=== PATIENT | female | born 1960 | race Caucasian/White ===

== ENCOUNTER → 2020-02-10 13:56 | Outpatient (BNVA) | payer MEDICAID, SELFPAY | PROVIDERS: Family Provider Family Medicine; PCP Family Medicine; Visit Provider Family Medicine | DX: E11.9 Type 2 diabetes mellitus without complications (principal) | CPT/HCPCS: 80048; 83036 ==

== ENCOUNTER → 2020-06-01 11:20 | Outpatient (BNVA) | payer MEDICAID, SELFPAY | PROVIDERS: Family Provider Family Medicine; PCP Family Medicine; Visit Provider Family Medicine | DX: E11.9 Type 2 diabetes mellitus without complications (principal); I10 Essential (primary) hypertension; J41.0 Simple chronic bronchitis; Z99.81 Dependence on supplemental oxygen; F41.9 Anxiety disorder, unspecified; M54.42 Lumbago with sciatica, left side; M54.41 Lumbago with sciatica, right side; G89.29 Other chronic pain | CPT/HCPCS: 80048; 83036 ==

== ENCOUNTER 2020-08-26 03:06 | Inpatient (IN) | payer MEDICAID, SELFPAY ==
[2020-08-26] VITALS (58 sets, daily range): BP systolic 114–170; BP diastolic 66–116; PULSE 60–89; RESP 15–33; TEMP 36.6–37.2; O2SAT 90–98
--- NOTE | 2020-08-26 03:07 | ECG_ITS ---
[facility] Test Date: 2020-08-26 Pat Name: Maru Man Department: Room: Gender: Female [employer]: : 1960 Requested By: George Brown Order Number: [id number] Toshia MD: Fermín Martinez M.D. Measurements Intervals [place] Rate: 66 P: 51 AK: 155 QRS: 6 QRSD: 98 T: 68 QT: 424 QTc: 445 Interpretive Statements SINUS RHYTHM WITH OCCASIONAL VENTRICULAR PREMATURE COMPLEXES Compared to ECG 05/25/2019 01:03:00 Ventricular premature complex(es) now present T-wave abnormality no longer present Electronically Signed On 08-26-2020 19:48:18 CDT by Fermín Martinez M.D. [email or web address] [facility] Groupwest [facility] medical centerFlitmercy [facility].[employer]/store/[id number]
--- NOTE | 2020-08-26 03:07 | XR_ITS ---
WS: [id number] Portable AP supine chest, 08/26/2020 Clinical Data: cp Comparison: Portable chest, 05/24/2019. Findings: No nodules, masses or effusions are seen. The heart is normal. The pulmonary vascularity is not increased. No pneumonia or pneumothorax is seen. The aortic arch and descending aorta are minima lly tortuous. XR/XR chest 1V portable [id number] Impression: Atherosclerosis.
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
--- NOTE | 2020-08-26 03:15 | CTR_ITS ---
PROCEDURE INFORMATION: Exam: CT Angiography Head With Contrast Exam date and time: 08/26/2020 3:21 AM Age: 59 years old Clinical indication: Speech disturbance and weakness; Aphasia; Patient HX: Sudden onset of left facial droop. Word salad/slurred speech, and left arm weakness. Initial bolus infiltrated. Small gauge iv established in distal forearm resulting in less than optimal injection rate. ; Additional info: MINER TECHNIQUE: Imaging protocol: Computed tomography angiography of the head with intravenous contrast. 3D rendering (Not supervised by radiologist): MIP and/or 3D reconstructed images were created by the technologist. Radiation optimization: All CT scans at this facility use at least one of these dose optimization techniques: automated exposure control; mA and/or kV adjustment per patient size (includes targeted exams where dose is matched to clinical indication); or iterative reconstruction. Contrast material: VISI 320; Contrast volume: 95 ml; Contrast route: INTRAVENOUS (IV); COMPARISON: CTA Head/Neck [id number] 09/26/2018 6:58 PM RADIATION DOSE METRICS: Total DLP (mGy-cm): 2528.5 FINDINGS: ANTERIOR CIRCULATION: Right internal carotid artery: High-grade narrowing estimated at 80 % supraclinoid right internal carotid artery. Right middle cerebral artery: Unremarkable. No occlusion or significant stenosis. No aneurysm. Right anterior cerebral artery: Unremarkable. No occlusion or significant stenosis. No aneurysm. Left internal carotid artery: Atheromatous change in left internal carotid artery mildly progressed but no significant narrowing. Left middle cerebral artery: Unremarkable. No occlusion or significant stenosis. No aneurysm. Left anterior cerebral artery: Unremarkable. No occlusion or significant stenosis. No aneurysm. POSTERIOR CIRCULATION: Right vertebral artery: Unremarkable. No occlusion or significant stenosis. No aneurysm. Left vertebral artery: Unremarkable. No occlusion or significant stenosis. No aneurysm. Basilar artery: Unremarkable. No occlusion or significant stenosis. No aneurysm. Right posterior cerebral artery: Unremarkable. No occlusion or significant stenosis. No aneurysm. Left posterior cerebral artery: Unremarkable. No occlusion or significant stenosis. No aneurysm. Brain: No definite mass, mass effect, or midline shift. Cerebral ventricles: No ventriculomegaly. Bones/joints: No acute findings. Soft tissues: Unremarkable. IMPRESSION: Progression of atheromatous change with associated new marked narrowing of supraclinoid right internal carotid artery up to 80%. PROCEDURE INFORMATION: Exam: CT Angiography Neck With Contrast Exam date and time: 08/26/2020 3:21 AM Age: 59 years old Clinical indication: Speech disturbance and weakness; Aphasia; Patient HX: Sudden onset of left facial droop. Word salad/slurred speech, and left arm weakness. Initial bolus infiltrated. Small gauge iv established in distal forearm resulting in less than optimal injection rate. ; Additional info: MINER TECHNIQUE: Imaging protocol: Computed tomography angiography of the neck with intravenous contrast. 3D rendering (Not supervised by radiologist): MIP and/or 3D reconstructed images were created by the technologist. Radiation optimization: All CT scans at this facility use at least one of these dose optimization techniques: automated exposure control; mA and/or kV adjustment per patient size (includes targeted exams where dose is matched to clinical indication); or iterative reconstruction. Contrast material: VISI 320; Contrast volume: 95 ml; Contrast route: INTRAVENOUS (IV); COMPARISON: CTA Head/Neck [id number] 09/26/2018 6:58 PM RADIATION DOSE METRICS: Total DLP (mGy-cm): 2528.5 FINDINGS: Right common carotid artery: 30% narrowing right common carotid artery. Right internal carotid artery: 40% narrowing proximal right internal carotid artery. Right external carotid artery: 40% narrowing proximal right external carotid artery. Right vertebral artery: No stenosis. No dissection or occlusion. Left common carotid artery: 40% narrowing left common carotid artery. Left internal carotid artery: 60% narrowing proximal left internal carotid artery. Left external carotid artery: 60% narrowing proximal left external carotid artery. Left vertebral artery: High-grade stenosis at origin of left vertebral artery of 80% or greater . Bones/joints: No acute fracture. Soft tissues: Normal. No significant soft tissue swelling. CT/CT angio headneck* [id number] IMPRESSION: Progression of atheromatous change. Marked narrowing of left vertebral artery origin estimated 80% or greater. Moderate narrowing left internal and external carotid arteries. Additional details as above. REFERENCES: NASCET CRITERIA. The degree of internal carotid artery stenosis is based on NASCET criteria. Normal is no stenosis. Mild is less than 50% stenosis. Moderate is 50-69% stenosis. Severe is 70% to 99% stenosis. Total occlusion is no detectable patent lumen. Radiation Dose CTDIVOL = (mGy): DLP = 2528.5~2528.5 (mGy-cm)
[2020-08-26 03:30] LABS: Basophils # 0.1 10^3/uL (0.0-0.1); Basophils % 0.5 %; Eosinophils # 0.2 10^3/uL (0.0-0.8); Eosinophils % 2.2 %; Hematocrit 45.4 % (37.0-47.0); Hemoglobin 14.7 g/dL (11.5-15.3); Lymphocytes # 2.9 10^3/uL (0.8-4.8); Lymphocytes % 31.1 %; Mean Corpuscular HGB Conc 32.4 g/dL (30.0-36.0); Mean Corpuscular Hemoglobin 29.1 pg (28.0-34.0); Mean Corpuscular Volume 89.7 fL (81-99); Mean Platelet Volume 10.3 fL (7.4-10.4); Monocytes # 0.7 10^3/uL (0.2-0.9); Monocytes % 7.3 %; Neutrophils # 5.38 10^3/uL (1.8-7.7); Neutrophils % 58.5 %; Nucleated Red Blood Cells % 0 %; Platelet Count 301 10^3/cmm (130-400); Red Blood Count 5.06 10^6/uL (4.1-5.3); Red Cell Distribution Width 14.6 % (12.1-15.1); White Blood Count 9.2 10^3/uL (4.0-10.0)
[2020-08-26] MEDS: labetalol 5 mg/mL SDV 20mL 10 MG IVP ×3 (03:30→04:59)
[2020-08-26 03:39] LABS: INR 0.89 (0.8-1.2)
[2020-08-26 03:40] LABS: Partial Thromboplastin Time 26.6 SECONDS (23.9-36.7)
[2020-08-26 03:48] LABS: Alanine Aminotransferase 15 U/L (0-33); Albumin Level 3.8 g/dL (3.5-5.2); Alkaline Phosphatase 89 IU/L (35-105); Anion Gap 11.9 (5-19); Aspartate Amino Transferase 14 U/L (0-32); Blood Urea Nitrogen 10 mg/dL (8-23); Calcium 8.5 mg/dL (8.5-10.5); Carbon Dioxide 29 mmol/L (22-29); Chloride 95 mmol/L (98-107); Creatinine Clr Calc Pharmacy 0.1809; Glomerular Filtration Rate 125.4 mL/min (90-130); Glucose 283 mg/dL (65-115); Osmolality Calculated 283 mOsm/kg (285-295); Potassium 3.9 mmol/L (3.5-5.1); Sodium 132 mmol/L (136-145); Total Bilirubin 0.2 mg/dL (0.15-1.2); Total Protein 7.8 g/dL (6.6-8.7)
[2020-08-26 04:08] LABS: Add Urine Microscopic? NO
[2020-08-26 04:10] LABS: Bilirubin Urine Neg (Negative); Blood Urine Neg (Negative); Glucose Urine UA 4+ (Normal); Ketones Urine Negative (Negative); Leukocyte Esterase Urine Negative (Negative); Nitrate Urine Negative (Negative); Protein Urine Neg (Negative); Specific Gravity, Urine 1.005 (1.005-1.030); Urine Appearance Clear (CLEAR); Urine Color Yellow (Yellow); Urobilinogen Urine Norm (Negative); pH Urine 7 (5-7)
[2020-08-26 04:19] LABS: Amphetamines Screen Urine Negative (Negative); Barbiturates Screen Urine Negative (Negative); Benzodiazepines Screen Urine Positive (Negative); Cocaine Screen Urine Negative (Negative); Opiate Screen Urine Negative (Negative); PCP Screen Urine Negative (Negative); THC Screen Urine Negative (Negative)
[2020-08-26 04:33] LABS: Troponin(5th) Baseline 23 ng/L (0-10)
[2020-08-26] MEDS: iodixanol 320 mg/mL 100mL Btl IV (04:38)
--- NOTE | 2020-08-26 05:12 | P.HP_ITS ---
Providers/Chief Complaint Primary Care Provider: Shamika Harding MD Chief Complaint: STROKE ALERT History of Present Illness Maru Man is a 59 year old female who presented to the hospital with chief complaint of chest pain. Patient is stating that she has been under stress for last 4 to 5 days because of her grandson's drug addiction. She smokes on a daily basis, lives alone. Last night after dinner she started experiencing chest discomfort which initially she attributed to GERD/acid reflux, she went to bed and just could not sleep & around 2AM she called her ex- and ambulance because of worsening chest discomfort. She is describing this pain as burning, radiating up her jaw and towards left arm, it lasted un til she received medications in the ER(she received labetalol and TPA she was never given nitroglycerin or morphine). During her ride to the hospital in the ambulance she started having facial droop, right gaze preference, left arm weakness, slurred speech, this was around 2:45 AM. Code stroke was called, NIH 14 on arrival, CT head unremarkable for bleed, Dr. Cuevas was consulted, TPA was administered. She received labetalol 10 mg x 3 for hypertension. I saw her after her TPA administration in the ER, NIH 6, her speech was not slurred at all, was at the bedside who endorsed improvement in her symptoms. Patient was chest pain-free she was saturating well on room air her blood pressure was 131/91 mmHg, she was able to mention above HPI she was awake and alert oriented x3 Diagnostic work-up in the ER: Normal CBC and BMP EKG shows sinus rhythm with normal QTc interval with PVCs no ischemic or infarct changes troponin XX 3, CT head unremarkable, showing chronic vascular changes, left thalamic chronic lesion CTA head and neck progression of atheromatous change. Marked narrowing of left vertebral artery origin estimated 80% or greater. Moderate narrowing left internal and external carotid arteries Right common carotid artery: 30% narrowing right common carotid artery. Right internal carotid artery: 40% narrowing proximal right internal carotid artery. Right external carotid artery: 40% narrowing proximal right external carotid artery. Right vertebral artery: No stenosis. No dissection or occlusion. Left common carotid artery: 40% narrowing left common carotid artery. Left internal carotid artery: 60% narrowing proximal left internal carotid artery. Left external carotid artery: 60% narrowing proximal left external carotid artery. Left vertebral artery: High-grade stenosis at origin of left vertebral artery of 80% or greater Review of Systems Const: Denies: fever(s) Eyes: Denies: change in vision ENMT: Denies: throat pain Card: Reports: chest pain; Denies: swelling of feet/ankles, dyspnea on exertion or orthopnea Resp: Denies: dyspnea GI: Denies: abdominal pain : Denies: flank pain Musc: Denies: neck pain Skin/Breast: Denies: lesions Neuro: Reports: weakness in extremities and difficulty walking; Denies: headache(s) Psych: Reports: anxiety Endo: Denies: polyuria Saud/Lymph: Denies: easy bruising All/Imm: Denies: urticaria Medications/Allergies Home Medications Medication Instructions Recorded Confirmed Last Taken Type lactulose 20 gram/30 mL oral 20 gm PO BID 30 Days #1800 ml 06/24/19 06/01/20 Unknown Rx solution ibuprofen 800 mg tablet 800 mg PO BID 90 Days #180 tab 08/26/19 06/01/20 Unknown Rx pantoprazole 40 mg tablet,delayed 40 mg PO DAILY 90 Days #90 tab 10/07/19 06/01/20 Unknown Rx release duloxetine 60 mg capsule,delayed 60 mg PO DAILY 90 Days #90 cap 10/14/19 06/01/20 Unknown Rx release albuterol sulfate 90 mcg/actuation 2 puff INHALATION Q6H PRN 10/30/19 06/01/20 Unknown History aerosol inhaler budesonide-formoterol HFA 160 2 puff INHALATION BID 10/30/19 06/01/20 Unknown History mcg-4.5 mcg/actuation aerosol inhaler insulin syringe-needle U-100 1 mL #100 each 12/05/19 06/01/20 Unknown Rx 31 gauge x /16 albuterol sulfate 5 mg/mL(0.5 %) 2.5 mg INHALATION Q6H PRN #20 ml 01/02/20 06/01/20 Unknown Rx solution for nebulization docusate sodium 100 mg capsule 100 mg PO BID #60 cap 02/10/20 06/01/20 Unknown Rx amlodipine 5 mg tablet 5 mg PO DAILY #90 tab 02/26/20 06/01/20 Unknown Rx sitagliptin 100 mg tablet 100 mg PO DAILY #90 tab 03/09/20 06/01/20 Unknown Rx famotidine 40 mg tablet 40 mg PO DAILY #30 tab 05/04/20 06/01/20 Unknown Rx oxybutynin chloride 5 mg tablet 5 mg PO QDAY #30 tab 05/05/20 06/01/20 Unknown Rx alprazolam 0.5 mg tablet 0.5 mg PO BID PRN #60 tab 05/06/20 06/01/20 Unknown Rx fluconazole 150 mg tablet 150 mg PO .ONCE A WEEK #2 tab 06/01/20 06/01/20 Unknown Rx cetirizine 10 mg tablet 10 mg PO DAILY 30 Days #30 tab 07/27/20 Unknown Rx insulin glargine 100 unit/mL 60 unit SUBCUT .BEDTIME #10 ml 07/27/20 Unknown Rx subcutaneous solution fluticasone propionate 50 2 spray INTRANASAL DAILY #16 gm 08/05/20 Unknown Rx mcg/actuation nasal spray,suspension Allergies Allergy/AdvReac Type Severity Reaction Status Date / Time metformin Allergy upset Verified 06/01/20 10:27 stomach Sulfa (Sulfonamide Allergy upsets Verified 06/01/20 10:27 Antibiotics) stomach PFSH Acute PFSH: Medical History Anxiety Chronic back pain COPD (chronic obstructive pulmonary disease) CVA (cerebral vascular accident) Diabetes Hypertension Hypoestrogenism Nicotine dependence with current use Recurrent major depression Urinary incontinence Surgical History History of bladder surgery History of cholecystectomy History of total hysterectomy Family History Other Family history non-contributory Social History Smoking and tobacco status: current every day smoker Alcohol intake: never Substance/Drug Use: never Lives independently: Yes Housing: House Vitals/I&O/Wt Last Vital Signs Temp 97.9 F 08/26/20 03:34 Pulse 74 08/26/20 04:59 Resp 21 H 08/26/20 04:59 BP 160/105 08/26/20 04:59 Pulse Ox 93 08/26/20 04:59 Weight last 48 hrs Weight 97 g Physical Exam Narrative: EXAM NARRATIVE: This is a very pleasant middle-aged female who appears more than stated age She was sitting comfortably when I entered the room she was saturating well on room air, NIH score 6 Her speech was not slurred she was able to understand my questions, she is a bit hard of hearing otherwise was following my commands very well Mentioned above HPI, weakness of left arm show some activity against gravity, bilateral lower extremities weakness noted, sensation is intact, she is able to fold her legs and stretch out on her own but not against resistance I did not appreciate any facial droop, no gaze preference S1, S2 sinus rhythm no murmur appreciated Bilateral breath sounds no adventitious rhonchi or crackles no audible wheezing or stridor Abdomen soft nontender bowel sounds present No extremity no edema gangrene or ulcers Appropriate mood and affect Data : 08/26/20 03:23 08/26/20 03:23 A&P Assessment and plan (1) Cerebrovascular accident: Status: Acute Qualifiers: CVA mechanism: unspecified Qualified Code(s): I63.9 - Cerebral infarction, unspecified (2) Chest pain: Status: Acute (3) Anxiety: Status: Acute (4) Chronic back pain: Status: Acute Qualifiers: Back pain location: low back pain Back pain laterality: bilateral Sciatica presence: with sciatica Sciatica laterality: bilateral sciatica Qualified Code(s): M54.42 - Lumbago with sciatica, left side; M54.41 - Lumbago with sciatica, right side; G89.29 - Other chronic pain Additional A&P Information Acute CVA On arrival NIH 14, after TPA NIH 6 Blood pressure is 124/73 mmHg, Passed bedside swallow evaluation EKG shows sinus rhythm CTA head and neck reviewed, it is showing intracranial right internal carotid atherosclerotic process, left internal carotid 60% narrowing will add aspirin and statin PT/OT I requested social and political studies professor consult for possible fpc placement however patient does not want to go to any rehab or fpc at this point, currently reevaluate and discuss with the family daughter and son one more time, ex- was present in the room at the time of my evaluation, Will follow up with Dr. Cuevas's recommendations Admit to ICU status post TPA, will get CT head tomorrow as well as follow-up I will keep labetalol for as needed use to keep blood pressure within target range Chest pain Patient is endorsing burning sensation which was radiating towards her left arm and jaw troponin XX 3 EKG showing sinus rhythm no ischemic or infarct changes, will request D-dimer to rule out PE Her chest x-rays consistent with COPD changes DuoNeb every 4 Anxiety No acute exacerbation will use Ativan if needed, Type 2 diabetes Target blood glucose 100 4280 we will keep her on moderate sliding scale I would reduce her Lantus to 40 units instead of 60 Consistent carb diet Full code DVT prophylaxis contraindicated after TPA kindly resume it tomorrow Attestations Medical Necessity Statement*: Anticipating stay in the hospital cross more than 2 midnights, will follow up with Dr. Cuevas's recommendation she will most likely need rehab Time Spent in Patient Care: (>than 50% of time spent in counselling and/or direct pt care on unit) . 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
--- NOTE | 2020-08-26 06:12 | ECG_ITS ---
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 Measurements Intervals [place] Rate: 65 P: 46 TN: 159 QRS: -6 QRSD: 102 T: 53 QT: 437 QTc: 454 Interpretive Statements SINUS RHYTHM INFERIOR MYOCARDIAL INFARCTION , PROBABLY OLD [40+ ms Q WAVE AND/OR ST/T ABNORMALITY IN II/aVF] Compared to ECG 08/26/2020 03:26:55 Myocardial infarct finding now present Ventricular premature complex(es) no longer present Electronically Signed On 08-26-2020 19:54:22 CDT by Ferímn Martinez M.D. [id number]
[2020-08-26 06:58] LABS: Troponin 5 2HR 66.87 ng/L (0-10)
[2020-08-26 07:27] LABS: Troponin 5 2HR Delta 43.87 ABS# (0-10)
--- NOTE | 2020-08-26 07:56 | PM.SAN ---
Stroke Alert Activation ED Arrival Date: 08/26/20 ED Arrival Time: 03:07 ED Physican at Bedside: 03:07 Last Known Normal/at Baseline: < 1 hour ago Other Last Known Well Infomation: Stroke team was activated at 2:55 AM by [facility]. Flip reported that they were called to the home of this 59-year-old woman because she was having chest pain. She had been awake because her chest was hurting and while they were there evaluating her, she suddenly developed left hemiplegia with right gaze preference. Her speech was slurred. They activated the stroke team in route to [facility]. I called the emergency room at 255 and got a report from the figure clerk and asked her to let Dr. Brown know that I was standing by. Dr. Brown called me back at 3:11 AM after the CAT scan had been completed and he had performed an NIH stroke scale. Her blood pressure was controlled. Her bedside glucose was unremarkable. EMS reported that she was on no anticoagulants and that was confirmed on her chart. Her CT scan did not show signs of a bleed although at the time I talked with Dr. Brown, he was awaiting confirmation from virtual radiology. I offered to do FaceTime and review the CAT scan but he was confident that by the time they got an IV started, he would have a report back from vR. We agreed that the patient should receive TPA as soon as possible followed by CT angiogram looking for right middle cerebral artery embolus because of her high stroke scale score. That was completed and results will be placed below. She has severe vertebral artery stenosis and bilateral carotid stenosis. Stroke Alert Activated by: [facility] Stroke Alert Activation Time: 02:55 Stroke MD @ Bedside Time: 02:55 NIH Stroke Scale Time: 03:07 NIH Stroke Scale Score: NIH Stroke Scale Score: 14 Stroke Alert Data/Treatment Time to CT of Head: 03:07 Stroke Risk Factors: hypertension, diabetes mellitus and smoker tPA Started Time: tPA Started - Time: 03:42 tPA Admin Prior to Arrival: No Patient & Family Educated on: tPA Risks/Benefits Other Information: COMPARISON: CTA Head/Neck [id number] 09/26/2018 6:58 PM ANTERIOR CIRCULATION: Right internal carotid artery: High-grade narrowing estimated at 80 % supraclinoid right internal carotid artery. Right middle cerebral artery: Unremarkable. No occlusion or significant stenosis. No aneurysm. Right anterior cerebral artery: Unremarkable. No occlusion or significant stenosis. No aneurysm. Left internal carotid artery: Atheromatous change in left internal carotid artery mildly progressed but no significant narrowing. Left middle cerebral artery: Unremarkable. No occlusion or significant stenosis. No aneurysm. Left anterior cerebral artery: Unremarkable. No occlusion or significant stenosis. No aneurysm. IMPRESSION: Progression of atheromatous change with associated new marked narrowing of supraclinoid right internal carotid artery up to 80%. PROCEDURE INFORMATION: Exam: CT Angiography Neck With Contrast Exam date and time: 08/26/2020 3:21 AM COMPARISON: CTA Head/Neck [id number] 09/26/2018 6:58 PM Progression of atheromatous change. Marked narrowing of left vertebral artery origin estimated 80% or greater. Moderate narrowing left internal and external carotid arteries. Critical Care Time Critical Care Time: less than 30 mins A&P Assessment and plan (1) Acute right arterial ischemic stroke, middle cerebral artery (MCA): This 59-year-old woman was experiencing chest pain and suddenly developed left hemiparesis with right gaze preference consistent with right middle cerebral artery ischemia. She was hypertensive in the emergency room and was difficult IV access so that TPA was delayed, although still administered within 30 minutes of arrival. She received TPA within an hour of onset of symptoms and so her prognosis for recovery is good. She has narrowing of the right carotid artery in the supraclinoid portion which is not accessible to surgical treatment. She has asymptomatic high-grade stenosis of the left vertebral artery at its origin, which could at some point be considered for stent if she is doing well otherwise. The best plan for treatment in this 59-year-old diabetic hypertensive is aggressive management of her risk factors, dual antiplatelet therapy, initiation of lifestyle changes including smoking cessation and aggressive exercise program (30-minute walk per day). Repeat CT scan of the head to assure that there was no bleeding as a consequence of the TPA and if she is doing well she can be discharged. 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
[2020-08-26 08:10] LABS: D Dimer 0.71 ug/mIFEU (0-0.59)
[2020-08-26] MEDS: atorvastatin 40 mg Tablet 80 MG PO (08:14)
[2020-08-26] MEDS: amlodipine 5 mg Tablet PO (08:14)
[2020-08-26] MEDS: duloxetine 60 mg Capsule PO (08:14)
[2020-08-26] MEDS: famotidine 20 mg Tablet 40 MG PO (08:14)
--- NOTE | 2020-08-26 08:20 | PC.NURSE ---
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
--- NOTE | 2020-08-26 08:47 | PC.PHAR ---
PT UNABLE TO VERIFY MEDICATIONS-PT STATES SHE HAS A NURSE FROM [facility] THAT SETS UP HER MEDICATIONS-PT STATES SHE USES HER LANTUS 40 UNITS BID-[facility] ALSO HAS 40 UNITS BID-EXT MED HISTORY SHOWS LAST FILLED ON 08/19/20 FOR 60 UNITS HS-MEDICATIONS ENTERED ARE MEDICATIONS FROM THE PTS HOME HEALTH LIST AND EXT MED HISTORY-PT STATES SHE TAKES NO OTC MEDICATIONS
--- NOTE | 2020-08-26 09:35 | P.PN_ITS ---
Subjective Subjective: Interval history: Patient was seen and examined this morning.Currently she wants to go home and was asking to smoke.Deny any weakness,difficulty with speech,headache,nausea,vomiting. Blood Pressure is well controlled. Medications: Reviewed: Yes Vitals/I&O/Wt Last Vital Signs Temp 97.9 F 08/26/20 06:56 Pulse 67 08/26/20 09:15 Resp 20 H 08/26/20 09:15 BP 128/69 08/26/20 09:15 Pulse Ox 93 08/26/20 09:15 08/25/20 08/26/20 08/26/20 22:59 06:59 14:59 Intake Total 120 / 120 Balance 120 / 120 Weight last 48 hrs Weight 97 g Physical Exam Const: COMMON NORMALS: patient oriented x3 and alert ORIENTATION/CONSCIOUSNESS: Yes oriented to person, Yes oriented to place and Yes oriented to time HENMT: COMMON NORMALS: normocephalic and atraumatic HEAD & SCALP: normocephalic and atraumatic Chest: CHEST: Yes Symmetrical chest wall rise Resp: COMMON NORMALS: normal respiratory effort and clear to auscultation bilaterally EFFORT & INSPECTION: Yes symmetric chest movement AUSCULTATION: clear to auscultation bilaterally Cardio: COMMON NORMALS: regular rate, regular rhythm, S1 normal heart sound present, S2 normal heart sound present, No gallops present (Cardio), No murmurs present (Cardio), No rub (Cardio) and Peripheral pulses 2+ throughout RATE: regular rate RHYTHM: regular rhythm HEART SOUNDS: S1 normal heart sound present and S2 normal heart sound present PERIPHERAL PULSES: Peripheral pulses 2+ throughout GI: COMMON NORMALS: Normal to inspection, nondistended, normoactive bowel sounds present, Soft to palpation, non-tender, No hepatosplenomegaly present and no masses AUSCULTATION: Yes normoactive bowel sounds PALPATION: Yes Soft to palpation and Yes No hepatosplenomegaly present RECTAL EXAM: deferred Extremity: COMMON NORMALS: no clubbing, cyanosis or edema and no pedal edema Neuro: COMMON NORMALS: patient oriented x3, CN's II-XII intact bilaterally, moves all extremities and no focal motor deficits SENSORIUM/ORIENTATION: Yes alert, Yes oriented to person, Yes oriented to place and Yes oriented to time SPEECH: speech normal MOTOR EXAM: 5/5 motor strength present throughout, Pronator motor function not present, no tremor noted, no asterixis, Motor fasciculations not present, Normal motor muscle tone present throughout and Motor abnormalities not present Data : 08/26/20 03:23 08/26/20 03:23 A&P Assessment and plan (1) Acute right arterial ischemic stroke, middle cerebral artery (MCA): 59-year-old woman was experiencing chest pain and suddenly developed left hemiparesis with right gaze preference consistent with right middle cerebral artery ischemia.S/P TPA. CT. Head without contrast : No acute intracranial abnormality. CTA Head and Neck : Left vertebral artery: High-grade stenosis at origin of left vertebral artery of 80% or greater . Right internal carotid artery: High-grade narrowing estimated at 80 % supraclinoid right internal carotid artery. Right common carotid artery: 30% narrowing right common carotid artery. Right internal carotid artery: 40% narrowing proximal right internal carotid artery. Right external carotid artery: 40% narrowing proximal right external carotid artery. Right vertebral artery: No stenosis. No dissection or occlusion. Left common carotid artery: 40% narrowing left common carotid artery. Left internal carotid artery: 60% narrowing proximal left internal carotid artery. Left external carotid artery: 60% narrowing proximal left external carotid artery. Repeat C.T Head without Contrast : is of the opinion that : right carotid artery in the supraclinoid portion is not accessible to surgical treatment. Asymptomatic high-grade stenosis of the left vertebral artery at its origin, : could at some point be considered for stent. Aspirin 81 mg po daily Plavix 75 mg po daily Lipitor 40 mg po daily PT/OT Speech Evaluation Status: Acute (2) Chest pain: Her initial presenting complain was chest pain.Currently she deny chest pain. Has high r/f which includes: HTN, DM, Current Smoker, Troponin trend : Has significant delta. EKG : NSR with old IWMI 2D Echo Stress Test in am Appreciate Cardiology consult Status: Acute (3) Vertebral artery stenosis: Status: Acute (4) COPD (chronic obstructive pulmonary disease): Currently not in exacerbation DUO Nebs PRN Status: Acute Qualifiers: COPD type: chronic bronchitis Chronic bronchitis type: simple Qualified Code(s): J41.0 - Simple chronic bronchitis (5) Diabetes: Lantus 40 sc at bedtime LDSSI FSG Hba1c: Status: Acute Qualifiers: Diabetes mellitus complication status: without complication Diabetes mellitus longterm insulin use: without longterm use Diabetes mellitus type: type 2 Qualified Code(s): E11.9 - Type 2 diabetes mellitus without complications (6) Hypertension: Currently B/P is well controlled.Post Tpa Goals ( < 180 / 105 ) Status: Acute Qualifiers: Hypertension type: essential hypertension Qualified Code(s): I10 - Essential (primary) hypertension (7) Nicotine dependence with current use: Nicotine Patch Counselled regarding smoking cessation Status: Acute Additional A&P Information Code Status : Full Code Disposition : Home Attestations Medical Necessity Statement*: Patient needs to be in hospital for the management of Stroke and chest pain Coding Level of Care Code 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
--- NOTE | 2020-08-26 09:35 | PC.NURSE ---
Niece, Michelle Santana, called wanting information. Patient gives permission. Niece updated.
--- NOTE | 2020-08-26 09:52 | PC.NURSE ---
Patient insistent on sitting up in chair. Patient transferred to chair by this nurse, standby assist. Patient close to nurses station, AAOx4, call light within reach.
--- NOTE | 2020-08-26 09:54 | USCV_ITS ---
Maru Man Age: 59 Gender: F : 1960 Exam Date: 08/26/2020 15:36 Ordering Phys: Stan Rayo MD Technologist: Clarissa Reveles Exam Location: [facility] [place] Indication: CVA, NSTEMI BP: 143 / 89 HR: 75 Rhythm: Sinus Technical Quality: Very technically difficult study MEASUREMENTS (Male / Female) Normal Values 2D ECHO LV Diastolic Diameter PLAX 3.4 cm 4.2 - 5.9 / 3.9 - 5.3 cm LV Systolic Diameter PLAX 3.3 cm LV Chamber Size 3.5 cm IVS Diastolic Thickness 1.6 cm 0.6 - 1.0 / 0.6 - 0.9 cm IVS Systolic Thickness 1.6 cm LVPW Diastolic Thickness 1.6 cm 0.6 - 1.0 / 0.6 - 0.9 cm LVPW Systolic Thickness 1.8 cm RV Chamber Size 2.8 cm LVOT Diameter 2.0 cm LV Ejection Fraction 2D Teich 11.1 % LV Ejection Fraction MOD 2C 69.1 % LV Ejection Fraction 2C AL 69.4 % LA Diameter 4.2 cm LA Width 2.8 cm LA Height 3.9 cm RA Width 3.2 cm RA Height 3.7 cm Aorta at Sinotubular Diameter 2.9 cm M-MODE LV Diastolic Diameter MM 3.1 cm 4.2 - 5.9 / 3.9 - 5.3 cm LV Systolic Diameter MM 2.4 cm LV Ejection Fraction MM Teich 44.4 % IVS Diastolic Thickness MM 1.2 cm 0.6 - 1.0 / 0.6 - 0.9 cm IVS Systolic Thickness MM 1.6 cm LVPW Diastolic Thickness MM 1.3 cm 0.6 - 1.0 / 0.6 - 0.9 cm LVPW Systolic Thickness MM 1.9 cm Aortic Annulus Diameter 3.2 cm LA Ao Ratio MM 1.4 MV E Point Septal Separation 0.7 cm DOPPLER AV Peak Velocity 151.0 cm/s LVOT Peak Velocity 114.0 cm/s AV Area Cont Eq vti 3.1 cm squared AV Area Cont Eq pk 2.5 cm squared MV Area PHT 3.1 cm squared Mitral E to A Ratio 0.8 MV E' Velocity 38.5 cm/s Mitral E to MV E' Ratio 13.4 Mitral E to LV E' Lateral Ratio 15.7 Mitral E to LV E' Septal Ratio 11.8 TR Peak Velocity 137.0 cm/s TR Peak Gradient 7.5 mmHg TR Mean Velocity 98.3 cm/s TR Mean Gradient 4.5 mmHg TR Velocity Time Integral 38.9 cm Right Atrial Pressure 3.0 mmHg Pulmonary Artery Systolic Pressu 10.5 mmHg PV Peak Velocity 38.0 cm/s RV Acceleration Time 0.2 s RV Ejection Time 0.3 s RV AcT/ET 0.5 FINDINGS Left Ventricle Normal left ventricular size and systolic function with no daignostic regional wall motion abnormalities. Left ventricular ejection fraction is estimated at 65-70 %. Grade II diastolic dysfunction, moderately elevated filling pressures. Right Ventricle Normal right ventricular size and systolic function. Right ventricular systolic pressure 10.5 mmHg. Right Atrium Normal right atrial size. Left Atrium Normal left atrial size. Mitral Valve Mildly thickened mitral valve. No mitral valve stenosis. No mitral valve regurgitation. Aortic Valve Aortic valve not well visualized. No aortic valve stenosis. No aortic valve regurgitation. Tricuspid Valve Tricuspid valve not well visualized. Pulmonic Valve Pulmonic valve not well visualized. Pericardium No pericardial effusion. Aorta Aorta not well visualized. CONCLUSIONS 1. Normal left ventricular size and systolic function with no diagnostic regional wall motion abnormalities. Left ventricular ejection fraction is estimated at 65-70 %. Grade II diastolic dysfunction, moderately elevated filling pressures. 2. No significant valvular abnormality. 3. Normal pulmonary artery pressure. 4. No significant change when compared to previous study dated 09/30/2018. Suzy Hinson MD (Electronically Signed) Final Date: 27 August 2020 06:49 S
--- NOTE | 2020-08-26 10:12 | ECG_ITS ---
[facility] Test Date: 2020-08-26 Pat Name: Maru Man Department: Room: ICU03 Gender: Female Access Specialist: : 1960 Requested By: George Brown Order Number: [id number] Toshia MD: Fermín Martinez M.D. Measurements Intervals [place] Rate: 77 P: 52 IN: 149 QRS: 6 QRSD: 106 T: 66 QT: 408 QTc: 463 Interpretive Statements SINUS RHYTHM Compared to ECG 08/26/2020 06:32:17 Myocardial infarct finding no longer present Electronically Signed On 08-26-2020 19:56:01 CDT by Fermín Martinez M.D. [id number]
--- NOTE | 2020-08-26 10:13 | PC.CHAP ---
Pastoral Care Encounter/Spiritual Assessment Type of Contact [] Declined configuration manager visit [] Patient/Family/Request visit [] Outpatient visit [] Follow-up visit [] Physician referral [] Code/Alert [] Routine visit [] Staff referral [] Actively dying [] Patient sleeping [] Family support [] [] Out of room [] Palliative care [] [] Receiving care in room [] Pre-surgical visit [] Trauma [] Long length of stay [x] ICU visit [] Other: Relational/Emotional Strength [x] Patient feels connected with others/family/visitors/staff [x] Distress [] Loneliness/isolation [] Abandonment Spirituality of Patient [x] Person of Samantha [] Attends Adventist of their Samantha [x] Believes in Prayer [] Reads Bible or Bahai materials [x] There are Spiritual issues to be addressed Staffing Recruiter Interventions [x] Prayer [x] Active listening [x] Non-anxious presence [x] Spiritual/emotional support [] Crisis/trauma care [] Spiritual counseling [] Bereavement support [] Provided bereavement packet [] Provided Bible/devotional materials [] Provided toy/stuffed animal, coloring book to patient or family member [] Provided Communion [] Anointing/Ovid [] Salvation [x] Completed spiritual assessment [] Other: Impact on Illness or Injury [] Angry [x] Fearful [x] Anxious [] Often cries [] Exhaustion [] Unable to work [] Unable to attend jehovah's witness [] Unable to walk/stand [] Unable to read [] Unable to drive [] Unable to eat/drink [] Unable to sleep [] Unable to be with family [] Patient intubated [] Other: Summary Pt lives alone and is worried she will have to go to rehab or a lobsterman care facility. She does not have immediate family in the area, her family lives in [place] so her support is limited. She does have in home health care coming in to assist with her needs. She expressed she is a person of samantha but is not connected with a local roman catholic group. She did request prayer. Time spent with patient 15m
[2020-08-26 10:35] LABS: Glucose Point of Care 199 mg/dL (70-110)
[2020-08-26] MEDS: nicotine 21 mg Patch 1 PATCH TRANSDERMA (11:03)
[2020-08-26 11:12] LABS: Glucose Point of Care 169 mg/dL (70-110)
[2020-08-26 11:31] LABS: Troponin 5 6HR 121.4 ng/L (0-10); Troponin 5 6HR Delta 98.4 ng/L (0-12)
--- NOTE | 2020-08-26 15:27 | P.CONIM_ITS ---
Providers/Reason For Consult Consulting Physican/Specialty*: Dr. Hinson, Cardiology Reason for Consult*: CVA, elevated troponin Attending Physician: Stan Rayo MD Primary Care Provider: Shamika Harding MD History of Present Illness History of Present Illness Maru Man is a 59 year old female with PMHx of IDDM, GERD and HTN who presented to the hospital with chief complaint of chest pain. She smokes on a daily basis and lives alone. She does have PLANT WRAPPER and visiting nurse. Last night after dinner she had some chest discomfort which initially she attributed to acid reflux and went to bed. Around 2AM she called her ex- and ambulance because of worsening chest discomfort.She also noted slurred speech and left sided weakness. She is describing this pain as pressure like radiating to back. It lasted until she received medications in the ER(she received labetalol and TPA she was never given nitroglycerin or morphine). Stroke alert was called, NIH 14 on arrival, CT head unremarkable for bleed. Dr. Cuevas was consulted and TPA was administered. She received labetalol 10 mg x 3 for hypertension. Patient was chest pain-free she was saturating well on room air this morning. At the time of evaluation though she complains of chest pain 02/05. No EKG changes n oted. She tells me several years back she had treadmill stress test. Review of Systems General: Reports: 10 or more systems reviewed and unremarkable except in HPI and below Const: Denies: fever(s) Eyes: Denies: change in vision ENMT: Denies: throat pain Card: Reports: chest pain; Denies: swelling of feet/ankles, dyspnea on exertion or orthopnea Resp: Denies: dyspnea GI: Denies: abdominal pain : Denies: flank pain Musc: Denies: neck pain Skin/Breast: Denies: lesions Neuro: Reports: weakness in extremities, difficulty walking and Slurred speech present; Denies: headache(s) Psych: Reports: anxiety Endo: Denies: polyuria Saud/Lymph: Denies: easy bruising All/Imm: Denies: urticaria Meds/Allergies Home Medications and Allergies Home Medications Medication Instructions Recorded Confirmed Last Taken Type ibuprofen 800 mg tablet 800 mg PO BID 90 Days #180 tab 08/26/19 08/26/20 Unknown Rx pantoprazole 40 mg tablet,delayed 40 mg PO DAILY 90 Days #90 tab 10/07/19 08/26/20 Unknown Rx release duloxetine 60 mg capsule,delayed 60 mg PO DAILY 90 Days #90 cap 10/14/19 08/26/20 Unknown Rx release albuterol sulfate 90 mcg/actuation 2 puff INHALATION Q6H PRN 10/30/19 08/26/20 Unknown History aerosol inhaler insulin syringe-needle U-100 1 mL #100 each 12/05/19 08/26/20 Unknown Rx 31 gauge x 5/16 albuterol sulfate 5 mg/mL(0.5 %) 2.5 mg INHALATION Q6H PRN #20 ml 01/02/20 08/26/20 Unknown Rx solution for nebulization docusate sodium 100 mg capsule 100 mg PO BID #60 cap 02/10/20 08/26/20 Unknown Rx amlodipine 5 mg tablet 5 mg PO DAILY #90 tab 02/26/20 08/26/20 Unknown Rx sitagliptin 100 mg tablet 100 mg PO DAILY #90 tab 03/09/20 08/26/20 Unknown Rx famotidine 40 mg tablet 40 mg PO DAILY #30 tab 05/04/20 08/26/20 Unknown Rx alprazolam 0.5 mg tablet 0.5 mg PO BID PRN #60 tab 05/06/20 08/26/20 Unknown Rx cetirizine 10 mg tablet 10 mg PO DAILY 30 Days #30 tab 07/27/20 08/26/20 Unknown Rx fluticasone propionate 50 2 spray INTRANASAL DAILY #16 gm 08/05/20 08/26/20 Unknown Rx mcg/actuation nasal spray,suspension hydrocodone-acetaminophen 1 tab PO Q8H PRN 08/26/20 08/26/20 Unknown History insulin glargine [Lantus U-100 See Rx Instructions .ROUTE .COMPLEX 08/26/20 08/26/20 Unknown History Insulin] oxybutynin chloride 5 mg PO DAILY 08/26/20 08/26/20 Unknown History Allergies Allergy/AdvReac Type Severity Reaction Status Date / Time metformin Allergy upset Verified 08/26/20 08:47 stomach Sulfa (Sulfonamide Allergy upsets Verified 08/26/20 08:47 Antibiotics) stomach Current Medications Current Medications Generic Name Dose Route Start Last Admin Trade Name Freq PRN Reason Stop Dose Admin Amlodipine Besylate 5 mg 08/26/20 09:00 08/26/20 08:14 Amlodipine 5 Mg Tablet PO 5 mg DAILY REBECCA Administration Duloxetine HCl 60 mg 08/26/20 09:00 08/26/20 08:14 Duloxetine 60 Mg Capsule PO 60 mg DAILY REBECCA Administration Famotidine 40 mg 08/26/20 09:00 08/26/20 08:14 Famotidine 20 Mg Tablet PO 40 mg DAILY REBECCA Administration Insulin Aspart 0 unit 08/26/20 08:00 08/26/20 11:34 Insulin Aspart 100 Unit/1 Ml SUBCUT 4 unit WM&BEDTIME REBECCA Administration Protocol Nicotine 1 patch 08/26/20 11:00 08/26/20 11:03 Nicotine 21 Mg Patch TRANSDERMA 1 patch DAILY REBECCA Administration PFSH Acute PFSH: Medical History Anxiety Chronic back pain COPD (chronic obstructive pulmonary disease) CVA (cerebral vascular accident) Diabetes Hypertension Hypoestrogenism Nicotine dependence with current use Recurrent major depression Urinary incontinence Surgical History History of bladder surgery History of cholecystectomy History of total hysterectomy Family History Other Family history non-contributory Social History Smoking and tobacco status: current every day smoker Alcohol intake: never Substance/Drug Use: never Lives independently: Yes Housing: House Vitals/I&O/Wt Last Vital Signs Temp 97.9 F 08/26/20 06:56 Pulse 71 08/26/20 15:15 Resp 18 08/26/20 15:15 BP 142/87 08/26/20 15:15 Pulse Ox 95 08/26/20 15:15 08/26/20 08/26/20 08/26/20 06:59 14:59 22:59 Intake Total 240 / 240 Balance 240 / 240 Weight last 48 hrs Weight 3.422 oz Physical Exam Const: COMMON NORMALS: no acute distress, patient oriented x3 and alert GENERAL APPEARANCE: cooperative, comfortable, well kempt and well hydrated HENMT: COMMON NORMALS: normocephalic, atraumatic, hearing grossly normal bilaterally, external ears normal, Normal external nose present and moist oral mucous membranes HEAD & SCALP: normocephalic and atraumatic FACE & SINUS: normal facial exam and sinuses nontender; no edema NOSE: Normal external nose present, Normal septum present and No nasal discharge present; no Epistaxis present EXTERNAL EAR: Yes external ears normal MOUTH: lip normal and tongue normal; no drooling and no malodorous breath TEETH & GINGIVA: Yes dentures and Yes edentulous; no caries THROAT: tonsils normal and postnasal drainage Eye: COMMON NORMALS: Equal, round and reactive pupils present, EOMs intact bilaterally, conjunctivae normal and no scleral icterus GENERAL EYE: appearance normal, both eyes and all related structures ALIGNMENT: Yes alignment normal PERIORBITAL: periorbital findings normal EYELID: eyelids normal CONJUNCTIVA: Yes conjunctivae normal SCLERA: sclerae normal PUPIL: Yes Equal, round and reactive pupils present Neck/C-Spine: COMMON NORMALS: no lymphadenopathy, supple, no meningeal signs, no JVD and Thyroid normal GENERAL: Yes normal visual inspection, Yes trachea midline and No Mass present (neck) THYROID: Thyroid normal CAROTIDS: Yes normal carotid upstroke CERVICAL SPINE: Yes cervical ROM normal Lymph: LYMPHATIC: no lymphadenopathy noted Chest: COMMONS NORMALS: normal inspection of the chest and normal palpation of entire chest wall CHEST: Yes Symmetrical chest wall rise, No mass, No tenderness, No Surgical scars present (Chest) and No rash BREAST/AXILLA INSPECTION: Yes normal inspection of the axillae Resp: COMMON NORMALS: clear to auscultation bilaterally and percussion normal EFFORT & INSPECTION: Yes able to speak in complete sentences, No tachypneic, No respiratory distress, No pursed lip breathing, No labored and No Actively coughing AUSCULTATION: clear to auscultation bilaterally, no crackles, no rales, no rhonchi, no wheezes and vesicular breath sounds PERCUSSION: percussion normal Cardio: COMMON NORMALS: no JVD, regular rate, regular rhythm, S1 normal heart sound present, S2 normal heart sound present and Peripheral pulses 2+ throughout PALPATION: normal PMI RATE: regular rate RHYTHM: regular rhythm HEART SOUNDS: S1 normal heart sound present, S2 normal heart sound present, no click, no gallops and no murmurs BRUITS: no abdominal aortic bruits, no carotid bruits, no femoral bruits and no renal bruits PERIPHERAL PULSES: Peripheral pulses 2+ throughout, radial pulses present, femoral pulses present, posterior tibial pulses present and dorsalis pedis present GI: COMMON NORMALS: Soft to palpation and No hepatosplenomegaly present AUSCULTATION: Yes normoactive bowel sounds PALPATION: Yes Soft to palpation, No Tenderness to palpation present (GI), No Guarding due to palpation present (GI), No Rigid due to palpation, Yes No hepatosplenomegaly present, No Pulsatile mass present and No Ascites present PERCUSSION: tympanic to percussion Extremity: GENERAL: No calf tenderness, No clubbing, No cyanosis, Yes edema and No pallor Neuro: COMMON NORMALS: patient oriented x3, CN's II-XII intact bilaterally, no focal motor deficits, no sensory deficits noted and gait normal SENSORIUM/OR IENTATION: Yes alert MENINGEAL SIGNS: Yes no meningeal signs Psych: COMMON NORMALS: Normal thought process present and speech normal APPEARANCE: Yes well kempt SPEECH: Yes normal speech MOOD & AFFECT: Yes euthymic mood THOUGHT PROCESS: Normal thought process present THOUGHT CONTENT: Yes Normal thought content present Skin: HAIR: normal NAILS: normal and no clubbing Data Labs: Other Labs: Baseline troponin T 23--> 67-->121 Imaging^: Other Imaging: Radiologist's impression: CTA Head/Neck [id number] 09/26/2018 6:58 PM ANTERIOR CIRCULATION: Right internal carotid artery: High-grade narrowing estimated at 80 % supraclinoid right internal carotid artery. Right middle cerebral artery: Unremarkable. No occlusion or significant stenosis. No aneurysm. Right anterior cerebral artery: Unremarkable. No occlusion or significant stenosis. No aneurysm. Left internal carotid artery: Atheromatous change in left internal carotid artery mildly progressed but no significant narrowing. Left middle cerebral artery: Unremarkable. No occlusion or significant stenosis. No aneurysm. Left anterior cerebral artery: Unremarkable. No occlusion or significant stenosis. No aneurysm. IMPRESSION: Progression of atheromatous change with associated new marked narrowing of supraclinoid right internal carotid artery up to 80%. FINDINGS: Right common carotid artery: 30% narrowing right common carotid artery. Right internal carotid artery: 40% narrowing proximal right internal carotid artery. Right external carotid artery: 40% narrowing proximal right external carotid artery. Right vertebral artery: No stenosis. No dissection or occlusion. Left common carotid artery: 40% narrowing left common carotid artery. Left internal carotid artery: 60% narrowing proximal left internal carotid artery. Left external carotid artery: 60% narrowing proximal left external carotid artery. Left vertebral artery: High-grade stenosis at origin of left vertebral artery of 80% or greater . Bones/joints: No acute fracture. Soft tissues: Normal. No significant soft tissue swelling. IMPRESSION: Progression of atheromatous change. Marked narrowing of left vertebral artery origin estimated 80% or greater. Moderate narrowing left internal and external carotid arteries. Additional details as above. Other Data: Other data: EKG with SR, voltage crieteria for LVH and possible old inferior NM. A&P Assessment and plan (1) Acute right arterial ischemic stroke, middle cerebral artery (MCA): s/p tPA -on ASA, plavix and statin. Status: Acute (2) NSTEMI (non-ST elevated myocardial infarction): Chest pains with multiple CAD risk factors and elevated troponin. -Plan for echo and decision for stress test based on the findings. Status: Acute (3) Vertebral artery stenosis: Status: Acute Qualifiers: Laterality: unspecified laterality Qualified Code(s): I65.09 - Occlusion and stenosis of unspecified vertebral artery (4) Hypertension: Status: Acute Qualifiers: Hypertension type: essential hypertension Qualified Code(s): I10 - Essential (primary) hypertension (5) Diabetes: Status: Acute Qualifiers: Diabetes mellitus complication status: without complication Diabetes mellitus predatory animal exterminator insulin use: without prison use Diabetes mellitus type: type 2 Qualified Code(s): E11.9 - Type 2 diabetes mellitus without complications (6) Nicotine dependence with current use: Status: Acute Additional A&P Information Hyperlipidemia Thank you for allowing me to participate in patient's care. Please feel free to call with questions or concerns. Coding Level of Care Code Acute Vamp Throater for g Fwd Exam Comprehensive Diagnoses Acute right arterial ischemic stroke, middle cerebral artery (MCA) I63.511 NSTEMI (non-ST elevated myocardial infarction) I21.4 Vertebral artery stenosis I65.09 Laterality: unspecified laterality Hypertension I10 Hypertension type: essential hypertension Diabetes E11.9 Diabetes mellitus complication status: without complication Diabetes mellitus prison insulin use: without predatory animal exterminator use Diabetes mellitus type: type 2 Nicotine dependence with current use F17.200
--- NOTE | 2020-08-26 16:15 | ECG_ITS ---
[facility] Test Date: 2020-08-26 Pat Name: Maru Man Department: Room: ICU03 Gender: Female Appliance Counselor: : 1960 Requested By: Suzy Hinson Order Number: [id number] Toshia MD: Fermín Martinez M.D. Measurements Intervals [place] Rate: 80 P: 41 MO: 151 QRS: -9 QRSD: 102 T: 51 QT: 395 QTc: 458 Interpretive Statements SINUS RHYTHM MODERATE VOLTAGE CRITERIA FOR LVH, CONSIDER NORMAL VARIANT [MEETS CRITERIA IN ONE OF: R(aVL), S(V1), R(V5), R(V5/V6)+S(V1)] INFERIOR MYOCARDIAL INFARCTION [40+ ms Q WAVE AND/OR ST/T ABNORMALITY IN II/aVF], PROBABLY OLD Compared to ECG 08/26/2020 14:48:25 Myocardial infarct finding now present Electronically Signed On 08-26-2020 19:51:49 CDT by Fermín Martinez M.D. [id number]
--- NOTE | 2020-08-26 16:41 | PC.NURSE ---
Home medications placed into Pyxis. Patient has Hydrocodone listed on home medication list but it is NOT in her bag of medications.
[2020-08-26 17:17] LABS: Glucose Point of Care 221 mg/dL (70-110)
--- NOTE | 2020-08-26 17:57 | PC.RESP ---
Smoking Cessation and Pulmonary rehab information sent to patient.
[2020-08-26 19:50] LABS: Glucose Point of Care 284 mg/dL (70-110)
[2020-08-26] MEDS: ALPRAZolam 0.5 mg Tablet PO (20:02)
[2020-08-26] MEDS: insulin glargine 100 units/1 mL 40 UNIT SUBCUT (20:03)
--- NOTE | 2020-08-26 21:45 | NUR.SHIFT ---
2000 - Agree with associate director of nursing assessment.
[2020-08-26 22:57] LABS: Glucose Point of Care 149 mg/dL (70-110)
[2020-08-27] VITALS (24 sets, daily range): BP systolic 103–169; BP diastolic 52–95; PULSE 63–95; RESP 16–32; TEMP 36.6–37.2; O2SAT 90–95
[2020-08-27] MEDS: HYDROcodone-acetaminophen 10-325 mg Tablet 1 TAB PO ×2 (01:24→14:02)
[2020-08-27 04:36] LABS: Anion Gap 12.8 (5-19); Blood Urea Nitrogen 13 mg/dL (8-23); Calcium 8.8 mg/dL (8.5-10.5); Carbon Dioxide 27 mmol/L (22-29); Chloride 100 mmol/L (98-107); Glomerular Filtration Rate 162.3 mL/min (90-130); Glucose 117 mg/dL (65-115); Osmolality Calculated 283 mOsm/kg (285-295); Potassium 3.8 mmol/L (3.5-5.1); Sodium 136 mmol/L (136-145)
[2020-08-27 07:17] LABS: Chol HDL Ratio 4.26 mg/dL (0.0-4.40); Cholesterol 183 mg/dL (0-200); HDL Cholesterol 43 mg/dL (60-100); LDL Cholesterol Calculated 120 mg/dL (50-129); LDL Cholesterol Direct 122 mg/dL (0-100); LDL HDL Ratio 2.79 RATIO (0.00-3.22); Triglycerides 100 mg/dL (0-150)
[2020-08-27 07:54] LABS: Glucose Point of Care 112 mg/dL (70-110)
[2020-08-27] MEDS: aspirin 81 mg EC Tablet PO (08:50)
[2020-08-27] MEDS: duloxetine 60 mg Capsule PO (08:50)
[2020-08-27] MEDS: famotidine 20 mg Tablet 40 MG PO (08:50)
[2020-08-27] MEDS: amlodipine 5 mg Tablet PO (08:50)
[2020-08-27] MEDS: nicotine 21 mg Patch 1 PATCH TRANSDERMA (08:50)
--- NOTE | 2020-08-27 08:58 | P.PN_ITS ---
Subjective Subjective: Interval history: Patient was seen and examined this morning.She is very concerned regarding her ongoing health condition.Deny any Weakness, SOB, headache,nausea,vomiting.Participating with PT/OT. No difficulty with speech. B/P is well controlled. Medications: Reviewed: Yes Vitals/I&O/Wt Last Vital Signs Temp 98.2 F 08/27/20 06:26 Pulse 68 08/27/20 07:44 Resp 22 H 08/27/20 07:44 BP 117/60 08/27/20 07:44 Pulse Ox 94 08/27/20 07:44 08/26/20 08/27/20 08/27/20 22:59 06:59 14:59 Intake Total 476 / 716 Balance 476 / 716 Weight last 48 hrs Weight 97 g Physical Exam Const: COMMON NORMALS: patient oriented x3 and alert ORIENTATION/CONSCIOUSNESS: Yes oriented to person, Yes oriented to place and Yes oriented to time HENMT: COMMON NORMALS: normocephalic and atraumatic HEAD & SCALP: normocephalic and atraumatic Chest: CHEST: Yes Symmetrical chest wall rise Resp: COMMON NORMALS: normal respiratory effort and clear to auscultation bilaterally EFFORT & INSPECTION: Yes symmetric chest movement AUSCULT ATION: clear to auscultation bilaterally Cardio: COMMON NORMALS: regular rate, regular rhythm, S1 normal heart sound present, S2 normal heart sound present, No gallops present (Cardio), No murmurs present (Cardio), No rub (Cardio) and Peripheral pulses 2+ throughout RATE: regular rate RHYTHM: regular rhythm HEART SOUNDS: S1 normal heart sound present and S2 normal heart sound present PERIPHERAL PULSES: Peripheral pulses 2+ throughout GI: COMMON NORMALS: Normal to inspection, nondistended, normoactive bowel sounds present, Soft to palpation, non-tender, No hepatosplenomegaly present and no masses AUSCULTATION: Yes normoactive bowel sounds PALPATION: Yes Soft to palpation and Yes No hepatosplenomegaly present RECTAL EXAM: deferred Extremity: COMMON NORMALS: no clubbing, cyanosis or edema and no pedal edema Neuro: COMMON NORMALS: patient oriented x3, CN's II-XII intact bilaterally, moves all extremities and no focal motor deficits SENSORIUM/ORIENTATION: Yes alert, Yes oriented to person, Yes oriented to place and Yes oriented to time SPEECH: speech normal MOTOR EXAM: 5 motor strength present throughout, Pronator motor function not present, no tremor noted, no asterixis, Motor fasciculations not present, Normal motor muscle tone present throughout and Motor abnormalities not present Data : 08/26/20 03:23 08/27/20 03:23 A&P Assessment and plan (1) Acute right arterial ischemic stroke, middle cerebral artery (MCA): 59-year-old woman was experiencing chest pain and suddenly developed left hemiparesis with right gaze preference consistent with right middle cerebral artery ischemia.S/P TPA. CT. Head without contrast : No acute intracranial abnormality. CTA Head and Neck : Left vertebral artery: High-grade stenosis at origin of left vertebral artery of 80% or greater . Right internal carotid artery: High-grade narrowing estimated at 80 % supraclinoid right internal carotid artery. Right common carotid artery: 30% narrowing right common carotid artery. Right internal carotid artery: 40% narrowing proximal right internal carotid artery. Right external carotid artery: 40% narrowing proximal right external carotid artery. Right vertebral artery: No stenosis. No dissection or occlusion. Left common carotid artery: 40% narrowing left common carotid artery. Left internal carotid artery: 60% narrowing proximal left internal carotid artery. Left external carotid artery: 60% narrowing proximal left external carotid artery. Repeat C.T Head without Contrast : 08/27: No acute intracranial hemorrhage. is of the opinion that : right carotid artery in the supraclinoid portion is not accessible to surgical treatment. Asymptomatic high-grade stenosis of the left vertebral artery at its origin, : could at some point be considered for stent. Aspirin 81 mg po daily Plavix 75 mg po daily Lipitor 40 mg po daily PT/OT Speech Evaluation Status: Acute (2) Chest pain: NSTEMI : Her initial presenting complain was chest pain.Currently she deny chest pain. Has high r/f which includes: HTN, DM, Current Smoker, Troponin trend : Has significant delta. EKG : NSR with old IWMI 2D Echo : Normal left ventricular size and systolic function: No RWMA, LVEF : 65-70 % , Grade II DD, No significant valvular abnormality. 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: without [facility] use Diabetes mellitus complication status: without complication Qualified Code(s): E11.9 - Type 2 diabetes mellitus without complications (6) Hypertension: Currently B/P is well controlled.Post Tpa Goals ( < 180 / 105 ) Status: Acute Qualifiers: Hypertension type: essential hypertension Qualified Code(s): I10 - Essential (primary) hypertension (7) Nicotine dependence with current use: Nicotine Patch Counselled regarding smoking cessation Status: Acute Additional A&P Information Code Status : Full Code Disposition : Home Attestations Medical Necessity Statement*: Patient needs to be in hospital for the management of Ac CVA as well as NSTEMI Coding Level of Care Code Acute Registration Scheduling Specialist for [facility] [place] Fwd Diagnoses Acute right arterial ischemic stroke, middle cerebral artery (MCA) I63.511 Chest pain R07.9 Vertebral artery stenosis I65.09 Laterality: unspecified laterality COPD (chronic obstructive pulmonary disease) J41.0 COPD type: chronic bronchitis Chronic bronchitis type: simple Diabetes E11.9 Diabetes mellitus type: type 2 Diabetes mellitus [facility] insulin use: without [facility] use Diabetes mellitus complication status: without complication Hypertension I10 Hypertension type: essential hypertension Nicotine dependence with current use F17.200
--- NOTE | 2020-08-27 09:16 | CT_ITS ---
WS: [id number] CT HEAD NONCONTRAST HISTORY: post TPA TECHNIQUE: Contiguous axial imaging performed through the brain in 2.5 mm imaging. Bone and soft tiss ue windows. Sagittal and coronal reformats reviewed. All CT scans at [facility] use at ast one of these dose optimization techniques: automated exposure control; mA and/or kV adjustment pe r patient size (includes targeted exams where dose is matched to clinical indication); or iterative r econstruction. DLP: 923.52 mGy.cm COMPARISON: 08/26/2020 No acute intracranial hemorrhage, midline shift or mass effect. Mild atrophy and moderate chronic microvascular ischemic disease. LEFT thalamic lacunar infarct is ag ain identified. Small lacunar infarct in the LEFT caudate head. Ventricles: Normal size with no hydrocephalus. Paranasal sinuses: As visualized are clear. Mastoid air cells: Well pneumatized. Calvarium and scalp: Skull is intact with no soft tissue edema or swelling. CT/CT head wo con* [id number] IMPRESSION: 1. No acute intracranial hemorrhage. 2. Cerebral atrophy with chronic microvascular ischemic disease and prior lacu alyssa.
[2020-08-27 11:26] LABS: Glucose Point of Care 179 mg/dL (70-110)
[2020-08-27] MEDS: clopidogrel 75 mg Tablet PO (12:06)
[2020-08-27] MEDS: ALPRAZolam 0.5 mg Tablet PO ×2 (12:06→22:33)
--- NOTE | 2020-08-27 12:10 | PC.CHAP ---
Pastoral Care Encounter/Spiritual Assessment Type of Contact [] Declined aircraft structure mechanic visit [] Patient/Family/Request visit [] Outpatient visit [] Follow-up visit [] Physician referral [] Code/Alert [x] Routine visit [] Staff referral [] Actively dying [] Patient sleeping [] Family support [] [] Out of room [] Palliative care [] [x] Receiving care in room [] Pre-surgical visit [] Trauma [] Long length of stay [x] ICU visit [x] Other: patient working with physical therapy Relational/Emotional Strength [] Patient feels connected with others/family/visitors/staff [] Distress [] Loneliness/isolation [] Abandonment Spirituality of Patient [] Person of Samantha [] Attends Congregational of their Samantha [] Believes in Prayer [] Reads Bible or Baptist materials [] There are Spiritual issues to be addressed Footwear Sales Leader Interventions [x] Prayer [] Active listening [] Non-anxious presence [] Spiritual/emotional support [] Crisis/trauma care [] Spiritual counseling [] Bereavement support [] Provided bereavement packet [] Provided Bible/devotional materials [] Provided toy/stuffed animal, coloring book to patient or family member [] Provided Communion [] Anointing/[place] [] Salvation [x] Completed spiritual assessment [] Other: Impact on Illness or Injury [] Angry [] Fearful [] Anxious [] Often cries [] Exhaustion [] Unable to work [] Unable to attend restorationism [] Unable to walk/stand [] Unable to read [] Unable to drive [] Unable to eat/drink [] Unable to sleep [] Unable to be with family [] Patient intubated [] Other: Summary Time spent with patient
--- NOTE | 2020-08-27 14:39 | PC.NURSE ---
Report and transfer of care to SASCHA Olsen. No further questions. Patient to transfer to [facility]. Belongings with patient. Meds in [facility] sent with patient.
--- NOTE | 2020-08-27 15:50 | P.PN_ITS ---
Subjective Subjective: Interval history: Patient was seen and examined this morning.She is very concerned regarding her ongoing health condition.Deny any Weakness, SOB, headache,nausea,vomiting.Participating with PT/OT. No difficulty with speech. B/P is well controlled. Medications: Reviewed: Yes Vitals/I&O/Wt Last Vital Signs Temp 98.9 F 08/27/20 15:16 Pulse 75 08/27/20 15:16 Resp 18 08/27/20 15:16 BP 137/83 08/27/20 15:16 Pulse Ox 93 08/27/20 15:16 08/27/20 08/27/20 08/27/20 06:59 14:59 22:59 Intake Total 480 / 480 Balance 480 / 480 Weight last 48 hrs Weight 97 g Physical Exam Const: COMMON NORMALS: patient oriented x3 and alert ORIENTATION/CONSCIOUSNESS: Yes oriented to person, Yes oriented to place and Yes oriented to time HENMT: COMMON NORMALS: normocephalic and atraumatic HEAD & SCALP: normocephalic and atraumatic Chest: CHEST: Yes Symmetrical chest wall rise Resp: COMMON NORMALS: normal respiratory effort and clear to auscultation bilaterally EFFORT & INSPECTION: Yes symmetric chest movement AUSCULTA TION: clear to auscultation bilaterally Cardio: COMMON NORMALS: regular rate, regular rhythm, S1 normal heart sound present, S2 normal heart sound present, No gallops present (Cardio), No murmurs present (Cardio), No rub (Cardio) and Peripheral pulses 2+ throughout RATE: regular rate RHYTHM: regular rhythm HEART SOUNDS: S1 normal heart sound present and S2 normal heart sound present PERIPHERAL PULSES: Peripheral pulses 2+ throughout GI: COMMON NORMALS: Normal to inspection, nondistended, normoactive bowel sounds present, Soft to palpation, non-tender, No hepatosplenomegaly present and no masses AUSCULTATION: Yes normoactive bowel sounds PALPATION: Yes Soft to palpation and Yes No hepatosplenomegaly present RECTAL EXAM: deferred Extremity: COMMON NORMALS: no clubbing, cyanosis or edema and no pedal edema Neuro: COMMON NORMALS: patient oriented x3, CN's II-XII intact bilaterally, moves all extremities and no focal motor deficits SENSORIUM/ORIENTATION: Yes alert, Yes oriented to person, Yes oriented to place and Yes oriented to time SPEECH: speech normal MOTOR EXAM: 5/5 motor strength present throughout, Pronator motor function not present, no tremor noted, no asterixis, Motor fasciculations not present, Normal motor muscle tone present throughout and Motor abnormalities not present Data : 08/26/20 03:23 08/27/20 03:23 A&P Assessment and plan (1) Acute right arterial ischemic stroke, middle cerebral artery (MCA): 59-year-old woman was experiencing chest pain and suddenly developed left hemiparesis with right gaze preference consistent with right middle cerebral artery ischemia.S/P TPA. CT. Head without contrast : No acute intracranial abnormality. CTA Head and Neck : Left vertebral artery: High-grade stenosis at origin of left vertebral artery of 80% or greater . Right internal carotid artery: High-grade narrowing estimated at 80 % supraclinoid right internal carotid artery. Right common carotid artery: 30% narrowing right common carotid artery. Right internal carotid artery: 40% narrowing proximal right internal carotid artery. Right external carotid artery: 40% narrowing proximal right external carotid artery. Right vertebral artery: No stenosis. No dissection or occlusion. Left common carotid artery: 40% narrowing left common carotid artery. Left internal carotid artery: 60% narrowing proximal left internal carotid artery. Left external carotid artery: 60% narrowing proximal left external carotid artery. Repeat C.T Head without Contrast : 08/27: No acute intracranial hemorrhage. is of the opinion that : right carotid artery in the supraclinoid portion is not accessible to surgical treatment. Asymptomatic high-grade stenosis of the left vertebral artery at its origin, : could at some point be considered for stent. Aspirin 81 mg po daily Plavix 75 mg po daily Lipitor 40 mg po daily PT/OT Speech Evaluation Status: Acute (2) Chest pain: NSTEMI : Her initial presenting complain was chest pain.Currently she deny chest pain. Has high r/f which includes: HTN, DM, Current Smoker, Troponin trend : Has significant delta. EKG : NSR with old IWMI 2D Echo : Normal left ventricular size and systolic function: No RWMA, LVEF : 65-70 % , Grade II DD, No significant valvular abnormality. 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: without custodial use Diabetes mellitus complication status: without complication Qualified Code(s): E11.9 - Type 2 diabetes mellitus without complications (6) Hypertension: Currently B/P is well controlled.Post Tpa Goals ( < 180 / 105 ) Status: Acute Qualifiers: Hypertension type: essential hypertension Qualified Code(s): I10 - Essential (primary) hypertension (7) Nicotine dependence with current use: Nicotine Patch Counselled regarding smoking cessation Status: Acute Additional A&P Information Code Status : Full Code Disposition : Home Coding Level of Care Code Acute Access Lead for [facility] Fwd Diagnoses Acute right arterial ischemic stroke, middle cerebral artery (MCA) I63.511 Chest pain R07.9 Vertebral artery stenosis I65.09 Laterality: unspecified laterality COPD (chronic obstructive pulmonary disease) J41.0 COPD type: chronic bronchitis Chronic bronchitis type: simple Diabetes E11.9 Diabetes mellitus type: type 2 Diabetes mellitus custodial insulin use: without dedicated intermodal truck driver use Diabetes mellitus complication status: without complication Hypertension I10 Hypertension type: essential hypertension Nicotine dependence with current use F17.200
[2020-08-27 16:44] LABS: Glucose Point of Care 239 mg/dL (70-110)
--- NOTE | 2020-08-27 17:41 | PM.PN ---
Subjective Subjective: Interval history: She was transferred out of unit. intermittent chest pains Medications: Reviewed: Yes Medication Review Details: Current Medications Hydrocodone Bitart/Acetaminophen (Hydrocodone-Acetaminophen 10-325 Mg Tablet) 1 tab PO Q8H PRN PRN Reason: MODERATE PAIN Last Admin: 08/27/20 14:02 Dose: 1 tab Documented by: Albuterol/Ipratropium (Ipratropium-Albuterol 3 Ml Neb) 3 ml INHALATION Q6H PRN PRN Reason: SHORTNESS OF BREATH Alprazolam (Alprazolam 0.5 Mg Tablet) 0.5 mg PO BID PRN PRN Reason: SLEEP Last Admin: 08/27/20 12:06 Dose: 0.5 mg Documented by: Amlodipine Besylate (Amlodipine 5 Mg Tablet) 5 mg PO DAILY [facility] Last Admin: 08/27/20 08:50 Dose: 5 mg Documented by: Aspirin (Aspirin 81 Mg Ec Tablet) 81 mg PO DAILY [facility] Last Admin: 08/27/20 08:50 Dose: 81 mg Documented by: Atorvastatin Calcium (Atorvastatin 40 Mg Tablet) 40 mg PO BEDTIME REBECCA Clopidogrel Bisulfate (Clopidogrel 75 Mg Tablet) 75 mg PO DAILY [facility] Last Admin: 08/27/20 12:06 Dose: 75 mg Documented by: Dextrose (Dextrose 50% Syringe 50 Ml) 25 ml IVP ONCE PRN; Protocol PRN Reason: hypoglycemia protocol Dextrose (Dextrose 50% Syringe 50 Ml) 50 ml IVP PRN PRN; Protocol PRN Reason: hypoglycemia protocol Duloxetine HCl (Duloxetine 60 Mg Capsule) 60 mg PO DAILY [facility] Last Admin: 08/27/20 08:50 Dose: 60 mg Documented by: Famotidine (Famotidine 20 Mg Tablet) 40 mg PO DAILY [facility] Last Admin: 08/27/20 08:50 Dose: 40 mg Documented by: Glucagon (Glucagon 1 Mg/Ml Inj 1 Ml) 1 mg IM ONCE PRN; Protocol PRN Reason: Adult Acute Hypoglycemia Prot. Dextrose (D5w) 500 mls @ 100 mls/hr IV ONCE PRN; Protocol PRN Reason: Adult Acute Hypoglycemia Prot Insulin Aspart (Insulin Aspart 100 Unit/1 Ml) 0 unit SUBCUT WM&BEDTIME REBECCA; Protocol Last Admin: 08/27/20 17:19 Dose: 8 unit Documented by: Insulin Glargine (Insulin Glargine 100 Units/1 Ml) 40 unit SUBCUT BEDTIME [facility] Last Admin: 08/26/20 20:03 Dose: 40 unit Documented by: Labetalol HCl (Labetalol 5 Mg/Ml Sdv 20ml) 10 mg IVP Q4H PRN PRN Reason: if bp>180/100 Nicotine (Nicotine 21 Mg Patch) 1 patch TRANSDERMA DAILY [facility] Last Admin: 08/27/20 08:50 Dose: 1 patch Documented by: Vitals/I&O/Wt Last Vital Signs Temp 98.9 F 08/27/20 16:00 Pulse 75 08/27/20 16:00 Resp 18 08/27/20 16:00 BP 137/83 08/27/20 16:00 Pulse Ox 93 08/27/20 16:00 08/27/20 08/27/20 08/27/20 06:59 14:59 22:59 Intake Total 480 / 480 Balance 480 / 480 Weight last 48 hrs Weight 3.422 oz Physical Exam Const: COMMON NORMALS: no acute distress, patient oriented x3 and alert GENERAL APPEARANCE: cooperative, comfortable, well kempt and well hydrated HENMT: COMMON NORMALS: normocephalic, atraumatic, hearing grossly normal bilaterally, external ears normal and Normal external nose present HEAD & SCALP: normocephalic and atraumatic FACE & SINUS: normal facial exam NOSE: Normal external nose present EXTERNAL EAR: Yes external ears normal Eye: COMMON NORMALS: Equal, round and reactive pupils present, EOMs intact bilaterally, conjunctivae normal and no scleral icterus GENERAL EYE: appearance normal, both eyes and all related structures ALIGNMENT: Yes alignment normal PERIORBITAL: periorbital findings normal EYELID: eyelids normal CONJUNCTIVA: Yes conjunctivae normal SCLERA: sclerae normal PUPIL: Yes Equal, round and reactive pupils present Neck/C-Spine: COMMON NORMALS: no lymphadenopathy, supple, no JVD and Thyroid normal GENERAL: Yes normal visual inspection, Yes trachea midline and No Mass present (neck) THYROID: Thyroid normal CAROTIDS: Yes normal carotid upstroke CERVICAL SPINE: Yes cervical ROM normal Chest: COMMONS NORMALS: normal inspection of the chest and normal palpation of entire chest wall CHEST: Yes Symmetrical chest wall rise, No mass, No tenderness, No Surgical scars present (Chest) and No rash Resp: COMMON NORMALS: clear to auscultation bilaterally EFFORT & INSPECTION: No pursed lip breathing AUSCULTATION: clear to auscultation bilaterally, no crackles, no rales, no rhonchi, no wheezes and vesicular breath sounds Cardio: COMMON NORMALS: no JVD, regular rate, regular rhythm, S1 normal heart sound present, S2 normal heart sound present and Peripheral pulses 2+ throughout PALPATION: normal PMI RATE: regular rate RHYTHM: regular rhythm HEART SOUNDS: S1 normal heart sound present, S2 normal heart sound present, no gallops and no murmurs BRUITS: no carotid bruits PERIPHERAL PULSES: Peripheral pulses 2+ throughout, radial pulses present, posterior tibial pulses present and dorsalis pedis present GI: COMMON NORMALS: Soft to palpation AUSCULTATION: Yes normoactive bowel sounds PALPATION: Yes Soft to palpation, No Tenderness to palpation present (GI), No Guarding due to palpation present (GI), No Rigid due to palpation, No Pulsatile mass present and No Ascites present PERCUSSION: tympanic to percussion Extremity: GENERAL: No calf tenderness, No clubbing, No cyanosis, No edema and No pallor Neuro: COMMON NORMALS: patient oriented x3, CN's II-XII intact bilaterally, no focal motor deficits, no sensory deficits noted and gait normal SENSORIUM/ORIENTATION: Yes alert Psych: COMMON NORMALS: Normal thought process present and speech normal APPEARANCE: Yes well kempt SPEECH: Yes normal speech MOOD & AFFECT: Yes euthymic mood THOUGHT PROCESS: Normal thought process present THOUGHT CONTENT: Yes Normal thought content present Skin: HAIR: normal NAILS: normal and no clubbing Data : 08/26/20 03:23 08/27/20 03:23 Attestation for Other Data: I personally reviewed and interpreted the following: Other data: #TTE CONCLUSIONS 1. Normal left ventricular size and systolic function with no diagnostic regional wall motion abnormalities. Left ventricular ejection fraction is estimated at 65-70 %. Grade II diastolic dysfunction, moderately elevated filling pressures. 2. No significant valvular abnormality. 3. Normal pulmonary artery pressure. 4. No significant change when compared to previous study dated 09/30/2018. A&P Assessment and plan (1) Acute right arterial ischemic stroke, middle cerebral artery (MCA): s/p tPA -on ASA, plavix and statin. Status: Acute (2) NSTEMI (non-ST elevated myocardial infarction): Chest pains with multiple CAD risk factors and elevated troponin. -Normal LV function on echo. Will proceed with stress test tomorrow. 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 Please feel free to call with questions or concerns. Attestations Medical Necessity Statement*: Patient needs to be in hospital for the management of CVA as well as NSTEMI Time Spent in Patient Care: 16 - 35 minutes (>than 50% of time spent in counselling and/or direct pt care on unit). Coding Level of Care Code Acute Color Maker for [facility] Fwd Exam Comprehensive Diagnoses Acute right arterial ischemic stroke, middle cerebral artery (MCA) I63.511 NSTEMI (non-ST elevated myocardial infarction) I21.4 Vertebral artery stenosis I65.09 Laterality: unspecified laterality Hypertension I10 Hypertension type: essential hypertension Diabetes E11.9 Diabetes mellitus complication status: without complication Diabetes mellitus usp insulin use: without intermodal dispatcher use Diabetes mellitus type: type 2 Nicotine dependence with current use F17.200
[2020-08-27 20:48] LABS: Glucose Point of Care 131 mg/dL (70-110)
[2020-08-27] MEDS: atorvastatin 40 mg Tablet PO (22:01)
[2020-08-27] MEDS: insulin glargine 100 units/1 mL 40 UNIT SUBCUT (22:03)
[2020-08-28] VITALS (7 sets, daily range): BP systolic 97–152; BP diastolic 54–87; PULSE 69–92; RESP 16–18; TEMP 36.7–36.9; O2SAT 90–94
--- NOTE | 2020-08-28 06:00 | NMCV_ITS ---
NM ruby perf SPECT r/s* [id number] Maru Man Age: 59 Gender: F : 1960 Exam Date: 08/28/2020 07:19 Ordering Phys: Suzy Hinson MD ([email or web address]) Technologist: JAILYN Yost Exam Location: [facility] Indications: NSTEMI STRESS TEST Please see separate stress test report in [facility] for full findings IMAGE PROTOCOL Rest/Stress 1 Lexiscan Day Radiopharmaceutical Dose (mCi) Administration Site Administered by Rest: Tc-99m 10.7 IV JAILYN Yost Sestamibi Stress:Tc-99m 32.7 IV JAILYN Yost Sestamibi Rest: 28-Aug-2020 60 Discovery 630 Stress: 28-Aug-2020 30 Discovery 630 0.4mg Lexiscan. Supine position only as patient was unable to lay prone. SPECT RESULTS Technical Quality: Excellent Raw Data Analysis: Breast attenuation Image Corrections: No attenuation or motion correction applied Summed Stress Score: 0 Summed Rest Score: 3 Summed Difference Score: 0 PERFUSION FINDINGS Small sized perfusion abnormality of mild severity of mid to apical inferior and apical lateral wall on rest images with improved tracer uptake on stress images. FUNCTIONAL RESULTS (calculated via Gated SPECT) Stress Image LV EF (%): 75 Stress EDV (mL):81 TID: 1.53 Stress ESV (mL):20 FUNCTIONAL FINDINGS: The left ventricle is normal in size. Transient Ischemia Dilatation of 1.5. There is normal left ventricular systolic function. The left ventricular ejection fraction is normal with a value of 75%. There is normal left ventricular wall thickening with no regional wall motion abnormality. Normal end-diastolic and end-systolic volumes. IMPRESSIONS 1. Myocardial perfusion imaging is normal. Attenuation artifact noted in mid to apical inferior and apical lateral morris. 2. Overall left ventricular systolic function is normal without regional wall motion abnormalities. 3. The left ventricular ejection fraction is normal with a value of 75%. 4. Transient ischemic dilation index increased at 1.5. This may represent subendocardial ischemia or multivessel coronary artery disease clinical correlation is advised. Suzy Hinson MD (Electronically Signed) Final Date: 28 August 2020 14:38 S
--- NOTE | 2020-08-28 06:00 | ECG_ITS ---
[facility] Test Date: 2020-08-28 Pat Name: Maru Man Department: Room: 250 Gender: Female [employer] Consultant: : 1960 Requested By: Suzy Hinson Order Number: [id number] Toshia MD: Suzy Hinson M.D. Interpretive Statements NAME OF STUDY: LEXISCAN SESTAMIBI STRESS TEST INDICATION: Chest Pain PROCEDURE: At the baseline, the blood pressure was 127/71 mmHg, oxygen saturation 91% with a heart rate of 76%. The electrocardiogram showed normal sinus rhythm, normal axis. Poor anterior R wave progression. Nonspecific T wave changes. The Lexiscan was infused over a period of 20 seconds. A total of 0.4 milligrams of Lexiscan was infused. The stress phase was continued for a total of 5 minutes. Heart rate at the end of the stress phase was 93 bpm, oxygen saturation 89% with a blood pressure of 151/84 mmHg. The EKG at the peak infusion revealed sinus rhythm with no significant ST-T wave changes. Sestamibi was injected 20 seconds after the Lexiscan infusion. Blood pressure at the end of the recovery phase was 148/87 mmHg, oxygen saturation 89% with a heart rate of 90 beats per minute. CONCLUSION: 1. No significant EKG changes with the LexiScan infusion. 2. No LexiScan induced chest pain or cardiac arrhythmia. 3. Normal blood pressure and heart rate response. 4. Sestamibi/sestamibi perfusion scan pending; see separate report. Electronically Signed On 08-28-2020 14:46:33 CDT by Suzy Hinson M.D. [email or web address]
[2020-08-28 06:15] LABS: Basophils % 0.5 %; Eosinophils # 0.2 10^3/uL (0.0-0.8); Eosinophils % 2.3 %; Hematocrit 44.7 % (37.0-47.0); Hemoglobin 13.9 g/dL (11.5-15.3); Lymphocytes # 2.3 10^3/uL (0.8-4.8); Lymphocytes % 27.2 %; Mean Corpuscular HGB Conc 31.1 g/dL (30.0-36.0); Mean Corpuscular Hemoglobin 28.9 pg (28.0-34.0); Mean Corpuscular Volume 92.9 fL (81-99); Mean Platelet Volume 10.3 fL (7.4-10.4); Monocytes # 0.7 10^3/uL (0.2-0.9); Monocytes % 7.8 %; Neutrophils # 5.22 10^3/uL (1.8-7.7); Neutrophils % 61.8 %; Nucleated Red Blood Cells % 0 %; Platelet Count 270 10^3/cmm (130-400); Red Blood Count 4.81 10^6/uL (4.1-5.3); Red Cell Distribution Width 14.9 % (12.1-15.1); White Blood Count 8.4 10^3/uL (4.0-10.0)
[2020-08-28 06:37] LABS: Glucose Point of Care 109 mg/dL (70-110)
[2020-08-28 06:52] LABS: Blood Urea Nitrogen 14 mg/dL (8-23); Calcium 8.6 mg/dL (8.5-10.5); Carbon Dioxide 26 mmol/L (22-29); Chloride 100 mmol/L (98-107); Glomerular Filtration Rate 162.3 mL/min (90-130); Glucose 114 mg/dL (65-115); Osmolality Calculated 285 mOsm/kg (285-295); Sodium 137 mmol/L (136-145)
--- NOTE | 2020-08-28 07:21 | PC.NURSE ---
Pt taken to stress test by vangie De Anda transporter.
[2020-08-28] MEDS: regadenoson 0.4 Mg/5 ml Syringe IVP (08:25)
--- NOTE | 2020-08-28 09:42 | PC.NURSE ---
pt complained of pain in her chest that radiated to her back. i asked her how the floor nurses were treating that. she stated it was with hydrocodone and that she could wait for medicine. noting remarkable noted on ekg so we proceeded with stress test. no more pain reported by patient during test. pt sent to [facility] for second set of pictures.
[2020-08-28 10:43] LABS: Glucose Point of Care 124 mg/dL (70-110)
[2020-08-28] MEDS: amlodipine 5 mg Tablet PO (10:58)
[2020-08-28] MEDS: duloxetine 60 mg Capsule PO (10:58)
[2020-08-28] MEDS: clopidogrel 75 mg Tablet PO (10:59)
[2020-08-28] MEDS: lanolin oint 7 gm 1 APPLIC TOPICAL (10:59)
[2020-08-28] MEDS: famotidine 20 mg Tablet 40 MG PO (10:59)
[2020-08-28] MEDS: aspirin 81 mg EC Tablet PO (10:59)
[2020-08-28] MEDS: nicotine 21 mg Patch 1 PATCH TRANSDERMA (10:59)
--- NOTE | 2020-08-28 13:13 | P.DS_ITS ---
Discharge Providers Date of Admission: 08/26/20 05:07 Date of Discharge: August 28, 2020 Attending Provider at Admission: Chad Diaz MD Attending Provider at Discharge: Stan Rayo MD Primary Care Provider: Shamika Harding MD Diagnoses at Discharge Discharge Diagnosis (1) Acute right arterial ischemic stroke, middle cerebral artery (MCA): Status: Resolved Permanent problem details: Currently no residual weakness. (2) NSTEMI (non-ST elevated myocardial infarction): Status: Resolved Permanent problem details: TYPE II M.I (3) Vertebral artery stenosis: Status: Chronic Qualifiers: Laterality: unspecified laterality Qualified Code(s): I65.09 - Occlusion and stenosis of unspecified vertebral artery (4) Hypertension: Status: Chronic Qualifiers: Hypertension type: essential hypertension Qualified Code(s): I10 - Essential (primary) hypertension (5) Diabetes: Status: Chronic Qualifiers: Diabetes mellitus complication status: without complication Diabetes mellitus intermediate designer insulin use: without residential use Diabetes mellitus type: type 2 Qualified Code(s): E11.9 - Type 2 diabetes mellitus without complications (6) Nicotine dependence with current use: Status: Chronic Reason for Visit Reason for Visit: STROKE ALERT Hospital Course Hospital Course 59 year old female with PMH of HTN, DM, Niicotine use , who presented to the hospital with chief complaint of chest pain.On admission patient started that she is under stress for last 4 to 5 days because of her grandson's drug addiction. Last night after dinner she started experiencing chest discomfort which initially she attributed to GERD/acid reflux, she went to bed and just could not sleep & around 2AM she called her ex- and ambulance because of worsening chest discomfort.She described this pain as burning, radiating up her jaw and towards left arm, it lasted until she received mediations in the ER(she received labetalol and TPA she was never given nitroglycerin or morphine). During her ride to the hospital in the ambulance she started having facial droop, right gaze preference, left arm weakness, slurred speech, this was around 2:45 AM. Code stroke was called, [facility] 14 on arrival, CT head unremarkable for bleed, Dr. Cuevas was consulted, TPA was administered. She received labetalol 10 mg x 3 for hypertension. She was admiited for the management of Ac CVA ( Acute right arterial ischemic stroke, middle cerebral artery (MCA): CT. Head without contrast : No acute intracranial abnormality. CTA Head and Neck : Left vertebral artery: High-grade stenosis at origin of left vertebral artery of 80% or greater . Right internal carotid artery: High-grade narrowing estimated at 80 % supraclinoid right internal carotid artery. Right common carotid artery: 30% narrowing right common carotid artery. Right internal carotid artery: 40% narrowing proximal right internal carotid artery. Right external carotid artery: 40% narrowing proximal right external carotid artery. Right vertebral artery: No stenosis. No dissection or occlusion. Left common carotid artery: 40% narrowing left common carotid artery. Left internal carotid artery: 60% narrowing proximal left internal carotid artery. Left external carotid artery: 60% narrowing proximal left external carotid artery. Repeat C.T Head without Contrast : 08/27: No acute intracranial hemorrhage.She was seen by and she is of the opinion that : right carotid artery in the supraclinoid portion is not accessible to surgical treatment. Asymptomatic high- grade stenosis of the left vertebral artery at its origin, : could at some point be considered for stent.Patient has decided to go to [facility] for further management.She was started on Aspirin 81 mg po daily, Plavix 75 mg po daily, Lipitor 40 mg po daily.She has no residual weakness currently. During the hospital stay she was also evaluated for chest pain and elevated troponin likely type II M.I. 2D echo: Normal left ventricular size and systolic function: No RWMA, LVEF : 65- 70 % , Grade II DD, No significant valvular abnormality. Nuclear stress test : normal. Likely chest pain was stress related.Sh will continue to follow cardiology as outpatient.She will also continue to follow neurology as outpatient. She responded well to the above medical management and is being discharged in stable condition. Physical Exam Const: COMMON NORMALS: patient oriented x3 HENMT: COMMON NORMALS: normocephalic and atraumatic HEAD & SCALP: normocephalic and atraumatic Chest: COMMONS NORMALS: normal inspection of the chest CHEST: Yes Symmetrical chest wall rise Resp: COMMON NORMALS: normal respiratory effort and clear to auscultation bilaterally EFFORT & INSPECTION: Yes symmetric chest movement AUSCULTATION: clear to auscultation bilaterally Cardio: COMMON NORMALS: regular rate, regular rhythm, S1 normal heart sound present, S2 normal heart sound present, No gallops present (Cardio), No murmurs present (Cardio), No rub (Cardio) and Peripheral pulses 2+ throughout RATE: regular rate RHYTHM: regular rhythm HEART SOUNDS: S1 normal heart sound present and S2 normal heart sound present PERIPHERAL PULSES: Peripheral pulses 2+ throughout GI: COMMON NORMALS: Normal to inspection, nondistended, normoactive bowel sounds present, Soft to palpation, non-tender, No hepatosplenomegaly present and no masses AUSCULTATION: Yes normoactive bowel sounds PALPATION: Yes Soft to palpation and Yes No hepatosplenomegaly present RECTAL EXAM: deferred Extremity: COMMON NORMALS: no clubbing, cyanosis or edema and no pedal edema Neuro: COMMON NORMALS: patient oriented x3 Discharge Data Data Completed and Pending: Completed Studies During Hospitalization Category Date Time Status CT angio headneck * 73393/03499 Urge nt Cat Scan 08/26/20 03:[address] head wo con* 7 0450 Routine Cat Scan 08/27/20 09:[address] head wo con* 7 0450 Stat Cat Scan 08/26/20 03:07 Completed Sestamibi Stress Test Request David ne Exams 08/28/20 06:00 Draft XR chest 1V balaji ble [id number] Stat Exams 08/26/20 03:07 Completed CV echo complete* [id number] Routine Ultrasound 08/26/20 09:54 Completed Pending at discharge Category Date Time Status Sestamibi Stress Test Request Routi ne Exams 08/26/20 15:26 Stop Req Basic Metabolic P ander AM LABS Lab 08/29/20 04:00 Ordered Basic Metabolic P ander AM LABS Lab 08/30/20 04:00 Ordered Complete Blood Co unt w/Auto AM LABS Lab 08/29/20 04:00 Ordered Complete Blood Co unt w/Auto AM LABS Lab 08/30/20 04:00 Ordered NM ruby perf SPECT r/s* [id number] Routin e Nuc Med 08/28/20 06:00 Taken Labs from last 24 hours 08/28/20 08/28/20 08/28/20 10:30 06:14 05:06 WBC RBC Hgb Hct MCV MCH MCHC RDW Plt Count MPV Neut % (Auto) Lymph % (Auto) [place] % (Auto) Eos % (Auto) Baso % (Auto) Neut # (Auto) Lymph # (Auto) [place] # (Auto) Eos # (Auto) Baso # (Auto) Nucleated RBC % (a uto) Nucleated RBCs # Sodium 137 Potassium 4.0 Chloride 100 Carbon Dioxide 26 Anion Gap 15.0 BUN 14 Creatinine 0.4 L GFR Calculation 162.3 H Glucose 114 POC Glucose 124 H 109 Calculated Osmolal ity 285 Calcium 8.6 08/28/20 08/27/20 08/27/20 05:06 20:23 16:36 WBC 8.4 RBC 4.81 Hgb 13.9 Hct 44.7 MCV 92.9 MCH 28.9 MCHC 31.1 RDW 14.9 Plt Count 270 MPV 10.3 Neut % (Auto) 61.8 Lymph % (Auto) 27.2 [place] % (Auto) 7.8 Eos % (Auto) 2.3 Baso % (Auto) 0.5 Neut # (Auto) 5.22 Lymph # (Auto) 2.3 [place] # (Auto) 0.7 Eos # (Auto) 0.2 Baso # (Auto) 0.0 Nucleated RBC % (a uto) 0 Nucleated RBCs # 0.0 Sodium Potassium Chloride Carbon Dioxide Anion Gap BUN Creatinine GFR Calculation Glucose POC Glucose 131 H 239 H Calculated Osmolal ity Calcium Vitals: Last Vital Signs Temp 98.5 F 08/28/20 11:04 Pulse 79 08/28/20 12:10 Resp 16 08/28/20 12:10 BP 97/54 08/28/20 11:04 Pulse Ox 94 08/28/20 12:10 Discharge Plan Discharge Patient Disposition: Home Condition: Stable Prescriptions: New aspirin 81 mg tablet,delayed release (DR/EC) 81 mg PO DAILY Qty: 30 RF: 3 Plavix 75 mg tablet 75 mg PO DAILY Qty: 30 RF: 3 Lipitor 40 mg tablet 40 mg PO DAILY Qty: 30 RF: 3 Continued albuterol sulfate [ProAir HFA] 90 mcg/actuation HFA aerosol inhaler 2 puff INHALATION Q6H PRN (Reason: Shortness Of Breath) RF: 0 docusate sodium [Colace] 100 mg capsule 100 mg PO BID Qty: 60 RF: 5 ibuprofen 800 mg tablet 800 mg PO BID 90 Days Qty: 180 RF: 3 pantoprazole [Protonix] 40 mg tablet,delayed release (DR/EC) 40 mg PO DAILY 90 Days Qty: 90 RF: 3 duloxetine [Cymbalta] 60 mg capsule,delayed release(DR/EC) 60 mg PO DAILY 90 Days Qty: 90 RF: 3 (DME) insulin syringe-needle U-100 [BD Insulin Syringe Ultra-Fine] 1 mL 31 gauge x 5/16 syringe See Rx Instructions .ROUTE .MEDSUPPLY Qty: 100 RF: 11 albuterol sulfate 5 mg/mL solution for nebulization 2.5 mg INHALATION Q6H PRN (Reason: shortness of breath or wheezing) Qty: 20 RF: 5 amlodipine 5 mg tablet 5 mg PO DAILY Qty: 90 RF: 1 Januvia 100 mg tablet 100 mg PO DAILY Qty: 90 RF: 1 famotidine 40 mg tablet 40 mg PO DAILY Qty: 30 RF: 3 alprazolam 0.5 mg tablet 0.5 mg PO BID PRN (Reason: anxiety) Qty: 60 RF: 5 cetirizine [All Day Allergy (cetirizine)] 10 mg tablet 10 mg PO DAILY 30 Days Qty: 30 RF: 5 fluticasone propionate [Flonase Allergy Relief] 50 mcg/actuation spray,suspension 2 spray INTRANASAL DAILY Qty: 16 RF: 5 Lantus U-100 Insulin 100 unit/mL solution See Rx Instructions .ROUTE .COMPLEX RF: 0 hydrocodone-acetaminophen 10-325 mg tablet 1 tab PO Q8H PRN (Reason: Pain) RF: 0 oxybutynin chloride 5 mg tablet 5 mg PO DAILY RF: 0 Discharge Orders: Discharge Order (Routine); Ordered 08/28/20 Ordered By: Stan Rayo Referrals: [facility] ([facility]) [Outside] Lauryn Cuevas MD [Physician] - 09/21/20 1:30 pm Shamika Harding MD [Primary Care Provider] - 09/07/20 10:00 am Suzy Hinson MD [Physician] - 09/28/20 2:30 pm Discharge Diet: Diabetic Patient Instructions: Aspirin (By mouth), Atorvastatin (By mouth), Clopidogrel (By mouth), Myocardial Infarction (GEN), How to Stop Smoking (DC), Self Care Measures After a Stroke (DC) Discharge Attestations Time Spent in Discharge Care*: greater than 30 min Specific Discharge Activities: educating patient, educating and/or supporting family/caregiver, discussing with pcp/other providers, discussing with welfare case worker/social workers/dc planners, documenting/other paperwork and evaluating patient/reviewing data Time Spent in Smoking Cessation: 3 to 10 minutes Status at Discharge: Cognitive status at discharge: cognitively intact , Behavioral status at discharge: cooperative , Functional status at discharge: independent ambulation Overall status at discharge: patient is back to baseline Quality Metrics Clinical Quality Measures During this hospital stay, did patient experience: Stroke Contraindication to Antithrombotic: Other Contraindication to Anticoagulation: Other Contraindication to Statin: Statin prescribed Contraindication to antithrombotic day 2: Other Contraindication to tPA: tPA given Reason stroke education not provided: Stroke education provided to patient Rehab services assessed: Physical therapy and Occupational therapy Reason rehab assessment not done: Rehab assessment done Coding Level of Care Code Acute Chg FW DC note Exam Detailed Diagnoses Acute right arterial ischemic stroke, middle cerebral artery (MCA) I63.511 NSTEMI (non-ST elevated myocardial infarction) I21.4 Vertebral artery stenosis I65.09 Laterality: unspecified laterality Hypertension I10 Hypertension type: essential hypertension Diabetes E11.9 Diabetes mellitus complication status: without complication Diabetes mellitus residential insulin use: without intermediate designer use Diabetes mellitus type: type 2 Nicotine dependence with current use F17.200
--- NOTE | 2020-08-28 13:55 | PC.OT ---
OT attempted to see pt this afternoon. Pt declines treatment at this time as she states I am going home . TAMEKA Riley/Fay GAONA/Shayy
--- NOTE | 2020-08-28 14:32 | PM.PN ---
Subjective Subjective: Interval history: Patient had stress test earlier today. She denies having any chest pain and is eager to go home. She walked around today without any problems. Medications: Reviewed: Yes Vitals/I&O/Wt Last Vital Signs Temp 98.5 F 08/28/20 14:15 Pulse 79 08/28/20 14:15 Resp 16 08/28/20 14:15 BP 97/54 08/28/20 14:15 Pulse Ox 94 08/28/20 14:15 08/27/20 08/28/20 08/28/20 22:59 06:59 14:59 Intake Total 240 / 240 Balance 240 / 240 Physical Exam Const: COMMON NORMALS: no acute distress, patient oriented x3 and alert GENERAL APPEARANCE: cooperative, comfortable, well kempt and well hydrated HENMT: COMMON NORMALS: normocephalic, atraumatic, hearing grossly normal bilaterally, external ears normal and Normal external nose present HEAD & SCALP: normocephalic and atraumatic FACE & SINUS: normal facial exam NOSE: Normal external nose present EXTERNAL EAR: Yes external ears normal Eye: COMMON NORMALS: Equal, round and reactive pupils present, EOMs intact bilaterally, conjunctivae normal and no scleral icterus GENERAL EYE: appearance normal, both eyes and all related structures ALIGNMENT: Yes alignment normal PERIORBITAL: periorbital findings normal EYELID: eyelids normal CONJUNCTIVA: Yes conjunctivae normal SCLERA: sclerae normal PUPIL: Yes Equal, round and reactive pupils present Neck/C-Spine: COMMON NORMALS: no lymphadenopathy, supple, no JVD and Thyroid normal GENERAL: Yes normal visual inspection, Yes trachea midline and No Mass present (neck) THYROID: Thyroid normal CAROTIDS: Yes normal carotid upstroke CERVICAL SPINE: Yes cervical ROM normal Chest: COMMONS NORMALS: normal inspection of the chest and normal palpation of entire chest wall CHEST: Yes Symmetrical chest wall rise, No mass, No tenderness, No Surgical scars present (Chest) and No rash Resp: COMMON NORMALS: clear to auscultation bilaterally EFFORT & INSPECTION: No pursed lip breathing AUSCULTATION: clear to auscultation bilaterally, no crackles, no rales, no rhonchi, no wheezes and vesicular breath sounds Cardio: COMMON NORMALS: no JVD, regular rate, regular rhythm, S1 normal heart sound present, S2 normal heart sound present and Peripheral pulses 2+ throughout PALPATION: normal PMI RATE: regular rate RHYTHM: regular rhythm HEART SOUNDS: S1 normal heart sound present, S2 normal heart sound present, no gallops and no murmurs BRUITS: no carotid bruits PERIPHERAL PULSES: Peripheral pulses 2+ throughout, radial pulses present, posterior tibial pulses present and dorsalis pedis present GI: COMMON NORMALS: Soft to palpation AUSCULTATION: Yes normoactive bowel sounds PALPATION: Yes Soft to palpation, No Tenderness to palpation present (GI), No Guarding due to palpation present (GI), No Rigid due to palpation, No Pulsatile mass present and No Ascites present PERCUSSION: tympanic to percussion Extremity: GENERAL: No calf tenderness, No clubbing, No cyanosis, No edema and No pallor Neuro: COMMON NORMALS: patient oriented x3 and gait normal SENSORIUM/ORIENTATION: Yes alert Psych: COMMON NORMALS: Normal thought process present and speech normal APPEARANCE: Yes well kempt SPEECH: Yes normal speech MOOD & AFFECT: Yes euthymic mood THOUGHT PROCESS: Normal thought process present THOUGHT CONTENT: Yes Normal thought content present Skin: HAIR: normal NAILS: normal and no clubbing Data : 08/28/20 05:06 08/28/20 05:06 A&P Assessment and plan (1) Acute right arterial ischemic stroke, middle cerebral artery (MCA): s/p tPA -on ASA, plavix and statin. Status: Resolved (2) NSTEMI (non-ST elevated myocardial infarction): Chest pains with multiple CAD risk factors and elevated troponin. -Normal LV function on echo. -No ischemia on stress test however transient ischemic dilation index was elevated at 1.5. -Patient is currently symptom-free and is requesting to be discharged. -Continue current medications. -Decision for further testing based on patient symptoms as an outpatient. -Follow-up with me in heart care services in 3 to 4 weeks. 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 Please feel free to call with questions or concerns. 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
== END 2020-08-28 14:18 | disposition home or self-care (01) | DRG 61 ==
LOC: ER 05:08 → ICU 06:49 → MEDSURG 08-27 14:46
PROVIDERS: Internal Medicine Cardiovascular Disease; Admitting Provider Internal Medicine; Emergency Provider Emergency Medicine; PCP Family Medicine; Visit Provider Internal Medicine
DX: I63.511 Cerebral infarction due to unspecified occlusion or stenosis of right middle cerebral artery (principal); I21.A1 Myocardial infarction type 2; G81.94 Hemiplegia, unspecified affecting left nondominant side; F33.9 Major depressive disorder, recurrent, unspecified; R29.810 Facial weakness; R47.81 Slurred speech; R29.714 NIHSS score 14; I65.09 Occlusion and stenosis of unspecified vertebral artery; F17.210 Nicotine dependence, cigarettes, uncomplicated; K21.9 Gastro-esophageal reflux disease without esophagitis; F41.9 Anxiety disorder, unspecified; G89.29 Other chronic pain; M54.42 Lumbago with sciatica, left side; M54.41 Lumbago with sciatica, right side; J44.9 Chronic obstructive pulmonary disease, unspecified; E11.9 Type 2 diabetes mellitus without complications; I10 Essential (primary) hypertension; I65.23 Occlusion and stenosis of bilateral carotid arteries; E78.5 Hyperlipidemia, unspecified; Z79.51 Long term (current) use of inhaled steroids; Z79.4 Long term (current) use of insulin; Z79.891 Long term (current) use of opiate analgesic
CPT/HCPCS: 36415; 36416; 70450; 70496; 70498; 71045; 78452; 80048; 80053; 80061; 80306; 81003; 82962; 83721; 84484; 85025; 85378; 85610; 85730; 92523; 92610; 93005; 93017; 93306; 96361; 96372; 96374; 96375; 96376; 97116; 97161; 97166; 97535; 99291; A9500; J1815 ×2; J2785; J2997; J3490; Q9967

== ENCOUNTER → 2020-09-28 12:58 | Outpatient (BNVA) | payer MEDICAID, SELFPAY | PROVIDERS: PCP Family Medicine; Visit Provider Specialist | DX: H91.8X1 Other specified hearing loss, right ear (principal); I69.398 Other sequelae of cerebral infarction; I65.21 Occlusion and stenosis of right carotid artery; I67.2 Cerebral atherosclerosis; F17.210 Nicotine dependence, cigarettes, uncomplicated | CPT/HCPCS: 99205 ==

== ENCOUNTER 2020-12-09 00:56 | Emergency (ER) | payer MEDICAID, SELFPAY ==
[2020-12-09 01:00] VITALS: BP 171/99; PULSE 79; RESP 16; TEMP 37; O2SAT 94; BMI 33.1
--- NOTE | 2020-12-09 01:09 | ED_ITS ---
HPI - Extremity Problem General: Chief complaint: Extremity Injury, Lower Stated complaint: Knee Pain Time Seen by Provider: 12/09/20 01:09 History of Present Illness: HPI Narrative: 60-year-old female comes in today with complaints of right knee pain. Patient has been seen by 3 providers over the last 2 days for this knee pain. Patient was given a steroid injection at Dr. Harding's office today. Patient appears well. Patient appears in no acute distress. Review of Systems General: Reports: 10 or more systems reviewed and unremarkable except in HPI and below Musc: Reports: other (Right knee pain) PFS ED PFSH: Medical History Acute right arterial ischemic stroke, middle cerebral artery (MCA) Currently no residual weakness. Anxiety Cerebrovascular accident Chest pain Chronic back pain COPD (chronic obstructive pulmonary disease) CVA (cerebral vascular accident) Diabetes Hypertension Hypoestrogenism Nicotine dependence with current use NSTEMI (non-ST elevated myocardial infarction) TYPE II M.I Recurrent major depression Right cavernous carotid stenosis Urinary incontinence Vertebral artery stenosis Surgical History History of bladder surgery History of cholecystectomy History of total hysterectomy Family History Grandfather CAD (coronary artery disease) Hypertension Myocardial infarction Mother Cancer Father Cancer Brother CAD (coronary artery disease) Myocardial infarction Sister Stroke Diabetes Family/Other Diabetes Social History Smoking and tobacco status: current every day smoker cigarettes Packs smoked per day: 1 Years cigarettes smoked: 28 Alcohol intake: never Lives independently: Yes Housing: House Physical Exam Const: COMMON NORMALS: no acute distress and patient oriented x3 GENERAL APPEARANCE: cooperative HENMT: COMMON NORMALS: normocephalic, TM's normal bilaterally and Normal external nose present HEAD & SCALP: normal to inspection and normocephalic NOSE: Normal external nose present TYMPANIC MEMBRANE: TM's normal bilaterally MOUTH: Normal oral and palatal mucosa present THROAT: posterior oropharynx normal Eye: GENERAL EYE: appearance normal, both eyes and all related structures Neck/C-Spine: COMMON NORMALS: full ROM Lymph: LYMPHATIC: no lymphadenopathy noted Chest: COMMONS NORMALS: normal inspection of the chest Resp: COMMON NORMALS: normal respiratory effort EFFORT & INSPECTION: Yes able to speak in complete sentences Cardio: COMMON NORMALS: regular rate and regular rhythm RATE: regular rate RHYTHM: regular rhythm GI: COMMON NORMALS: non-tender Back/Pelvis: COMMON NORMALS: thoracic and lumbar spine normal to inspection Extremity: NARRATIVE EXTREMITY EXAM: Right knee has minimal to no swelling to it. No redness or heat is noted to the joint. Patient is able to flex and extend joint without much difficulty. Patient has increased pain with weightbearing. Pulses are intact. Neuro: COMMON NORMALS: patient oriented x3 and moves all extremities Psych: COMMON NORMALS: mental status grossly normal and cooperative Skin: COMMON NORMALS: no rashes or lesions noted GENERAL SKIN EXAM: no r ashes or lesions noted Course Vital Signs: Vital signs: Vital Signs Temperature 98.6 F 12/09/20 01:00 Pulse Rate 79 12/09/20 01:00 Respiratory Rate 16 12/09/20 01:00 Blood Pressure 171/99 12/09/20 01:00 Pulse Oximetry 94 12/09/20 01:00 MDM - Extremity (Nontraumatic) MDM Narrative: Medical decision making narrative: Patient comes in today with complaints of right knee pain. Patient denies any injuries or falls. Patient was seen today and was given a injection of Kenalog to the knee joint. Patient been seen at the emergency department and the urgent care clinic prior to the visit in the primary care office today. Patient appears well. The knee appears normal without any signs of significant swelling or redness. Distal pulses are intact. Patient states that it appears swollen to her. Patient has increased pain with weightbearing. Differential diagnosis includes but not limited to calcific tendinitis, osteoarthritis, meniscal injury. X-ray of the knee noted no acute fracture. Patient was given 4 mg of morphine due to her significant pain she describes. I instructed patient to continue with the ketorolac. I order for a short course of hydrocodone with acetaminophen of 10 tablets. Patient was recommended to follow-up with primary care or orthopedist of choice for further evaluation and treatment. Case management referral was placed for orthopedic appointment. Discharge Plan Discharge Patient Disposition: Home Clinical Impression: Acute pain of right knee Osteoarthritis of knee Qualifiers: Osteoarthritis type: unspecified Laterality: right Qualified Code(s): M17.11 - Unilateral primary osteoarthritis, right knee Condition: Stable Prescriptions: New hydrocodone-acetaminophen 5-325 mg tablet 1 tab PO Q8H PRN (Reason: pain (scale score 7-10)) Qty: 10 RF: 0 No Action topiramate [Topamax] 50 mg tablet 50 mg PO DAILY Qty: 30 RF: 3 ketorolac 10 mg tablet 10 mg PO TID PRN (Reason: pain) 5 Days Qty: 15 RF: 0 docusate sodium [Colace] 100 mg capsule 100 mg PO BID Qty: 60 RF: 5 (DME) insulin syringe-needle U-100 [BD Insulin Syringe Ultra-Fine] 1 mL 31 gauge x 5/16 syringe See Rx Instructions .ROUTE .MEDSUPPLY Qty: 100 RF: 11 albuterol sulfate 5 mg/mL solution for nebulization 2.5 mg INHALATION Q6H PRN (Reason: shortness of breath or wheezing) Qty: 20 RF: 5 fluticasone propionate [Flonase Allergy Relief] 50 mcg/actuation spray,suspension 2 spray INTRANASAL DAILY Qty: 16 RF: 5 famotidine 40 mg tablet 40 mg PO DAILY Qty: 30 RF: 3 oxybutynin chloride 5 mg tablet 5 mg PO DAILY Qty: 30 RF: 5 Januvia 100 mg tablet 100 mg PO DAILY Qty: 90 RF: 1 amlodipine 5 mg tablet 5 mg PO DAILY Qty: 90 RF: 1 ibuprofen 800 mg tablet 800 mg PO BID 90 Days Qty: 180 RF: 3 Hold Instructions: Doctor's Order pantoprazole 40 mg tablet,delayed release (DR/EC) See Rx Instructions .ROUTE .COMPLEX Qty: 300 RF: 0 duloxetine 60 mg capsule,delayed release(DR/EC) See Rx Instructions .ROUTE .COMPLEX Qty: 90 RF: 3 albuterol sulfate [ProAir HFA] 90 mcg/actuation HFA aerosol inhaler 2 puff INHALATION Q6H PRN (Reason: Shortness Of Breath) Qty: 8.5 RF: 4 Lantus U-100 Insulin 100 unit/mL solution See Rx Instructions .ROUTE .COMPLEX Qty: 10 RF: 4 hydrocodone-acetaminophen 10-325 mg tablet 1 tab PO Q8H PRN (Reason: Pain) 30 Days Qty: 90 RF: 0 azithromycin 250 mg tablet See Rx Instructions PO .COMPLEX Qty: 6 RF: 0 cetirizine 10 mg tablet See Rx Instructions .ROUTE .COMPLEX Qty: 30 RF: 0 alprazolam 0.5 mg tablet 0.5 mg PO BID PRN (Reason: anxiety) Qty: 60 RF: 5 aspirin 81 mg tablet,delayed release (DR/EC) 81 mg PO DAILY Qty: 30 RF: 3 Plavix 75 mg tablet 75 mg PO DAILY Qty: 30 RF: 3 Lipitor 40 mg tablet 40 mg PO DAILY Qty: 30 RF: 3 Discharge Orders: Discharge ED (Routine); Ordered 12/09/20 Ordered By: Kolby Rogers Referrals: Shamika Harding MD [Primary Care Provider] - Discharge Diet: Usual diet Discharge Activity: Increase activity as tolerated Patient Instructions: Knee Pain (ED), Opioid Safety Activity Restrictions/Additional Instructions: Home and rest. Activity as tolerated. Is important to stay active. Use ice and heat to the knee for further pain relief. Drink plenty of water. Continue to use the ketorolac tablets that Dr. Harding has given you this will help with inflammation in the knee. Use hydrocodone and acetaminophen for breakthrough pain. Follow-up with primary care or orthopedist for further evaluation and treatment. Return to the ER for new concerns. Coding Level of Care Code ED [employer] for Tahmina Little
--- NOTE | 2020-12-09 01:11 | XRR_ITS ---
PROCEDURE INFORMATION: Exam: XR Right Knee Exam date and time: 12/09/2020 1:11 AM Age: 60 years old Clinical indication: Right; Patient HX: RT knee pain with swelling. Recent gout diagnosis. TECHNIQUE: Imaging protocol: XR Right knee. Views: 3 views. COMPARISON: No relevant prior studies available. FINDINGS: Bones/joints: No fracture or dislocation. There is mild tricompartmental degenerative changes, manifested by joint space narrowing and periarticular osteophytes. Soft tissues: Normal. XR/XR knee RT 3V* [id number] IMPRESSION: 1. No acute injury. 2. Mild tricompartmental osteoarthrosis of the right knee.
[2020-12-09 01:45] VITALS: RESP 18
[2020-12-09] MEDS: morphine 4 mg/mL SDV 1 mL IM (01:45)
[2020-12-09 01:53] VITALS: BP 152/105; PULSE 84; RESP 15; O2SAT 95
--- NOTE | 2020-12-09 09:22 | DCPLANNER ---
schedule manager had message to schedule a follow up appointment for patient with ortho for right knee OA. schedule manager called ortho, spoke with Johana, gave clinic patients information. schedule manager was told that patients information would be printed and reviewed. Clinic will call patient with appointment information. Patient sees Dr. Harding for primary care, and per his request, watch case polisher is not to refer to a speciality clinic, but is to refer patient back to see him for care. schedule manager called the office of Dr. Harding, spoke with Kathya, a follow up appointment was scheduled for Monday, November 14, 2020 at [address] Harding. schedule manager called patient and explained to patient that Dr. Harding wanted to see patient after ER visit. schedule manager gave patient the appointment information. schedule manager called the ortho clinic, spoke with Johana, and cancelled the referral to ortho.
--- NOTE | 2020-12-24 08:57 | DCPLANNER ---
Patient did attend appointment scheduled for 12.14.[address] Harding.
== END 2020-12-09 02:00 | disposition home or self-care (01) ==
PROVIDERS: Emergency Provider Nurse Practitioner Family; PCP Family Medicine
DX: M17.11 Unilateral primary osteoarthritis, right knee (principal); Z79.02 Long term (current) use of antithrombotics/antiplatelets; Z79.82 Long term (current) use of aspirin; Z79.4 Long term (current) use of insulin; Z86.73 Personal history of transient ischemic attack (TIA), and cerebral infarction without residual deficits; J44.9 Chronic obstructive pulmonary disease, unspecified; E11.9 Type 2 diabetes mellitus without complications; I10 Essential (primary) hypertension; I25.2 Old myocardial infarction; F17.210 Nicotine dependence, cigarettes, uncomplicated
CPT/HCPCS: 73562; 96372; 99283; J2270

== ENCOUNTER 2020-12-11 11:13 | Emergency (ER) | payer MEDICAID, SELFPAY ==
[2020-12-11 11:25] VITALS: BP 178/102; PULSE 78; RESP 16; TEMP 36.8; O2SAT 96; BMI 32.5
--- NOTE | 2020-12-11 12:23 | ED_ITS ---
HPI - Extremity Problem General: Chief complaint: Extremity Problem,Nontraumatic Stated complaint: RIGHT KNEE PAIN Time Seen by Provider: 12/11/20 12:11 History of Present Illness: HPI Narrative: Patient is a 60-year-old female comes to the ED with right knee pain. Patient has been seen here in the ED multiple times for same complaint. She was seen here on December 09 for same complaint. they did an x-ray on her right knee and it showed nothing wrong with her knee. Denies any injury or trauma to cause her right knee pain. Patient says her doctor has even done a cortisol injection and try to drain some fluid off her knee in the past and that did not help. She says she is able to ambulate on right leg and it does not cause any pain. The pain in her right knee happens in episodes and is random. She describes it as a burning pain in her knee. Patient already takes hydrocodone for pain. She has an appointment with her PCP this coming Monday. Associated symptoms: Deny chest pain, fever(s) or rash Review of Systems Const: Denies: fever(s), chills or fatigue Eyes: Denies: change in vision or eye discomfort ENMT: Denies: throat pain, odynophagia, nasal discharge or nasal congestion Card: Denies: chest pain, palpitations, edema, swelling of feet/ankles, dyspnea on exertion or orthopnea Resp: Denies: dyspnea, productive cough or non-productive cough GI: Denies: abdominal pain, nausea, vomiting, diarrhea, constipation or hematochezia : Denies: flank pain, dysuria or hematuria Musc: Reports: joint pain (right knee pain); Denies: neck pain, back pain or extremity swelling Skin/Breast: Denies: rash or new lesions Neuro: Denies: headache(s), numbness in extremities or weakness in extremities PFS ED PFSH: Medical History Acute right arterial ischemic stroke, middle cerebral artery (MCA) Currently no residual weakness. Anxiety Cerebrovascular accident Chest pain Chronic back pain COPD (chronic obstructive pulmonary disease) CVA (cerebral vascular accident) Diabetes Hypertension Hypoestrogenism Nicotine dependence with current use NSTEMI (non-ST elevated myocardial infarction) TYPE II M.I Recurrent major depression Right cavernous carotid stenosis Urinary incontinence Vertebral artery stenosis Surgical History History of bladder surgery History of cholecystectomy History of total hysterectomy Family History Grandfather CAD (coronary artery disease) Hypertension Myocardial infarction Mother Cancer Father Cancer Brother CAD (coronary artery disease) Myocardial infarction Sister Stroke Diabetes Family/Other Diabetes Social History Smoking and tobacco status: current every day smoker cigarettes Packs smoked per day: 1 Years cigarettes smoked: 28 Alcohol intake: never Lives independently: Yes Housing: House Physical Exam Const: COMMON NORMALS: no acute distress, patient oriented x3 and alert GENERAL APPEARANCE: cooperative and comfortable HENMT: COMMON NORMALS: normocephalic HEAD & SCALP: normocephalic MOUTH: Normal oral and palatal mucosa present THROAT: posterior oropharynx normal and uvula midline Neck/C-Spine: COMMON NORMALS: supple GENERAL: Yes normal visual inspection Resp: COMMON NORMALS: normal respiratory effort, No retractions, No use of accessory muscles and clear to auscultation bilaterally AUSCULTATION: clear to auscultation bilaterally Cardio: COMMON NORMALS: regular rate, regular rhythm, S1 normal heart sound present, S2 normal heart sound present, No gallops present (Cardio), No clicks present (Cardio), No murmurs present (Cardio) and Peripheral pulses 2+ throu ghout RATE: regular rate RHYTHM: regular rhythm HEART SOUNDS: S1 normal heart sound present and S2 normal heart sound present PERIPHERAL PULSES: Peripheral pulses 2+ throughout GI: COMMON NORMALS: Normal to inspection, nondistended, normoactive bowel sounds present, Soft to palpation, non-tender and no masses PALPATION: Yes Soft to palpation : COMMON NORMALS: Yes no CVA tenderness BLADDER/KIDNEY EXAM: Yes no CVA tenderness Back/Pelvis: COMMON NORMALS: no CVA tenderness Extremity: COMMON NORMALS: normal to inspection, full ROM and no calf tend erness NARRATIVE EXTREMITY EXAM: Right knee is completely normal and has no swelling erythema or tenderness upon palpation. Neuro: COMMON NORMALS: patient oriented x3 and moves all extremities SENSORIUM/ORIENTATION: Yes alert Skin: GENERAL SKIN EXAM: dry skin Course Vital Signs: Vital signs: Vital Signs Temperature 98.2 F 12/11/20 11:25 Pulse Rate 78 12/11/20 11:25 Respiratory Rate 16 12/11/20 11:25 Blood Pressure 178/102 12/11/20 11:25 Pulse Oximetry 96 12/11/20 11:25 MDM - Extremity (Nontraumatic) MDM Narrative: Medical decision making narrative: Patient is a 60-year-old female comes to the ED with right knee pain. She was seen here for same complaint 2 days ago. The x-ray of right knee showed no acute fractures but did note some mild osteoarthrosis. She denies any reinjury since her last ED visit. Exam of right knee was benign. Patient diagnosed with pain in her right knee and discharged home. She was told to follow-up with her PCP in 7 to 10 days reevaluation. Rest, ice and elevate right leg. Patient understood agree with plan. Discharge Plan Discharge Patient Disposition: Home Clinical Impression: Pain in right knee Qualifiers: Chronicity: unspecified Qualified Code(s): M25.561 - Pain in right knee Condition: Stable Prescriptions: No Action topiramate [Topamax] 50 mg tablet 50 mg PO DAILY Qty: 30 RF: 3 ketorolac 10 mg tablet 10 mg PO TID PRN (Reason: pain) 5 Days Qty: 15 RF: 0 docusate sodium [Colace] 100 mg capsule 100 mg PO BID Qty: 60 RF: 5 albuterol sulfate 5 mg/mL solution for nebulization 2.5 mg INHALATION Q6H PRN (Reason: shortness of breath or wheezing) Qty: 20 RF: 5 fluticasone propionate [Flonase Allergy Relief] 50 mcg/actuation spray,suspension 2 spray INTRANASAL DAILY Qty: 16 RF: 5 famotidine 40 mg tablet 40 mg PO DAILY Qty: 30 RF: 3 oxybutynin chloride 5 mg tablet 5 mg PO DAILY Qty: 30 RF: 5 Januvia 100 mg tablet 100 mg PO DAILY Qty: 90 RF: 1 amlodipine 5 mg tablet 5 mg PO DAILY Qty: 90 RF: 1 ibuprofen 800 mg tablet 800 mg PO BID 90 Days Qty: 180 RF: 3 Hold Instructions: Doctor's Order pantoprazole 40 mg tablet,delayed release (DR/EC) See Rx Instructions .ROUTE .COMPLEX Qty: 300 RF: 0 duloxetine 60 mg capsule,delayed release(DR/EC) See Rx Instructions .ROUTE .COMPLEX Qty: 90 RF: 3 albuterol sulfate [ProAir HFA] 90 mcg/actuation HFA aerosol inhaler 2 puff INHALATION Q6H PRN (Reason: Shortness Of Breath) Qty: 8.5 RF: 4 Lantus U-100 Insulin 100 unit/mL solution See Rx Instructions .ROUTE .COMPLEX Qty: 10 RF: 4 hydrocodone-acetaminophen 10-325 mg tablet 1 tab PO Q8H PRN (Reason: Pain) 30 Days Qty: 90 RF: 0 azithromycin 250 mg tablet See Rx Instructions PO .COMPLEX Qty: 6 RF: 0 alprazolam 0.5 mg tablet 0.5 mg PO BID PRN (Reason: anxiety) Qty: 60 RF: 5 insulin syringe-needle U-100 [BD Insulin Syringe Ultra-Fine] 1 mL 31 gauge x 5/16 syringe See Rx Instructions .ROUTE .COMPLEX Qty: 100 RF: 0 cetirizine 10 mg tablet See Rx Instructions .ROUTE .COMPLEX Qty: 30 RF: 0 aspirin 81 mg tablet,delayed release (DR/EC) 81 mg PO DAILY Qty: 30 RF: 3 Plavix 75 mg tablet 75 mg PO DAILY Qty: 30 RF: 3 Lipitor 40 mg tablet 40 mg PO DAILY Qty: 30 RF: 3 hydrocodone-acetaminophen 5-325 mg tablet 1 tab PO Q8H PRN (Reason: pain (scale score 7-10)) Qty: 10 RF: 0 Discharge Orders: Discharge ED (Routine); Ordered 12/11/20 Ordered By: Sunil Dumont Referrals: Shamika Harding MD [Primary Care Provider] - Discharge Diet: Regular Discharge Activity: Increase activity as tolerated and Limit activity as instructed Patient Instructions: Knee Pain (ED) Activity Restrictions/Additional Instructions: Follow-up with primary care physician at your next scheduled appointment this coming Monday. Rest, ice and elevate right knee. Continue taking your previously prescribed pain meds as needed. Return to the ER or your medical provider if condition worsens. Please read and understand discharge instructions . Thank you for choosing [facility] for your healthcare needs today. Please realize this is an emergency room and that we are providing you with a medical screening exam and this may not be complete and all inclusive of all the testing and or work up that you may need to determine your ailment or severity of your illness. It is very important that you follow up as instructed or that you return to the Emergency Department should you have concerns or if your condition changes or worsens in any way. Coding Level of Care Code ED [employer] for Tahmina Little Exam Comprehensive
[2020-12-11] MEDS: morphine 4 mg/mL SDV 1 mL IM (12:56)
== END 2020-12-11 13:04 | disposition home or self-care (01) ==
PROVIDERS: Emergency Provider Physician Assistant; PCP Family Medicine
DX: M25.561 Pain in right knee (principal); Z79.02 Long term (current) use of antithrombotics/antiplatelets; Z79.82 Long term (current) use of aspirin; Z79.4 Long term (current) use of insulin; Z86.73 Personal history of transient ischemic attack (TIA), and cerebral infarction without residual deficits; J44.9 Chronic obstructive pulmonary disease, unspecified; E11.9 Type 2 diabetes mellitus without complications; I10 Essential (primary) hypertension; I25.2 Old myocardial infarction; F17.210 Nicotine dependence, cigarettes, uncomplicated
CPT/HCPCS: 96372; 99283; J2270

== ENCOUNTER → 2020-12-14 09:04 | Outpatient (BNVA) | payer MEDICAID, SELFPAY | PROVIDERS: PCP Family Medicine; Visit Provider Family Medicine | DX: R30.0 Dysuria (principal); E11.9 Type 2 diabetes mellitus without complications; I10 Essential (primary) hypertension; M17.11 Unilateral primary osteoarthritis, right knee | CPT/HCPCS: 36416; 81000; 82962 ==

== ENCOUNTER 2020-12-31 05:09 | Emergency (ER) | payer MEDICAID, SELFPAY ==
[2020-12-31 05:14] VITALS: BP 187/108; PULSE 81; RESP 18; TEMP 36.6; O2SAT 98; BMI 32.8
--- NOTE | 2020-12-31 05:28 | USCV_ITS ---
Maru Man Age: 60 Gender: F : 1960 Exam Date: 12/31/2020 06:05 Ordering Phys: George Brown MD Technologist: Clarissa Reveles [place] [facility] [place]: PAIN ANT LT LOWER LEG AND KNEE. HISTORY OF DVT HISTORY: Pain Lt leg. History of DVT PROCEDURES: Venous duplex imaging was performed in only the left lower extremity. The following venous structures were evaluated: common femoral vein, profunda vein, proximal portion of the greater saphenous vein, superficial femoral vein, and the popliteal vein. In addition, the posterior tibial and peroneal trunk were evaluated. Serial compression, augmentation maneuvers, and spectral Doppler flow evaluation were performed. Area of Patient's complaint also examined. FINDINGS: Normal 2-D Doppler and augmentation and compressibility throughout the lower extremity venous structures. Additional imaging through the proximal calf veins also reveals no thrombus. Limited evaluation of the greater saphenous vein is patent with no thrombus. CONCLUSIONS No DVT left lower extremity. Dr. Rosemarie Fontenot DO (Electronically Signed) Final Date: 31 December 2020 07:58 S
[2020-12-31] MEDS: ondansetron 2 mg/ML SDV 2 mL 4 MG IVP (05:50)
--- NOTE | 2020-12-31 05:56 | ED_ITS ---
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 She is on blood thinners. She states that she started having right leg pain 3 weeks ago but now lateral pain is resolved but now she is starting to have severe pain in her left leg this week. She was seen by her PCP yesterday who was going to do outpatient ultrasound on that leg but she states that throughout the night her pain is worsened. Patient is ambulatory and walked to the room. States pain is currently a 6 out of 10. Denies any worsening improving factors. She denies any fevers. Associated symptoms: Deny chest pain, fever(s) or rash Review of Systems Const: Denies: fever(s), chills, body aches or change in appetite Eyes: Denies: blurry vision or eye discomfort ENMT: Denies: throat pain or dental pain Card: Denies: chest pain Resp: Denies: dyspnea GI: Denies: abdominal pain, nausea, vomiting or diarrhea : Denies: dysuria Musc: Reports: extremity pain Skin/Breast: Denies: rash Neuro: Denies: headache(s) Psych: Denies: depression Saud/Lymph: Denies: easy bruising All/Imm: Denies: urticaria PFSH ED PFSH: Medical History Acute right arterial ischemic stroke, middle cerebral artery (MCA) Currently no residual weakness. Anxiety Cerebrovascular accident Chest pain Chronic back pain COPD (chronic obstructive pulmonary disease) CVA (cerebral vascular accident) Diabetes Hypertension Hypoestrogenism Nicotine dependence with current use NSTEMI (non-ST elevated myocardial infarction) TYPE II M.I Recurrent major depression Right cavernous carotid stenosis Urinary incontinence Vertebral artery stenosis Surgical History History of bladder surgery History of cholecystectomy History of total hysterectomy Family History Grandfather CAD (coronary artery disease) Hypertension Myocardial infarction Mother Cancer Father Cancer Brother CAD (coronary artery disease) Myocardial infarction Sister Stroke Diabetes Family/Other Diabetes Social History Smoking and tobacco status: current every day smoker cigarettes Packs smoked per day: 1 Years cigarettes smoked: 28 Alcohol intake: never Lives independently: Yes Housing: House Physical Exam Const: COMMON NORMALS: no acute distress, patient oriented x3 and healthy appearing HENMT: COMMON NORMALS: normocephalic and atraumatic HEAD & SCALP: normocephalic and atraumatic Eye: COMMON NORMALS: Equal, round and reactive pupils present and EOMs intact bilaterally PUPIL: Yes Equal, round and reactive pupils present Neck/C-Spine: COMMON NORMALS: full ROM and supple Chest: COMMONS NORMALS: normal inspection of the chest and normal palpation of entire chest wall Resp: COMMON NORMALS: normal respiratory effort, No retractions, No use of accessory muscles and clear to auscultation bilaterally AUSCULTATION: clear to auscultation bilaterally Cardio: COMMON NORMALS: regular rate, regular rhythm and No murmurs present (Cardio) RATE: regular rate RHYTHM: regular rhythm GI: COMMON NORMALS: Normal to inspection, nondistended, normoactive bowel sounds present, Soft to palpation, non-tender and no masses PALPATION: Yes Soft to palpation Extremity: COMMON NORMALS: normal to inspection and full ROM NARRATIVE EXTREMITY EXAM: Distal pulses intact left leg no swelling or warmth noted Neuro: COMMON NORMALS: patient oriented x3, moves all extremities and no focal motor deficits Psych: COMMON NORMALS: mental status grossly normal, Normal thought process present and cooperative THOUGHT PROCESS: Normal thought process present Skin: COMMON NORMALS: no rashes or lesions noted and no wounds GENERAL SKIN EXAM: no rashes or lesions noted Course Vital Signs: Vital signs: Vital Signs Temperature 97.9 F 12/31/20 05:14 Pulse Rate 67 12/31/20 10:52 Respiratory Rate 14 12/31/20 10:52 Blood Pressure 184/93 12/31/20 06:16 Pulse Oximetry 93 12/31/20 10:52 MDM - Extremity (Nontraumatic) Lab Data: Labs: Lab Results 12/31/20 12/31/20 12/31/20 Range/Units 10:00 10:00 10:00 WBC 9.6 (4.0-10.0) 10^3/ uL RBC 4.71 (4.1-5.3) 10^6/u L Hgb 13.8 (11.5-15.3) g/dL Hct 43.1 (37.0-47.0) % MCV 91.5 (81-99) fL MCH 29.3 (28.0-34.0) pg MCHC 32.0 (30.0-36.0) g/dL RDW 13.8 (12.1-15.1) % Plt Count 318 (130-400) 10^3/c mm MPV 10.0 (7.4-10.4) fL Neut % (Auto) 53.1 % Lymph % (Auto) 37.6 % Garden % (Auto) 6.6 % Eos % (Auto) 1.9 % Baso % (Auto) 0.5 % Neut # (Auto) 5.11 (1.8-7.7) 10^3/u L Lymph # (Auto) 3.6 (0.8-4.8) 10^3/u L Garden # (Auto) 0.6 (0.2-0.9) 10^3/u L Eos # (Auto) 0.2 (0.0-0.8) 10^3/u L Baso # (Auto) 0.1 (0.0-0.1) 10^3/u L Nucleated RBC % (a uto) 0 % Nucleated RBCs # 0.0 /100WBC PT 12.80 (12.1-14.9) SECO NDS INR 0.93 (0.8-1.2) Creatine Kinase 37 (26-192) U/L Discharge Plan Discharge Patient Disposition: Home Clinical Impression: Knee pain, left Condition: Stable Prescriptions: New lidocaine 5 % ointment 1 applic topical TID PRN (Reason: pain) Qty: 60 RF: 0 No Action hydrocodone-acetaminophen 10-325 mg tablet 1 tab PO Q8H PRN (Reason: Pain) 30 Days Qty: 90 RF: 0 docusate sodium [Colace] 100 mg capsule 100 mg PO BID Qty: 60 RF: 5 fluticasone propionate [Flonase Allergy Relief] 50 mcg/actuation spray,suspension 2 spray INTRANASAL DAILY Qty: 16 RF: 5 famotidine 40 mg tablet 40 mg PO DAILY Qty: 30 RF: 3 oxybutynin chloride 5 mg tablet 5 mg PO DAILY Qty: 30 RF: 5 Januvia 100 mg tablet 100 mg PO DAILY Qty: 90 RF: 1 amlodipine 5 mg tablet 5 mg PO DAILY Qty: 90 RF: 1 ibuprofen 800 mg tablet 800 mg PO BID 90 Days Qty: 180 RF: 3 Hold Instructions: Doctor's Order albuterol sulfate [ProAir HFA] 90 mcg/actuation HFA aerosol inhaler 2 puff INHALATION Q6H PRN (Reason: Shortness Of Breath) Qty: 8.5 RF: 4 alprazolam 0.5 mg tablet 0.5 mg PO BID PRN (Reason: anxiety) Qty: 60 RF: 5 insulin syringe-needle U-100 [BD Insulin Syringe Ultra-Fine] 1 mL 31 gauge x 5/16 syringe See Rx Instructions .ROUTE .COMPLEX Qty: 100 RF: 0 cyclobenzaprine 10 mg tablet 10 mg PO BID PRN (Reason: muscle spasm) 30 Days Qty: 50 RF: 0 aspirin 81 mg tablet,delayed release (DR/EC) 81 mg PO DAILY Qty: 30 RF: 3 clopidogrel [Plavix] 75 mg tablet 75 mg PO DAILY Qty: 30 RF: 3 atorvastatin [Lipitor] 40 mg tablet 40 mg PO DAILY Qty: 30 RF: 3 albuterol sulfate 2.5 mg /3 mL (0.083 %) solution for nebulization 2.5 mg inhalation Q6H PRN (Reason: Shortness Of Breath) RF: 0 Tylenol Extra Strength 500 mg Tablet 1,000 mg PO PRN RF: 0 topiramate 50 mg tablet 50 mg PO DAILY RF: 0 Celebrex 200 mg capsule 200 mg PO DAILY RF: 0 Lantus U-100 Insulin 100 unit/mL solution See Rx Instructions .ROUTE .COMPLEX RF: 0 cetirizine 10 mg tablet 10 mg PO DAILY RF: 0 pantoprazole 40 mg tablet,delayed release (DR/EC) 40 mg PO DAILY RF: 0 duloxetine 60 mg capsule,delayed release(DR/EC) 60 mg PO DAILY RF: 0 Discharge Orders: Discharge ED (Routine); Ordered 12/31/20 Ordered By: Mauro Arrington Referrals: Shamika Harding MD [Primary Care Provider] - Discharge Diet: Usual diet Discharge Activity: Increase activity as tolerated Patient Instructions: Opioid Safety Coding Level of Care Code ED Ed Case Manager for Chg Fwd Exam Comprehensive Documented by User: Mauro Arrington DO 01/02/21 16:18 HPI - Extremity Problem General: Chief complaint: Extremity Injury, Lower Stated complaint: Left Leg in Pain Time Seen by Provider: 12/31/20 05:18 [facility] ED PFSH: Medical History Acute right arterial ischemic stroke, middle cerebral artery (MCA) Currently no residual weakness. Anxiety Cerebrovascular accident Chest pain Chronic back pain COPD (chronic obstructive pulmonary disease) CVA (cerebral vascular accident) Diabetes Hypertension Hypoestrogenism Nicotine dependence with current use NSTEMI (non-ST elevated myocardial infarction) TYPE II M.I Recurrent major depression Right cavernous carotid stenosis Urinary incontinence Vertebral artery stenosis Surgical History History of bladder surgery History of cholecystectomy History of total hysterectomy Family History Grandfather CAD (coronary artery disease) Hypertension Myocardial infarction Mother Cancer Father Cancer Brother CAD (coronary artery disease) Myocardial infarction Sister Stroke Diabetes Family/Other Diabetes Social History Smoking and tobacco status: current every day smoker cigarettes Packs smoked per day: 1 Years cigarettes smoked: 28 Alcohol intake: never Lives independently: Yes Housing: House Course Vital Signs: Vital signs: Vital Signs Temperature 97.9 F 12/31/20 05:14 Pulse Rate 67 12/31/20 10:52 Respiratory Rate 14 12/31/20 10:52 Blood Pressure 184/93 12/31/20 06:16 Pulse Oximetry 93 12/31/20 10:52 MDM - Extremity (Nontraumatic) MDM Narrative: Medical decision making narrative: No acute fractures. Oste oarthritic in nature we will go and have her use topical lidocaine she is already on hydrocodone and anti-inflammatories. Follow-up with primary care return if she has any further problems. Lab Data: Labs: Lab Results 12/31/20 12/31/20 12/31/20 Range/Units 10:00 10:00 10:00 WBC 9.6 (4.0-10.0) 10^3/ uL RBC 4.71 (4.1-5.3) 10^6/u L Hgb 13.8 (11.5-15.3) g/dL Hct 43.1 (37.0-47.0) % MCV 91.5 (81-99) fL MCH 29.3 (28.0-34.0) pg MCHC 32.0 (30.0-36.0) g/dL RDW 13.8 (12.1-15.1) % Plt Count 318 (130-400) 10^3/c mm MPV 10.0 (7.4-10.4) fL Neut % (Auto) 53.1 % Lymph % (Auto) 37.6 % Garden % (Auto) 6.6 % Eos % (Auto) 1.9 % Baso % (Auto) 0.5 % Neut # (Auto) 5.11 (1.8-7.7) 10^3/u L Lymph # (Auto) 3.6 (0.8-4.8) 10^3/u L Garden # (Auto) 0.6 (0.2-0.9) 10^3/u L Eos # (Auto) 0.2 (0.0-0.8) 10^3/u L Baso # (Auto) 0.1 (0.0-0.1) 10^3/u L Nucleated RBC % (a uto) 0 % Nucleated RBCs # 0.0 /100WBC PT 12.80 (12.1-14.9) SECO NDS INR 0.93 (0.8-1.2) Creatine Kinase 37 (26-192) U/L Discharge Plan Discharge Patient Disposition: Home Clinical Impression: Knee pain, left Condition: Stable Prescriptions: New lidocaine 5 % ointment 1 applic topical TID PRN (Reason: pain) Qty: 60 RF: 0 No Action hydrocodone-acetaminophen 10-325 mg tablet 1 tab PO Q8H PRN (Reason: Pain) 30 Days Qty: 90 RF: 0 docusate sodium [Colace] 100 mg capsule 100 mg PO BID Qty: 60 RF: 5 fluticasone propionate [Flonase Allergy Relief] 50 mcg/actuation spray,suspension 2 spray INTRANASAL DAILY Qty: 16 RF: 5 famotidine 40 mg tablet 40 mg PO DAILY Qty: 30 RF: 3 oxybutynin chloride 5 mg tablet 5 mg PO DAILY Qty: 30 RF: 5 Januvia 100 mg tablet 100 mg PO DAILY Qty: 90 RF: 1 amlodipine 5 mg tablet 5 mg PO DAILY Qty: 90 RF: 1 ibuprofen 800 mg tablet 800 mg PO BID 90 Days Qty: 180 RF: 3 Hold Instructions: Doctor's Order albuterol sulfate [ProAir HFA] 90 mcg/actuation HFA aerosol inhaler 2 puff INHALATION Q6H PRN (Reason: Shortness Of Breath) Qty: 8.5 RF: 4 alprazolam 0.5 mg tablet 0.5 mg PO BID PRN (Reason: anxiety) Qty: 60 RF: 5 insulin syringe-needle U-100 [BD Insulin Syringe Ultra-Fine] 1 mL 31 gauge x 5/16 syringe See Rx Instructions .ROUTE .COMPLEX Qty: 100 RF: 0 cyclobenzaprine 10 mg tablet 10 mg PO BID PRN (Reason: muscle spasm) 30 Days Qty: 50 RF: 0 aspirin 81 mg tablet,delayed release (DR/EC) 81 mg PO DAILY Qty: 30 RF: 3 clopidogrel [Plavix] 75 mg tablet 75 mg PO DAILY Qty: 30 RF: 3 atorvastatin [Lipitor] 40 mg tablet 40 mg PO DAILY Qty: 30 RF: 3 albuterol sulfate 2.5 mg /3 mL (0.083 %) solution for nebulization 2.5 mg inhalation Q6H PRN (Reason: Shortness Of Breath) RF: 0 Tylenol Extra Strength 500 mg Tablet 1,000 mg PO PRN RF: 0 topiramate 50 mg tablet 50 mg PO DAILY RF: 0 Celebrex 200 mg capsule 200 mg PO DAILY RF: 0 Lantus U-100 Insulin 100 unit/mL solution See Rx Instructions .ROUTE .COMPLEX RF: 0 cetirizine 10 mg tablet 10 mg PO DAILY RF: 0 pantoprazole 40 mg tablet,delayed release (DR/EC) 40 mg PO DAILY RF: 0 duloxetine 60 mg capsule,delayed release(DR/EC) 60 mg PO DAILY RF: 0 Discharge Orders: Discharge ED (Routine); Ordered 12/31/20 Ordered By: Mauro Arrington Referrals: Shamika Harding MD [Primary Care Provider] - Discharge Diet: Usual diet Discharge Activity: Increase activity as tolerated Patient Instructions: Opioid Safety Coding Level of Care Code ED Ed Case Manager for Tahmina Fwd Exam Comprehensive
[2020-12-31 06:04] VITALS: RESP 22; O2SAT 95
[2020-12-31] MEDS: morphine 4 mg/mL SDV 1 mL IVP (06:04)
[2020-12-31 06:16] VITALS: BP 184/93; PULSE 83; RESP 22; O2SAT 94
--- NOTE | 2020-12-31 06:35 | XR_ITS ---
WS: [id number] LEFT KNEE: 3 VIEW(S) TECHNIQUE: AP, oblique(s) and lateral. HISTORY: pain, mild swelling COMPARISON: None available. No fracture or dislocation. Mild narrowing of the medial and patellofemoral joint spaces. Very small hypertrophic osteophytes at the joint line. No joint effusion. No soft tissue abnormality. XR/XR knee LT 3V* [id number] IMPRESSION: 1. Mild osteoarthritis at the medial and patellofemoral compartments. 2. No fracture.
[2020-12-31] MEDS: ketorolac 30 mg/mL INJ 60 MG IM (08:42)
[2020-12-31] MEDS: HYDROcodone-acetaminophen 5-325 mg Tablet 1 TAB PO (08:42)
--- NOTE | 2020-12-31 09:16 | PC.PHAR ---
pt states she has a nurse from [facility] that sets up her meds-pt states if its on her list from [facility] then she takes it-pt states she uses her lantus 40 units qam and 50 units hs pt states the dr had changed it to that-ext med history shows last filled on 12/01/20 and [facility] med list has 40 units qam and 60 units hs-notes are made in the pharmacy comments-pt states she finished her fluconazole 150mg filled on 12/14/20 12d/s #3
[2020-12-31 10:08] LABS: Basophils # 0.1 10^3/uL (0.0-0.1); Basophils % 0.5 %; Eosinophils # 0.2 10^3/uL (0.0-0.8); Eosinophils % 1.9 %; Hematocrit 43.1 % (37.0-47.0); Hemoglobin 13.8 g/dL (11.5-15.3); Lymphocytes # 3.6 10^3/uL (0.8-4.8); Lymphocytes % 37.6 %; Mean Corpuscular Hemoglobin 29.3 pg (28.0-34.0); Mean Corpuscular Volume 91.5 fL (81-99); Monocytes # 0.6 10^3/uL (0.2-0.9); Monocytes % 6.6 %; Neutrophils # 5.11 10^3/uL (1.8-7.7); Neutrophils % 53.1 %; Nucleated Red Blood Cells % 0 %; Platelet Count 318 10^3/cmm (130-400); Red Blood Count 4.71 10^6/uL (4.1-5.3); Red Cell Distribution Width 13.8 % (12.1-15.1); White Blood Count 9.6 10^3/uL (4.0-10.0)
[2020-12-31 10:24] LABS: INR 0.93 (0.8-1.2)
[2020-12-31 10:41] LABS: Creatine Phosphokinase 37 U/L (26-192)
[2020-12-31 10:52] VITALS: PULSE 67; RESP 14; O2SAT 93
== END 2020-12-31 10:53 | disposition home or self-care (01) ==
PROVIDERS: Emergency Medicine; Emergency Provider Family Medicine; PCP Family Medicine
DX: M25.562 Pain in left knee (principal); Z79.02 Long term (current) use of antithrombotics/antiplatelets; Z79.82 Long term (current) use of aspirin; Z79.4 Long term (current) use of insulin; Z86.73 Personal history of transient ischemic attack (TIA), and cerebral infarction without residual deficits; J44.9 Chronic obstructive pulmonary disease, unspecified; E11.9 Type 2 diabetes mellitus without complications; I10 Essential (primary) hypertension; I25.2 Old myocardial infarction; F17.210 Nicotine dependence, cigarettes, uncomplicated
CPT/HCPCS: 73562; 82550; 85025; 85610; 93971; 96374; 96375; 99284; J1885; J2270; J2405

== ENCOUNTER → 2021-08-09 11:10 | Outpatient (BNVA) | payer MEDICAID, SELFPAY | PROVIDERS: PCP Family Medicine; Visit Provider Nurse Practitioner | DX: R05.9 Cough, unspecified (principal); Z20.822 Contact with and (suspected) exposure to COVID-19 | CPT/HCPCS: 87426 ==

== ENCOUNTER 2021-08-28 16:35 | Emergency (ER) | payer MEDICAID, SELFPAY ==
[2021-08-28 17:18] VITALS: BP 139/88; PULSE 83; RESP 20; TEMP 36.9; O2SAT 93; BMI 34.9
--- NOTE | 2021-08-28 17:23 | ED_ITS ---
HPI - Back Pain/Injury General: Chief Complaint: Back Pain/Injury Stated Complaint: back pain Time Seen by Provider: 08/28/21 17:23 History of Present Illness: 60-year-old female comes in today with complaints of low back pain for the last week. Patient has a history of lumbar fusion about 3 years ago. Patient denies any recent injuries. Patient does report that she had slipped and fell about 3 years ago which caused her herniation of the disc in which she had to have surgery. Patient denies any loss of bowel or bladder control. Patient denies any fever. Patient does report some sinus pain and drainage also. Patient appears well. Patient appears in mild to moderate pain. MD elicited complaint: back pain Pertinent past history: prior back pain and back surgery Onset (ago): day(s) Timing: intermittent Similar Symptoms Previously: Yes Quality: aching Location: lumbar spine Radiation: buttocks and left upper leg Exacerbating factors: none Relieving factors: none Associated symptoms: Reports no associated symptoms; Deny fever(s) Treatments prior to arrival: prescription analgesics Review of Systems General: Reports: 10 or more systems reviewed and unremarkable except in HPI and below Const: Denies: fever(s) ENMT: Reports: nasal discharge and nasal congestion Card: Denies: chest pain Resp: Denies: dyspnea GI: Denies: diarrhea or constipation : Denies: difficulty voiding Musc: Reports: back pain Skin/Breast: Denies: rash PFSH ED PFSH: Medical History (Updated 08/28/21 @ 17:43 by MARIELOS Baker) Acute right arterial ischemic stroke, middle cerebral artery (MCA) Currently no residual weakness. Anxiety Cerebrovascular accident Chest pain Chronic back pain COPD (chronic obstructive pulmonary disease) CVA (cerebral vascular accident) Diabetes Hypertension Hypoestrogenism Lumbar disc disease Nicotine dependence with current use NSTEMI (non-ST elevated myocardial infarction) TYPE II M.I Recurrent major depression Right cavernous carotid stenosis Urinary incontinence Vertebral artery stenosis Surgical History History of bladder surgery History of cholecystectomy History of total hysterectomy Family History Grandfather CAD (coronary artery disease) Hypertension Myocardial infarction Mother Cancer Father Cancer Brother CAD (coronary artery disease) Myocardial infarction Sister Stroke Diabetes Family/Other Diabetes Social History Smoking and tobacco status: current every day smoker cigarettes Packs smoked per day: 1 Years cigarettes smoked: 28 Alcohol intake: never Lives independently: Yes Housing: House Physical Exam Const: COMMON NORMALS: alert HENMT: COMMON NORMALS: normocephalic HEAD & SCALP: normocephalic FACE & SINUS: sinuses nontender NOSE: Nasal discharge present Neck/C-Spine: COMMON NORMALS: full ROM Resp: COMMON NORMALS: normal respiratory effort and clear to auscultation bilaterally AUSCULTATION: clear to auscultation bilaterally Cardio: COMMON NORMALS: regular rate and regular rhythm RATE: regular rate RHYTHM: regular rhythm Back/Pelvis: LUMBAR SPINE/LOWER BACK: Yes normal to inspection, Yes lumbar spinal tenderness and Yes paraspinal muscle tenderness Extremity: COMMON NORMALS: normal to inspection Neuro: SENSORIUM/ORIENTATION: Yes alert Skin: COMMON NORMALS: no rashes or lesions noted GENERAL SKIN EXAM: no rashes or lesions noted Course Vital Signs: Vital signs: Vital Signs Temperature 98.5 F 08/28/21 17:33 Pulse Rate 83 08/28/21 17:33 Respiratory Rate 18 08/28/21 17:33 Blood Pressure 139/88 08/28/21 17:33 Pulse Oximetry 93 08/28/21 17:33 MDM - Back Pain/Injury Medical Decision Making Patient comes in today with complaints of low back pain. Patient reports that she has had worsening back pain over the last week. Patient routinely sees Dr. Harding and has been treated with some steroid injections with no reported improvement. Patient does use hydrocodone for pain. On evaluation patient has sensitivity on palpation of the lumbar spine area. Pain seems to be exaggerated to light touch. Negative leg lift test. Differential diagnosis includes intervertebral disc disease, facet arthropathy, malingering. Patient was given an injection of ketorolac 30 mg, orphenadrine 60 mg. Patient also requested medication for a sinus infection. Patient was given a gram of Rocephin and will follow up Augmentin for 7 days. Due to patient's worsening pain over the last month with increased pain and difficulty of managing we will recommend follow-up with Dr. Mckinney orthopedic spine. Patient was wanting this appointment. Case management was quested for the follow-up appointment. Discharge Plan Discharge Patient Disposition: Home Clinical Impression: Acute rhinosinusitis Back pain Qualifiers: Back pain location: low back pain Chronicity: unspecified Back pain laterality: bilateral Sciatica presence: unspecified whether sciatica present Qualified Code(s): M54.50 - Low back pain, unspecified Condition: Stable Prescriptions: New amoxicillin-pot clavulanate 875-125 mg tablet 1 tab PO BID Qty: 14 0RF Discontinued amoxicillin-pot clavulanate [Augmentin] 875-125 mg tablet 1 tab PO BID Qty: 14 0RF No Action ketorolac 10 mg tablet 10 mg PO TID PRN (Reason: pain) 7 Days Qty: 14 0RF Rx Instructions: instead of ibuprofen fluticasone propionate [Flonase Allergy Relief] 50 mcg/actuation spray,suspension 2 spray INTRANASAL DAILY Qty: 16 5RF Rx Instructions: administer into each nostril Januvia 100 mg tablet 100 mg PO DAILY Qty: 90 1RF ibuprofen 800 mg tablet 800 mg PO BID 90 Days Qty: 180 3RF Hold Instructions: Doctor's Order cyclobenzaprine 10 mg tablet 10 mg PO BID PRN (Reason: muscle spasm) 30 Days Qty: 50 0RF famotidine 40 mg tablet 40 mg PO DAILY Qty: 30 7RF Rx Instructions: take at bed time: continue pantoprazole in the morning for drainage atorvastatin [Lipitor] 40 mg tablet 40 mg PO DAILY Qty: 30 3RF Lantus U-100 Insulin 100 unit/mL solution 100 unit SUBCUT BID 90 Days Qty: 180 1RF oxybutynin chloride 5 mg tablet 5 mg PO DAILY Qty: 30 5RF diazepam 5 mg tablet 5 mg PO BID PRN (Reason: anxiety) Qty: 60 3RF Rx Instructions: This instead of the alprazolam for nerves during day and sleep at night insulin syringe-needle U-100 [BD Insulin Syringe Ultra-Fine] 1 mL 31 gauge x 5/16 syringe See Rx Instructions .ROUTE .COMPLEX Qty: 100 5RF Dose Instruction: USE DIRECTED Rx Instructions: USE DIRECTED clopidogrel [Plavix] 75 mg tablet 75 mg PO DAILY Qty: 30 11RF amlodipine 5 mg tablet 5 mg PO DAILY Qty: 90 1RF docusate sodium 100 mg capsule See Rx Instructions .ROUTE .COMPLEX Qty: 60 5RF Dose Instruction: TAKE 1 CAPSULE BY MOUTH TWICE DAILY Rx Instructions: TAKE 1 CAPSULE BY MOUTH TWICE DAILY albuterol sulfate [ProAir HFA] 90 mcg/actuation HFA aerosol inhaler 2 puff INHALATION Q6H PRN (Reason: Shortness Of Breath) Qty: 8.5 4RF pregabalin 100 mg capsule 100 mg PO BID Qty: 60 5RF cetirizine 10 mg tablet 10 mg PO DAILY 30 Days Qty: 30 5RF fluconazole [Diflucan] 150 mg tablet 150 mg PO .every 4th day Qty: 3 0RF hydrocodone-acetaminophen 10-325 mg tablet 1 tab PO Q8H PRN (Reason: Pain) 30 Days Qty: 90 0RF aspirin 81 mg tablet,delayed release (DR/EC) 81 mg PO DAILY Qty: 30 3RF albuterol sulfate 2.5 mg /3 mL (0.083 %) solution for nebulization 2.5 mg inhalation Q6H PRN (Reason: Shortness Of Breath) 0RF Tylenol Extra Strength 500 mg Tablet 1,000 mg PO PRN 0RF topiramate 50 mg tablet 50 mg PO DAILY 0RF pantoprazole 40 mg tablet,delayed release (DR/EC) 40 mg PO DAILY 0RF duloxetine 60 mg capsule,delayed release(DR/EC) 60 mg PO DAILY 0RF lidocaine 5 % ointment 1 applic topical TID PRN (Reason: pain) Qty: 60 0RF Discharge Orders: Discharge ED (Routine); Ordered 08/28/21 Ordered By: Kolby Rogers Referrals: Shamika Harding MD [Primary Care Provider] - Discharge Diet: Usual diet Discharge Activity: Increase activity as tolerated Patient Instructions: Back Pain (ED) Activity Restrictions/Additional Instructions: Continue with routine medications. Drink plenty of water with medications. Activity as tolerated. Follow-up with primary care. Case management will contact you with follow-up appointment with spine surgeon. Return to ER for new concerns. Coding Level of Care Code ED Psychologist Counseling for Tahmina Little Exam Comprehensive
[2021-08-28 17:33] VITALS: BP 139/88; PULSE 83; RESP 18; TEMP 36.9; O2SAT 93
[2021-08-28] MEDS: ketorolac 30 mg/mL INJ IM (17:52)
[2021-08-28] MEDS: orphenadrine 30 mg/mL Inj 2 mL 60 MG IM (17:53)
[2021-08-28] MEDS: cefTRIAXone 1,000 MG in lidocaine 1% 2.1 ML 1 MG IM (18:02)
[2021-08-28 18:18] VITALS: BP 139/88; PULSE 93; RESP 18; O2SAT 99
--- NOTE | 2021-08-31 10:11 | DCPLANNER ---
Addendum entered by Julienne Leung 09/21/21 20:13: Patient had a follow up appointment scheduled with Tobin Palomo at ortho - patient did not attend appointment. Addendum entered by Julienne Leung 08/31/21 15:49: Patient has a follow up appointment scheduled for August at 9:00 with Tobin TRENT at ortho. Clinic will call patient with appointment information. Original Note: manager technology had message to schedule a follow up appointment for patient with ortho. Patient sees Dr. Harding for primary care, case resource manager sent Dr. Pierson nurse a message that patient was seen in the ER and is being referred to ortho. manager technology sent patients information to the ortho front staff office thru [employer] messaging system. Patients information will be printed and reviewed. Clinic will call patient with appointment information.
== END 2021-08-28 18:19 | disposition home or self-care (01) ==
PROVIDERS: Emergency Provider Nurse Practitioner Family; PCP Family Medicine
DX: M54.50 Low back pain, unspecified (principal); J01.90 Acute sinusitis, unspecified; F17.210 Nicotine dependence, cigarettes, uncomplicated; Z98.1 Arthrodesis status
CPT/HCPCS: 96372; 99283; J0696; J1885; J2360

== ENCOUNTER 2021-10-31 01:04 | Emergency (ER) | payer MEDICAID, SELFPAY ==
[2021-10-31 01:59] VITALS: BP 169/88; PULSE 79; RESP 18; TEMP 37.1; O2SAT 95; BMI 34.9
--- NOTE | 2021-10-31 04:02 | XRR_ITS ---
PROCEDURE INFORMATION: Exam: XR Left Knee Exam date and time: 10/31/2021 4:17 AM Age: 61 years old Clinical indication: Pain; Knee; Left; Additional info: L leg pain TECHNIQUE: Imaging protocol: XR Left knee. Views: 3 views. COMPARISON: No relevant prior studies available. FINDINGS: Bones/joints: There is no acute fracture or dislocation. If symptoms persist, follow-up imaging in several days may be useful to exclude an occult fracture. Soft tissues: Soft tissue fullness in the suprapatellar region may indicate evidence of joint effusion. XR/XR knee LT 3V* [id number] IMPRESSION: 1. No acute fracture or dislocation. 2. Suspected knee joint effusion.
--- NOTE | 2021-10-31 04:02 | USR_ITS ---
PROCEDURE INFORMATION: Exam: US Duplex Left Lower Extremity Veins, Limited Exam date and time: 10/31/2021 7:11 AM Age: 61 years old Clinical indication: Left lower leg pain and swelling. TECHNIQUE: Imaging protocol: Real-time Duplex ultrasound of the Left Lower Extremity with 2-D blevins scale, color Doppler flow and spectral waveform analysis with image documentation. Limited exam focused on the left lower extremity veins. COMPARISON: CR (LOW EXM, ) 10/31/2021 4:17 AM FINDINGS: The common femoral, femoral, popliteal and posterior tibial veins are patent. There is appropriate compression and augmentation. Doppler interogation reveals venous blood flow. Probable Fields cyst in the left popliteal fossa measuring 3.1 x 1.8 x 2.2 cm. US/CV venous duplex [facility] [id number] IMPRESSION: 1. No evidence of deep venous thrombosis. 2. Probable Fields cyst in the left popliteal fossa. The patient's pain is localized to this location. Consider MRI if clinically warranted.
[2021-10-31 04:43] VITALS: RESP 18
[2021-10-31] MEDS: ondansetron 4 MG Tablet PO (04:43)
[2021-10-31] MEDS: HYDROmorphone 1 mg/mL INJ 1 mL IM (04:43)
--- NOTE | 2021-10-31 05:11 | ED_ITS ---
HPI - Extremity Problem General: Chief complaint: Extremity Injury, Lower Stated complaint: Left Foot Swollen/diabetic Time Seen by Provider: 10/31/21 03:31 Source: patient History of Present Illness: 61-year-old female who has noticed left leg pain and swelling for the past 4 days. She made an attempt to see her primary physician on Monday, but he was not in. She states movement and bearing weight is troublesome. There is been no trauma. No significant changes in sensation. MD Complaint: extremity pain and extremity swelling Onset (ago): day(s) Pain Consistency: constant Location: left Quality: stabbing and aching Radiation: none Exacerbating factors: weight bearing Associated symptoms: Deny chest pain, fever(s), rash or short of breath Review of Systems Const: Denies: fever(s) Card: Denies: chest pain Resp: Denies: dyspnea, productive cough or non-productive cough GI: Denies: abdominal pain, nausea, vomiting or diarrhea Musc: Reports: extremity pain Skin/Breast: Denies: rash PFSH ED PFSH: Medical History Acute right arterial ischemic stroke, middle cerebral artery (MCA) Currently no residual weakness. Anxiety Cerebrovascular accident Chest pain Chronic back pain COPD (chronic obstructive pulmonary disease) CVA (cerebral vascular accident) Diabetes Hypertension Hypoestrogenism Lumbar disc disease Nicotine dependence with current use NSTEMI (non-ST elevated myocardial infarction) TYPE II M.I Recurrent major depression Right cavernous carotid stenosis Urinary incontinence Vertebral artery stenosis Surgical History History of bladder surgery History of cholecystectomy History of total hysterectomy Family History Grandfather CAD (coronary artery disease) Hypertension Myocardial infarction Mother Cancer Father Cancer Brother CAD (coronary artery disease) Myocardial infarction Sister Stroke Diabetes Family/Other Diabetes Social History Smoking and tobacco status: current every day smoker cigarettes Packs smoked per day: 1 Years cigarettes smoked: 28 Alcohol intake: never Lives independently: Yes Housing: House Physical Exam Const: COMMON NORMALS: no acute distress GENERAL APPEARANCE: cooperative and anxious NUTRITIONAL APPEARANCE: overweight ORIENTATION/CONSCIOUSNESS: not awake HENMT: COMMON NORMALS: normocephalic, atraumatic and Normal external nose present HEAD & SCALP: normocephalic and atraumatic FACE & SINUS: normal facial exam NOSE: Normal external nose present Eye: COMMON NORMALS: EOMs intact bilaterally Chest: CHEST: Yes Symmetrical chest wall rise Resp: COMMON NORMALS: normal respiratory effort, No retractions and No use of accessory muscles Cardio: COMMON NORMALS: regular rate and regular rhythm RATE: regular rate RHYTHM: regular rhythm GI: COMMON NORMALS: Normal to inspection, nondistended, normoactive bowel sounds present Extremity: NARRATIVE EXTREMITY EXAM: Examination of the left lower extremity reveals mild edema to the leg. There is tenderness behind the knee. Knee flexion range of motion is limited. There is no redness, warmth, or streaking of the lower extremity. There's a small knee effusion that is palpable. Neuro: HERACLIO COMA SCALE: document GCS findings [place] coma scale eye opening: Spontaneous [place] coma scale verbal response: Orientated [place] coma scale motor response: Obey commands [place] coma scale total score: 15 Skin: NARRATIVE SKIN EXAM: See above Course Vital Signs: Vital signs: Vital Signs Temperature 98.8 F 10/31/21 01:59 Pulse Rate 79 10/31/21 01:59 Respiratory Rate 18 10/31/21 07:34 Blood Pressure 169/88 10/31/21 01:59 Pulse Oximetry 95 10/31/21 01:59 MDM - Extremity (Nontraumatic) Medical Decision Making Lower extremity ultrasound reveals no DVT. There is, however, a significant Fields cyst, likely is the cause of her lower extremity pain and edema. Lab Data Radiology Impressions Knee X-Ray 10/31/21 04:02 IMPRESSION: 1. No acute fracture or dislocation. 2. Suspected knee joint effusion. Venous Duplex 10/31/21 04:02 IMPRESSION: 1. No evidence of deep venous thrombosis. 2. Probable Fields cyst in the left popliteal fossa. The patient's pain is localized to this location. Consider MRI if clinically warranted. Discharge Plan Discharge Patient Disposition: Home Clinical Impression: Edema, lower extremity Fields's cyst of knee Qualifiers: Laterality: left Qualified Code(s): M71.22 - Synovial cyst of popliteal space [Fields], left knee Condition: Stable Prescriptions: No Action ketorolac 10 mg tablet 10 mg PO TID PRN (Reason: pain) 7 Days Qty: 14 0RF Rx Instructions: instead of ibuprofen hydrocodone-acetaminophen 10-325 mg tablet 1 tab PO Q8H PRN (Reason: Pain) 30 Days Qty: 90 0RF pregabalin 100 mg capsule 100 mg PO BID 30 Days Qty: 60 4RF diazepam 5 mg tablet 5 mg PO BID PRN (Reason: anxiety) Qty: 60 3RF Rx Instructions: This instead of the alprazolam for nerves during day and sleep at night ibuprofen 800 mg tablet 800 mg PO BID 90 Days Qty: 180 3RF Hold Instructions: Doctor's Order tramadol 50 mg tablet 50 mg PO Q4H PRN (Reason: pain) Qty: 20 0RF ondansetron 8 mg tablet,disintegrating 8 mg PO Q8H PRN (Reason: nausea and vomiting) 4 Days Qty: 14 0RF furosemide 20 mg tablet 20 mg PO DAILY Qty: 5 0RF fluticasone propionate [Flonase Allergy Relief] 50 mcg/actuation spray,suspension 2 spray INTRANASAL DAILY Qty: 16 5RF Rx Instructions: administer into each nostril cyclobenzaprine 10 mg tablet 10 mg PO BID PRN (Reason: muscle spasm) 30 Days Qty: 50 0RF famotidine 40 mg tablet 40 mg PO DAILY Qty: 30 7RF Rx Instructions: take at bed time: continue pantoprazole in the morning for drainage atorvastatin [Lipitor] 40 mg tablet 40 mg PO DAILY Qty: 30 3RF oxybutynin chloride 5 mg tablet 5 mg PO DAILY Qty: 30 5RF insulin syringe-needle U-100 [BD Insulin Syringe Ultra-Fine] 1 mL 31 gauge x 5/16 syringe See Rx Instructions .ROUTE .COMPLEX Qty: 100 5RF Dose Instruction: USE DIRECTED Rx Instructions: USE DIRECTED clopidogrel [Plavix] 75 mg tablet 75 mg PO DAILY Qty: 30 11RF amlodipine 5 mg tablet 5 mg PO DAILY Qty: 90 1RF docusate sodium 100 mg capsule See Rx Instructions .ROUTE .COMPLEX Qty: 60 5RF Dose Instruction: TAKE 1 CAPSULE BY MOUTH TWICE DAILY Rx Instructions: TAKE 1 CAPSULE BY MOUTH TWICE DAILY albuterol sulfate [ProAir HFA] 90 mcg/actuation HFA aerosol inhaler 2 puff INHALATION Q6H PRN (Reason: Shortness Of Breath) Qty: 8.5 4RF cetirizine 10 mg tablet 10 mg PO DAILY 30 Days Qty: 30 5RF Lantus U-100 Insulin 100 unit/mL solution 100 unit SUBCUT BID 90 Days Qty: 180 1RF Januvia 100 mg tablet 100 mg PO DAILY Qty: 90 1RF pantoprazole 40 mg tablet,delayed release (DR/EC) 40 mg PO DAILY 90 Days Qty: 90 1RF fluconazole [Diflucan] 150 mg tablet 150 mg PO .every 4th day Qty: 3 1RF aspirin 81 mg tablet,delayed release (DR/EC) 81 mg PO DAILY Qty: 30 3RF albuterol sulfate 2.5 mg /3 mL (0.083 %) solution for nebulization 2.5 mg inhalation Q6H PRN (Reason: Shortness Of Breath) 0RF Tylenol Extra Strength 500 mg Tablet 1,000 mg PO PRN 0RF topiramate 50 mg tablet 50 mg PO DAILY 0RF duloxetine 60 mg capsule,delayed release(DR/EC) 60 mg PO DAILY 0RF lidocaine 5 % ointment 1 applic topical TID PRN (Reason: pain) Qty: 60 0RF Discharge Orders: Discharge ED (Routine); Ordered 10/31/21 Ordered By: Fantasma Santiago Referrals: Shamika Harding MD [Primary Care Provider] - 1-3 days Patient Instructions: Fields Cyst (ED), Leg Edema (ED) Activity Restrictions/Additional Instructions: Ice your knee, and elevate your leg. Medication may help decrease the swelling. Sometimes drainage of the Fields's cyst is needed. Follow-up with your orthopedic surgeon. Coding Level of Care Code ED Science Intern for Tahmina Little
[2021-10-31 07:34] VITALS: RESP 18
[2021-10-31] MEDS: oxyCODONE-APAP 5-325 mg Tablet 2 TAB PO (07:34)
== END 2021-10-31 07:36 | disposition home or self-care (01) ==
PROVIDERS: Emergency Provider Emergency Medicine; PCP Family Medicine
DX: R60.0 Localized edema (principal); M71.22 Synovial cyst of popliteal space [Baker], left knee; M79.605 Pain in left leg; E11.9 Type 2 diabetes mellitus without complications; I10 Essential (primary) hypertension; Z79.4 Long term (current) use of insulin; Z79.82 Long term (current) use of aspirin; Z86.73 Personal history of transient ischemic attack (TIA), and cerebral infarction without residual deficits
CPT/HCPCS: 73562; 93971; 96372; 99283; J1170; Q0162

== ENCOUNTER → 2021-11-15 13:11 | Outpatient (BNVA) | payer MEDICAID, SELFPAY | PROVIDERS: PCP Family Medicine; Visit Provider Nurse Practitioner Family | DX: M71.22 Synovial cyst of popliteal space [Baker], left knee (principal) | CPT/HCPCS: 73560; 73565; 99214 ==

== ENCOUNTER 2021-11-16 03:45 | Emergency (ER) | payer MEDICAID, SELFPAY ==
[2021-11-16 04:22] VITALS: BMI 31.1
[2021-11-16 04:26] VITALS: BP 178/73; PULSE 76; RESP 19; TEMP 36.9; O2SAT 94
--- NOTE | 2021-11-16 04:27 | W.ED.EXTPRO ---
HPI - Extremity Problem General: Chief complaint: Extremity Problem,Nontraumatic Stated complaint: Left leg pain Time Seen by Provider: 11/16/21 04:22 Source: patient Mode of arrival: ambulatory Limitations: no limitations History of Present Illness: 61-year-old female states been having left knee pain for over a month. She was diagnosed with a Fields's cyst earlier this month. States she saw her physician today and was scheduled for an outpatient MRI. States that she is continuing to have pain tonight that she rates a 7 out of 10. States she is not able to sleep due to the pain. Patient is able to ambulate denies any worsening proving factors. Associated symptoms: Deny chest pain, fever(s) or rash Review of Systems Const: Denies: fever(s), chills, body aches or change in appetite Eyes: Denies: blurry vision or eye discomfort ENMT: Denies: throat pain or dental pain Card: Denies: chest pain Resp: Denies: dyspnea GI: Denies: abdominal pain, nausea, vomiting or diarrhea : Denies: dysuria Musc: Reports: extremity pain Skin/Breast: Denies: rash Neuro: Denies: headache(s) Psych: Denies: depression Saud/Lymph: Denies: easy bruising All/Imm: Denies: urticaria PFSH ED PFSH: Medical History Acute right arterial ischemic stroke, middle cerebral artery (MCA) Currently no residual weakness. Anxiety Cerebrovascular accident Chest pain Chronic back pain COPD (chronic obstructive pulmonary disease) CVA (cerebral vascular accident) Diabetes Hypertension Hypoestrogenism Lumbar disc disease Nicotine dependence with current use NSTEMI (non-ST elevated myocardial infarction) TYPE II M.I Recurrent major depression Right cavernous carotid stenosis Urinary incontinence Vertebral artery stenosis Surgical History History of bladder surgery History of cholecystectomy History of total hysterectomy Family History Grandfather CAD (coronary artery disease) Hypertension Myocardial infarction Mother Cancer Father Cancer Brother CAD (coronary artery disease) Myocardial infarction Sister Stroke Diabetes Family/Other Diabetes Social History Smoking and tobacco status: current every day smoker cigarettes Packs smoked per day: 1 Years cigarettes smoked: 28 Alcohol intake: never Lives independently: Yes Housing: House Physical Exam Const: COMMON NORMALS: no acute distress, patient oriented x3 and healthy appearing HENMT: COMMON NORMALS: normocephalic and atraumatic HEAD & SCALP: normocephalic and atraumatic Eye: COMMON NORMALS: Equal, round and reactive pupils present and EOMs intact bilaterally PUPIL: Yes Equal, round and reactive pupils present Neck/C-Spine: COMMON NORMALS: full ROM and supple Chest: COMMONS NORMALS: normal inspection of the chest Resp: COMMON NORMALS: normal respiratory effort Cardio: COMMON NORMALS: regular rate and No murmurs present (Cardio) RATE: regular rate GI: COMMON NORMALS: Normal to inspection, nondistended, normoactive bowel sounds present, Soft to palpation, non-tender and no masses PALPATION: Yes Soft to palpation Extremity: COMMON NORMALS: full ROM NARRATIVE EXTREMITY EXAM: Tenderness to posterior fossa of the left knee slight swelling to lower leg distal pulses intact patient able ambulate without any difficulty. Neuro: COMMON NORMALS: patient oriented x3, moves all extremities and no focal motor deficits Psych: COMMON NORMALS: mental status grossly normal, Normal thought process present and cooperative THOUGHT PROCESS: Normal thought process present Skin: COMMON NORMALS: no rashes or lesions noted and no wounds GENERAL SKIN EXAM: no rashes or lesions noted Course Vital Signs: Vital signs: Vital Signs Temperature 98.5 F 11/16/21 04:26 Pulse Rate 76 11/16/21 04:26 Respiratory Rate 18 11/16/21 04:35 Blood Pressure 178/73 11/16/21 04:26 Pulse Oximetry 94 11/16/21 04:26 MDM - Extremity (Nontraumatic) Medical Decision Making Patient presents with knee pain likely from her Fields's cyst. She has been following with another physician had an ultrasound done earlier this month showed no DVT did show the cyst she had x-ray done yesterday was normal she is scheduled for an outpatient MRI she has distal pulses intact did give her some of her pain she is stable for discharge return if worsening. Discharge Plan Discharge Patient Disposition: Home Clinical Impression: Synovial cyst of popliteal space [Fields], left knee Condition: Stable Prescriptions: No Action ketorolac 10 mg tablet 10 mg PO TID PRN (Reason: pain) 7 Days Qty: 14 0RF Rx Instructions: instead of ibuprofen hydrocodone-acetaminophen 10-325 mg tablet 1 tab PO Q8H PRN (Reason: Pain) 30 Days Qty: 90 0RF pregabalin 100 mg capsule 100 mg PO BID 30 Days Qty: 60 4RF diazepam 5 mg tablet 5 mg PO BID PRN (Reason: anxiety) Qty: 60 3RF Rx Instructions: This instead of the alprazolam for nerves during day and sleep at night ibuprofen 800 mg tablet 800 mg PO BID 90 Days Qty: 180 3RF Hold Instructions: Doctor's Order ondansetron 8 mg tablet,disintegrating 8 mg PO Q8H PRN (Reason: nausea and vomiting) 4 Days Qty: 14 0RF tramadol 50 mg tablet 50 mg PO Q6H PRN (Reason: pain) Qty: 30 0RF fluticasone propionate [Flonase Allergy Relief] 50 mcg/actuation spray,suspension 2 spray INTRANASAL DAILY Qty: 16 5RF Rx Instructions: administer into each nostril cyclobenzaprine 10 mg tablet 10 mg PO BID PRN (Reason: muscle spasm) 30 Days Qty: 50 0RF famotidine 40 mg tablet 40 mg PO DAILY Qty: 30 7RF Rx Instructions: take at bed time: continue pantoprazole in the morning for drainage atorvastatin [Lipitor] 40 mg tablet 40 mg PO DAILY Qty: 30 3RF oxybutynin chloride 5 mg tablet 5 mg PO DAILY Qty: 30 5RF insulin syringe-needle U-100 [BD Insulin Syringe Ultra-Fine] 1 mL 31 gauge x 5/16 syringe See Rx Instructions .ROUTE .COMPLEX Qty: 100 5RF Dose Instruction: USE DIRECTED Rx Instructions: USE DIRECTED clopidogrel [Plavix] 75 mg tablet 75 mg PO DAILY Qty: 30 11RF amlodipine 5 mg tablet 5 mg PO DAILY Qty: 90 1RF docusate sodium 100 mg capsule See Rx Instructions .ROUTE .COMPLEX Qty: 60 5RF Dose Instruction: TAKE 1 CAPSULE BY MOUTH TWICE DAILY Rx Instructions: TAKE 1 CAPSULE BY MOUTH TWICE DAILY albuterol sulfate [ProAir HFA] 90 mcg/actuation HFA aerosol inhaler 2 puff INHALATION Q6H PRN (Reason: Shortness Of Breath) Qty: 8.5 4RF cetirizine 10 mg tablet 10 mg PO DAILY 30 Days Qty: 30 5RF Lantus U-100 Insulin 100 unit/mL solution 100 unit SUBCUT BID 90 Days Qty: 180 1RF Januvia 100 mg tablet 100 mg PO DAILY Qty: 90 1RF pantoprazole 40 mg tablet,delayed release (DR/EC) 40 mg PO DAILY 90 Days Qty: 90 1RF fluconazole [Diflucan] 150 mg tablet 150 mg PO .every 4th day Qty: 3 1RF furosemide 20 mg tablet 20 mg PO .every other day PRN (Reason: edema) Qty: 14 0RF aspirin 81 mg tablet,delayed release (DR/EC) 81 mg PO DAILY Qty: 30 3RF albuterol sulfate 2.5 mg /3 mL (0.083 %) solution for nebulization 2.5 mg inhalation Q6H PRN (Reason: Shortness Of Breath) 0RF Tylenol Extra Strength 500 mg Tablet 1,000 mg PO PRN 0RF topiramate 50 mg tablet 50 mg PO DAILY 0RF duloxetine 60 mg capsule,delayed release(DR/EC) 60 mg PO DAILY 0RF lidocaine 5 % ointment 1 applic topical TID PRN (Reason: pain) Qty: 60 0RF Discharge Orders: Discharge ED (Routine); Ordered 11/16/21 Ordered By: George Brown Referrals: Shamika Harding MD [Primary Care Provider] - Discharge Diet: Advance as tolerated Discharge Activity: Resume usual activity Patient Instructions: Fields Cyst (ED) Coding Level of Care Code ED Legal Activity Adjudicator for Tahmina Little
[2021-11-16 04:35] VITALS: RESP 18
[2021-11-16] MEDS: morphine 4 mg/mL SDV 1 mL IM (04:35)
== END 2021-11-16 04:43 | disposition home or self-care (01) ==
PROVIDERS: Emergency Provider Emergency Medicine; PCP Family Medicine
DX: M71.22 Synovial cyst of popliteal space [Baker], left knee (principal); Z79.02 Long term (current) use of antithrombotics/antiplatelets; Z79.82 Long term (current) use of aspirin; Z79.4 Long term (current) use of insulin; Z86.73 Personal history of transient ischemic attack (TIA), and cerebral infarction without residual deficits; J44.9 Chronic obstructive pulmonary disease, unspecified; E11.9 Type 2 diabetes mellitus without complications; I10 Essential (primary) hypertension; I25.2 Old myocardial infarction; F17.210 Nicotine dependence, cigarettes, uncomplicated
CPT/HCPCS: 80053; 83036; 85025; 96372; 99284; J2270

== ENCOUNTER 2021-11-30 17:35 | Emergency (ER) | payer MEDICAID, SELFPAY ==
[2021-11-30 17:49] VITALS: BP 148/89; PULSE 90; RESP 16; TEMP 36.5; O2SAT 98; BMI 34.9
--- NOTE | 2021-11-30 18:21 | ED_ITS ---
HPI - General Adult General: Chief complaint: General Medical Stated complaint: Left leg pain Time Seen by Provider: 11/30/21 18:21 History of Present Illness: Ms. Man is a 61-year-old lady with history of hypertension, hyperlipidemia, history of stroke, diabetes presenting to the emergency department due to left knee pain. She reports she was diagnosed with a Fields's cyst previously and also had a fall 2 weeks ago. She has had near continuous symptoms since that time which is gotten to the point that is moderate to severe. Symptoms are worse with bending her knee and also ambulation. Denies distal sensory changes. Denies recurrent trauma. No other specific changes in health, exacerbating, or alleviating factors identified. Onset (ago): month(s) Severity: moderate Quality: stabbing and aching Pain Consistency: constant Exacerbating factors: movement Associated symptoms: Reports no associated symptoms Review of Systems General: Reports: 10 or more systems reviewed and unremarkable except in HPI and below PFSH ED PFSH: Medical History Acute right arterial ischemic stroke, middle cerebral artery (MCA) Currently no residual weakness. Anxiety Cerebrovascular accident Chest pain Chronic back pain COPD (chronic obstructive pulmonary disease) CVA (cerebral vascular accident) Diabetes Hypertension Hypoestrogenism Lumbar disc disease Nicotine dependence with current use NSTEMI (non-ST elevated myocardial infarction) TYPE II M.I Recurrent major depression Right cavernous carotid stenosis Urinary incontinence Vertebral artery stenosis Surgical History History of bladder surgery History of cholecystectomy History of total hysterectomy Family History Grandfather CAD (coronary artery disease) Hypertension Myocardial infarction Mother Cancer Father Cancer Brother CAD (coronary artery disease) Myocardial infarction Sister Stroke Diabetes Family/Other Diabetes Social History Smoking and tobacco status: current every day smoker cigarettes Packs smoked per day: 1 Years cigarettes smoked: 28 Alcohol intake: never Lives independently: Yes Housing: House Physical Exam Const: COMMON NORMALS: alert GENERAL APPEARANCE: cooperative and well developed NUTRITIONAL APPEARANCE: obese HENMT: COMMON NORMALS: normocephalic and atraumatic HEAD & SCALP: normocephalic and atraumatic THROAT: posterior oropharynx normal Eye: COMMON NORMALS: conjunctivae normal CONJUNCTIVA: Yes conjunctivae normal SCLERA: sclerae normal Neck/C-Spine: COMMON NORMALS: supple GENERAL: Yes trachea midline Resp: COMMON NORMALS: normal respiratory effort EFFORT & INSPECTION: Yes able to speak in complete sentences Cardio: COMMON NORMALS: regular rate and regular rhythm RATE: regular rate RHYTHM: regular rhythm GI: COMMON NORMALS: Soft to palpation PALPATION: Yes Soft to palpation and No Tenderness to palpation present (GI) PERCUSSION: normal to percussion Extremity: NARRATIVE EXTREMITY EXAM: Tenderness palpation posterior aspect of knee. Distal CMS intact. There is does appear to be anteriorly to small superficial abrasions with surrounding erythema, no fluctuance or abscess appreciated however likely mild superimposed infection especially given diabetes. Exam somewhat limited secondary to body habitus. GENERAL: Yes normal exam except as noted and No edema Neuro: COMMON NORMALS: moves all extremities SENSORIUM/ORIENTATION: Yes alert and No Orientation impaired Psych: COMMON NORMALS: mental status grossly normal and Normal thought process present THOUGHT PROCESS: Normal thought process present Skin: NARRATIVE SKIN EXAM: See extremity Course Vital Signs: Vital signs: Vital Signs Temperature 98.1 F 11/30/21 19:42 Pulse Rate 87 11/30/21 19:42 Respiratory Rate 20 H 11/30/21 19:42 Blood Pressure 143/87 11/30/21 19:42 Pulse Oximetry 96 11/30/21 19:42 [facility] - General Adult Medical Decision Making 61-year-old lady with nontraumatic onset of knee pain and recurrent falls previously diagnosed with Fields's cyst presenting due to continued pain. On exam patient has likely small infected abrasions without evidence of systemic involvement, no evidence of septic joint. Patient is nontoxic in appearance. Prior imaging reviewed and consistent with patient exam. No indication for repeat imaging. Analgesia and antibiotic given. Satisfactory for continued outpatient management. Medical Records I reviewed the patient's medical records. Lab Data I reviewed the patient's lab results. Discharge Plan Discharge Patient Disposition: Home Clinical Impression: Knee pain, Infected abrasion Condition: Stable Prescriptions: New tramadol 50 mg tablet 50 mg PO Q6H PRN (Reason: pain) Qty: 10 0RF No Action pregabalin 100 mg capsule 100 mg PO BID 30 Days Qty: 60 4RF diazepam 5 mg tablet 5 mg PO BID PRN (Reason: anxiety) Qty: 60 3RF Rx Instructions: This instead of the alprazolam for nerves during day and sleep at night ibuprofen 800 mg tablet 800 mg PO BID 90 Days Qty: 180 3RF Hold Instructions: Doctor's Order ondansetron 8 mg tablet,disintegrating 8 mg PO Q8H PRN (Reason: nausea and vomiting) 4 Days Qty: 14 0RF tramadol 50 mg tablet 50 mg PO Q6H PRN (Reason: pain) Qty: 30 0RF fluticasone propionate [Flonase Allergy Relief] 50 mcg/actuation spray,suspension 2 spray INTRANASAL DAILY Qty: 16 5RF Rx Instructions: administer into each nostril famotidine 40 mg tablet 40 mg PO DAILY Qty: 30 7RF Rx Instructions: take at bed time: continue pantoprazole in the morning for drainage atorvastatin [Lipitor] 40 mg tablet 40 mg PO DAILY Qty: 30 3RF oxybutynin chloride 5 mg tablet 5 mg PO DAILY Qty: 30 5RF insulin syringe-needle U-100 [BD Insulin Syringe Ultra-Fine] 1 mL 31 gauge x 5/16 syringe See Rx Instructions .ROUTE .COMPLEX Qty: 100 5RF Dose Instruction: USE DIRECTED Rx Instructions: USE DIRECTED clopidogrel [Plavix] 75 mg tablet 75 mg PO DAILY Qty: 30 11RF amlodipine 5 mg tablet 5 mg PO DAILY Qty: 90 1RF docusate sodium 100 mg capsule See Rx Instructions .ROUTE .COMPLEX Qty: 60 5RF Dose Instruction: TAKE 1 CAPSULE BY MOUTH TWICE DAILY Rx Instructions: TAKE 1 CAPSULE BY MOUTH TWICE DAILY albuterol sulfate [ProAir HFA] 90 mcg/actuation HFA aerosol inhaler 2 puff INHALATION Q6H PRN (Reason: Shortness Of Breath) Qty: 8.5 4RF cetirizine 10 mg tablet 10 mg PO DAILY 30 Days Qty: 30 5RF Lantus U-100 Insulin 100 unit/mL solution 100 unit SUBCUT BID 90 Days Qty: 180 1RF Januvia 100 mg tablet 100 mg PO DAILY Qty: 90 1RF pantoprazole 40 mg tablet,delayed release (DR/EC) 40 mg PO DAILY 90 Days Qty: 90 1RF fluconazole [Diflucan] 150 mg tablet 150 mg PO .every 4th day Qty: 3 1RF furosemide 20 mg tablet 20 mg PO .every other day PRN (Reason: edema) Qty: 14 0RF hydrocodone-acetaminophen 10-325 mg tablet 1 tab PO Q8H PRN (Reason: Pain) 30 Days Qty: 90 0RF duloxetine 60 mg capsule,delayed release(DR/EC) 60 mg PO DAILY Qty: 90 3RF triamcinolone acetonide 0.1 % cream 1 applic topical BID Qty: 80 1RF aspirin 81 mg tablet,delayed release (DR/EC) 81 mg PO DAILY Qty: 30 3RF albuterol sulfate 2.5 mg /3 mL (0.083 %) solution for nebulization 2.5 mg inhalation Q6H PRN (Reason: Shortness Of Breath) 0RF topiramate 50 mg tablet 50 mg PO DAILY 0RF lidocaine 5 % ointment 1 applic topical TID PRN (Reason: pain) Qty: 60 0RF Discharge Orders: Discharge ED (Routine); Ordered 11/30/21 Ordered By: Yuri Lal Referrals: Shamika Harding MD [Primary Care Provider] - Discharge Diet: Usual diet Discharge Activity: Increase activity as tolerated Patient Instructions: Wound Infection (ED), Fields Cyst (ED), Knee Pain (ED), Opioid Safety Activity Restrictions/Additional Instructions: Thank you for visiting the emergency department. You were seen and evaluated for persistent knee pain. The exact cause of your symptoms is unclear though outpatient evaluation is appropriate. Please continue with outpatient evaluation. For your abrasion I will give a prescription for antibiotics given mild infection appearance and history of diabetes. Please keep the area clean and dry. The emergency department does not manage chronic pain and should not be used for refill of pain medication. I will write a prescription for a small number of tramadol. You must follow-up with your primary care provider or prescribing provider as this will not be refilled in the emergency department again. Opioids carry inherent risks including respiratory and TRANSIT MAN depression which can lead to or worse. Common side effects include gait instability, constipation, sedation. Return to the emergency department for anything else that you are concerned about a feel needs emergency department evaluation. Coding Level of Care Code ED Special Needs Librarian for Tahmian Little
[2021-11-30 19:26] VITALS: RESP 20; O2SAT 95
[2021-11-30] MEDS: morphine 4 mg/mL SDV 1 mL IM (19:26)
[2021-11-30] MEDS: clindamycin 150 mg Capsule 300 MG PO (19:26)
[2021-11-30 19:42] VITALS: BP 143/87; PULSE 87; RESP 20; TEMP 36.7; O2SAT 96
== END 2021-11-30 19:44 | disposition home or self-care (01) ==
PROVIDERS: Emergency Provider Emergency Medicine; PCP Family Medicine
DX: S80.212A Abrasion, left knee, initial encounter (principal); L08.9 Local infection of the skin and subcutaneous tissue, unspecified; W19.XXXA Unspecified fall, initial encounter; M25.562 Pain in left knee; Z79.02 Long term (current) use of antithrombotics/antiplatelets; Z79.82 Long term (current) use of aspirin; Z79.4 Long term (current) use of insulin; Z86.73 Personal history of transient ischemic attack (TIA), and cerebral infarction without residual deficits; J44.9 Chronic obstructive pulmonary disease, unspecified; E11.9 Type 2 diabetes mellitus without complications; I10 Essential (primary) hypertension; I25.2 Old myocardial infarction; F17.210 Nicotine dependence, cigarettes, uncomplicated
CPT/HCPCS: 96372; 99284; J2270

== ENCOUNTER 2021-12-13 11:05 | Outpatient (CLI) | payer MEDICAID, SELFPAY ==
--- NOTE | 2021-12-13 11:45 | MR_ITS ---
WS: [id number] MRI LEFT KNEE HISTORY: Fields's cyst, Left knee pain COMPARISON: Radiograph 11/15/2021 Anterior cruciate ligament: Intact ACL. Mild increased signal throughout but no full-thickness tear. Posterior cruciate ligament: Intact. Medial collateral ligament: Intact. There is a small amount of edema adjacent to the MCL but this is not related to an injury to the MCL. Posterior lateral corner structures: No full-thickness tears. There is a small amount of increased T2 signal consistent with edema in the popliteus tendon. Medial menisci: Intrasubstance degeneration posterior horn. There is a small amount of increased sign al along the inferior articular surface of the posterior horn but no full-thickness defect or tear. Lateral meniscus: Blunting free edge of the posterior horn there is a small amount of increased signa l extending through the meniscus on the coronal projection consistent with vertical tear. Abnormal si gnal diffusely throughout the anterior horn. Extensor mechanism: Distal quadriceps tendon and patellar tendons are intact. Fluid and soft tissue: Very large suprapatellar joint effusion. There is soft tissue edema surroundin g the knee and there is edema within the vastus lateralis adjacent to the iliotibial band. No Fields's cyst. Osseous and articular structures: Patellofemoral compartment: Normal. Medial compartment: Mild narrowing of the medial compartment. Mild thinning of the cartilage. There i s a focal full-thickness defect along the weightbearing surface of femoral condyle measuring 3 mm. No marrow edema. Lateral compartment: Mild narrowing of the lateral compartment. Full-thickness cartilage defect along the mid weightbearing surface of the femoral condyle. This defect extends to involve the femoral con dyle and also the lateral tibial plateau. This is at the site of the probable radial tear. There is a small amount of underlying marrow edema along the surface of the lateral tibial plateau. MR/MR knee LT wo con* [id number] IMPRESSION: 1. Large suprapatellar joint effusion with diffuse mild soft tissue edema. 2. Small amount of edema in the distal vastus lateralis muscle. 3. Mild popliteus tendon edema. 4. Diffuse abnormal signal throughout the anterior horn of the lateral meniscu s consistent with a complex tear. 5. Blunted free edge posterior horn lateral meniscus, probably associated wit h a radial tear. 6. The radial tear involving the posterior horn associated with focal defects in the adjacent cartilage of the femoral condyle and tibial plateau. 7. Intrasubstance degeneration posterior horn medial meniscus. 8. Mild narrowing of medial and lateral compartments with chondromalacia as ab ove.
== END 2021-12-13 11:06 | disposition home or self-care (01) ==
LOC: RAD 11:06
PROVIDERS: PCP Family Medicine; Visit Provider Nurse Practitioner Family
DX: M71.22 Synovial cyst of popliteal space [Baker], left knee (principal); M25.562 Pain in left knee; M25.462 Effusion, left knee; R60.0 Localized edema
CPT/HCPCS: 73721

== ENCOUNTER → 2021-12-22 10:38 | Outpatient (BNVA) | payer MEDICAID, SELFPAY | PROVIDERS: PCP Family Medicine; Visit Provider Nurse Practitioner Family | DX: M25.562 Pain in left knee (principal); M25.561 Pain in right knee; M23.201 Derangement of unspecified lateral meniscus due to old tear or injury, left knee | CPT/HCPCS: 20610; 99213; 99214; J1100; J2795; J3301 ==

== ENCOUNTER → 2022-01-10 09:04 | Outpatient (BNVA) | payer MEDICAID, SELFPAY | PROVIDERS: PCP Family Medicine; Visit Provider Specialist | DX: X58.XXXA Exposure to other specified factors, initial encounter (principal); M17.12 Unilateral primary osteoarthritis, left knee; S83.282A Other tear of lateral meniscus, current injury, left knee, initial encounter; E66.01 Morbid (severe) obesity due to excess calories; Z68.41 Body mass index [BMI] 40.0-44.9, adult | CPT/HCPCS: 99214 ==

== ENCOUNTER 2022-02-04 06:35 | Day surgery (SDC) | payer MEDICAID, SELFPAY ==
[2022-02-03 08:54] VITALS: BMI 40.8
[2022-02-04] VITALS (21 sets, daily range): BP systolic 129–160; BP diastolic 80–99; PULSE 74–93; RESP 16–25; TEMP 36.2–36.8; O2SAT 86–96
[2022-02-04] MEDS: CELEcoxib 200 mg Capsule 400 MG PO (07:09)
[2022-02-04] MEDS: acetaminophen 1,000 MG/100 ML PIGGYBACK 400 MG IV (07:09)
[2022-02-04] MEDS: sodium chloride 0.9% 1,000 ML 30 ML IV (07:09)
[2022-02-04 07:35] LABS: Glucose Point of Care 190 mg/dL (70-110)
[2022-02-04 08:09] LABS: Blood Urea Nitrogen 6 mg/dL (8-23); Calcium 8.1 mg/dL (8.5-10.5); Carbon Dioxide 21 mmol/L (22-29); Chloride 97 mmol/L (98-107); Glomerular Filtration Rate 161.2 mL/min (90-130); Glucose 175 mg/dL (65-115); Osmolality Calculated 272 mOsm/kg (285-295); Sodium 130 mmol/L (136-145)
[2022-02-04 08:12] LABS: Anion Gap 15.4 (5-19); Potassium 3.4 mmol/L (3.5-5.1)
--- NOTE | 2022-02-04 09:44 | P.HPUD_ITS ---
Surgery/Procedure H&P Update DATE OF PROCEDURE: February 04, 2022 DATE H&P PERFORMED: 01/10/22 H&P UPDATE INFORMATION: I have reviewed H&P completed within last 30 days, I have examined patient prior to procedure, No changes to prior documentation and H&P is in [facility] [place] on date indicated PREOP DIAGNOSIS: Lateral meniscal tear left knee PRIMARY INDICATION FOR PROCEDURE: MRI Impression: 1.? Large suprapatellar joint effusion with diffuse mild soft tissue edema. 2.? Small amount of edema in the distal vastus lateralis muscle. 3.? Mild popliteus tendon edema. 4.? Diffuse abnormal signal throughout the anterior horn of the lateral meniscus consistent with a complex tear. 5. ? Blunted free edge posterior horn lateral meniscus, probably associated with a radial tear. 6.? The radial tear involving the posterior horn associated with focal defects in the adjacent cartilage of the femoral condyle and tibial plateau. 7.? Intrasubstance degeneration posterior horn medial meniscus. 8.? Mild narrowing of medial and lateral compartments with chondromalacia as above. PLANNED PROCEDURE: Operation Date: 02/04/22 11:40 Proposed Procedures p LEFT KNEE SCOPE WITH DEBRIDEMENT 72308,S83.282A(Left) - Cherry Fairbanks MD Related Problem List Diagnoses (1) Tear of lateral meniscus of left knee: Qualifiers: Tear current or old: current Encounter type: initial encounter Meniscus tear of knee type: complex Qualified Code(s): S83.272A - Complex tear of lateral meniscus, current injury, left knee, initial encounter (2) Chronic meniscal tear of knee: Qualifiers: Meniscus of knee: medial Meniscus tear of knee type: complex Laterality: left Qualified Code(s): M23.204 - Derangement of unspecified medial meniscus due to old tear or injury, left knee
--- NOTE | 2022-02-04 10:14 | ANES.PREANE2 ---
Pre-Anesthetic Assessment Height/Weight: Height 1.55 m Weight 97.976 kg Temp Pulse Resp BP Pulse Ox O2 Del Method 98.3 F 91 16 138/88 94 02/04/22 07:01 02/04/22 07:01 02/04/22 07:01 02/04/22 07:01 02/04/22 07:01 02/04/22 07:06 Preop Diagnosis: Lateral meniscal tear left knee Operation Date: 02/04/22 11:40 Proposed Procedures p LEFT KNEE SCOPE WITH DEBRIDEMENT [id number],S83.282A(Left) - Cherry Fairbanks MD Familial anesthetic complications: none Was Beta Chari taken within 24 hours: N/A Was Clonidine taken within 24 hours: N/A Last intake: Intake Last Liquid Date 02/03/22 Last Liquid Time 21:00 Last Solid Date 02/03/22 Last Solid Time 19:00 Social Tobacco and No alcohol Exam alert, oriented x 3 and regular rate & rhythm Airway Submandibular: within normal limits Cervical ROM: within normal limits Mallampati: Class II Dentition: false Pulmonary Chronic Obstructive Pulmonary Disease CV/HEM Deep Vein Thrombosis and Hypertension GI Gastroesophageal Reflux Disease Metabolic Diabetes Mellitus and Morbid Obesity [facility] [place] Lower Back Pain and Osteoarthritis/DJD Neuropsych Anxiety and Depression Anesthetic Plan ASA status: 3 Anesthesia: General Medications/Allergies Home Medications Medication Instructions Recorded Confirmed Last Taken Type fluticasone propionate 50 2 spray intranasal DAILY #16 grams 08/05/20 02/03/22 Unknown Rx mcg/actuation nasal spray,suspension (Flonase Allergy Relief) aspirin 81 mg tablet,delayed 81 mg PO DAILY #30 tabs 08/28/20 02/03/22 01/20/22 Rx release albuterol sulfate 2.5 mg inhalation Q6H PRN 12/31/20 02/04/22 Unknown History Shortness Of Breath lidocaine 5 % topical ointment 1 applic topical TID PRN pain #60 12/31/20 02/03/22 Unknown Rx grams topiramate 50 mg tablet 50 mg PO DAILY 12/31/20 02/04/22 02/03/22 History oxybutynin chloride 5 mg tablet 5 mg PO DAILY #30 tabs 03/15/21 02/04/22 02/03/22 Rx clopidogrel 75 mg tablet (Plavix) 75 mg PO DAILY #30 tabs 05/17/21 02/03/2222 Rx albuterol sulfate 90 mcg/actuation 2 puff inhalation Q6H PRN 07/02/21 02/03/22 Unknown Rx aerosol inhaler (ProAir HFA) Shortness Of Breath #8.5 grams cetirizine 10 mg tablet 10 mg PO DAILY 30 days #30 tabs 08/06/21 02/04/22 02/03/22 Rx insulin glargine 100 unit/mL 100 unit SUBCUT BID see pharmacy 09/06/21 02/04/22 02/03/22 Rx subcutaneous solution (Lantus comments 90 days #180 mL U-100 Insulin) sitagliptin 100 mg tablet (Januvia) 100 mg PO DAILY #90 tabs 09/28/21 02/04/22 02/03/22 Rx diazepam 5 mg tablet 5 mg PO BID PRN anxiety #60 tabs 10/13/21 02/03/22 Unknown Rx pregabalin 100 mg capsule 100 mg PO BID 30 days #60 caps 10/13/21 02/04/22 02/03/22 Rx ondansetron 8 mg disintegrating 8 mg PO Q8H PRN nausea and 11/03/21 02/03/22 Unknown Rx tablet vomiting 4 days #14 tabs furosemide 20 mg tablet 20 mg PO .every other day PRN 11/12/21 02/04/22 02/03/22 Rx edema #14 tabs duloxetine 60 mg capsule,delayed 60 mg PO DAILY DEPRESSION / NERVE 11/16/21 02/04/22 02/03/22 Rx release PAIN #90 caps triamcinolone acetonide 0.1 % See Rx Instructions .Route 12/21/21 02/03/22 Unknown Rx topical cream .COMPLEX #80 grams amlodipine 5 mg tablet 5 mg PO DAILY #90 tabs 01/06/22 02/04/22 02/03/22 Rx meloxicam 15 mg tablet 15 mg PO DAILY #30 tabs 01/10/22 02/04/22 Unknown Rx hydrocodone 10 mg-acetaminophen 1 tab PO Q8H PRN Pain 30 days #90 01/15/22 02/04/22 02/04/22 06:00 Rx 325 mg tablet tabs amoxicillin 875 mg tablet 875 mg PO BID sinus infection #20 01/17/22 02/04/22 02/03/22 Rx tabs docusate sodium 100 mg capsule 100 mg PO BID 02/03/22 02/04/22 02/03/22 History fluconazole 150 mg tablet 150 mg PO .every 4th day PRN Rash 02/03/22 02/04/22 Unknown History (Diflucan) pantoprazole 40 mg tablet,delayed 40 mg PO DAILY 02/03/22 02/04/22 02/03/22 History release (Protonix) Allergies Allergy/AdvReac Type Severity Reaction Status Date / Time metformin Allergy upset Verified 02/03/22 08:43 stomach Sulfa (Sulfonamide Allergy upsets Verified 02/03/22 08:43 Antibiotics) stomach Current Medications Generic Name Dose Route Start Last Admin Trade Name Freq PRN Reason Stop Dose Admin Sodium Chloride 1,000 mls @ 30 mls/hr 02/04/22 07:00 02/04/22 07:09 Sodium Chloride 0.9% IV 02/05/22 06:59 30 mls/hr .Q24H REBECCA Administration PFSH Anesthesia Medical History (Updated 02/04/22 @ 09:46 by Cherry Fairbanks MD) Acute right arterial ischemic stroke, middle cerebral artery (MCA) Currently no residual weakness. Anxiety Cerebrovascular accident Chest pain Chronic back pain COPD (chronic obstructive pulmonary disease) CVA (cerebral vascular accident) Diabetes Hypertension Hypoestrogenism Lumbar disc disease Nicotine dependence with current use NSTEMI (non-ST elevated myocardial infarction) TYPE II M.I Recurrent major depression Right cavernous carotid stenosis Urinary incontinence Vertebral artery stenosis Surgical History History of bladder surgery History of cholecystectomy History of total hysterectomy Family History Grandfather CAD (coronary artery disease) Hypertension Myocardial infarction Mother Cancer Father Cancer Brother CAD (coronary artery disease) Myocardial infarction Sister Stroke Diabetes Family/Other Diabetes Social History Smoking and tobacco status: current every day smoker cigarettes Packs smoked per day: 1 Years cigarettes smoked: 28 Alcohol intake: never Lives independently: Yes Housing: House Data Anesthesia : 02/04/22 07:45 BMP 02/04/22 07:45 Sodium 130 L Potassium 3.4 L Chloride 97 L Carbon Dioxide 21 L BUN 6 L Creatinine 0.4 L Glucose 175 H Calcium 8.1 L Cardiac Studies: Echocardiogram Ultrasound 08/26/20 Sestamibi Stress Test (Cardiology) 08/28/20
[2022-02-04] MEDS: ceFAZolin 2,000 MG in sodium chloride 0.9% (plus) 50 ML 100 MG IV (10:25)
[2022-02-04] MEDS: morphine 4 mg/mL SDV 1 mL 8 MG XX (10:55)
--- NOTE | 2022-02-04 12:12 | P.OP_ITS ---
Operative Report Date of procedure: February 04, 2022 Pre-op diagnosis: Left knee medial and lateral meniscal tears Post-op diagnosis: Left knee medial and lateral meniscal tears with significant degenerative osteoarthritis and copious synovitis. Post-op findings: Synovitis. Degenerative complex medial and lateral meniscal tears. Severe degenerative osteoarthritis gradient in the medial compartment and lateral compartment. Procedure done: Left arthroscopic knee surgery with partial medial and lateral meniscectomies, chondroplasty medial and lateral femoral condyles, synovectomy. Pathology: none sent Surgeon: Cherry Fairbanks [employer] Manager: None Anesthesia: General (Per LMA, ASA 3) Estimated blood loss (mL): 10 Tourniquet time (min): 12 (At 300 mmHg, deflated secondary to venous tourniquet) IV fluids (mL): 600 Urine output (mL): 0 (No Candelaria) Complications: None Findings: Severe degenerative osteoarthritis with complex medial and lateral meniscal tears Condition: stable Disposition: PACU (Then to same-day surgery for discharge to home) Brief History: Maru Man is an established 61 year old female patient who presented with significant left knee pain. Patient has had MRI which demonstrated complex medial and lateral meniscal tears, and she opted for injection on 12/22/21 which did not help relieve pain. Patient rated pain at 10/10 in clinic.? Patient states that she has no known injury.? Patient states that she woke up with pain one day and it has continuing throughout the summer. After discussion, the patient wished to proceed with arthroscopic knee surgery. She is currently not a candidate secondary to her BMI greater than 40. This has been discussed with her. Procedure: Patient was brought to the operating theater and after undergoing adequate general anesthesia per LMA, ASA 3, the patient's right lower extremity was prepped and draped in usual fashion utilizing DuraPrep. A tourniquet was placed high on the leg prior to prepping and draping. The tourniquet was elevated prior to commencement of the surgical procedure to 300 mmHg. Total tourniquet time was 12 minutes. Elevation followed prepping and exsanguination. Prior to commencement of the surgical procedure, a surgical pause was performed. At the time of the surgical pause, we identified the site and side of surgery. We also confirmed the patient's identity and appropriate and timely administration of preoperative antibiotics. Preoperative surgical markings were also visualized at this time. Standard arthroscopic portals were utilized including superolateral, inferomedial, and inferolateral portals. The examination commenced in the suprapatellar pouch area where the patient was noted to have chondromalacia of the significant degree on the undersurface of the patella. The arthroscope was then passed in the medial compartment where there was noted to be significant degenerative osteoarthritic change. Initial visualization was quite difficult secondary to the complex medial meniscal tearing involving the entire meniscus. This was felt to be degenerative tearing secondary to the patient's significant osteoarthritis. The area was debrided so that we could further observe findings within the knee. The meniscus was debrided with a combination of the intra- articular shaver, the intra-articular heat wand, and basket forceps. Chondromalacia was then addressed with the intra-articular shaver and heat wand. The arthroscope was then passed across the notch area where anterior cruciate ligament was visualized and found to be intact. With difficulty, the scope was passed into the lateral compartment with the knee in a [id number] position. Range of motion was decreased secondary to soft tissue envelope. Once the patient was in a modified [id number] position, we were able to visualize the lateral meniscus which was noted to have complex degenerative tearing. It was nearly impossible to visualize lateral compartment secondary to the complexity of this tear. A combination of the intra-articular shaver and heat wand were used to address this meniscus. We were able to debride it and identified that there was significant osteoarthritis and cartilage loss over the lateral femoral condyle. This was debrided similar to the medial condyle utilizing the intra-articular shaver and heat wand. Once lateral meniscus had been thus prepared it was palpated and found to be intact and not displaceable into the knee joint. The arthroscope was then returned to the patellofemoral joint where a synovectomy was performed. This synovectomy involved use of the intra-articular shaver as well as the heat wand. Once the patellofemoral joint had been addressed, the scope was passed back through the knee compartments to evaluate for other abnormalities. Finding none, attention was directed to closure. The knee was copiously irrigated and suctioned dry. Following this, each portal was closed with a simple suture followed by Dermabond, Steri-Strips, and Tegaderm. Additionally, the knee was injected with 10 mL of half percent ropivacaine and 8 mg of morphine. Additional 10 mL of ropivacaine was placed about the portals. Sterile dressing was placed consisting of the Tegaderm and Steri-Strips followed by the Bert wrap. Patient was returned to Recovery Room in satisfactory condition where she will be discharged home to follow-up with me in the office as scheduled. There were no complications and no specimens.
[2022-02-04] MEDS: ondansetron 2 mg/ML SDV 2 mL 4 MG IVP ×2 (12:17→13:11)
[2022-02-04] MEDS: oxyCODONE 5 mg IR Tab/Cap PO (13:10)
[2022-02-04] MEDS: ipratropium-albuterol 3 mL Neb INHALATION (13:15)
--- NOTE | 2022-02-04 13:29 | PC.NURSE ---
Duoneb treatment given per Anesthesia, patient on 4L, O2 86-90%. She reports PMH COPD. She denies taking breathing treatment this AM.
--- NOTE | 2022-02-04 15:56 | ANE.PACU2 ---
Inpatient post-anesthesia follow up: Airway intact: Yes Vital signs: Temperature 97.2 F Pulse Rate 93 Respiratory Rate 18 Blood Pressure 137/87 Pulse Oximetry 92 Oxygen Delivery Me thod Room Air Oxygen Flow Rate 1 Fraction of Inspir ed Oxygen Hydration adequate: Yes Nausea and vomiting: No Pain level: 3 Mental status: Baseline
== END 2022-02-04 14:30 | disposition home or self-care (01) ==
PROVIDERS: Anesthesiology; PCP Family Medicine; Visit Provider Specialist
PROC: (CPT 29870; principal; 2022-02-04 11:30)
DX: S83.282A Other tear of lateral meniscus, current injury, left knee, initial encounter (principal); S83.242A Other tear of medial meniscus, current injury, left knee, initial encounter; X58.XXXA Exposure to other specified factors, initial encounter; M17.12 Unilateral primary osteoarthritis, left knee; J44.9 Chronic obstructive pulmonary disease, unspecified; I10 Essential (primary) hypertension; Z86.718 Personal history of other venous thrombosis and embolism; K21.9 Gastro-esophageal reflux disease without esophagitis; E66.01 Morbid (severe) obesity due to excess calories; Z68.41 Body mass index [BMI] 40.0-44.9, adult; F41.9 Anxiety disorder, unspecified; Z86.73 Personal history of transient ischemic attack (TIA), and cerebral infarction without residual deficits; I25.2 Old myocardial infarction
CPT/HCPCS: 29880; 36416; 80048; 82962; 94640; J0360; J1100; J1170; J1200; J2270; J2405; J2795; J3010; J7030

== ENCOUNTER 2022-02-10 13:28 | Emergency (ER) | payer MEDICAID, SELFPAY ==
[2022-02-10 13:35] VITALS: BP 149/79; PULSE 82; RESP 18; TEMP 36.7; O2SAT 94; BMI 40.6
--- NOTE | 2022-02-10 13:41 | USCV_ITS ---
Maru Man Age: 61 Gender: F : 1960 Exam Date: 02/10/2022 14:32 Ordering Phys: Sunil Dumont Technologist: NANCI [place] [facility] [place]ication: LLE PAIN AND SWELLING HISTORY: Lower extremity swelling. Lower extremity pain. PROCEDURES: Venous duplex imaging was performed in only the left lower extremity. The following venous structures were evaluated: common femoral vein, profunda vein, proximal portion of the greater saphenous vein, superficial femoral vein, and the popliteal vein. In addition, the posterior tibial and peroneal trunk were evaluated. FINDINGS: No evidence of DVT seen in any vessel visualized at this time. Examination was technically limited due to body habitus. CONCLUSIONS No evidence of left lower extremity DVT. Michael Benitez MD (Electronically Signed) Final Date: 11 February 2022 10:19 S
--- NOTE | 2022-02-10 13:43 | W.ED.EXTPRO ---
HPI - Extremity Problem General: Chief complaint: Extremity Injury, Lower Stated complaint: sent for ultrasound Time Seen by Provider: 02/10/22 13:30 History of Present Illness: Patient is a 61-year-old female comes to the ED with left lower extremity pain and swelling. Patient was sent here by Ortho to rule out DVT. Patient had left arthroscopic knee surgery back on February 04. Since surgery she has been having increased pain in her low left lower leg along with swelling. She is not had any falls or injuries to the left leg since surgery. Denies any chest pain or shortness of breath. Patient has a history of blood clots and takes Plavix currently. She was off her Plavix for total of 2 weeks before surgery and was started back on Plavix February 05. She takes hydrocodone's at home to help with pain. Associated symptoms: Deny chest pain, fever(s) or rash Review of Systems Const: Denies: fever(s), chills or fatigue Eyes: Denies: change in vision or eye discomfort ENMT: Denies: throat pain, odynophagia, nasal discharge or nasal congestion Card: Denies: chest pain, palpitations, edema, swelling of feet/ankles, dyspnea on exertion or orthopnea Resp: Denies: dyspnea, productive cough or non-productive cough GI: Denies: abdominal pain, nausea, vomiting, diarrhea, constipation or hematochezia : Denies: flank pain, dysuria or hematuria Musc: Reports: extremity pain (Left leg) and extremity swelling (Left leg); Denies: neck pain or back pain Skin/Breast: Denies: rash or new lesions Neuro: Denies: headache(s), numbness in extremities or weakness in extremities PFS ED PFSH: Medical History Acute right arterial ischemic stroke, middle cerebral artery (MCA) Currently no residual weakness. Anxiety Cerebrovascular accident Chest pain Chronic back pain COPD (chronic obstructive pulmonary disease) CVA (cerebral vascular accident) Diabetes Hypertension Hypoestrogenism Lumbar disc disease Nicotine dependence with current use NSTEMI (non-ST elevated myocardial infarction) TYPE II M.I Recurrent major depression Right cavernous carotid stenosis Urinary incontinence Vertebral artery stenosis Surgical History History of bladder surgery History of cholecystectomy History of total hysterectomy Family History Grandfather CAD (coronary artery disease) Hypertension Myocardial infarction Mother Cancer Father Cancer Brother CAD (coronary artery disease) Myocardial infarction Sister Stroke Diabetes Family/Other Diabetes Social History Smoking and tobacco status: current every day smoker cigarettes Packs smoked per day: 1 Years cigarettes smoked: 28 Alcohol intake: never Lives independently: Yes Housing: House Physical Exam Const: COMMON NORMALS: patient oriented x3 and alert GENERAL APPEARANCE: cooperative HENMT: COMMON NORMALS: normocephalic HEAD & SCALP: normocephalic MOUTH: Normal oral and palatal mucosa present THROAT: posterior oropharynx normal and uvula midline Neck/C-Spine: COMMON NORMALS: supple GENERAL: Yes normal visual inspection Resp: COMMON NORMALS: normal respiratory effort, No retractions, No use of accessory muscles and clear to auscultation bilaterally AUSCULTATION: clear to auscultation bilaterally Cardio: COMMON NORMALS: regular rate, regular rhythm, S1 normal heart sound present, S2 normal heart sound present, No gallops present (Cardio), No clicks present (Cardio), No murmurs present (Cardio) and Peripheral pulses 2+ throughout RATE: regular rate RHYTHM: regular rhythm HEART SOUNDS: S1 normal heart sound present and S2 normal heart sound present PERIPHERAL PULSES: Peripheral pulses 2+ throughout GI: COMMON NORMALS: Normal to inspection, nondistended, normoactive bowel sounds present, Soft to palpation, non-tender and no masses PALPATION: Yes Soft to palpation : COMMON NORMALS: Yes no CVA tenderness BLADDER/KIDNEY EXAM: Yes no CVA tenderness Back/Pelvis: COMMON NORMALS: no CVA tenderness Extremity: NARRATIVE EXTREMITY EXAM: Surgical incision sites on left knee appear to be healing well. No signs of any infection noted. No erythema, warmth or purulent drainage around incision sites. GENERAL: Yes calf tenderness (Left calf tenderness) and Yes edema (2+ pitting edema to left lower extremity.) Neuro: COMMON NORMALS: patient oriented x3 SENSORIUM/ORIENTATION: Yes alert GAIT: Yes Normal gait present Skin: GENERAL SKIN EXAM: dry skin Course Vital Signs: Vital signs: Vital Signs Temperature 98.1 F 02/10/22 13:35 Pulse Rate 82 09/15/22 13:35 Respiratory Rate 17 02/10/22 15:08 Blood Pressure 149/79 02/10/22 13:35 Pulse Oximetry 94 02/10/22 13:35 Oxygen Delivery Me thod 02/10/22 13:35 MDM - Extremity (Nontraumatic) Medical Decision Making Patient is a 61-year-old female comes to the ED with left lower extremity pain and swelling. Patient was sent here by Ortho to rule out DVT. Patient had left arthroscopic knee surgery back on February 04. Since surgery she has been having increased pain in her low left lower leg along with swelling. Patient has a history of blood clots and takes Plavix currently. She was off her Plavix for total of 2 weeks before surgery and was started back on Plavix February 05. Vitals are stable. Exam shows left calf tenderness with edema on the left lower extremity. Ultrasound venous duplex of left lower extremity shows no DVTs. Patient diagnosed with pain and swelling of left lower extremity and was discharged home. She was told to use compression stockings and elevate left leg to help with symptoms. She was told to follow-up with Ortho at next scheduled appointment. Return to ED precautions given. Patient understood and agreed with plan. Imaging Data US Vascular: My impression: Ultrasound venous duplex of left lower extremity shows no DVT seen. Discharge Plan Discharge Patient Disposition: Home Clinical Impression: Pain and swelling of left lower extremity Condition: Stable Prescriptions: No Action meloxicam 15 mg tablet 15 mg PO DAILY Qty: 30 0RF Rx Instructions: take 1 tablet po once a day amoxicillin 875 mg tablet 875 mg PO BID Qty: 20 0RF pregabalin 100 mg capsule 100 mg PO BID 30 Days Qty: 60 4RF diazepam 5 mg tablet 5 mg PO BID PRN (Reason: anxiety) Qty: 60 3RF Rx Instructions: This instead of the alprazolam for nerves during day and sleep at night ondansetron 8 mg tablet,disintegrating 8 mg PO Q8H PRN (Reason: nausea and vomiting) 4 Days Qty: 14 0RF fluticasone propionate [Flonase Allergy Relief] 50 mcg/actuation spray,suspension 2 spray INTRANASAL DAILY Qty: 16 5RF Rx Instructions: administer into each nostril oxybutynin chloride 5 mg tablet 5 mg PO DAILY Qty: 30 5RF clopidogrel [Plavix] 75 mg tablet 75 mg PO DAILY Qty: 30 11RF albuterol sulfate [ProAir HFA] 90 mcg/actuation HFA aerosol inhaler 2 puff INHALATION Q6H PRN (Reason: Shortness Of Breath) Qty: 8.5 4RF cetirizine 10 mg tablet 10 mg PO DAILY 30 Days Qty: 30 5RF Lantus U-100 Insulin 100 unit/mL solution 100 unit SUBCUT BID 90 Days Qty: 180 1RF Januvia 100 mg tablet 100 mg PO DAILY Qty: 90 1RF furosemide 20 mg tablet 20 mg PO .every other day PRN (Reason: edema) Qty: 14 0RF duloxetine 60 mg capsule,delayed release(DR/EC) 60 mg PO DAILY Qty: 90 3RF triamcinolone acetonide 0.1 % cream See Rx Instructions .ROUTE .COMPLEX Qty: 80 1RF Dose Instruction: apply topically TWICE DAILY FOR ITCHING bites Rx Instructions: apply topically TWICE DAILY FOR ITCHING bites amlodipine 5 mg tablet 5 mg PO DAILY Qty: 90 1RF hydrocodone-acetaminophen 10-325 mg tablet 1 tab PO Q8H PRN (Reason: Pain) 30 Days Qty: 90 0RF oxycodone 5 mg tablet 5 mg PO Q4H PRN (Reason: pain) 7 Days Qty: 30 0RF aspirin 81 mg tablet,delayed release (DR/EC) 81 mg PO DAILY Qty: 30 3RF albuterol sulfate 2.5 mg /3 mL (0.083 %) solution for nebulization 2.5 mg inhalation Q6H PRN (Reason: Shortness Of Breath) topiramate 50 mg tablet 50 mg PO DAILY lidocaine 5 % ointment 1 applic topical TID PRN (Reason: pain) Qty: 60 0RF fluconazole [Diflucan] 150 mg tablet 150 mg PO .every 4th day PRN (Reason: Rash) pantoprazole [Protonix] 40 mg tablet,delayed release (DR/EC) 40 mg PO DAILY docusate sodium 100 mg capsule 100 mg PO BID Rx Instructions: TAKE 1 CAPSULE BY MOUTH TWICE DAILY Discharge Orders: Discharge ED (Routine); Ordered 02/10/22 Ordered By: Sunil Dumont Referrals: Shamika Harding MD [Primary Care Provider] - Discharge Diet: Regular Discharge Activity: Increase activity as tolerated Activity Restrictions/Additional Instructions: Follow-up with medical provider as directed. Contact Dr. Helms's office today after discharge to let them know left leg was negative for DVT. Continue taking all home medications as prescribed. Return to the ER or your medical provider if condition worsens. Please read and understand discharge instructions. Thank you for choosing [facility] for your healthcare needs today. Please realize this is an emergency room and that we are providing you with a medical screening exam and this may not be complete and all inclusive of all the testing and or work up that you may need to determine your ailment or severity of your illness. It is very important that you follow up as instructed or that you return to the Emergency Department should you have concerns or if your condition changes or worsens in any way. Coding Level of Care Code ED Head Of Digital for Tahmina Little Exam Comprehensive
[2022-02-10] MEDS: HYDROcodone-acetaminophen 10-325 mg Tablet 1 TAB PO (13:56)
[2022-02-10] MEDS: ondansetron 2 mg/ML SDV 2 mL 4 MG IM (14:00)
[2022-02-10 15:08] VITALS: RESP 17
[2022-02-10] MEDS: HYDROmorphone 1 mg/mL INJ 1 mL 0.5 MG IM (15:08)
== END 2022-02-10 15:27 | disposition home or self-care (01) ==
PROVIDERS: Emergency Provider Physician Assistant; PCP Family Medicine
DX: M79.662 Pain in left lower leg (principal); M79.89 Other specified soft tissue disorders; Z86.718 Personal history of other venous thrombosis and embolism; Z79.02 Long term (current) use of antithrombotics/antiplatelets
CPT/HCPCS: 93971; 96372; 99285; J1170; J2405

== ENCOUNTER 2022-02-15 00:43 | Emergency (ER) | payer MEDICAID, SELFPAY ==
[2022-02-15 00:55] VITALS: BP 145/78; PULSE 87; RESP 20; TEMP 36.6; O2SAT 94; BMI 40.6
--- NOTE | 2022-02-15 01:13 | XRR_ITS ---
PROCEDURE INFORMATION: Exam: XR Left Knee Exam date and time: 02/15/2022 1:25 AM Age: 61 years old Clinical indication: Pain; Knee; Left TECHNIQUE: Imaging protocol: Radiologic exam of the Left knee. Views: 3 views. COMPARISON: CR (LOW EXM, ) 10/31/2021 4:17 AM FINDINGS: Bones/joints: No fracture or dislocation. There is mild degenerative changes, manifested by joint space narrowing and small periarticular osteophytes, involving mainly the lateral compartment. Soft tissues: Normal. XR/XR knee LT 3V* [id number] IMPRESSION: 1. No acute injury. 2. Mild degenerative changes, involving mainly the lateral compartment.
[2022-02-15 01:45] LABS: Basophils % 0.4 %; Eosinophils # 0.1 10^3/uL (0.0-0.8); Eosinophils % 0.9 %; Hematocrit 37.9 % (37.0-47.0); Lymphocytes # 2.7 10^3/uL (0.8-4.8); Lymphocytes % 24.9 %; Mean Corpuscular HGB Conc 31.7 g/dL (30.0-36.0); Mean Corpuscular Hemoglobin 27.8 pg (28.0-34.0); Mean Corpuscular Volume 87.7 fl (81-99); Mean Platelet Volume 10.2 fL (7.4-10.4); Monocytes # 0.8 10^3/uL (0.2-0.9); Monocytes % 7.6 %; Neutrophils # 7.02 10^3/uL (1.8-7.7); Neutrophils % 65.8 %; Nucleated Red Blood Cells % 0 %; Platelet Count 364 10^3/cmm (130-400); Red Blood Count 4.32 10^6/uL (4.1-5.3); Red Cell Distribution Width 15.6 % (12.1-15.1); White Blood Count 10.7 10^3/uL (4.0-10.0)
[2022-02-15] MEDS: ondansetron 2 mg/ML SDV 2 mL 4 MG IVP (02:02)
--- NOTE | 2022-02-15 02:15 | W.ED.EXTPRO ---
HPI - Extremity Problem General: Chief complaint: Extremity Injury, Lower Stated complaint: Left leg Swollen\N Time Seen by Provider: 02/15/22 01:11 Source: patient Limitations: no limitations History of Present Illness: See nursing assessment. Patient with complaints of continued left knee pain and peripheral edema on bilateral lower extremities since patient had arthroscopy of left knee. Patient was evaluated on February 10 with venous Doppler of the left lower extremity. No evidence of DVT was found at that time. She states the swelling and pain is no different today than it was several days ago. She denies any fever. She states she already takes Lasix 5 mg daily for swelling. However, her medication list shows furosemide 20 mg every other day as needed for edema. Patient denies any shortness of breath or chest pain. She denies any abdominal pain. She denies any fever. She is requesting medication for pain in her left knee. Associated symptoms: Deny chest pain, fever(s) or rash Review of Systems Const: Denies: fever(s) or chills Eyes: Denies: change in vision ENMT: Denies: throat pain Card: Denies: chest pain or palpitations Resp: Denies: dyspnea or wheezing GI: Denies: abdominal pain, nausea or vomiting : Denies: flank pain Musc: Reports: extremity pain, extremity swelling and joint pain (Left knee pain); Denies: neck pain or back pain Skin/Breast: Denies: rash or pruritus Neuro: Denies: headache(s) or numbness in extremities Psych: Denies: anxiety Saud/Lymph: Denies: enlarged lymph nodes PFSH ED PFSH: Medical History Acute right arterial ischemic stroke, middle cerebral artery (MCA) Currently no residual weakness. Anxiety Cerebrovascular accident Chest pain Chronic back pain COPD (chronic obstructive pulmonary disease) CVA (cerebral vascular accident) Diabetes Hypertension Hypoestrogenism Lumbar disc disease Nicotine dependence with current use NSTEMI (non-ST elevated myocardial infarction) TYPE II M.I Recurrent major depression Right cavernous carotid stenosis Urinary incontinence Vertebral artery stenosis Surgical History History of bladder surgery History of cholecystectomy History of total hysterectomy Family History Grandfather CAD (coronary artery disease) Hypertension Myocardial infarction Mother Cancer Father Cancer Brother CAD (coronary artery disease) Myocardial infarction Sister Stroke Diabetes Family/Other Diabetes Social History Smoking and tobacco status: current every day smoker cigarettes Packs smoked per day: 1 Years cigarettes smoked: 28 Alcohol intake: never Lives independently: Yes Housing: House Physical Exam Const: COMMON NORMALS: no acute distress, patient oriented x3, alert and well nourished GENERAL APPEARANCE: cooperative OTHER: Moderately hard of hearing HENMT: COMMON NORMALS: normocephalic and atraumatic HEAD & SCALP: normocephalic and atraumatic Eye: COMMON NORMALS: EOMs intact bilaterally Neck/C-Spine: COMMON NORMALS: full ROM, no lymphadenopathy, supple and no JVD Lymph: LYMPHATIC: no lymphadenopathy noted Chest: COMMONS NORMALS: normal inspection of the chest and normal palpation of entire chest wall Resp: COMMON NORMALS: normal respiratory effort, No retractions, No use of accessory muscles and clear to auscultation bilaterally AUSCULTATION: clear to auscultation bilaterally Cardio: COMMON NORMALS: no JVD, regular rate, regular rhythm and Peripheral pulses 2+ throughout RATE: regular rate RHYTHM: regular rhythm PERIPHERAL PULSES: Peripheral pulses 2+ throughout OTHER: Peripheral pulse was normal. Dorsalis pedis and posterior tibial pulses 2+ out of 4 bilaterally. Patient has 2+ pitting edema of the lower extremities bilaterally. GI: COMMON NORMALS: Normal to inspection, nondistended, normoactive bowel sounds present, Soft to palpation and non-tender PALPATION: Yes Soft to palpation : COMMON NORMALS: Yes no CVA tenderness BLADDER/KIDNEY EXAM: Yes no CVA tenderness Back/Pelvis: COMMON NORMALS: no CVA tenderness Extremity: COMMON NORMALS: full ROM OTHER: Negative Homans signs bilaterally. Calves are nontender bilaterally. 2+ pitting edema lower extremities bilaterally. Well-healing incisions to the left anterior knee. No increased warmth or cellulitis. No purulent drainage. No evidence of infection. Normal range of motion of the left knee. Neuro: COMMON NORMALS: patient oriented x3, CN's II-XII intact bilaterally, moves all extremities, no focal motor deficits and no sensory deficits noted SENSORIUM/ORIENTATION: Yes alert Psych: COMMON NORMALS: mental status grossly normal, Normal thought process present, cooperative, normal affect and speech normal SPEECH: Yes normal speech THOUGHT PROCESS: Normal thought process present Skin: COMMON NORMALS: no rashes or lesions noted GENERAL SKIN EXAM: no rashes or lesions noted Course Vital Signs: Vital signs: Vital Signs Temperature 97.8 F 02/15/22 00:55 Pulse Rate 87 02/15/22 00:55 Respiratory Rate 20 H 02/15/22 00:55 Blood Pressure 145/78 02/15/22 00:55 Pulse Oximetry 94 02/15/22 00:55 MDM - Extremity (Nontraumatic) Medical Decision Making Patient had recent venous Doppler of left lower extremity showing no evidence of DVT. See report from 02/10/2022. Labs stated chemistry was hemolyzed and will have to redraw. Patient has mild hypokalemia. Patient states she has a problem with this. Glucose is 206. Kidney function is okay. Will increase furosemide to 40 mg daily for the next 4 days and then 20 mg daily following that. We will add potassium supplement. Medical Records Ordering Provider/Ordering MD: Sunil Dumont Date of Service: 02/10/22 Procedure(s): [place] [address] Accession Number(s): [id number] Report Number: [id number] ?Maru Man ?Age:? ? 61 ? ? Gender: ? ? F ?:? ? 1960 ?Exam Date: ? ? 02/10/2022 14:32 ?Ordering Phys: ? ? Sunil Dumont? MILEY ?Technologist:? ? ? KB ?Exam Location:? ? ? [facility] [place] ?MRN:? ? [id number] ?Account Number: ? ? ? [id number] ?Indication:? ? ? LLE PAIN AND SWELLING ?HISTORY: ?Lower extremity swelling. Lower extremity pain. ?PROCEDURES: ?Venous duplex imaging was performed in only the left lower ?extremity. ?The following venous structures were evaluated: common femoral ?vein, profunda vein, proximal portion of the greater saphenous ?vein, superficial femoral vein, and the popliteal vein. ?In addition, the posterior tibial and peroneal trunk were ?evaluated. ?FINDINGS: ?No evidence of DVT seen in any vessel visualized at this time. ?Examination was technically limited due to body habitus. ?CONCLUSIONS ?No evidence of left lower extremity DVT. ?Michael Benitez MD ?(Electronically Signed) ?Final Date:? ? ? 11 February 2022 ? Lab Data : 02/15/22 01:40 02/15/22 02:30 Radiology Impressions Knee X-Ray 02/15/22 01:13 IMPRESSION: 1. No acute injury. 2. Mild degenerative changes, involving mainly the lateral compartment. Laboratory Results WBC 10.7 10^3/uL (4.0-10.0) H 02/15/22 01:40 RBC 4.32 10^6/uL (4.1-5.3) 02/15/22 01:40 Hgb 12.0 g/dL (11.5-15.3) 02/15/22 01:40 Hct 37.9 % (37.0-47.0) 02/15/22 01:40 MCV 87.7 fl (81-99) 02/15/22 01:40 MCH 27.8 pg (28.0-34.0) L 02/15/22 01:40 MCHC 31.7 g/dL (30.0-36.0) 02/15/22 01:40 RDW 15.6 % (12.1-15.1) H 02/15/22 01:40 Plt Count 364 10^3/cmm (130-400) 02/15/22 01:40 MPV 10.2 fL (7.4-10.4) 02/15/22 01:40 Neut % (Auto) 65.8 % 02/15/22 01:40 Lymph % (Auto) 24.9 % 02/15/22 01:40 [place] % (Auto) 7.6 % 02/15/22 01:40 Eos % (Auto) 0.9 % 02/15/22 01:40 Baso % (Auto) 0.4 % 02/15/22 01:40 Neut # (Auto) 7.02 10^3/uL (1.8-7.7) 02/15/22 01:40 Lymph # (Auto) 2.7 10^3/uL (0.8-4.8) 02/15/22 01:40 [place] # (Auto) 0.8 10^3/uL (0.2-0.9) 02/15/22 01:40 Eos # (Auto) 0.1 10^3/uL (0.0-0.8) 02/15/22 01:40 Baso # (Auto) 0.0 10^3/uL (0.0-0.1) 02/15/22 01:40 Nucleated RBC % (auto) 0 % 02/15/22 01:40 Nucleated RBCs # 0.0 /100WBC 02/15/22 01:40 Sodium 133 mmol/L (136-145) L 02/15/22 02:30 Potassium 3.1 mmol/L (3.5-5.1) L 02/15/22 02:30 Chloride 93 mmol/L (98-107) L 02/15/22 02:30 Carbon Dioxide 29 mmol/L (22-29) 02/15/22 02:30 Anion Gap 14.1 (5-19) 02/15/22 02:30 BUN 11 mg/dL (8-23) 02/15/22 02:30 Creatinine 0.5 mg/dL (0.5-0.9) 02/15/22 02:30 GFR Calculation 124.6 mL/min (90-130) 02/15/22 02:30 Glucose 206 mg/dL (65-115) H 02/15/22 02:30 Calculated Osmolality 281 mOsm/kg (285-295) L 02/15/22 02:30 Calcium 8.1 mg/dL (8.5-10.5) L 02/15/22 02:30 Imaging Data Xray Ortho: My impression: X-ray of left knee shows nothing acute. No evidence of fracture or dislocation. Discharge Plan Discharge Patient Disposition: Home Clinical Impression: Mild peripheral edema Diabetes Qualifiers: Diabetes mellitus type: type 2 Diabetes mellitus fdc insulin use: with fdc use Diabetes mellitus complication status: without complication Qualified Code(s): E11.9 - Type 2 diabetes mellitus without complications Chronic knee pain Qualifiers: Laterality: left Qualified Code(s): M25.562 - Pain in left knee Condition: Stable Prescriptions: New potassium chloride 20 mEq tablet,ER particles/crystals 20 meq PO DAILY Qty: 20 0RF furosemide 20 mg tablet See Rx Instructions .ROUTE .COMPLEX Qty: 20 0RF Rx Instructions: 40 mg p.o. daily for 4 days then decrease to 20 mg p.o. daily until finished with prescription. No Action meloxicam 15 mg tablet 15 mg PO DAILY Qty: 30 0RF Rx Instructions: take 1 tablet po once a day amoxicillin 875 mg tablet 875 mg PO BID Qty: 20 0RF pregabalin 100 mg capsule 100 mg PO BID 30 Days Qty: 60 4RF diazepam 5 mg tablet 5 mg PO BID PRN (Reason: anxiety) Qty: 60 3RF Rx Instructions: This instead of the alprazolam for nerves during day and sleep at night ondansetron 8 mg tablet,disintegrating 8 mg PO Q8H PRN (Reason: nausea and vomiting) 4 Days Qty: 14 0RF fluticasone propionate [Flonase Allergy Relief] 50 mcg/actuation spray,suspension 2 spray INTRANASAL DAILY Qty: 16 5RF Rx Instructions: administer into each nostril oxybutynin chloride 5 mg tablet 5 mg PO DAILY Qty: 30 5RF clopidogrel [Plavix] 75 mg tablet 75 mg PO DAILY Qty: 30 11RF albuterol sulfate [ProAir HFA] 90 mcg/actuation HFA aerosol inhaler 2 puff INHALATION Q6H PRN (Reason: Shortness Of Breath) Qty: 8.5 4RF cetirizine 10 mg tablet 10 mg PO DAILY 30 Days Qty: 30 5RF Lantus U-100 Insulin 100 unit/mL solution 100 unit SUBCUT BID 90 Days Qty: 180 1RF Januvia 100 mg tablet 100 mg PO DAILY Qty: 90 1RF furosemide 20 mg tablet 20 mg PO .every other day PRN (Reason: edema) Qty: 14 0RF duloxetine 60 mg capsule,delayed release(DR/EC) 60 mg PO DAILY Qty: 90 3RF triamcinolone acetonide 0.1 % cream See Rx Instructions .ROUTE .COMPLEX Qty: 80 1RF Dose Instruction: apply topically TWICE DAILY FOR ITCHING bites Rx Instructions: apply topically TWICE DAILY FOR ITCHING bites amlodipine 5 mg tablet 5 mg PO DAILY Qty: 90 1RF hydrocodone-acetaminophen 10-325 mg tablet 1 tab PO Q8H PRN (Reason: Pain) 30 Days Qty: 90 0RF aspirin 81 mg tablet,delayed release (DR/EC) 81 mg PO DAILY Qty: 30 3RF albuterol sulfate 2.5 mg /3 mL (0.083 %) solution for nebulization 2.5 mg inhalation Q6H PRN (Reason: Shortness Of Breath) topiramate 50 mg tablet 50 mg PO DAILY lidocaine 5 % ointment 1 applic topical TID PRN (Reason: pain) Qty: 60 0RF fluconazole [Diflucan] 150 mg tablet 150 mg PO .every 4th day PRN (Reason: Rash) pantoprazole [Protonix] 40 mg tablet,delayed release (DR/EC) 40 mg PO DAILY docusate sodium 100 mg capsule 100 mg PO BID Rx Instructions: TAKE 1 CAPSULE BY MOUTH TWICE DAILY Discharge Orders: Discharge ED (Routine); Ordered 02/15/22 Ordered By: Derick Fountain Referrals: Shamika Harding MD [Primary Care Provider] - 1-3 days Discharge Diet: Diabetic Discharge Activity: Increase activity as tolerated Patient Instructions: Hyperglycemia, Hypokalemia (ED), Edema (ED), Opioid Safety, Pain Management Activity Restrictions/Additional Instructions: Your furosemide/Lasix will be adjusted. You will now need to take Lasix 40 mg daily for the next 4 days. After 4 days, decrease dose to a total of 20 mg of Lasix daily until prescription is finished. Take potassium supplement daily with each dose of Lasix. Follow-up with your family doctor this week for recheck. Monitor your blood sugar closely. Coding Level of Care Code ED [facility] Exam Comprehensive
[2022-02-15] MEDS: HYDROcodone-acetaminophen 5-325 mg Tablet 1 TAB PO (02:35)
[2022-02-15 02:58] LABS: Blood Urea Nitrogen 11 mg/dL (8-23); Calcium 8.1 mg/dL (8.5-10.5); Carbon Dioxide 29 mmol/L (22-29); Chloride 93 mmol/L (98-107); Glomerular Filtration Rate 124.6 mL/min (90-130); Glucose 206 mg/dL (65-115); Osmolality Calculated 281 mOsm/kg (285-295); Sodium 133 mmol/L (136-145)
[2022-02-15 03:06] LABS: Anion Gap 14.1 (5-19); Potassium 3.1 mmol/L (3.5-5.1)
[2022-02-15] MEDS: potassium chloride ER 20 mEq Tablet 40 MEQ PO (03:28)
[2022-02-15] MEDS: FUROsemide 10 mg/mL SDV 2mL 20 MG IVP (03:28)
[2022-02-15 03:45] VITALS: BP 142/84; PULSE 85; RESP 20; O2SAT 95
== END 2022-02-15 03:46 | disposition home or self-care (01) ==
PROVIDERS: Emergency Provider Family Medicine; PCP Family Medicine
DX: R60.0 Localized edema (principal); M25.562 Pain in left knee; E11.9 Type 2 diabetes mellitus without complications; E87.6 Hypokalemia; I10 Essential (primary) hypertension; J44.9 Chronic obstructive pulmonary disease, unspecified; I25.2 Old myocardial infarction; F17.210 Nicotine dependence, cigarettes, uncomplicated; Z79.4 Long term (current) use of insulin; Z79.82 Long term (current) use of aspirin; Z79.84 Long term (current) use of oral hypoglycemic drugs; Z86.73 Personal history of transient ischemic attack (TIA), and cerebral infarction without residual deficits
CPT/HCPCS: 73562; 80048; 85025; 96374; 96375; 99284; J1940; J2405

== ENCOUNTER → 2022-02-21 13:35 | Outpatient (BNVA) | payer MEDICAID, SELFPAY | PROVIDERS: PCP Family Medicine; Visit Provider Nurse Practitioner Family | DX: Z98.890 Other specified postprocedural states (principal) | CPT/HCPCS: 99024 ==

== ENCOUNTER 2022-02-24 04:35 | Emergency (ER) | payer MEDICAID, SELFPAY ==
[2022-02-24 04:37] VITALS: BP 178/77; PULSE 81; RESP 18; TEMP 36.7; O2SAT 94; BMI 39.3
--- NOTE | 2022-02-24 04:40 | XRR_ITS ---
PROCEDURE INFORMATION: Exam: XR Left Knee Exam date and time: 02/24/2022 4:46 AM Age: 61 years old Clinical indication: Patient HX: Pain and swelling left knee TECHNIQUE: Imaging protocol: Radiologic exam of the Left knee. Views: 3 views. COMPARISON: CR (LOW EXM, ) 02/15/2022 1:25 AM FINDINGS: Bones/joints: There is a probable moderate to large joint effusion. Normal alignment. No acute fractures. Soft tissues: Probable mild edema in the superficial soft tissues anterior to the knee. No focal mass or fluid collection. There is thickening of the quadriceps tendon. XR/XR knee LT 3V* [id number] IMPRESSION: Possible injury to the quadriceps tendon with thickening, overlying edema and a joint effusion.
--- NOTE | 2022-02-24 04:41 | ED_ITS ---
HPI - Extremity Problem General: Chief complaint: Extremity Injury, Lower Stated complaint: Knee Swelling Time Seen by Provider: 02/24/22 04:40 Source: patient and EMS Mode of arrival: EMS Limitations: no limitations History of Present Illness: 61-year-old female had a knee arthroscopy 3 weeks ago states she has had constant pain since then. She has been seen here twice before had a DVT ruled out. She states tonight she has been having pain and nausea she has no swelling or warmth no fever she denies any worsening improving factors denies any fall or injury. Associated symptoms: Deny chest pain, fever(s) or rash Review of Systems Const: Denies: fever(s), chills, body aches or change in appetite Eyes: Denies: blurry vision or eye discomfort ENMT: Denies: throat pain or dental pain Card: Denies: chest pain Resp: Denies: dyspnea GI: Denies: abdominal pain, nausea, vomiting or diarrhea : Denies: dysuria Musc: Reports: extremity pain Skin/Breast: Denies: rash Neuro: Denies: headache(s) Psych: Denies: depression Saud/Lymph: Denies: easy bruising All/Imm: Denies: urticaria PFSH ED PFSH: Medical History Acute right arterial ischemic stroke, middle cerebral artery (MCA) Currently no residual weakness. Anxiety Cerebrovascular accident Chest pain Chronic back pain COPD (chronic obstructive pulmonary disease) CVA (cerebral vascular accident) Diabetes Hypertension Hypoestrogenism Lumbar disc disease Nicotine dependence with current use NSTEMI (non-ST elevated myocardial infarction) TYPE II M.I Recurrent major depression Right cavernous carotid stenosis Urinary incontinence Vertebral artery stenosis Surgical History History of bladder surgery History of cholecystectomy History of total hysterectomy Family History Grandfather CAD (coronary artery disease) Hypertension Myocardial infarction Mother Cancer Father Cancer Brother CAD (coronary artery disease) Myocardial infarction Sister Stroke Diabetes Family/Other Diabetes Social History Smoking and tobacco status: current every day smoker cigarettes Packs smoked per day: 1 Years cigarettes smoked: 28 Alcohol intake: never Lives independently: Yes Housing: House Physical Exam Const: COMMON NORMALS: no acute distress, patient oriented x3 and healthy ap pearing HENMT: COMMON NORMALS: normocephalic and atraumatic HEAD & SCALP: normocephalic and atraumatic Eye: COMMON NORMALS: Equal, round and reactive pupils present and EOMs intact bilaterally PUPIL: Yes Equal, round and reactive pupils present Neck/C-Spine: COMMON NORMALS: full ROM and supple Chest: COMMONS NORMALS: normal inspection of the chest and normal palpation of entire chest wall Resp: COMMON NORMALS: normal respiratory effort, No retractions, No use of accessory muscles and clear to auscultation bilaterally AUSCULTATION: clear to auscultation bilaterally Cardio: COMMON NORMALS: regular rate, regular rhythm and No murmurs present (Cardio) RATE: regular rate RHYTHM: regular rhythm GI: COMMON NORMALS: Normal to inspection, nondistended, normoactive bowel sounds present, Soft to palpation, non-tender and no masses PALPATION: Yes Soft to palpation Extremity: COMMON NORMALS: normal to inspection and full ROM NARRATIVE EXTREMITY EXAM: Left knee is well-appearing she has full range of motion no warmth to touch. Neuro: COMMON NORMALS: patient oriented x3, moves all extremities and no focal motor deficits Psych: COMMON NORMALS: mental status grossly normal, Normal thought process present and cooperative THOUGHT PROCESS: Normal thought process present Skin: COMMON NORMALS: no rashes or lesions noted and no wounds GENERAL SKIN EXAM: no rashes or lesions noted Course Vital Signs: Vital signs: Vital Signs Temperature 98.1 F 02/24/22 04:37 Pulse Rate 81 02/24/22 04:37 Respiratory Rate 16 02/24/22 05:09 Blood Pressure 178/77 02/24/22 04:37 Pulse Oximetry 94 02/24/22 04:37 Oxygen Delivery Me thod 02/24/22 04:37 MDM - Extremity (Nontraumatic) Medical Decision Making Patient presents here with left knee pain its been going on for 3 weeks and she had her arthroscopy. Patient is well-appearing here she has no sign of joint infection her white count is normal her x-ray here is normal as well she is stable for discharge she is to follow-up with her PCP and return if worsening she understands and agrees to plan. Lab Data : 02/24/22 05:09 02/24/22 05:09 Laboratory Results WBC 9.3 10^3/uL (4.0-10.0) 02/24/22 05:09 RBC 4.73 10^6/uL (4.1-5.3) 02/24/22 05:09 Hgb 13.0 g/dL (11.5-15.3) 02/24/22 05:09 Hct 41.0 % (37.0-47.0) 02/24/22 05:09 MCV 86.7 fl (81-99) 02/24/22 05:09 MCH 27.5 pg (28.0-34.0) L 02/24/22 05:09 MCHC 31.7 g/dL (30.0-36.0) 02/24/22 05:09 RDW 15.9 % (12.1-15.1) H 02/24/22 05:09 Plt Count 393 10^3/cmm (130-400) 02/24/22 05:09 MPV 10.2 fL (7.4-10.4) 02/24/22 05:09 Neut % (Auto) 57.4 % 02/24/22 05:09 Lymph % (Auto) 32.6 % 02/24/22 05:09 [place] % (Auto) 7.0 % 02/24/22 05:09 Eos % (Auto) 2.4 % 02/24/22 05:09 Baso % (Auto) 0.3 % 02/24/22 05:09 Neut # (Auto) 5.36 10^3/uL (1.8-7.7) 02/24/22 05:09 Lymph # (Auto) 3.0 10^3/uL (0.8-4.8) 02/24/22 05:09 [place] # (Auto) 0.7 10^3/uL (0.2-0.9) 02/24/22 05:09 Eos # (Auto) 0.2 10^3/uL (0.0-0.8) 02/24/22 05:09 Baso # (Auto) 0.0 10^3/uL (0.0-0.1) 02/24/22 05:09 Nucleated RBC % (auto) 0 % 02/24/22 05:09 Nucleated RBCs # 0.0 /100WBC 02/24/22 05:09 Sodium Cancelled 02/24/22 05:09 Potassium Cancelled 02/24/22 05:09 Chloride Cancelled 02/24/22 05:09 Carbon Dioxide Cancelled 02/24/22 05:09 Anion Gap Cancelled 02/24/22 05:09 BUN Cancelled 02/24/22 05:09 Creatinine Cancelled 02/24/22 05:09 GFR Calculation Cancelled 02/24/22 05:09 Glucose Cancelled 02/24/22 05:09 Calculated Osmolality Cancelled 02/24/22 05:09 Calcium Cancelled 02/24/22 05:09 Discharge Plan Discharge Patient Disposition: Home Clinical Impression: Knee pain, left, Nausea Condition: Stable Prescriptions: New ondansetron 4 mg tablet,disintegrating 4 mg PO Q6H PRN (Reason: nausea and vomiting) Qty: 14 0RF No Action meloxicam 15 mg tablet 15 mg PO DAILY Qty: 30 0RF Rx Instructions: take 1 tablet po once a day amoxicillin 875 mg tablet 875 mg PO BID Qty: 20 0RF (DME) walker See Rx Instructions .Route .MEDSUPPLY Qty: 1 0RF Rx Instructions: As directed pregabalin 100 mg capsule 100 mg PO BID 30 Days Qty: 60 4RF ondansetron 8 mg tablet,disintegrating 8 mg PO Q8H PRN (Reason: nausea and vomiting) 4 Days Qty: 14 0RF fluticasone propionate [Flonase Allergy Relief] 50 mcg/actuation spray,suspension 2 spray INTRANASAL DAILY Qty: 16 5RF Rx Instructions: administer into each nostril oxybutynin chloride 5 mg tablet 5 mg PO DAILY Qty: 30 5RF clopidogrel [Plavix] 75 mg tablet 75 mg PO DAILY Qty: 30 11RF albuterol sulfate [ProAir HFA] 90 mcg/actuation HFA aerosol inhaler 2 puff INHALATION Q6H PRN (Reason: Shortness Of Breath) Qty: 8.5 4RF Lantus U-100 Insulin 100 unit/mL solution 100 unit SUBCUT BID 90 Days Qty: 180 1RF Januvia 100 mg tablet 100 mg PO DAILY Qty: 90 1RF furosemide 20 mg tablet 20 mg PO .every other day PRN (Reason: edema) Qty: 14 0RF duloxetine 60 mg capsule,delayed release(DR/EC) 60 mg PO DAILY Qty: 90 3RF triamcinolone acetonide 0.1 % cream See Rx Instructions .ROUTE .COMPLEX Qty: 80 1RF Dose Instruction: apply topically TWICE DAILY FOR ITCHING bites Rx Instructions: apply topically TWICE DAILY FOR ITCHING bites amlodipine 5 mg tablet 5 mg PO DAILY Qty: 90 1RF hydrocodone-acetaminophen 10-325 mg tablet 1 tab PO Q8H PRN (Reason: Pain) 30 Days Qty: 90 0RF cetirizine 10 mg tablet 10 mg PO DAILY 30 Days Qty: 30 5RF diazepam 5 mg tablet 5 mg PO BID PRN (Reason: anxiety) Qty: 60 3RF Rx Instructions: This instead of the alprazolam for nerves during day and sleep at night aspirin 81 mg tablet,delayed release (DR/EC) 81 mg PO DAILY Qty: 30 3RF albuterol sulfate 2.5 mg /3 mL (0.083 %) solution for nebulization 2.5 mg inhalation Q6H PRN (Reason: Shortness Of Breath) topiramate 50 mg tablet 50 mg PO DAILY lidocaine 5 % ointment 1 applic topical TID PRN (Reason: pain) Qty: 60 0RF fluconazole [Diflucan] 150 mg tablet 150 mg PO .every 4th day PRN (Reason: Rash) pantoprazole [Protonix] 40 mg tablet,delayed release (DR/EC) 40 mg PO DAILY docusate sodium 100 mg capsule 100 mg PO BID Rx Instructions: TAKE 1 CAPSULE BY MOUTH TWICE DAILY potassium chloride 20 mEq tablet,ER particles/crystals 20 meq PO DAILY Qty: 20 0RF furosemide 20 mg tablet See Rx Instructions .ROUTE .COMPLEX Qty: 20 0RF Rx Instructions: 40 mg p.o. daily for 4 days then decrease to 20 mg p.o. daily until finished with prescription. Discharge Orders: Discharge ED (Routine); Ordered 02/24/22 Ordered By: George Brown Referrals: Shamika Harding MD [Primary Care Provider] - Discharge Diet: Advance as tolerated Discharge Activity: Resume usual activity Patient Instructions: Knee Pain (ED) Coding Level of Care Code ED [facility] for [facility] Fwd Exam Comprehensive
[2022-02-24] MEDS: ondansetron 2 mg/ML SDV 2 mL 4 MG IVP (05:08)
[2022-02-24 05:09] VITALS: RESP 16
[2022-02-24] MEDS: HYDROmorphone 1 mg/mL INJ 1 mL 0.5 MG IVP (05:09)
[2022-02-24 05:14] LABS: Basophils % 0.3 %; Eosinophils # 0.2 10^3/uL (0.0-0.8); Eosinophils % 2.4 %; Lymphocytes % 32.6 %; Mean Corpuscular HGB Conc 31.7 g/dL (30.0-36.0); Mean Corpuscular Hemoglobin 27.5 pg (28.0-34.0); Mean Corpuscular Volume 86.7 fl (81-99); Mean Platelet Volume 10.2 fL (7.4-10.4); Monocytes # 0.7 10^3/uL (0.2-0.9); Neutrophils # 5.36 10^3/uL (1.8-7.7); Neutrophils % 57.4 %; Nucleated Red Blood Cells % 0 %; Platelet Count 393 10^3/cmm (130-400); Red Blood Count 4.73 10^6/uL (4.1-5.3); Red Cell Distribution Width 15.9 % (12.1-15.1); White Blood Count 9.3 10^3/uL (4.0-10.0)
[2022-02-24 05:38] VITALS: BP 173/93; PULSE 81; RESP 16; O2SAT 94
== END 2022-02-24 05:55 | disposition home or self-care (01) ==
PROVIDERS: Emergency Provider Emergency Medicine; PCP Family Medicine
DX: M25.562 Pain in left knee (principal); R11.0 Nausea; Z79.02 Long term (current) use of antithrombotics/antiplatelets; Z79.82 Long term (current) use of aspirin; Z79.4 Long term (current) use of insulin; F17.210 Nicotine dependence, cigarettes, uncomplicated; Z86.73 Personal history of transient ischemic attack (TIA), and cerebral infarction without residual deficits; J44.9 Chronic obstructive pulmonary disease, unspecified; E11.9 Type 2 diabetes mellitus without complications; I10 Essential (primary) hypertension; I25.2 Old myocardial infarction
CPT/HCPCS: 73562; 85025; 96374; 96375; 99284; J1170; J2405

== ENCOUNTER → 2022-03-02 13:15 | Outpatient (BNVA) | payer MEDICAID, SELFPAY | PROVIDERS: PCP Family Medicine; Visit Provider Nurse Practitioner Family | DX: Z98.890 Other specified postprocedural states (principal); W19.XXXA Unspecified fall, initial encounter; M25.562 Pain in left knee | CPT/HCPCS: 73560; 73565; 99213; 99214 ==

== ENCOUNTER 2022-03-02 15:43 | Outpatient (CLI) | payer MEDICAID, SELFPAY | END 2022-03-02 15:44 | disposition home or self-care (01) | LOC: SPT 15:43 | PROVIDERS: PCP Family Medicine; Visit Provider Nurse Practitioner Family | DX: Z46.89 Encounter for fitting and adjustment of other specified devices (principal); M25.562 Pain in left knee; Z98.890 Other specified postprocedural states | CPT/HCPCS: 97760; L1812 ==

== ENCOUNTER 2022-05-08 14:34 | Emergency (ER) | payer MEDICAID, SELFPAY ==
[2022-05-08 14:54] VITALS: BP 178/89; PULSE 88; RESP 22; TEMP 36.8; O2SAT 92; BMI 39.0
== END 2022-05-08 16:21 | disposition left against medical advice (07) ==
PROVIDERS: Emergency Provider Family Medicine; PCP Family Medicine
DX: Z53.21 Procedure and treatment not carried out due to patient leaving prior to being seen by health care provider (principal)
CPT/HCPCS: 81000

== ENCOUNTER 2022-05-09 10:46 | Emergency (ER) | payer MEDICAID, SELFPAY ==
[2022-05-09] VITALS (7 sets, daily range): BP systolic 111–173; BP diastolic 63–86; PULSE 74–98; RESP 16–18; TEMP 36.3; O2SAT 92–93; BMI 39.1
--- NOTE | 2022-05-09 11:27 | ED_ITS ---
HPI - Recheck/Abnormal Lab/Rx General: Chief Complaint: Recheck/Abnormal Lab/Rx Stated Complaint: UC sent yesterday for liver issues Time Seen by Provider: 05/09/22 11:26 History of Present Illness: Ms. Man is a 61-year-old lady with history of hypertension, hyperlipidemia, diabetes history of stroke, history of DVT, remote history of cholecystectomy presenting to the emergency department due to abdominal pain and abnormal labs. She reports 1 to 2-week history of gradual onset right upper quadrant abdominal pain associated with change in bowel habits specifically constipation. Pain is sharp and not specifically exacerbated by any activity. She reports difficulty with p.o. intake with nausea and vomiting. Emesis and stool are nonbloody. She also endorses urinary frequency and generalized malaise. She presented to urgent care yesterday and had urinalysis performed which was negative for urinary tract infection however her urobilinogen was elevated and she was referred to the emergency department for further testing. Intensity of symptoms is moderate to severe. Course has worsened. No other specific changes in health, exacerbating, or alleviating factors identified. Initial visit (ago): day(s) Initial visit for: other (Concern for UTI) Returns today for: called because of abnormal lab/test Symptoms since prior visit: worsening pain Context: called for abnormal lab result Associated symptoms: malaise, nausea, abdominal pain and other Review of Systems General: Reports: 10 or more systems reviewed and unremarkable except in HPI and below PFSH ED PFSH: Medical History Acute right arterial ischemic stroke, middle cerebral artery (MCA) Currently no residual weakness. Anxiety Cerebrovascular accident Chest pain Chronic back pain COPD (chronic obstructive pulmonary disease) CVA (cerebral vascular accident) Diabetes Hypertension Hypoestrogenism Lumbar disc disease Nicotine dependence with current use NSTEMI (non-ST elevated myocardial infarction) TYPE II M.I Recurrent major depression Right cavernous carotid stenosis Urinary incontinence Vertebral artery stenosis Surgical History History of bladder surgery History of cholecystectomy History of total hysterectomy Family History Grandfather CAD (coronary artery disease) Hypertension Myocardial infarction Mother Cancer Father Cancer Brother CAD (coronary artery disease) Myocardial infarction Sister Stroke Diabetes Family/Other Diabetes Social History Smoking and tobacco status: current every day smoker cigarettes Packs smoked per day: 1 Years cigarettes smoked: 28 Alcohol intake: never Lives independently: Yes Housing: House Physical Exam Const: COMMON NORMALS: alert GENERAL APPEARANCE: cooperative and well developed HENMT: COMMON NORMALS: normocephalic and atraumatic HEAD & SCALP: normocephalic and atraumatic Eye: COMMON NORMALS: conjunctivae normal and no scleral icterus CONJUNCTIVA: Yes conjunctivae normal SCLERA: sclerae normal Neck/C-Spine: COMMON NORMALS: supple GENERAL: Yes trachea midline Resp: EFFORT & INSPECTION: Yes able to speak in complete sentences and Yes tachypneic AUSCULTATION: wheezes (End expiratory scattered) and diminished lung sounds Cardio: COMMON NORMALS: regular rate and regular rhythm RATE: regular rate RHYTHM: regular rhythm GI: COMMON NORMALS: Soft to palpation PALPATION: Yes Soft to palpation, Yes Tenderness to palpation present (GI) Details: RUQ, No Guarding due to palpation present (GI) and No Rigid due to palpation Extremity: GENERAL: Yes normal exam except as noted and No edema Neuro: COMMON NORMALS: moves all extremities SENSORIUM/ORIENTATION: Yes alert and No Orientation impaired Psych: COMMON NORMALS: mental status grossly normal and Normal thought process present THOUGHT PROCESS: Normal thought process present Skin: COMMON NORMALS: no jaundice Course Vital Signs: Vital signs: Vital Signs Temperature 97.4 F L 05/09/22 10:56 Pulse Rate 98 05/09/22 15:53 Respiratory Rate 16 05/09/22 13:02 Blood Pressure 173/75 05/09/22 15:53 Pulse Oximetry 92 05/09/22 15:53 Oxygen Delivery Me thod 05/09/22 15:53 Oxygen Flow Rate 2 05/09/22 14:58 MDM - Recheck/Abnormal Lab/Rx Medical Decision Making 61-year-old lady presenting due to concern over increased urobilinogen in urine. Exam as above. Labs notable for mild leukopenia, normal hemoglobin. Coags are normal. Metabolic panel with mild hyponatremia and hypochloremia, potassium is quite low. No transaminitis or abnormal bilirubin. Chest x-ray with no lobar consolidation or pneumothorax. CT without acute pathology to explain symptoms, mild enteritis likely present. During ED course after the patient with RT treatment, antiemetic, analgesia, fluids as well as steroids and antibiotics for COPD exacerbation with recent antibiotic use. I did order potassium replenishment however the patient initially declined oral potassium, then reported inability to tolerate IV potas sium. Subsequently agreed for oral potassium which I believe is about as good as we can get with this patient. She is very fixated on prior provider telling her her liver was abnormal based on urinalysis results. There are some limitations I believe secondary to patient's baseline medical literacy. Most likely etiology of patient symptoms is uncertain, she did have abnormal urobilinogen on dipstick however no evidence of acute hepatic pathology requiring inpatient management. She does have evidence of COPD exacerbation which improved on reassessment. Enteritis may explain her abdominal discomfort. The results of ED evaluation were discussed with the patient including prescriptions and/or symptomatic cares (if applicable) including appropriate and responsible use, followup plan, and return precautions. The patient verbalized understanding and felt safe for discharge. Medical Records I reviewed the patient's medical records. Lab Data I reviewed the patient's lab results. 05/09/22 12:10 05/09/22 12:10 Radiology Impressions Chest X-Ray 05/09/22 11:53 Impression: Atherosclerosis. Abdomen/Pelvis CT 05/09/22 13:40 IMPRESSION: 1. Prior cholecystectomy. No biliary ductal dilatation. 2. No urinary tract calculus or obstruction. 3. Changes which could reflect an enteritis, in the correct clinical setting. Laboratory Results WBC 3.5 10^3/uL (4.0-10.0) L 05/09/22 12:10 RBC 4.82 10^6/uL (4.1-5.3) 05/09/22 12:10 Hgb 12.9 g/dL (11.5-15.3) 05/09/22 12:10 Hct 40.8 % (37.0-47.0) 05/09/22 12:10 MCV 84.6 fl (81-99) 05/09/22 12:10 MCH 26.8 pg (28.0-34.0) L 05/09/22 12:10 MCHC 31.6 g/dL (30.0-36.0) 05/09/22 12:10 RDW 16.2 % (12.1-15.1) H 05/09/22 12:10 Plt Count 294 10^3/cmm (130-400) 05/09/22 12:10 MPV 10.2 fL (7.4-10.4) 05/09/22 12:10 Neut % (Auto) 54.3 % 05/09/22 12:10 Lymph % (Auto) 34.4 % 05/09/22 12:10 [place] % (Auto) 9.2 % 05/09/22 12:10 Eos % (Auto) 0.6 % 05/09/22 12:10 Baso % (Auto) 0.9 % 05/09/22 12:10 Neut # (Auto) 1.88 10^3/uL (1.8-7.7) 05/09/22 12:10 Lymph # (Auto) 1.2 10^3/uL (0.8-4.8) 05/09/22 12:10 [place] # (Auto) 0.3 10^3/uL (0.2-0.9) 05/09/22 12:10 Eos # (Auto) 0.0 10^3/uL (0.0-0.8) 05/09/22 12:10 Baso # (Auto) 0.0 10^3/uL (0.0-0.1) 05/09/22 12:10 Nucleated RBC % (auto) 0 % 05/09/22 12:10 Nucleated RBCs # 0.0 /100WBC 05/09/22 12:10 PT 12.80 SECONDS (12.1-14.9) 05/09/22 12:10 INR 0.93 (0.8-1.2) 05/09/22 12:10 APTT 29.5 SECONDS (23.9-36.7) 05/09/22 12:10 Sodium 132 mmol/L (136-145) L 05/09/22 12:10 Potassium 2.7 mmol/L (3.5-5.1) L* 05/09/22 12:10 Chloride 92 mmol/L (98-107) L 05/09/22 12:10 Carbon Dioxide 31 mmol/L (22-29) H 05/09/22 12:10 Anion Gap 11.7 (5-19) 05/09/22 12:10 BUN 6 mg/dL (8-23) L 05/09/22 12:10 Creatinine 0.5 mg/dL (0.5-0.9) 05/09/22 12:10 GFR Calculation 124.6 mL/min (90-130) 05/09/22 12:10 Glucose 138 mg/dL (65-115) H 05/09/22 12:10 Calculated Osmolality 274 mOsm/kg (285-295) L 05/09/22 12:10 Calcium 8.2 mg/dL (8.5-10.5) L 05/09/22 12:10 Total Bilirubin 0.2 mg/dL (0.15-1.2) 05/09/22 12:10 Direct Bilirubin 0.20 mg/dL (0.00-0.30) 05/09/22 12:10 AST 29 U/L (0-32) 05/09/22 12:10 ALT 13 U/L (0-33) 05/09/22 12:10 Alkaline Phosphatase 85 U/L (35-105) 05/09/22 12:10 Total Protein 7.3 g/dL (6.6-8.7) 05/09/22 12:10 Albumin 3.3 g/dL (3.5-5.2) L 05/09/22 12:10 Globulin 4.0 g/dL (1.3-4.6) 05/09/22 12:10 Lipase 11 U/L (13-60) L 05/09/22 12:10 Hepatitis A IgM Ab Non-reactive (Nonreactive) 05/09/22 12:10 Hep Bs Antigen Non-reactive (Nonreactive) 05/09/22 12:10 Hep B Core IgM Ab Non-reactive (Nonreactive) 05/09/22 12:10 Hepatitis C Antibody Non-reactive (Nonreactive) 05/09/22 12:10 Discharge Plan Discharge Patient Disposition: Home Clinical Impression: Acute exacerbation of chronic obstructive pulmonary disease, Enteritis, A bdominal pain, Acute dehydration, Hypokalemia Condition: Stable Prescriptions: New ondansetron 4 mg tablet,disintegrating 4 mg PO Q8H PRN (Reason: nausea and vomiting) Qty: 15 0RF oxycodone 5 mg tablet 5 mg PO Q4H PRN (Reason: pain) Qty: 10 0RF potassium chloride 20 mEq tablet extended release 20 meq PO BID Qty: 6 0RF No Action (DME) walker See Rx Instructions .Route .MEDSUPPLY Qty: 1 0RF Rx Instructions: As directed ondansetron 8 mg tablet,disintegrating 8 mg PO Q8H PRN (Reason: nausea and vomiting) 4 Days Qty: 14 0RF (DME) hinged knee brace See Rx Instructions .Route .MEDSUPPLY Qty: 1 0RF Rx Instructions: As directed metronidazole 500 mg tablet 500 mg PO BID 10 Days Qty: 20 0RF ciprofloxacin HCl [Cipro] 500 mg tablet 500 mg PO BID 10 Days Qty: 20 0RF fluticasone propionate [Flonase Allergy Relief] 50 mcg/actuation spray,suspension 2 spray INTRANASAL DAILY Qty: 16 5RF Rx Instructions: administer into each nostril oxybutynin chloride 5 mg tablet 5 mg PO DAILY Qty: 30 5RF clopidogrel [Plavix] 75 mg tablet 75 mg PO DAILY Qty: 30 11RF albuterol sulfate [ProAir HFA] 90 mcg/actuation HFA aerosol inhaler 2 puff INHALATION Q6H PRN (Reason: Shortness Of Breath) Qty: 8.5 4RF Lantus U-100 Insulin 100 unit/mL solution 100 unit SUBCUT BID 90 Days Qty: 180 1RF duloxetine 60 mg capsule,delayed release(DR/EC) 60 mg PO DAILY Qty: 90 3RF triamcinolone acetonide 0.1 % cream See Rx Instructions .ROUTE .COMPLEX Qty: 80 1RF Dose Instruction: apply topically TWICE DAILY FOR ITCHING bites Rx Instructions: apply topically TWICE DAILY FOR ITCHING bites amlodipine 5 mg tablet 5 mg PO DAILY Qty: 90 1RF diazepam 5 mg tablet 5 mg PO BID PRN (Reason: anxiety) Qty: 60 3RF Rx Instructions: This instead of the alprazolam for nerves during day and sleep at night pantoprazole [Protonix] 40 mg tablet,delayed release (DR/EC) 40 mg PO DAILY Qty: 30 2RF Januvia 100 mg tablet 100 mg PO DAILY Qty: 90 1RF hydrocodone-acetaminophen 10-325 mg tablet 1 tab PO Q8H PRN (Reason: Pain) 30 Days Qty: 90 0RF albuterol sulfate 2.5 mg /3 mL (0.083 %) solution for nebulization 2.5 mg inhalation Q6H PRN (Reason: Shortness Of Breath) topiramate 50 mg tablet 50 mg PO DAILY lidocaine 5 % ointment 1 applic topical TID PRN (Reason: pain) Qty: 60 0RF docusate sodium 100 mg capsule 100 mg PO BID Rx Instructions: TAKE 1 CAPSULE BY MOUTH TWICE DAILY potassium chloride 20 mEq tablet,ER particles/crystals 20 meq PO DAILY Qty: 20 0RF cetirizine 10 mg Tablet 10 mg PO DAILY PRN (Reason: Allergic Reaction) hydrocodone-acetaminophen 10-325 mg Tablet 1 tab PO Q8H PRN (Reason: Pain) Lyrica 100 mg Capsule 100 mg PO BID Discharge Orders: Discharge ED (Routine); Ordered 05/09/22 Ordered By: Yuri Lal Referrals: Shamika Harding MD [Primary Care Provider] - Discharge Diet: Advance as tolerated and Clear Liquid Discharge Activity: Increase activity as tolerated Patient Instructions: Dehydration (ED), Hypokalemia (ED), COPD (Chronic Obstructive Pulmonary Disease) (ED), Enteritis (ED), Opioid Safety Activity Restrictions/Additional Instructions: Thank you for visiting the emergency department. You were seen and evaluated for abdominal pain associated with nausea and vomiting. You were also evaluated for abnormal lab. The exact cause of your abnormal lab is unclear as discussed. You were found to have enteritis which likely explains your other symptoms. You have dehydration and low potassium. I will prescribe treatment for your low potassium as well as enteritis. Do not combine oxycodone with your previously prescribed hydrocodone-acetaminophen or benzodiazepines. You were noted to have low oxygen levels. I will prescribe steroids and antibiotics. Please also use your albuterol metered-dose inhaler 2 puffs every 4 hours for 24 hours followed by 2 puffs every 6 hours for 24 hours followed by 2 puffs every 8 hours for 24 hours and then return to the normal schedule. Please follow-up with your primary care provider. I recommend repeat laboratory studies for potassium in the next 3 to 5 days. Return to the emergency department for worsening symptoms or anything else that you are concerned about a feel needs emergency department evaluation. Coding Level of Care Code ED Cna Ltc for [place] Fwd Exam Comprehensive
--- NOTE | 2022-05-09 11:53 | XR_ITS ---
WS: [id number] Portable AP upright chest, 05/09/2022 Clinical Data: low oxygen Comparison: Portable chest, 08/26/2020. Findings: No nodules, masses or effusions are seen. The heart is normal. The pulmonary vascularity is not increased. No pneumonia or pneumothorax is seen. The aortic arch and descending thoracic aorta s how mild tortuosity. XR/XR chest 1V portable [id number] Impression: Atherosclerosis.
[2022-05-09] MEDS: ondansetron 2 mg/ML SDV 2 mL 4 MG IVP (12:39)
[2022-05-09] MEDS: morphine 4 mg/mL SDV 1 mL IVP (12:39)
[2022-05-09 12:48] LABS: Basophils % 0.9 %; Eosinophils % 0.6 %; Hematocrit 40.8 % (37.0-47.0); Hemoglobin 12.9 g/dL (11.5-15.3); Lymphocytes # 1.2 10^3/uL (0.8-4.8); Lymphocytes % 34.4 %; Mean Corpuscular HGB Conc 31.6 g/dL (30.0-36.0); Mean Corpuscular Hemoglobin 26.8 pg (28.0-34.0); Mean Corpuscular Volume 84.6 fl (81-99); Mean Platelet Volume 10.2 fL (7.4-10.4); Monocytes # 0.3 10^3/uL (0.2-0.9); Monocytes % 9.2 %; Neutrophils # 1.88 10^3/uL (1.8-7.7); Neutrophils % 54.3 %; Nucleated Red Blood Cells % 0 %; Platelet Count 294 10^3/cmm (130-400); Red Blood Count 4.82 10^6/uL (4.1-5.3); Red Cell Distribution Width 16.2 % (12.1-15.1); White Blood Count 3.5 10^3/uL (4.0-10.0)
[2022-05-09 12:58] LABS: INR 0.93 (0.8-1.2)
[2022-05-09 12:59] LABS: Partial Thromboplastin Time 29.5 SECONDS (23.9-36.7)
[2022-05-09] MEDS: ipratropium-albuterol 3 mL Neb INHALATION (13:04)
[2022-05-09 13:05] LABS: Alanine Aminotransferase 13 U/L (0-33); Albumin Level 3.3 g/dL (3.5-5.2); Alkaline Phosphatase 85 U/L (35-105); Anion Gap 11.7 (5-19); Aspartate Amino Transferase 29 U/L (0-32); Blood Urea Nitrogen 6 mg/dL (8-23); Calcium 8.2 mg/dL (8.5-10.5); Carbon Dioxide 31 mmol/L (22-29); Chloride 92 mmol/L (98-107); Glomerular Filtration Rate 124.6 mL/min (90-130); Glucose 138 mg/dL (65-115); Lipase 11 U/L (13-60); Osmolality Calculated 274 mOsm/kg (285-295); Sodium 132 mmol/L (136-145); Total Bilirubin 0.2 mg/dL (0.15-1.2); Total Protein 7.3 g/dL (6.6-8.7)
[2022-05-09 13:08] LABS: Potassium 2.7 mmol/L (3.5-5.1)
[2022-05-09 13:17] LABS: Hepatitis A Antibody IgM Non-Reactive (Nonreactive); Hepatitis B Core IgM Non-Reactive (Nonreactive); Hepatitis B Surface Antigen Non-Reactive (Nonreactive); Hepatitis C Virus Antibody Non-Reactive (Nonreactive)
--- NOTE | 2022-05-09 13:40 | CTR_ITS ---
PROCEDURE INFORMATION: Exam: CT Abdomen And Pelvis With Contrast Exam date and time: 05/09/2022 1:25 PM Age: 61 years old Clinical indication: Abdominal pain; Localized; Right upper quadrant (ruq); Prior surgery; Surgery type: Gb; Additional info: Hypoxia, ruq/lower chest pain TECHNIQUE: Imaging protocol: Computed tomography of the abdomen and pelvis with contrast. Radiation optimization: All CT scans at this facility use at least one of these dose optimization techniques: automated exposure control; mA and/or kV adjustment per patient size (includes targeted exams where dose is matched to clinical indication); or iterative reconstruction. Contrast material: OMNI 350; Contrast volume: 100 ml; Contrast route: INTRAVENOUS (IV); COMPARISON: CT abdomen pelvis w con* [id number] 11/22/2018 12:28 PM RADIATION DOSE METRICS: Total DLP (mGy-cm): 926.55 FINDINGS: Limitations: The study is technically limited by breathing motion artifact. Lungs: Prior pulmonary granulomatous disease. Liver: The liver is homogeneous and is not enlarged. Gallbladder and bile ducts: Prior cholecystectomy. No biliary ductal dilatation allowing for that. Pancreas: No pancreatic mass. No peripancreatic inflammation. No pancreatic ductal dilation. Spleen: Calcified granulomas in a nonenlarged spleen. Adrenal glands: No adrenal mass. Kidneys and ureters: No hydronephrosis. No nephrolithiasis. There is a 4 mm indeterminate low-attenuation lesion in the inferior left kidney. Stomach and bowel: No bowel obstruction. No diverticulitis. Fluid in multiple loops of mid to distal small bowel as well as in the colon from the cecum to the hepatic flexure. Appendix: No evidence of appendicitis. Intraperitoneal space: No ascites or pneumoperitoneum. Vasculature: No abdominal aortic aneurysm. The mesenteric arteries are patent. The mesenteric, portal, and hepatic veins are patent. Lymph nodes: Calcified right hilar lymph nodes from prior granulomatous disease. Urinary bladder: The urinary bladder is small in volume. No bladder calculus. Reproductive: Prior hysterectomy. Bones/joints: Multilevel facet arthropathy in the lumbar spine. Minimal grade 1 degenerative anterolisthesis at L4-L5. Prior vertebral augmentation at T8 and T9. Soft tissues: No acute soft tissue abnormality. CT/CT abdomen pelvis w con* [id number] IMPRESSION: 1. Prior cholecystectomy. No biliary ductal dilatation. 2. No urinary tract calculus or obstruction. 3. Changes which could reflect an enteritis, in the correct clinical setting.
[2022-05-09] MEDS: iohexol 350 mg/mL 500 mL Btl (per mL) IV (13:44)
[2022-05-09] MEDS: sodium chloride 0.9% 1,000 ML 999 ML IV (14:47)
[2022-05-09] MEDS: lidocaine 1% 5 ML in potassium chloride premix 100 ML 25 ML IV (14:50)
[2022-05-09] MEDS: amoxicillin-clav 875-125 mg Tablet 1 TAB PO (15:51)
[2022-05-09] MEDS: potassium chloride ER 20 mEq Tablet 40 MEQ PO (15:51)
== END 2022-05-09 16:00 | disposition home or self-care (01) ==
PROVIDERS: Emergency Provider Emergency Medicine; PCP Family Medicine
DX: K52.9 Noninfective gastroenteritis and colitis, unspecified (principal); J44.1 Chronic obstructive pulmonary disease with (acute) exacerbation; E86.0 Dehydration; E87.6 Hypokalemia; Z79.4 Long term (current) use of insulin; Z86.73 Personal history of transient ischemic attack (TIA), and cerebral infarction without residual deficits; E11.9 Type 2 diabetes mellitus without complications; I10 Essential (primary) hypertension; I25.2 Old myocardial infarction; F17.210 Nicotine dependence, cigarettes, uncomplicated
CPT/HCPCS: 36415; 71045; 74177; 80048; 80074; 80076; 83690; 85025; 85610; 85730; 94640; 96365; 96375; 99285; J2270; J2405; J3480; J7030; Q9967

== ENCOUNTER → 2022-05-17 08:40 | Outpatient (BNVA) | payer MEDICAID, SELFPAY | PROVIDERS: PCP Family Medicine; Visit Provider Clinical Nurse Specialist Adult Health | DX: K52.9 Noninfective gastroenteritis and colitis, unspecified (principal) | CPT/HCPCS: 80048 ==

== ENCOUNTER → 2022-05-25 11:44 | Outpatient (BNVA) | payer MEDICAID, SELFPAY | PROVIDERS: PCP Family Medicine; Visit Provider Family Medicine | DX: Z98.890 Other specified postprocedural states (principal); J40 Bronchitis, not specified as acute or chronic; E87.6 Hypokalemia; E11.9 Type 2 diabetes mellitus without complications; K52.9 Noninfective gastroenteritis and colitis, unspecified; I10 Essential (primary) hypertension; J01.11 Acute recurrent frontal sinusitis; M51.9 Unspecified thoracic, thoracolumbar and lumbosacral intervertebral disc disorder; F41.9 Anxiety disorder, unspecified | CPT/HCPCS: 87400 ==

== ENCOUNTER 2022-05-26 03:50 | Emergency (ER) | payer MEDICAID, SELFPAY ==
[2022-05-26 03:51] VITALS: BP 172/117; PULSE 83; RESP 20; TEMP 36.8; O2SAT 91; BMI 35.3
--- NOTE | 2022-05-26 03:56 | ED_ITS ---
HPI - Abdominal Pain General: Chief Complaint: Nausea/Vomiting/Diarrhea Stated Complaint: HIGH BLOOD SUGAR Time Seen by Provider: 05/26/22 03:50 Source: patient Mode of arrival: ambulatory Limitations: no limitations History of Present Illness: 61-year-old female has a history of diabetes she is on insulin for her diabetes she states that over the last 3 weeks she has been having vomiting diarrhea she has been seen multiple times by her PCP and here she had a CT scan 2 weeks ago showed no acute ab malady she states that tonight though she is checking her blood sugar was reading high it was read high by EMS as well she denies any pain any worsening improving factors. Associated Symptoms: Reports diarrhea, nausea and vomiting; Denies chills, dysuria and fever(s) Review of Systems Const: Denies: fever(s), chills, body aches or change in appetite Eyes: Denies: blurry vision or eye discomfort ENMT: Denies: throat pain or dental pain Card: Denies: chest pain Resp: Denies: dyspnea GI: Reports: nausea, vomiting and diarrhea : Denies: dysuria Musc: Denies: neck pain or back pain Skin/Breast: Denies: rash Neuro: Denies: headache(s) Psych: Denies: depression Saud/Lymph: Denies: easy bruising All/Imm: Denies: urticaria PFSH ED PFSH: Medical History Acute right arterial ischemic stroke, middle cerebral artery (MCA) Currently no residual weakness. Anxiety Cerebrovascular accident Chest pain Chronic back pain COPD (chronic obstructive pulmonary disease) CVA (cerebral vascular accident) Diabetes Hypertension Hypoestrogenism Lumbar disc disease Nicotine dependence with current use NSTEMI (non-ST elevated myocardial infarction) TYPE II M.I Recurrent major depression Right cavernous carotid stenosis Urinary incontinence Vertebral artery stenosis Surgical History History of bladder surgery History of cholecystectomy History of total hysterectomy Family History Grandfather CAD (coronary artery disease) Hypertension Myocardial infarction Mother Cancer Father Cancer Brother CAD (coronary artery disease) Myocardial infarction Sister Stroke Diabetes Family/Other Diabetes Social History Smoking and tobacco status: current every day smoker cigarettes Packs smoked per day: 1 Years cigarettes smoked: 28 Alcohol intake: never Lives independently: Yes Housing: House Physical Exam Const: COMMON NORMALS: no acute distress, patient oriented x3 and healthy appearing HENMT: COMMON NORMALS: normocephalic and atraumatic HEAD & SCALP: no rmocephalic and atraumatic Eye: COMMON NORMALS: Equal, round and reactive pupils present and EOMs intact bilaterally PUPIL: Yes Equal, round and reactive pupils present Neck/C-Spine: COMMON NORMALS: full ROM and supple Chest: COMMONS NORMALS: normal inspection of the chest and normal palpation of entire chest wall Resp: COMMON NORMALS: normal respiratory effort, No retractions, No use of accessory muscles and clear to auscultation bilaterally AUSCULTATION: clear to auscultation bilaterally Cardio: COMMON NORMALS: regular rate, regular rhythm and No murmurs present (Cardio) RATE: regular rate RHYTHM: regular rhythm GI: COMMON NORMALS: Normal to inspection, nondistended, normoactive bowel sounds present, Soft to palpation, non-tender and no masses PALPATION: Yes Soft to palpation Extremity: COMMON NORMALS: normal to inspection and full ROM Neuro: COMMON NORMALS: patient oriented x3, moves all extremities and no focal motor deficits Psych: COMMON NORMALS: mental status grossly normal, Normal thought process present and cooperative THOUGHT PROCESS: Normal thought process present Skin: COMMON NORMALS: no rashes or lesions noted and no wounds GENERAL SKIN EXAM: no rashes or lesions noted Course Vital Signs: Vital signs: Vital Signs Temperature 98.2 F 05/26/22 03:51 Pulse Rate 93 05/26/22 05:21 Respiratory Rate 22 H 05/26/22 05:21 Blood Pressure 181/132 05/26/22 05:21 Pulse Oximetry 93 05/26/22 05:21 Oxygen Delivery Me thod 05/26/22 05:21 Oxygen Flow Rate 2 05/26/22 05:21 MDM - Abdominal Pain Medical Decision Making Patient presents here with vomiting diarrhea that she states has been going on for weeks she is well-appearing here blood works normal she had a CT scan done 2 weeks ago was normal she has been able tolerate p.o. here she was hyperglycemic she is not in DKA her blood sugar here is improved she feels improved she is stable for discharge we will prescribe her Zofran we will get her follow-up for possible scope Lab Data 05/26/22 04:50 05/26/22 04:50 Labs/Radiology: Radiology Impressions Chest X-Ray 05/26/22 04:23 IMPRESSION: Stable chest, no acute finding. Laboratory Results WBC 6.2 10^3/uL (4.0-10.0) 05/26/22 04:50 RBC 4.44 10^6/uL (4.1-5.3) 05/26/22 04:50 Hgb 11.9 g/dL (11.5-15.3) 05/26/22 04:50 Hct 37.3 % (37.0-47.0) 05/26/22 04:50 MCV 84.0 fl (81-99) 05/26/22 04:50 MCH 26.8 pg (28.0-34.0) L 05/26/22 04:50 MCHC 31.9 g/dL (30.0-36.0) 05/26/22 04:50 RDW 16.0 % (12.1-15.1) H 05/26/22 04:50 Plt Count 258 10^3/cmm (130-400) 05/26/22 04:50 MPV 10.5 fL (7.4-10.4) H 05/26/22 04:50 Neut % (Auto) 76.2 % 05/26/22 04:50 Lymph % (Auto) 17.2 % 05/26/22 04:50 [place] % (Auto) 6.3 % 05/26/22 04:50 Eos % (Auto) 0.0 % 05/26/22 04:50 Baso % (Auto) 0.0 % 05/26/22 04:50 Neut # (Auto) 4.75 10^3/uL (1.8-7.7) 05/26/22 04:50 Lymph # (Auto) 1.1 10^3/uL (0.8-4.8) 05/26/22 04:50 [place] # (Auto) 0.4 10^3/uL (0.2-0.9) 05/26/22 04:50 Eos # (Auto) 0.0 10^3/uL (0.0-0.8) 05/26/22 04:50 Baso # (Auto) 0.0 10^3/uL (0.0-0.1) 05/26/22 04:50 Nucleated RBC % (auto) 0 % 05/26/22 04:50 Nucleated RBCs # 0.0 /100WBC 05/26/22 04:50 Specimen Type Arterial 05/26/22 04:30 Sample Site Radial, right 05/26/22 04:30 ABG pH 7.50 (7.35-7.45) H 05/26/22 04:30 ABG pCO2 37.4 mmHg (35-45) 05/26/22 04:30 ABG pO2 78.1 mmHg (80.0-100.0) L 05/26/22 04:30 ABG HCO3 29.3 mmol/L (22-26) H 05/26/22 04:30 ABG Base Excess 5.9 mmol/L (-2.0-2.0) H 05/26/22 04:30 Yinka Test Pos 05/26/22 04:30 Hematocrit 37.6 % (37-47) 05/26/22 04:30 O2 Delivery Device Nc 05/26/22 04:30 FiO2 24.0 % 05/26/22 04:30 Therapeutic Massage Technician ID Droch 05/26/22 04:30 Sodium 133 mmol/L (136-145) L 05/26/22 04:50 Potassium 3.9 mmol/L (3.5-5.1) 05/26/22 04:50 Chloride 94 mmol/L (98-107) L 05/26/22 04:50 Carbon Dioxide 27 mmol/L (22-29) 05/26/22 04:50 Anion Gap 15.9 (5-19) 05/26/22 04:50 BUN 5 mg/dL (8-23) L 05/26/22 04:50 Creatinine 0.5 mg/dL (0.5-0.9) 05/26/22 04:50 GFR Calculation 124.6 mL/min (90-130) 05/26/22 04:50 Glucose 393 mg/dL (65-115) H 05/26/22 04:50 POC Glucose 303 mg/dL (70-110) H 05/26/22 05:35 Calculated Osmolality 290 mOsm/kg (285-295) 05/26/22 04:50 Calcium 6.4 mg/dL (8.5-10.5) L 05/26/22 04:50 Total Bilirubin 0.4 mg/dL (0.15-1.2) 05/26/22 04:50 AST 12 U/L (0-32) 05/26/22 04:50 ALT 7 U/L (0-33) 05/26/22 04:50 Alkaline Phosphatase 73 U/L (35-105) 05/26/22 04:50 Total Protein 7.2 g/dL (6.6-8.7) 05/26/22 04:50 Albumin 3.2 g/dL (3.5-5.2) L 05/26/22 04:50 Globulin 4.0 g/dL (1.3-4.6) 05/26/22 04:50 Lipase 8 U/L (13-60) L 05/26/22 04:50 Serum Ketones Negative (Negative) 05/26/22 04:50 SARS-CoV-2 Ag (Rapid) negative (Negative) 05/26/22 04:00 EKG Data EKG 1: I personally reviewed and interpreted this EKG as follows: EKG interpretation date: 05/26/22 EKG interpretation time: 04:55 Interpretation: nsr hr [address] or t wav abnormalities qrs 95 qtc 444 Discharge Plan Discharge Patient Disposition: Home Clinical Impression: Vomiting, Hyperglycemia Condition: Stable Prescriptions: New ondansetron 4 mg tablet,disintegrating 4 mg PO Q6H PRN (Reason: nausea and vomiting) Qty: 14 0RF No Action (DME) walker See Rx Instructions .Route .MEDSUPPLY Qty: 1 0RF Rx Instructions: As directed ondansetron 8 mg tablet,disintegrating 8 mg PO Q8H PRN (Reason: nausea and vomiting) 4 Days Qty: 14 0RF (DME) hinged knee brace See Rx Instructions .Route .MEDSUPPLY Qty: 1 0RF Rx Instructions: As directed metronidazole 500 mg tablet 500 mg PO BID 10 Days Qty: 20 0RF ciprofloxacin HCl [Cipro] 500 mg tablet 500 mg PO BID 10 Days Qty: 20 0RF fluticasone propionate [Flonase Allergy Relief] 50 mcg/actuation spray,suspension 2 spray INTRANASAL DAILY Qty: 16 5RF Rx Instructions: administer into each nostril oxybutynin chloride 5 mg tablet 5 mg PO DAILY Qty: 30 5RF clopidogrel [Plavix] 75 mg tablet 75 mg PO DAILY Qty: 30 11RF albuterol sulfate [ProAir HFA] 90 mcg/actuation HFA aerosol inhaler 2 puff INHALATION Q6H PRN (Reason: Shortness Of Breath) Qty: 8.5 4RF Lantus U-100 Insulin 100 unit/mL solution 100 unit SUBCUT BID 90 Days Qty: 180 1RF duloxetine 60 mg capsule,delayed release(DR/EC) 60 mg PO DAILY Qty: 90 3RF triamcinolone acetonide 0.1 % cream See Rx Instructions .ROUTE .COMPLEX Qty: 80 1RF Dose Instruction: apply topically TWICE DAILY FOR ITCHING bites Rx Instructions: apply topically TWICE DAILY FOR ITCHING bites amlodipine 5 mg tablet 5 mg PO DAILY Qty: 90 1RF diazepam 5 mg tablet 5 mg PO BID PRN (Reason: anxiety) Qty: 60 3RF Rx Instructions: This instead of the alprazolam for nerves during day and sleep at night pantoprazole [Protonix] 40 mg tablet,delayed release (DR/EC) 40 mg PO DAILY Qty: 30 2RF Januvia 100 mg tablet 100 mg PO DAILY Qty: 90 1RF hydrocodone-acetaminophen 10-325 mg tablet 1 tab PO Q8H PRN (Reason: Pain) 30 Days Qty: 90 0RF potassium chloride 20 mEq/15 mL liquid 20 meq PO BID 2 Days Qty: 60 0RF albuterol sulfate 2.5 mg /3 mL (0.083 %) solution for nebulization 2.5 mg inhalation Q6H PRN (Reason: Shortness Of Breath) topiramate 50 mg tablet 50 mg PO DAILY lidocaine 5 % ointment 1 applic topical TID PRN (Reason: pain) Qty: 60 0RF docusate sodium 100 mg capsule 100 mg PO BID Rx Instructions: TAKE 1 CAPSULE BY MOUTH TWICE DAILY potassium chloride 20 mEq tablet,ER particles/crystals 20 meq PO DAILY Qty: 20 0RF cetirizine 10 mg Tablet 10 mg PO DAILY PRN (Reason: Allergic Reaction) hydrocodone-acetaminophen 10-325 mg Tablet 1 tab PO Q8H PRN (Reason: Pain) Lyrica 100 mg Capsule 100 mg PO BID ondansetron 4 mg tablet,disintegrating 4 mg PO Q8H PRN (Reason: nausea and vomiting) Qty: 15 0RF oxycodone 5 mg tablet 5 mg PO Q4H PRN (Reason: pain) Qty: 10 0RF potassium chloride 20 mEq tablet extended release 20 meq PO BID Qty: 6 0RF Discharge Orders: Discharge ED (Routine); Ordered 05/26/22 Ordered By: George Brown Referrals: Shamika Harding MD [Primary Care Provider] - 1-3 days Discharge Diet: Advance as tolerated Discharge Activity: Resume usual activity Patient Instructions: Acute Nausea and Vomiting (ED), Diabetic Hyperglycemia (ED) Coding Level of Care Code ED Health Actuary for Chg Fwd Exam Comprehensive
--- NOTE | 2022-05-26 03:57 | ECG_ITS ---
[facility] Test Date: 2022-05-26 Pat Name: Maru Man Department: Room: Gender: Female Cafe Assistant: : 1960 Requested By: George Brown Order Number: [id number] Reading MD: Fermín Martinez M.D. Measurements Intervals [place] Rate: 80 P: 38 CO: 138 QRS: -4 QRSD: 95 T: 37 QT: 408 QTc: 472 Interpretive Statements SINUS RHYTHM INFERIOR MYOCARDIAL INFARCTION , PROBABLY OLD [40+ ms Q WAVE AND/OR ST/T ABNORMALITY IN II/aVF] Compared to ECG 08/26/2020 17:20:16 No significant changes Electronically Signed On 05-26-2022 21:04:26 PELT SALTER by Fermín Martinez M.D. [email or web address] [facility].[email or web address]/OM/[id number]
[2022-05-26 04:04] LABS: Glucose Point of Care 462 mg/dL (70-110)
--- NOTE | 2022-05-26 04:23 | XRR_ITS ---
PROCEDURE INFORMATION: Exam: XR Chest Exam date and time: 05/26/2022 4:26 AM Age: 61 years old Clinical indication: Shortness of breath; Prior surgery; Surgery type: Gb; Patient HX: SOB. Persistent mild hypoxia on monitor. History of copd. TECHNIQUE: Imaging protocol: Radiologic exam of the chest. Views: 1 view. COMPARISON: CR XR chest 1V portable [id number] 05/09/2022 12:11 PM FINDINGS: Tubes, catheters and devices: A few mid to lower thoracic kyphoplasties. Lungs: No consolidation. A few minute calcified lung nodules are seen incidentally. Pleural spaces: Unremarkable. No pleural effusion. No pneumothorax. Heart/Mediastinum: The heart is mildly enlarged with vascular calcification. Bones/joints: Mild scoliosis. Organs: Absent gallbladder. XR/XR chest 1V portable [id number] IMPRESSION: Stable chest, no acute finding.
[2022-05-26 04:27] VITALS: BP 172/117; PULSE 77; RESP 22; O2SAT 93
[2022-05-26 04:40] LABS: ABG PCO2 37.4 mmHg (35-45); Arterial Blood Gas Hematocrit 37.6 % (37-47); Base Excess ABG 5.9 mmol/L (-2.0-2.0); Blood Gas Allen Test Pos; Blood Gas Sample Site Radial, right; Blood Gas Sample Type Arterial; HCO3 ABG 29.3 mmol/L (22-26); PO2 ABG 78.1 mmHg (80.0-100.0)
[2022-05-26 04:41] LABS: Oxygen Device NC
[2022-05-26] MEDS: hyDRALAzine 20 mg/mL INJ 1 mL 10 MG IVP (04:57)
[2022-05-26] MEDS: sodium chloride 0.9% 1,000 ML 999 ML IV (04:58)
[2022-05-26] MEDS: ondansetron 2 mg/ML SDV 2 mL 4 MG IVP (04:58)
[2022-05-26 04:59] LABS: Hematocrit 37.3 % (37.0-47.0); Hemoglobin 11.9 g/dL (11.5-15.3); Lymphocytes # 1.1 10^3/uL (0.8-4.8); Lymphocytes % 17.2 %; Mean Corpuscular HGB Conc 31.9 g/dL (30.0-36.0); Mean Corpuscular Hemoglobin 26.8 pg (28.0-34.0); Mean Platelet Volume 10.5 fL (7.4-10.4); Monocytes # 0.4 10^3/uL (0.2-0.9); Monocytes % 6.3 %; Neutrophils # 4.75 10^3/uL (1.8-7.7); Neutrophils % 76.2 %; Nucleated Red Blood Cells % 0 %; Platelet Count 258 10^3/cmm (130-400); Red Blood Count 4.44 10^6/uL (4.1-5.3); White Blood Count 6.2 10^3/uL (4.0-10.0)
[2022-05-26] MEDS: insulin regular-human 100 units/1 mL 8 UNIT IVP (04:59)
[2022-05-26 05:15] LABS: Ketone (Acetest) Serum Negative (Negative)
[2022-05-26 05:21] VITALS: BP 181/132; PULSE 93; RESP 22; O2SAT 93
[2022-05-26 05:21] LABS: Alanine Aminotransferase 7 U/L (0-33); Albumin Level 3.2 g/dL (3.5-5.2); Alkaline Phosphatase 73 U/L (35-105); Anion Gap 15.9 (5-19); Aspartate Amino Transferase 12 U/L (0-32); Blood Urea Nitrogen 5 mg/dL (8-23); Calcium 6.4 mg/dL (8.5-10.5); Carbon Dioxide 27 mmol/L (22-29); Chloride 94 mmol/L (98-107); Glomerular Filtration Rate 124.6 mL/min (90-130); Glucose 393 mg/dL (65-115); Lipase 8 U/L (13-60); Osmolality Calculated 290 mOsm/kg (285-295); Potassium 3.9 mmol/L (3.5-5.1); Sodium 133 mmol/L (136-145); Total Bilirubin 0.4 mg/dL (0.15-1.2); Total Protein 7.2 g/dL (6.6-8.7)
[2022-05-26 05:34] LABS: SARS Covid-2 Antigen negative (Negative)
[2022-05-26 05:38] LABS: Glucose Point of Care 303 mg/dL (70-110)
[2022-05-26 06:04] VITALS: BP 147/99; PULSE 94; O2SAT 93
--- NOTE | 2022-05-26 10:53 | DCPLANNER ---
Addendum entered by Julienne Leung 06/17/22 13:57: community association manager received the following message from the general surgery clinic regarding follow up appointment: no contact, mailing letter 06/03 On 06/03/22 @ 11:10 Sahra Estrada Wrote To Carbonation Equipment Operator Front Off Please mail letter On 06/02/22 @ 15:14 Clarke Redding Wrote To Carbonation Equipment Operator Front Off called [phone] but # continues to ring without option to leave a vm 06/02 On 06/01/22 @ 10:39 Pretty White Wrote To Carbonation Equipment Operator Front Off called [phone] but # continues to ring without option to leave a vm Original Note: community association manager had message to schedule a follow up appointment for patient with general surgery. Patient sees Dr. Harding for primary care, watch case polisher called and spoke with Dr. Pierson nurse about referral. community association manager was told that patient could be referred to general surgery for follow up. community association manager sent patients information to the front office of general surgery. Patients information will be printed and reviewed. Clinic will call patient with appointment information. community association manager also had an order for home health eval. Patient will need to speak with her primary care physician to get home health ordered. community association manager tried to call patient and explain this to the patient. community association manager called phone number [phone], unable to speak with patient at this time due to number being changed or is no longer in service. community association manager also called patients son at [phone], unable to speak with him, but did leave a voicemail to return rifle case repairer phone call.
== END 2022-05-26 06:00 | disposition home or self-care (01) ==
PROVIDERS: Emergency Provider Emergency Medicine; PCP Family Medicine
DX: R11.11 Vomiting without nausea (principal); E11.65 Type 2 diabetes mellitus with hyperglycemia; Z79.02 Long term (current) use of antithrombotics/antiplatelets; Z79.4 Long term (current) use of insulin; Z20.822 Contact with and (suspected) exposure to COVID-19; F17.210 Nicotine dependence, cigarettes, uncomplicated; Z86.73 Personal history of transient ischemic attack (TIA), and cerebral infarction without residual deficits; J44.9 Chronic obstructive pulmonary disease, unspecified; I10 Essential (primary) hypertension; I25.2 Old myocardial infarction
CPT/HCPCS: 36416; 36600; 71045; 80053; 82009; 82803; 82962; 83690; 85025; 87426; 93005; 96374; 96375; 99285; J0360; J1815; J2405; J7030

== ENCOUNTER 2022-05-29 18:43 | Emergency (ER) | payer MEDICAID, SELFPAY ==
[2022-05-29 18:45] VITALS: BP 167/90; PULSE 112; RESP 25; TEMP 37.3; O2SAT 89; BMI 45.3
--- NOTE | 2022-05-29 18:59 | CTR_ITS ---
PROCEDURE INFORMATION: Exam: CT Head Without Contrast Exam date and time: 05/29/2022 7:28 PM Age: 61 years old Clinical indication: Altered mental status/memory loss and syncope and collapse; Additional info: Syncope AMS TECHNIQUE: Imaging protocol: Computed tomography of the head without contrast. Radiation optimization: All CT scans at this facility use at least one of these dose optimization techniques: automated exposure control; mA and/or kV adjustment per patient size (includes targeted exams where dose is matched to clinical indication); or iterative reconstruction. COMPARISON: CT head wo con* [id number] 08/27/2020 8:13 AM RADIATION DOSE METRICS: Total DLP (mGy-cm): 1228.65 FINDINGS: Brain: No focal hemorrhage or midline shift is identified. The ventricles and parenchyma show moderate atrophy and chronic bicerebral white matter ischemic change. Old small lacune in left thalamus measuring 8 mm. Cerebral ventricles: No ventriculomegaly or evidence of hydrocephalus. Paranasal sinuses: No evidence of acute sinusitis. Mastoid air cells: Visualized mastoid air cells are well aerated. Bones/joints: No displaced skull fracture is noted. Soft tissues: Unremarkable. Vasculature: Advanced diffuse vascular calcification noted. CT/CT head wo con* [id number] IMPRESSION: 1. No acute intracranial abnormality. 2. Moderate age-related changes. A few other chronic findings above.
[2022-05-29] MEDS: iohexol 350 mg/mL 500 mL Btl (per mL) IV (19:13)
--- NOTE | 2022-05-29 19:16 | CTR_ITS ---
PROCEDURE INFORMATION: Exam: CTA Chest With Contrast Exam date and time: 05/29/2022 7:33 PM Age: 61 years old Clinical indication: Other: Hypoxic; Additional info: Syncope hypoxic TECHNIQUE: Imaging protocol: Computed tomographic angiography of the chest with contrast. 3D rendering (Not supervised by radiologist): MIP and/or 3D reconstructed images were created by the technologist. Radiation optimization: All CT scans at this facility use at least one of these dose optimization techniques: automated exposure control; mA and/or kV adjustment per patient size (includes targeted exams where dose is matched to clinical indication); or iterative reconstruction. Contrast material: OMNI 350; Contrast volume: 100 ml; Contrast route: INTRAVENOUS (IV); COMPARISON: CT angio chest PE protcl [id number] 05/06/2019 7:44 AM RADIATION DOSE METRICS: Total DLP (mGy-cm): 480.01 FINDINGS: Pulmonary arteries: The pulmonary arteries are adequately opacified for evaluation to the subsegmental level. There is no filling defect to suggest embolism. Aorta: There is mild aortic atherosclerotic disease. Lungs: There is subsegmental atelectasis in the lung bases. There is a calcified granuloma in the right lower lobe. There is no consolidation. Pleural spaces: There is no pleural effusion or pneumothorax. Heart: Heart size is normal. There is no pericardial effusion. Coronary arteries: There is moderate coronary artery calcification. Lymph nodes: There is no mediastinal or hilar lymphadenopathy. Bones/joints: Chronic T8 and T9 mild compression fracture status post vertebroplasty. Moderate T7 compression fracture is stable since 05/06/2019. Soft tissues: The extrathoracic soft tissues are unremarkable. CT/CT angio chest PE protcl [id number] IMPRESSION: 1. No pulmonary embolism. 2. Incidental findings above.
[2022-05-29 19:27] VITALS: BP 197/109; PULSE 100; RESP 24; O2SAT 98
[2022-05-29 19:27] LABS: Glucose Point of Care 190 mg/dL (70-110)
[2022-05-29 19:33] LABS: Basophils % 0.2 %; Eosinophils % 0.3 %; Hematocrit 36.9 % (37.0-47.0); Hemoglobin 11.8 g/dL (11.5-15.3); Lymphocytes # 1.8 10^3/uL (0.8-4.8); Lymphocytes % 15.8 %; Mean Corpuscular Hemoglobin 26.6 pg (28.0-34.0); Mean Corpuscular Volume 83.1 fl (81-99); Mean Platelet Volume 10.3 fL (7.4-10.4); Monocytes # 0.6 10^3/uL (0.2-0.9); Monocytes % 5.7 %; Neutrophils # 8.62 10^3/uL (1.8-7.7); Nucleated Red Blood Cells % 0 %; Platelet Count 330 10^3/cmm (130-400); Red Blood Count 4.44 10^6/uL (4.1-5.3); Red Cell Distribution Width 16.3 % (12.1-15.1); White Blood Count 11.2 10^3/uL (4.0-10.0)
[2022-05-29 19:55] LABS: Alanine Aminotransferase 8 U/L (0-33); Alkaline Phosphatase 65 U/L (35-105); Blood Urea Nitrogen 6 mg/dL (8-23); Carbon Dioxide 28 mmol/L (22-29); Chloride 94 mmol/L (98-107); Globulin 3.7 g/dL (1.3-4.6); Glucose 182 mg/dL (65-115); Osmolality Calculated 282 mOsm/kg (285-295); Sodium 135 mmol/L (136-145); Total Bilirubin 0.3 mg/dL (0.15-1.2); Total Protein 6.7 g/dL (6.6-8.7)
[2022-05-29 19:56] LABS: Troponin(5th) Baseline 13 ng/L (0-10)
[2022-05-29 19:57] LABS: Influenza A by IFA negative (Negative); Influenza B by IFA negative (Negative); SARS Covid-2 Antigen negative (Negative)
[2022-05-29 19:57] LABS: CKMB 1.1 ng/mL (0-5.34); Creatine Phosphokinase 61 U/L (26-192)
[2022-05-29 19:58] LABS: Alcohol Level < 10 mg/dL (0-10); Aspartate Amino Transferase 17 U/L (0-32)
[2022-05-29 19:59] LABS: Ammonia 54 umol/L (11-51)
--- NOTE | 2022-05-29 20:11 | W.ED.AMS ---
HPI - Altered Mental Status General: Chief Complaint: Altered Mental Status Stated Complaint: SYNCOPE Time Seen by Provider: 05/29/22 18:52 Source: EMS Mode of arrival: EMS Limitations: altered mental status History of Present Illness: 61-year-old female who per friend driving back from [place] she had called him stated that she did not know really where she was he had tried to find her when he found her she was very confused and called EMS to try to get the last time of normal from her or the person that she had called very difficult to pin down when she was normal because when she called him she was confused at that time he is unsure what anyone else is ever talked. He thinks it may be yesterday here she is now awake alert she is able answer my questions she is still slightly confused she is able move all extremities she does not remember what really happened. Review of Systems General: Reports: ROS unobtainable due to mental status PFSH ED PFSH: Medical History Acute right arterial ischemic stroke, middle cerebral artery (MCA) Currently no residual weakness. Anxiety Cerebrovascular accident Chest pain Chronic back pain COPD (chronic obstructive pulmonary disease) CVA (cerebral vascular accident) Diabetes Hypertension Hypoestrogenism Lumbar disc disease Nicotine dependence with current use NSTEMI (non-ST elevated myocardial infarction) TYPE II M.I Recurrent major depression Right cavernous carotid stenosis Urinary incontinence Vertebral artery stenosis Surgical History History of bladder surgery History of cholecystectomy History of total hysterectomy Family History Grandfather CAD (coronary artery disease) Hypertension Myocardial infarction Mother Cancer Father Cancer Brother CAD (coronary artery disease) Myocardial infarction Sister Stroke Diabetes Family/Other Diabetes Social History Smoking and tobacco status: current every day smoker cigarettes Packs smoked per day: 1 Years cigarettes smoked: 28 Alcohol intake: never Lives independently: Yes Housing: House Physical Exam Const: COMMON NORMALS: negative for patient oriented x3 GENERAL APPEARANCE: cooperative, in distress, ill appearing and well hydrated HENMT: COMMON NORMALS: normocephalic, atraumatic, hearing grossly normal bilaterally, external ears normal and Normal external nose present HEAD & SCALP: normocephalic and atraumatic FACE & SINUS: normal facial exam NOSE: Normal external nose present EXTERNAL EAR: Yes external ears normal Eye: COMMON NORMALS: Equal, round and reactive pupils present, EOMs intact bilaterally, conjunctivae normal and no scleral icterus GENERAL EYE: appearance normal, both eyes and all related structures ALIGNMENT: Yes alignment normal PERIORBITAL: periorbital findings normal EYELID: eyelids normal CONJUNCTIVA: Yes conjunctivae normal SCLERA: sclerae normal PUPIL: Yes Equal, round and reactive pupils present Neck/C-Spine: COMMON NORMALS: no lymphadenopathy, supple, no JVD and Thyroid normal GENERAL: Yes normal visual inspection, Yes trachea midline and No Mass present (neck) THYROID: Thyroid normal CAROTIDS: Yes normal carotid upstroke CERVICAL SPINE: Yes cervical ROM normal Chest: COMMONS NORMALS: normal inspection of the chest and normal palpation of entire chest wall CHEST: Yes Symmetrical chest wall rise, No mass, No tenderness, No Surgical scars present (Chest) and No rash Resp: COMMON NORMALS: clear to auscultation bilaterally EFFORT & INSPECTION: No pursed lip breathing AUSCULTATION: clear to auscultation bilaterally, no crackles, no rales, no rhonchi, no wheezes and vesicular breath sounds Cardio: COMMON NORMALS: no JVD, regular rate, regular rhythm, S1 normal heart sound present, S2 normal heart sound present and Peripheral pulses 2+ throughout PALPATION: normal PMI RATE: regular rate RHYTHM: regular rhythm HEART SOUNDS: S1 normal heart sound present, S2 normal heart sound present, no gallops and no murmurs BRUITS: no carotid bruits PERIPHERAL PULSES: Peripheral pulses 2+ throughout, radial pulses present, posterior tibial pulses present and dorsalis pedis present GI: COMMON NORMALS: Soft to palpation AUSCULTATION: Yes normoactive bowel sounds PALPATION: Yes Soft to palpation, No Tenderness to palpation present (GI), No Guarding due to palpation present (GI), No Rigid due to palpation, No Pulsatile mass present and No Ascites present PERCUSSION: tympanic to percussion Extremity: GENERAL: No calf tenderness, No clubbing, No cyanosis, No edema and No pallor Neuro: COMMON NORMALS: gait normal; negative for patient oriented x3 Psych: COMMON NORMALS: Normal thought process present and speech normal SPEECH: Yes normal speech MOOD & AFFECT: Yes euthymic mood THOUGHT PROCESS: Normal thought process present THOUGHT CONTENT: Yes Normal thought content present Skin: HAIR: normal NAILS: normal and no clubbing Course Vital Signs: Vital signs: Vital Signs Temperature 99.2 F 05/29/22 18:45 Pulse Rate 100 05/29/22 19:27 Respiratory Rate 24 H 05/29/22 19:27 Blood Pressure 197/109 05/29/22 19:27 Pulse Oximetry 98 05/29/22 19:27 Oxygen Delivery Me thod 05/29/22 19:27 Oxygen Flow Rate 3 05/29/22 19:27 MDM - Altered Mental Status Medical Decision Making Patient originally presented here with confusion she is found to be hypomagnesia along with hypokalemia patient is now awake alert able answer all my questions appropriately she is refusing to stay and refusing any further testing I informed her as concerned about her confusion and possibly she needs to be admitted to treat her potassium and magnesium she states she does not like to stay in the hospital wants to go home at this time she does have decision made capacity is answering all my questions appropriately currently knows the risks and signed out AGAINST MEDICAL ADVICE Lab Data 05/29/22 19:15 05/29/22 19:[address] 05/29/22 18:59 IMPRESSION: 1. No acute intracranial abnormality. 2. Moderate age-related changes. A few other chronic findings above. Chest CTA 05/29/22 19:16 IMPRESSION: 1. No pulmonary embolism. 2. Incidental findings above. Laboratory Results WBC 11.2 10^3/uL (4.0-10.0) H 05/29/22 19:15 RBC 4.44 10^6/uL (4.1-5.3) 05/29/22 19:15 Hgb 11.8 g/dL (11.5-15.3) 05/29/22 19:15 Hct 36.9 % (37.0-47.0) L 05/29/22 19:15 MCV 83.1 fl (81-99) 05/29/22 19:15 MCH 26.6 pg (28.0-34.0) L 05/29/22 19:15 MCHC 32.0 g/dL (30.0-36.0) 05/29/22 19:15 RDW 16.3 % (12.1-15.1) H 05/29/22 19:15 Plt Count 330 10^3/cmm (130-400) 05/29/22 19:15 MPV 10.3 fL (7.4-10.4) 05/29/22 19:15 Neut % (Auto) 77.0 % 05/29/22 19:15 Lymph % (Auto) 15.8 % 05/29/22 19:15 [place] % (Auto) 5.7 % 05/29/22 19:15 Eos % (Auto) 0.3 % 05/29/22 19:15 Baso % (Auto) 0.2 % 05/29/22 19:15 Neut # (Auto) 8.62 10^3/uL (1.8-7.7) H 05/29/22 19:15 Lymph # (Auto) 1.8 10^3/uL (0.8-4.8) 05/29/22 19:15 [place] # (Auto) 0.6 10^3/uL (0.2-0.9) 05/29/22 19:15 Eos # (Auto) 0.0 10^3/uL (0.0-0.8) 05/29/22 19:15 Baso # (Auto) 0.0 10^3/uL (0.0-0.1) 05/29/22 19:15 Nucleated RBC % (auto) 0 % 05/29/22 19:15 Nucleated RBCs # 0.0 /100WBC 05/29/22 19:15 Specimen Type Arterial 05/29/22 20:10 Sample Site Radial, left 05/29/22 20:10 ABG pH 7.50 (7.35-7.45) H 05/29/22 20:10 ABG pCO2 40.6 mmHg (35-45) 05/29/22 20:10 ABG pO2 72.7 mmHg (80.0-100.0) L 05/29/22 20:10 ABG HCO3 31.7 mmol/L (22-26) H 05/29/22 20:10 ABG Base Excess 7.8 mmol/L (-2.0-2.0) H 05/29/22 20:10 Yinka Test Pos 05/29/22 20:10 Hematocrit 37.6 % (37-47) 05/29/22 20:10 O2 Delivery Device Nc 05/29/22 20:10 O2 Liters/Min 2.5 % 05/29/22 20:10 FiO2 28.0 % 05/29/22 20:10 Touring Production Manager ID Sadia 05/29/22 20:10 Sodium 135 mmol/L (136-145) L 05/29/22 19:15 Potassium 2.4 mmol/L (3.5-5.1) L* 05/29/22 19:15 Chloride 94 mmol/L (98-107) L 05/29/22 19:15 Carbon Dioxide 28 mmol/L (22-29) 05/29/22 19:15 Anion Gap 15.4 (5-19) 05/29/22 19:15 BUN 6 mg/dL (8-23) L 05/29/22 19:15 Creatinine 0.6 mg/dL (0.5-0.9) 05/29/22 19:15 GFR Calculation 101.0 mL/min (90-130) 05/29/22 19:15 Glucose 182 mg/dL (65-115) H 05/29/22 19:15 POC Glucose 190 mg/dL (70-110) H 05/29/22 19:13 Calculated Osmolality 282 mOsm/kg (285-295) L 05/29/22 19:15 Calcium 7.0 mg/dL (8.5-10.5) L 05/29/22 19:15 Magnesium 0.3 mg/dL (1.7-2.3) L* 05/29/22 19:15 Total Bilirubin 0.3 mg/dL (0.15-1.2) 05/29/22 19:15 AST 17 U/L (0-32) 05/29/22 19:15 ALT 8 U/L (0-33) 05/29/22 19:15 Alkaline Phosphatase 65 U/L (35-105) 05/29/22 19:15 Ammonia 54 umol/L (11-51) H 05/29/22 19:15 Creatine Kinase 61 U/L (26-192) 05/29/22 19:15 CK-MB (CK-2) 1.1 ng/mL (0-5.34) 05/29/22 19:15 CK-MB (CK-2) Rel Index % (0.0-10.4) 05/29/22 19:15 Troponin T Baseline 13 ng/L (0-10) H 05/29/22 19:15 Total Protein 6.7 g/dL (6.6-8.7) 05/29/22 19:15 Albumin 3.0 g/dL (3.5-5.2) L 05/29/22 19:15 Globulin 3.7 g/dL (1.3-4.6) 05/29/22 19:15 Ethyl Alcohol < 10 mg/dL (0-10) 05/29/22 19:15 Influenza Type A Ag negative (Negative) 05/29/22 19:20 Influenza Type B Ag negative (Negative) 05/29/22 19:20 SARS-CoV-2 Ag (Rapid) negative (Negative) 05/29/22 19:20 Discharge Plan Discharge Patient Disposition: Left Without Being Seen Clinical Impression: Hypokalemia, Hypomagnesemia Condition: Stable Prescriptions: No Action (DME) walker See Rx Instructions .Route .MEDSUPPLY Qty: 1 0RF Rx Instructions: As directed ondansetron 8 mg tablet,disintegrating 8 mg PO Q8H PRN (Reason: nausea and vomiting) 4 Days Qty: 14 0RF (DME) hinged knee brace See Rx Instructions .Route .MEDSUPPLY Qty: 1 0RF Rx Instructions: As directed metronidazole 500 mg tablet 500 mg PO BID 10 Days Qty: 20 0RF ciprofloxacin HCl [Cipro] 500 mg tablet 500 mg PO BID 10 Days Qty: 20 0RF fluticasone propionate [Flonase Allergy Relief] 50 mcg/actuation spray,suspension 2 spray INTRANASAL DAILY Qty: 16 5RF Rx Instructions: administer into each nostril oxybutynin chloride 5 mg tablet 5 mg PO DAILY Qty: 30 5RF clopidogrel [Plavix] 75 mg tablet 75 mg PO DAILY Qty: 30 11RF albuterol sulfate [ProAir HFA] 90 mcg/actuation HFA aerosol inhaler 2 puff INHALATION Q6H PRN (Reason: Shortness Of Breath) Qty: 8.5 4RF Lantus U-100 Insulin 100 unit/mL solution 100 unit SUBCUT BID 90 Days Qty: 180 1RF duloxetine 60 mg capsule,delayed release(DR/EC) 60 mg PO DAILY Qty: 90 3RF triamcinolone acetonide 0.1 % cream See Rx Instructions .ROUTE .COMPLEX Qty: 80 1RF Dose Instruction: apply topically TWICE DAILY FOR ITCHING bites Rx Instructions: apply topically TWICE DAILY FOR ITCHING bites amlodipine 5 mg tablet 5 mg PO DAILY Qty: 90 1RF diazepam 5 mg tablet 5 mg PO BID PRN (Reason: anxiety) Qty: 60 3RF Rx Instructions: This instead of the alprazolam for nerves during day and sleep at night pantoprazole [Protonix] 40 mg tablet,delayed release (DR/EC) 40 mg PO DAILY Qty: 30 2RF Januvia 100 mg tablet 100 mg PO DAILY Qty: 90 1RF hydrocodone-acetaminophen 10-325 mg tablet 1 tab PO Q8H PRN (Reason: Pain) 30 Days Qty: 90 0RF potassium chloride 20 mEq/15 mL liquid 20 meq PO BID 2 Days Qty: 60 0RF albuterol sulfate 2.5 mg /3 mL (0.083 %) solution for nebulization 2.5 mg inhalation Q6H PRN (Reason: Shortness Of Breath) topiramate 50 mg tablet 50 mg PO DAILY lidocaine 5 % ointment 1 applic topical TID PRN (Reason: pain) Qty: 60 0RF docusate sodium 100 mg capsule 100 mg PO BID Rx Instructions: TAKE 1 CAPSULE BY MOUTH TWICE DAILY potassium chloride 20 mEq tablet,ER particles/crystals 20 meq PO DAILY Qty: 20 0RF cetirizine 10 mg Tablet 10 mg PO DAILY PRN (Reason: Allergic Reaction) hydrocodone-acetaminophen 10-325 mg Tablet 1 tab PO Q8H PRN (Reason: Pain) Lyrica 100 mg Capsule 100 mg PO BID ondansetron 4 mg tablet,disintegrating 4 mg PO Q8H PRN (Reason: nausea and vomiting) Qty: 15 0RF oxycodone 5 mg tablet 5 mg PO Q4H PRN (Reason: pain) Qty: 10 0RF potassium chloride 20 mEq tablet extended release 20 meq PO BID Qty: 6 0RF ondansetron 4 mg tablet,disintegrating 4 mg PO Q6H PRN (Reason: nausea and vomiting) Qty: 14 0RF Referrals: Shamika Harding MD [Primary Care Provider] - Coding Level of Care Code ED Frame Straightener for Chg Fwd Exam Comprehensive
[2022-05-29 20:12] LABS: Anion Gap 15.4 (5-19); Potassium 2.4 mmol/L (3.5-5.1)
[2022-05-29 20:21] LABS: ABG PCO2 40.6 mmHg (35-45); Arterial Blood Gas Hematocrit 37.6 % (37-47); Base Excess ABG 7.8 mmol/L (-2.0-2.0); Blood Gas Allen Test Pos; Blood Gas LPM 2.5 %; Blood Gas Sample Site Radial, left; Blood Gas Sample Type Arterial; HCO3 ABG 31.7 mmol/L (22-26); Oxygen Device NC; PO2 ABG 72.7 mmHg (80.0-100.0)
[2022-05-29 20:30] VITALS: BP 183/144; PULSE 102; RESP 17; O2SAT 98
[2022-05-29 20:40] LABS: Magnesium 0.3 mg/dL (1.7-2.3)
[2022-05-29] MEDS: hyDRALAzine 20 mg/mL INJ 1 mL 10 MG IVP (21:20)
[2022-05-29] MEDS: magnesium sulfate premix 2 GM/50 ML PIGGYBACK IV (21:24)
[2022-05-29 22:17] LABS: Troponin 5 2HR 23.17 ng/L (0-10)
[2022-05-29 22:36] LABS: Troponin 5 2HR Delta 10.17 ABS# (0-10)
== END 2022-05-29 21:42 | disposition left against medical advice (07) ==
PROVIDERS: Registered Nurse; Emergency Provider Emergency Medicine; PCP Family Medicine
DX: E87.6 Hypokalemia (principal); E83.42 Hypomagnesemia; Z53.21 Procedure and treatment not carried out due to patient leaving prior to being seen by health care provider; Z79.4 Long term (current) use of insulin; Z79.02 Long term (current) use of antithrombotics/antiplatelets; Z20.822 Contact with and (suspected) exposure to COVID-19; F17.210 Nicotine dependence, cigarettes, uncomplicated; J44.9 Chronic obstructive pulmonary disease, unspecified; Z86.73 Personal history of transient ischemic attack (TIA), and cerebral infarction without residual deficits; E11.9 Type 2 diabetes mellitus without complications; I10 Essential (primary) hypertension; I25.2 Old myocardial infarction
CPT/HCPCS: 36415; 36416; 36600; 70450; 71275; 80053; 80307; 82140; 82550; 82553; 82803; 82962; 83735; 84484; 85025; 87426; 87804; 96365; 96375; 99285; J0360; J3475; Q9967

== ENCOUNTER 2022-06-04 20:25 | Inpatient (IN) | payer MEDICAID, SELFPAY ==
[2022-06-04] VITALS (11 sets, daily range): BP systolic 117–174; BP diastolic 64–85; PULSE 96–109; RESP 16–32; TEMP 37.1; O2SAT 95–100; BMI 39.5
--- NOTE | 2022-06-04 20:48 | ECG_ITS ---
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 Measurements Intervals [place] Rate: 100 P: 142 UT: 137 QRS: 193 QRSD: 89 T: 153 QT: 398 QTc: 515 Interpretive Statements SINUS TACHYCARDIA ARM LEADS REVERSED [INVERTED P AND QRS IN I] ABNORMAL RHYTHM ECG Compared to ECG 05/26/2022 04:55:56 Sinus rhythm no longer present Myocardial infarct finding no longer present Electronically Signed On 06-05-2022 20:01:36 LIBRARY SALES CONSULTANT by Fermín Martinez M.D. [id number] f
--- NOTE | 2022-06-04 21:03 | CTR_ITS ---
PROCEDURE INFORMATION: Exam: CT Head Without Contrast Exam date and time: 06/04/2022 10:04 PM Age: 61 years old Clinical indication: Altered mental status/memory loss; Patient HX: Unable to remain still during scan; Additional info: AMS TECHNIQUE: Imaging protocol: Computed tomography of the head without contrast. Radiation optimization: All CT scans at this facility use at least one of these dose optimization techniques: automated exposure control; mA and/or kV adjustment per patient size (includes targeted exams where dose is matched to clinical indication); or iterative reconstruction. COMPARISON: CT head wo con* [id number] 05/29/2022 7:28 PM RADIATION DOSE METRICS: Total DLP (mGy-cm): 1215.38 FINDINGS: Brain: There are areas of loss of the blevins-white differentiation in the left frontal lobe the left parietal lobe and left occipital lobe. Minimal localized mass effect. No midline shift. There is mild parenchymal atrophy and chronic small vessel disease. Cerebral ventricles: No ventriculomegaly. Paranasal sinuses: Paranasal sinuses are clear. No air-fluid level. Mastoid air cells: Visualized mastoid air cells are clear. Bones/joints: Unremarkable. No acute fracture. Soft tissues: Unremarkable. Other findings: No hemorrhage no hemorrhage. CT/CT head wo con* [id number] IMPRESSION: 1. Multiple infarcts in the left side of the brain involving the MCA distribution and PEDIGREE TRACER distribution which are at least 6 hours old. Possibly embolic. 2. Mild parenchymal atrophy and chronic small vessel disease. Assessment: ASPECTS ([place] Stroke Program Early CT Score) is 8.
--- NOTE | 2022-06-04 21:03 | XRR_ITS ---
PROCEDURE INFORMATION: Exam: XR Chest Exam date and time: 06/04/2022 9:09 PM Age: 61 years old Clinical indication: Cough; Additional info: AMS TECHNIQUE: Imaging protocol: Radiologic exam of the chest. Views: 1 view. COMPARISON: CR (CHEST, ) 05/26/2022 4:26 AM FINDINGS: Lungs: Calcified pulmonary nodule/nodules, consistent with prior granulomatous disease. Left basilar atelectasis. Pleural spaces: Unremarkable. No pleural effusion. No pneumothorax. Heart/Mediastinum: Unremarkable. No cardiomegaly. Bones/joints: kyphoplasty has been performed at at multiple thoracic levels. XR/XR chest 1V portable [id number] IMPRESSION: No acute disease.
--- NOTE | 2022-06-04 21:12 | ED_ITS ---
HPI - Altered Mental Status General: Chief Complaint: Altered Mental Status Stated Complaint: AMS Time Seen by Provider: 06/04/22 20:30 History of Present Illness: 61-year-old female with a history of diabetes and obesity. She presents with altered mental status. Last known well is sometime yesterday/last night. All of the calls on her phone have been missed since then. She was found by EMS in her bed, with her face against the bed rail. She has a pressure abrasion to the left temporal face, pressure abrasion to the left lateral wrist, and a blister to the right heel. She is quite confused and lethargic. She knows her name, does not know her location or time. She is wynn ving trouble answering any other questions. MD complaint: altered mental status, confusion and decreased responsiveness Onset (ago): unknown Timing confirmed by: other Severity: moderate Consistency of symptoms: Unknown Context: diabetes Associated symptoms: Reports other Review of Systems General: Reports: ROS unobtainable due to medical condition and ROS unobtainable due to mental status PFS ED PFSH: Medical History Acute right arterial ischemic stroke, middle cerebral artery (MCA) Currently no residual weakness. Anxiety Cerebrovascular accident Chest pain Chronic back pain COPD (chronic obstructive pulmonary disease) CVA (cerebral vascular accident) Diabetes Hypertension Hypoestrogenism Lumbar disc disease Nicotine dependence with current use NSTEMI (non-ST elevated myocardial infarction) TYPE II M.I Recurrent major depression Right cavernous carotid stenosis Urinary incontinence Vertebral artery stenosis Surgical History History of bladder surgery History of cholecystectomy History of total hysterectomy Family History Grandfather CAD (coronary artery disease) Hypertension Myocardial infarction Mother Cancer Father Cancer Brother CAD (coronary artery disease) Myocardial infarction Sister Stroke Diabetes Family/Other Diabetes Social History Smoking and tobacco status: current every day smoker cigarettes Packs smoked per day: 1 Years cigarettes smoked: 28 Alcohol intake: never Lives independently: Yes Housing: House Physical Exam Const: GENERAL APPEARANCE: cooperative, lethargic, ill appearing, frail appearing and appears older than stated age NUTRITIONAL APPEARANCE: obese ORIENTATION/CONSCIOUSNESS: Yes confused and Yes lethargic HENMT: COMMON NORMALS: normocephalic and Normal external nose present HEAD & SCALP: normocephalic and abrasion (Left temporal) FACE & SINUS: face symmetric NOSE: Normal external nose present THROAT: posterior oropharynx normal Eye: COMMON NORMALS: Equal, round and reactive pupils present and EOMs intact bilaterally PUPIL: Yes Equal, round and reactive pupils present Resp: COMMON NORMALS: normal respiratory effort AUSCULTATION: no rhonchi and diminished lung sounds Cardio: COMMON NORMALS: regular rate and regular rhythm RATE: regular rate RHYTHM: regular rhythm GI: COMMON NORMALS: Normal to inspection, nondistended, normoactive bowel sounds present and Soft to palpation PALPATION: Yes Soft to palpation Extremity: NARRATIVE EXTREMITY EXAM: Pressure abrasion to the left wrist, blister to right heel, weeping. No defin ite cellulitis. Neuro: HERACLIO COMA SCALE: document GCS findings [place] coma scale eye opening: To sound [place] coma scale verbal response: Confused [place] coma scale motor response: Obey commands [place] coma scale total score: 13 SENSORIUM/ORIENTATION: Yes lethargic CRANIAL NERVES: Yes CN normal except as noted SPEECH: speech normal MOTOR EXAM: Pronator motor function not present and Normal motor muscle tone present throughout Psych: COMMON NORMALS: cooperative and speech normal SPEECH: Yes normal speech Procedures Central Line Placement Right IJ: Time Out Performed: No Patient Placed on Monitor/Pulse Ox: Yes MD Prep: mask, gown and gloves Central Line Prep: Chlorhexidine scrub Local Anesthetic: lidocaine 1% Amount of anesthesia used (mL): 3 Ultrasound Used for Placement: Yes Central Line Lumen Inserted: triple Post Procedure: sutured in place, good blood return, all ports aspirated, flushed, capped and sterile dressing applied Post Procedure X-Ray: tip of catheter in good position and no pneumothorax seen Patient Tolerated Procedure: well and no complications Complications: none Intubation Time out performed: No sedative: Etomidate Mg Given: 30 paralytic: Succinylcholine Mg Given: 150 Laryngoscope: David (4) ET Tube Size: 8 ET Tube Uncuffed: No Tube Secured Depth (cm): 24 Tube Secured Location: lips Tube Placement Confirmation: visualized tube passing through cords, equal breath sounds bilaterally and confirmation by capnometry Patient Tolerated Procedure: no complications Intubation Complications: none Course Consultations: Consultation #1: Mason Time: 00:05 Consultation #2: Maria G Time: 00:14 Vital Signs: Vital signs: Vital Signs Temperature 99.5 F 06/05/22 16:29 Pulse Rate 91 06/05/22 16:15 Respiratory Rate 19 H 06/05/22 15:23 Blood Pressure 121/63 06/05/22 16:15 Pulse Oximetry 94 06/05/22 16:15 Oxygen Delivery Me thod 06/05/22 13:42 Fraction of Inspir ed Oxygen 35 06/05/22 15:23 MDM - Altered Mental Status Medical Decision Making 61-year-old female with a history of CVA evidently. She had obviously been down a while given the pressure abrasions etc she has. She initially was very lethargic, but began to clear somewhat. She asked for water, and was able to swallow appropriately. She has a decently dense right sided spastic paralysis. CT shows left cerebral infarcts in the MCA distribution. CTA is completed showing significant left ICA stenosis of 85% with soft plaque. The patient is obviously out of treatment window for both TPA and thrombectomy type intervention given her 30 hour or so last known well time. Her magnesium was quite low as was her potassium. These are repleted. The patient had been a bit more awake, and talking some, although still quite confused. She had been admitted to the ICU. The hospitalist had seen the patient as well. At one point I was called to the bedside regarding the patient seizing. We witnessed tonic clonic movement, likely related to her infarct. The seizure likely lasted 2 to 3 minutes. Nursing staff rolled the patient on her side. Prior to this oxygen saturations had been in the low 90s. During the seizure, pulse ox was lost due to movement. When the seizure abated, the patient was apneic, pulse ox sank quickly. Bag valve mask was applied was ventilations, but pulse was quickly lost at that point. CPR was started. At first pulse check, PEA was noted, and 1 milligram of epinephrine was given with continued CPR. During chest compressions and bag valve mask ventilation, the patient began to cough. She began spontaneously breathing. this was about the time intubation was attempted. She was given etomidate and succynlcholine for RSI at that point, and intubated with good capnography and equal breath sounds. Central line was placed due to the need for sedative medication, etcetera. She was taken to the ICU following placement of OG tubes and [place]. On cxr around 2am, ET tube was just above carson, TLC tip at right atrium. Lab Data 06/04/22 21:45 06/04/22 21:45 Radiology Impressions Head/Neck CTA 06/04/22 22:33 IMPRESSION: No large vessel occlusion or stenosis. IMPRESSION: Large amount of soft plaque in the proximal left ICA resulting in 85% stenosis. REFERENCES: NASCET CRITERIA. The degree of stenosis in the cervical segment of the internal carotid artery is based on NASCET criteria. Normal is no stenosis. Mild is less than 50% stenosis. Moderate is 50-69% stenosis. Severe is 70% to 99% stenosis. Total occlusion is no detectable patent lumen. KUB X-Ray 06/05/22 04:14 IMPRESSION: 1. Endotracheal tube is in the right mainstem bronchus and should be withdrawn approximately 3 cm. 2. The NG tube side port is in the distal esophagus and should be advanced approximately 5.4 cm. 3. Hazy left basilar opacity which could be secondary to atelectasis or pneumonia. ADDENDUM: 06/05/22 0514 THIS REPORT CONTAINS FINDINGS THAT MAY BE CRITICAL TO PATIENT CARE. The findings were verbally communicated by me to SASCHA Brower via telephone conference at 5:12 AM FIXED WING AIRCRAFT FLIGHT ENGINEER on 06/05/2022. The findings were acknowledged and understood. Chest X-Ray 06/05/22 05:39 IMPRESSION: 1. Endotracheal tube approximately 1 cm above the carson. 2. An enteric tube is noted extending below the level of the diaphragm and out of the field of view. 3. Small right-sided pleural effusion. 4. Possible pulmonary edema. Head CT 06/05/22 10:08 IMPRESSION: 1. Left cerebral infarcts again noted, without significant change from prior exam. No intracranial hemorrhage. No significant mass effect. 2. Mild chronic microvascular ischemic disease. Laboratory Results WBC 15.3 10^3/uL (4.0-10.0) H 06/04/22 21:45 RBC 4.56 10^6/uL (4.1-5.3) 06/04/22 21:45 Hgb 12.4 g/dL (11.5-15.3) 06/04/22 21:45 Hct 38.9 % (37.0-47.0) 06/04/22 21:45 MCV 85.3 fl (81-99) 06/04/22 21:45 MCH 27.2 pg (28.0-34.0) L 06/04/22 21:45 MCHC 31.9 g/dL (30.0-36.0) 06/04/22 21:45 RDW 16.2 % (12.1-15.1) H 06/04/22 21:45 Plt Count 372 10^3/cmm (130-400) 06/04/22 21:45 MPV 10.3 fL (7.4-10.4) 06/04/22 21:45 Neut % (Auto) 83.5 % 06/04/22 21:45 Lymph % (Auto) 10.1 % 06/04/22 21:45 [place] % (Auto) 5.6 % 06/04/22 21:45 Eos % (Auto) 0.0 % 06/04/22 21:45 Baso % (Auto) 0.2 % 06/04/22 21:45 Neut # (Auto) 12.74 10^3/uL (1.8-7.7) H 06/04/22 21:45 Lymph # (Auto) 1.5 10^3/uL (0.8-4.8) 06/04/22 21:45 [place] # (Auto) 0.9 10^3/uL (0.2-0.9) 06/04/22 21:45 Eos # (Auto) 0.0 10^3/uL (0.0-0.8) 06/04/22 21:45 Baso # (Auto) 0.0 10^3/uL (0.0-0.1) 06/04/22 21:45 Nucleated RBC % (auto) 0 % 06/04/22 21:45 Nucleated RBCs # 0.0 /100WBC 06/04/22 21:45 PT 15.10 SECONDS (12.1-14.9) H 06/04/22 21:45 INR 1.15 (0.8-1.2) 06/04/22 21:45 APTT 24.5 SECONDS (23.9-36.7) 06/04/22 21:45 D-Dimer 2.91 ug/mIFEU (0-0.59) H 06/04/22 21:45 Specimen Type Arterial 06/04/22 22:00 Sample Site Radial, right 06/04/22 22:00 ABG pH 7.48 (7.35-7.45) H 06/04/22 22:00 ABG pCO2 36.2 mmHg (35-45) 06/04/22 22:00 ABG pO2 72.0 mmHg (80.0-100.0) L 06/04/22 22:00 ABG HCO3 26.9 mmol/L (22-26) H 06/04/22 22:00 ABG Base Excess 3.4 mmol/L (-2.0-2.0) H 06/04/22 22:00 Yinka Test Pos 06/04/22 22:00 Hematocrit 38.2 % (37-47) 06/04/22 22:00 O2 Delivery Device Nc 06/04/22 22:00 O2 Liters/Min 2.0 % 06/04/22 22:00 FiO2 24.0 % 06/04/22 22:00 Pediatric Nurse Practitioner ID Droch 06/04/22 22:00 Sodium 138 mmol/L (136-145) 06/04/22 21:45 Potassium 2.6 mmol/L (3.5-5.1) L* 06/04/22 21:45 Chloride 97 mmol/L (98-107) L 06/04/22 21:45 Carbon Dioxide 25 mmol/L (22-29) 06/04/22 21:45 Anion Gap 18.6 (5-19) 06/04/22 21:45 BUN 5 mg/dL (8-23) L 06/04/22 21:45 Creatinine 0.5 mg/dL (0.5-0.9) 06/04/22 21:45 GFR Calculation 124.6 mL/min (90-130) 06/04/22 21:45 Glucose 332 mg/dL (65-115) H 06/04/22 21:45 Calculated Osmolality 296 mOsm/kg (285-295) H 06/04/22 21:45 Lactate 2.1 mmol/L (0.5-2.2) 06/04/22 21:45 Calcium 8.1 mg/dL (8.5-10.5) L 06/04/22 21:45 Phosphorus 2.4 mg/dL (2.5-4.5) L 06/04/22 21:45 Magnesium 0.6 mg/dL (1.7-2.3) L* 06/04/22 21:45 Total Bilirubin 0.4 mg/dL (0.15-1.2) 06/04/22 21:45 AST 43 U/L (0-32) H 06/04/22 21:45 ALT 23 U/L (0-33) 06/04/22 21:45 Alkaline Phosphatase 87 U/L (35-105) 06/04/22 21:45 Creatine Kinase 742 U/L (26-192) H* 06/04/22 21:45 Troponin T Baseline 77 ng/L (0-10) H 06/04/22 21:45 Troponin T 120 Minute 71.71 ng/L (0-10) H 06/04/22 23:22 Delta Troponin T -5.29 ABS# (0-10) L 06/04/22 23:22 C-Reactive Protein 52.9 mg/L (0.0-4.9) H 06/04/22 21:45 NT-Pro-B Natriuret Pep 1758 pg/mL (0-125) H 06/04/22 21:45 Total Protein 7.5 g/dL (6.6-8.7) 06/04/22 21:45 Albumin 3.2 g/dL (3.5-5.2) L 06/04/22 21:45 Globulin 4.3 g/dL (1.3-4.6) 06/04/22 21:45 Lipase 9 U/L (13-60) L 06/04/22 21:45 Urine Color Yellow (Yellow) 06/04/22 20:53 Urine Appearance Clear (CLEAR) 06/04/22 20:53 Urine pH 6.5 (5-7) 06/04/22 20:53 Ur Specific [place] 1.010 (1.005-1.030) 06/04/22 20:53 Urine Protein Trace (Negative) H 06/04/22 20:53 Urine Glucose (UA) 4+ (Normal) H 06/04/22 20:53 Urine Ketones 3+ (Negative) H 06/04/22 20:53 Urine Blood 2+ (Negative) H 06/04/22 20:53 Urine Nitrate Negative (Negative) 06/04/22 20:53 Urine Bilirubin Neg (Negative) 06/04/22 20:53 Urine Urobilinogen Neg mg/dL (Negative) 06/04/22 20:53 Ur Leukocyte Esterase Negative (Negative) 06/04/22 20:53 Urine RBC 5-10 /hpf (0-2) H 06/04/22 20:53 Urine WBC 0-4 /hpf (0-5) H 06/04/22 20:53 Ur Squamous Epith Cells 5-10 /hpf (0-5) H 06/04/22 20:53 Amorphous Sediment Not Reportable 06/04/22 20:53 Urine Bacteria Trace /hpf (NONE) 06/04/22 20:53 Urine Mucus Trace /hpf 06/04/22 20:53 Urine Yeast Trace /hpf 06/04/22 20:53 Urine Opiates Screen Negative ng/mL (Negative) 06/04/22 20:53 Ur Barbiturates Screen Negative ng/mL (Negative) 06/04/22 20:53 Ur Phencyclidine Scrn Negative ng/mL (Negative) 06/04/22 20:53 Ur Amphetamines Screen Negative ng/mL (Negative) 06/04/22 20:53 U Benzodiazepines Scrn Positive ng/mL (Negative) H 06/04/22 20:53 Urine Cocaine Screen Negative ng/mL (Negative) 06/04/22 20:53 U Marijuana (THC) Screen Negative ng/mL (Negative) 06/04/22 20:53 Ethyl Alcohol < 10 mg/dL (0-10) 06/04/22 21:45 Serum Ketones Negative (Negative) 06/04/22 21:45 Influenza Type A Ag negative (Negative) 06/04/22 21:40 Influenza Type B Ag negative (Negative) 06/04/22 21:40 SARS-CoV-2 Ag (Rapid) negative (Negative) 06/04/22 21:40 Critical Care Time Critical Care Time: Critical Care Time: Yes Total Critical Care Time: 60 Attestation: This case had a high probability of a clinically significant, sudden, or life threatening deterioration of this patient's condition which required my full and direct attention, intervention and personal management. Time is independent of any procedures performed including TLC placement and intubation. Discharge Plan Discharge Patient Disposition: Admitted As Inpatient Admit Provider: More Cummins Clinical Impression: Cerebrovascular accident Qualifiers: CVA mechanism: embolism Precerebral and cerebral artery: middle cerebral artery Laterality of affected vessel: left Qualified Code(s): I63.412 - Cerebral infarction due to embolism of left middle cerebral artery Condition: Stable Coding Level of Care Code ED Bioprocessing Manufacturing Technician for g Fwd Exam Comprehensive NIH stroke score NIHSS Level Of Consciousness - 1a: 1 Level Of Consciousness Questions - 1b: One Correct Level Of Consciousness Commands - 1c: One Correct Best Gaze - 2: Normal Visual Franco - 3: No Visual Loss Facial Palsy - 4: Normal Motor Arm Right - 5: Effort Against [place] Motor Arm Left - 5: No Drift Motor Leg Right - 6: Effort Against [place] Motor Leg Left - 6: No Drift Limb Ataxia - 7: Present In Two Limbs Sensory - 8: Normal Best Language - 9: No Aphasia Dysarthia - 10: Normal Extinction And Inattention - 11: 0 Score Total Score: 9
[2022-06-04] MEDS: naloxone 0.4 mg/ml SDV IVP (21:34)
[2022-06-04] MEDS: sodium chloride 0.9% 1,000 ML 999 ML IV (21:35)
[2022-06-04 21:55] LABS: Basophils % 0.2 %; Hematocrit 38.9 % (37.0-47.0); Hemoglobin 12.4 g/dL (11.5-15.3); Lymphocytes # 1.5 10^3/uL (0.8-4.8); Lymphocytes % 10.1 %; Mean Corpuscular HGB Conc 31.9 g/dL (30.0-36.0); Mean Corpuscular Hemoglobin 27.2 pg (28.0-34.0); Mean Corpuscular Volume 85.3 fl (81-99); Mean Platelet Volume 10.3 fL (7.4-10.4); Monocytes # 0.9 10^3/uL (0.2-0.9); Monocytes % 5.6 %; Neutrophils # 12.74 10^3/uL (1.8-7.7); Neutrophils % 83.5 %; Nucleated Red Blood Cells % 0 %; Platelet Count 372 10^3/cmm (130-400); Red Blood Count 4.56 10^6/uL (4.1-5.3); Red Cell Distribution Width 16.2 % (12.1-15.1); White Blood Count 15.3 10^3/uL (4.0-10.0)
[2022-06-04 22:03] LABS: Influenza A by IFA negative (Negative); Influenza B by IFA negative (Negative); SARS Covid-2 Antigen negative (Negative)
[2022-06-04 22:04] LABS: ABG PCO2 36.2 mmHg (35-45); ABG PH Result 7.48 (7.35-7.45); Arterial Blood Gas Hematocrit 38.2 % (37-47); Base Excess ABG 3.4 mmol/L (-2.0-2.0); Blood Gas Allen Test Pos; Blood Gas Sample Site Radial, right; Blood Gas Sample Type Arterial; HCO3 ABG 26.9 mmol/L (22-26); Oxygen Device NC
[2022-06-04 22:10] LABS: INR 1.15 (0.8-1.2)
[2022-06-04 22:11] LABS: Partial Thromboplastin Time 24.5 SECONDS (23.9-36.7)
[2022-06-04 22:13] LABS: D Dimer 2.91 ug/mIFEU (0-0.59)
[2022-06-04 22:15] LABS: Ketone (Acetest) Serum Negative (Negative); Lactate (Lactic Acid level) 2.1 mmol/L (0.5-2.2)
[2022-06-04 22:26] LABS: Troponin(5th) Baseline 77 ng/L (0-10)
[2022-06-04 22:33] LABS: Alanine Aminotransferase 23 U/L (0-33); Albumin Level 3.2 g/dL (3.5-5.2); Alkaline Phosphatase 87 U/L (35-105); Anion Gap 18.6 (5-19); Aspartate Amino Transferase 43 U/L (0-32); Blood Urea Nitrogen 5 mg/dL (8-23); C Reactive Protein 52.9 mg/L (0.0-4.9); Calcium 8.1 mg/dL (8.5-10.5); Carbon Dioxide 25 mmol/L (22-29); Chloride 97 mmol/L (98-107); Creatinine Clr Calc Pharmacy 145.5026; Globulin 4.3 g/dL (1.3-4.6); Glomerular Filtration Rate 124.6 mL/min (90-130); Glucose 332 mg/dL (65-115); Lipase 9 U/L (13-60); Osmolality Calculated 296 mOsm/kg (285-295); Phosphorus 2.4 mg/dL (2.5-4.5); Sodium 138 mmol/L (136-145); Total Bilirubin 0.4 mg/dL (0.15-1.2); Total Protein 7.5 g/dL (6.6-8.7)
--- NOTE | 2022-06-04 22:33 | CTR_ITS ---
PROCEDURE INFORMATION: Exam: CTA Head With Contrast, Arteriography Exam date and time: 06/04/2022 11:06 PM Age: 61 years old Clinical indication: Patient HX: Increased right side weakness. HX CVA TECHNIQUE: Imaging protocol: Computed tomographic angiography of the head with contrast. Exam focused on the arteries. 3D rendering (Not supervised by radiologist): MIP and/or 3D reconstructed images were created by the technologist. Radiation optimization: All CT scans at this facility use at least one of these dose optimization techniques: automated exposure control; mA and/or kV adjustment per patient size (includes targeted exams where dose is matched to clinical indication); or iterative reconstruction. Contrast material: OMNI 350; Contrast volume: 100 ml; Contrast route: INTRAVENOUS (IV); COMPARISON: CT angio headneck* [id number] 08/26/2020 4:21 AM RADIATION DOSE METRICS: Total DLP (mGy-cm): 501.11 FINDINGS: ANTERIOR CIRCULATION: Right internal carotid artery: Intracranial segment is patent with no significant stenosis. No aneurysm. Right middle cerebral artery: No occlusion or significant stenosis. No aneurysm. Right anterior cerebral artery: No occlusion or significant stenosis. No aneurysm. Left internal carotid artery: Intracranial segment is patent with no significant stenosis. No aneurysm. Left middle cerebral artery: No occlusion or significant stenosis. No aneurysm. Left anterior cerebral artery: No occlusion or significant stenosis. No aneurysm. POSTERIOR CIRCULATION: Right vertebral artery: No occlusion or significant stenosis. No aneurysm. Left vertebral artery: No occlusion or significant stenosis. No aneurysm. Basilar artery: No occlusion or significant stenosis. No aneurysm. Right posterior cerebral artery: No occlusion or significant stenosis. No aneurysm. Left posterior cerebral artery: No occlusion or significant stenosis. No aneurysm. Brain: No definite mass, mass effect, or midline shift. Cerebral ventricles: No ventriculomegaly. Bones/joints: Unremarkable. No acute fracture. Soft tissues: Unremarkable. PROCEDURE INFORMATION: Exam: CTA Neck With Contrast Exam date and time: 06/04/2022 11:06 PM Age: 61 years old Clinical indication: Patient HX: Increased right side weakness. HX CVA TECHNIQUE: Imaging protocol: Computed tomographic angiography of the neck with contrast. 3D rendering (Not supervised by radiologist): MIP and/or 3D reconstructed images were created by the technologist. Radiation optimization: All CT scans at this facility use at least one of these dose optimization techniques: automated exposure control; mA and/or kV adjustment per patient size (includes targeted exams where dose is matched to clinical indication); or iterative reconstruction. Contrast material: OMNI 350; Contrast volume: 100 ml; Contrast route: INTRAVENOUS (IV); COMPARISON: CT angio headneck* [id number] 08/26/2020 4:21 AM RADIATION DOSE METRICS: Total DLP (mGy-cm): 501.11 FINDINGS: Right common carotid artery: No stenosis. No dissection or occlusion. Right internal carotid artery: Right ICA calcifications without significant stenosis. Right external carotid artery: No occlusion or stenosis of the origin. Left common carotid artery: No stenosis. No dissection or occlusion. Left internal carotid artery: Large amount of soft plaque in the proximal left ICA resulting in 85% stenosis. Left external carotid artery: No occlusion or stenosis of the origin. Right vertebral artery: No stenosis. No dissection or occlusion. Left vertebral artery: No stenosis. No dissection or occlusion. Other arteries: There is mild atherosclerotic disease. Soft tissues: Normal. No significant soft tissue swelling. Bones/joints: No acute fracture. CT/CT angio headneck* [id number] IMPRESSION: No large vessel occlusion or stenosis. IMPRESSION: Large amount of soft plaque in the proximal left ICA resulting in 85% stenosis. REFERENCES: NASCET CRITERIA. The degree of stenosis in the cervical segment of the internal carotid artery is based on NASCET criteria. Normal is no stenosis. Mild is less than 50% stenosis. Moderate is 50-69% stenosis. Severe is 70% to 99% stenosis. Total occlusion is no detectable patent lumen.
[2022-06-04 22:35] LABS: Alcohol Level < 10 mg/dL (0-10)
[2022-06-04 22:36] LABS: Creatine Phosphokinase 742 U/L (26-192); Magnesium 0.6 mg/dL (1.7-2.3); Potassium 2.6 mmol/L (3.5-5.1)
[2022-06-04 22:39] LABS: NT Pro B Type Natriuretic Pept 1758 pg/mL (0-125)
[2022-06-04] MEDS: iohexol 350 mg/mL 500 mL Btl (per mL) IV (22:52)
[2022-06-04 23:24] LABS: Amphetamines Screen Urine Negative (Negative); Barbiturates Screen Urine Negative (Negative); Benzodiazepines Screen Urine Positive (Negative); Cocaine Screen Urine Negative (Negative); Opiate Screen Urine Negative (Negative); PCP Screen Urine Negative (Negative); THC Screen Urine Negative (Negative)
[2022-06-04 23:26] LABS: Protein Urine Trace (Negative); Urine Appearance Clear (CLEAR); Urine Color Yellow (Yellow); pH Urine 6.5 (5-7)
[2022-06-04 23:27] LABS: Add Urine Microscopic? YES; Bilirubin Urine Neg (Negative); Blood Urine 2+ (Negative); Glucose Urine UA 4+ (Normal); Ketones Urine 3+ (Negative); Leukocyte Esterase Urine Negative (Negative); Nitrate Urine Negative (Negative); Urobilinogen Urine Neg (Negative)
[2022-06-04 23:32] LABS: Bacteria Urine TRACE /hpf; WBC Urine 0-4 /hpf (0-5)
[2022-06-04 23:33] LABS: Mucus Urine TRACE /hpf
[2022-06-04 23:37] LABS: Add Urine Culture? Yes
[2022-06-05] VITALS (108 sets, daily range): BP systolic 63–172; BP diastolic 40–93; PULSE 72–121; RESP 10–29; TEMP 36.8–37.5; O2SAT 92–100; BMI 33.3
[2022-06-05 00:09] LABS: Troponin 5 2HR 71.71 ng/L (0-10); Troponin 5 2HR Delta -5.29 ABS# (0-10)
[2022-06-05] MEDS: sodium chloride 0.9% 1,000 ML 999 ML IV (00:16)
[2022-06-05] MEDS: aspirin 325 mg Tablet PO (01:11)
[2022-06-05] MEDS: atorvastatin 40 mg Tablet 80 MG PO (01:12)
[2022-06-05] MEDS: clopidogrel 75 mg Tablet PO ×2 (01:12→08:34)
[2022-06-05] MEDS: enoxaparin 40 mg/0.4 mL Syringe SUBCUT (01:12)
--- NOTE | 2022-06-05 01:15 | P.HP_ITS ---
Providers/Chief Complaint Admitting Physician: More Cummins MD Primary Care Provider: Shamika Harding MD Chief Complaint: AMS History of Present Illness Maru Man is a 61 year old female with past medical history of anxiety, stroke, chronic back pain, COPD, diabetes, hypertension, NSTEMI, major depression, urinary incontinence, vertebral artery stenosis presented to the hospital today for altered mental status. Last known well is about 30 hours ago. All of her phone calls on her cell phone have been missed since then. EMS brought her to the hospital. She was found in her bed with her face against the bed rail. She has a pressure abrasion to left temporal face, pressure abrasion to left lateral wrist and blisters to the right heel. On arrival patient was quite confused and lethargic. She only knew her name but does not know where she was or what was going on. She was having trouble answering questions. NIH on arrival was 9. 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 Possibly embolic?. Mild parenchymal atrophy and chronic small vessel disease. Subsequently head and neck CTA was ordered which showed no large vessel occlusion or stenosis but did show large amount of soft plaque in proximal left internal carotid artery resulting in 85% stenosis. ER physician discussed with Dr. Cuevas and it was determined that patient is out of the window for any kind of intervention or tPA at this time. We will admit here for stroke at this time. WBC 15.3, hemoglobin 12.4, D-dimer 2.91, gas showed 7.48/36 point 2/72/20 6.9, sodium 138, potassium 3.6, creatinine 0.5, CO2 25, baseline troponin 77, delta troponin 2 hours -5, CRP 52, BNP 1700, CPK 700 range. Urine drug screen positive for benzodiazepines. UA showed 2+ blood, 3+ ketones, 4+ glucose. Negative for leukocyte esterase or nitrates. Alcohol level less than 10. Influenza, COVID negative, serum ketones negative. Hospitalist was requested to admit the patient at this time. ER physician mention to me the patient was starting to wake up at this time and starting to answer some questions. She also drank water and took her aspirin, Plavix, atorvastatin. Soon after as I arrived to the ER to evaluate the patient she was undergoing CPR. I was informed that patient had a tonic-clonic seizure and during the seizure became hypoxic and lost pulse. ROSC was achieved at around 10 minutes. Intraosseous access was obtained on right tibia. Fluid bolus was given. Patient was intubated. Central line was placed by ER doctor. Levophed was ordered. A gram of Keppra has been ordered at this time. At time of my evaluation of the patient she was already intubated. Called family and discussed with patient's [id number] in [place] and her ex- that her last known normal was Monday afternoon. They said that she mentioned that there was something wrong with her head feeling heavy and she told her family that she is going to rest. She was then found at home wedged between her bed and dresser. She has had a stroke before but had no neurological deficits. Medications/Allergies Home Medications Medication Instructions Recorded Confirmed Last Taken Type fluticasone propionate 50 2 spray intranasal DAILY #16 grams 08/05/20 05/25/22 Unknown Rx mcg/actuation nasal spray,suspension (Flonase Allergy Relief) albuterol sulfate 2.5 mg/3 mL 2.5 mg inhalation Q6H PRN 12/31/20 05/25/22 Unknown History (0.083 %) solution for nebulization Shortness Of Breath lidocaine 5 % topical ointment 1 applic topical TID PRN pain #60 12/31/20 05/25/22 Unknown Rx grams topiramate 50 mg tablet 50 mg PO DAILY 12/31/20 05/25/22 05/08/22 History oxybutynin chloride 5 mg tablet 5 mg PO DAILY #30 tabs 03/15/21 05/25/22 05/08/22 Rx clopidogrel 75 mg tablet (Plavix) 75 mg PO DAILY #30 tabs 05/17/21 05/25/22 05/08/22 Rx albuterol sulfate 90 mcg/actuation 2 puff inhalation Q6H PRN 07/02/21 05/25/22 Unknown Rx aerosol inhaler (ProAir HFA) Shortness Of Breath #8.5 grams insulin glargine 100 unit/mL 100 unit SUBCUT BID see pharmacy 09/06/21 05/25/22 05/08/22 Rx subcutaneous solution (Lantus comments 90 days #180 mL U-100 Insulin) ondansetron 8 mg disintegrating 8 mg PO Q8H PRN nausea and 11/03/21 05/25/22 Unknown Rx tablet vomiting 4 days #14 tabs duloxetine 60 mg capsule,delayed 60 mg PO DAILY DEPRESSION / NERVE 11/16/21 122 01/1705/08/22 Rx release PAIN #90 caps triamcinolone acetonide 0.1 % See Rx Instructions .Route 12/21/21 05/25/22 Unknown Rx topical cream .COMPLEX #80 grams amlodipine 5 mg tablet 5 mg PO DAILY #90 tabs 01/06/22 05/25/22 02/03/22 Rx docusate sodium 100 mg capsule 100 mg PO BID 02/03/22 05/25/22 05/08/22 History diazepam 5 mg tablet 5 mg PO BID PRN anxiety #60 tabs 02/15/22 05/25/22 Unknown Rx potassium chloride 20 mEq 20 meq PO DAILY for low potassium 02/15/22 05/25/22 05/08/22 Rx tablet,extended release(part/cryst) #20 tabs walker #1 ea 02/21/22 05/25/22 Unknown Rx hinged knee brace #1 ea 03/02/22 05/25/22 Unknown Rx pantoprazole 40 mg tablet,delayed 40 mg PO DAILY #30 tabs 04/15/22 05/25/22 05/08/22 Rx release (Protonix) sitagliptin 100 mg tablet (Januvia) 100 mg PO DAILY #90 tabs 04/19/22 05/25/22 05/08/22 Rx cetirizine 10 mg tablet 10 mg PO DAILY PRN Allergic 05/09/22 05/25/22 Unknown History Reaction hydrocodone 10 mg-acetaminophen 1 tab PO Q8H PRN Pain 05/09/22 05/25/22 Unknown History 325 mg tablet ondansetron 4 mg disintegrating 4 mg PO Q8H PRN nausea and 05/09/22 05/25/22 Unknown Rx tablet vomiting #15 tabs oxycodone 5 mg tablet 5 mg PO Q4H PRN pain #10 tabs 05/09/22 05/25/22 Unknown Rx potassium chloride 20 mEq 20 meq PO BID #6 tabs 05/09/22 05/25/22 Unknown Rx tablet,extended release pregabalin 100 mg capsule (Lyrica) 100 mg PO BID 05/09/22 05/25/22 05/08/22 History hydrocodone 10 mg-acetaminophen 1 tab PO Q8H PRN Pain 30 days #90 05/13/22 05/25/22 Unknown Rx 325 mg tablet tabs ciprofloxacin HCl 500 mg tablet 500 mg PO BID 10 days #20 tabs 05/17/22 05/25/22 Unknown Rx (Cipro) metronidazole 500 mg tablet 500 mg PO BID 10 days #20 tabs 05/17/22 05/25/22 Unknown Rx potassium chloride 20 mEq/15 mL 20 meq (15 mL) PO BID 2 days #60 mL 05/18/22 05/25/22 Unknown Rx oral liquid ondansetron 4 mg disintegrating 4 mg PO Q6H PRN nausea and 05/26/22 Unknown Rx tablet vomiting #14 tabs Allergies Allergy/AdvReac Type Severity Reaction Status Date / Time metformin Allergy upset Verified 05/25/22 10:13 stomach Sulfa (Sulfonamide Allergy upsets Verified 05/25/22 10:13 Antibiotics) stomach PFSH Acute PFSH: Medical History Acute right arterial ischemic stroke, middle cerebral artery (MCA) Currently no residual weakness. Anxiety Cerebrovascular accident Chest pain Chronic back pain COPD (chronic obstructive pulmonary disease) CVA (cerebral vascular accident) Diabetes Hypertension Hypoestrogenism Lumbar disc disease Nicotine dependence with current use NSTEMI (non-ST elevated myocardial infarction) TYPE II M.I Recurrent major depression Right cavernous carotid stenosis Urinary incontinence Vertebral artery stenosis Surgical History History of bladder surgery History of cholecystectomy History of total hysterectomy Family History Grandfather CAD (coronary artery disease) Hypertension Myocardial infarction Mother Cancer Father Cancer Brother CAD (coronary artery disease) Myocardial infarction Sister Stroke Diabetes Family/Other Diabetes Social History Smoking and tobacco status: current every day smoker cigarettes Packs smoked per day: 1 Years cigarettes smoked: 28 Alcohol intake: never Lives independently: Yes Housing: House Vitals/I&O/Wt Last Vital Signs Temp 98.8 F 06/04/22 20:35 Pulse 100 06/04/22 22:30 Resp 22 H 06/04/22 22:30 BP 145/83 06/04/22 22:30 Pulse Ox 99 06/04/22 22:50 O2 Del Method 06/04/22 21:48 06/04/22 06/04/22 06/05/22 14:59 22:59 06:59 Intake Total 1000 / 1000 Balance 1000 / 1000 Weight last 48 hrs Weight 111.13 kg Physical Exam Narrative: General: Intubated, sedated, obese female laying in bed HEENT: Normocephalic, atraumatic, EOMI, no acute respiratory distress. Cardio: Regular rate rhythm, normal S1-S2, Respiratory: Rhonchi bilaterally GI: Abdomen soft, nontender, does not grimace to palpation, bowel sounds + Extremities: No lower extremity edema present. Urinary Catheter Management: Candelaria: Cath Placed During This Visit: yes Urinary Catheter Date of Insertion: 06/05/22 Data 06/04/22 21:45 06/04/22 21:45 Micro: Microbiology 06/04/22 21:38 Blood Culture - Preliminary Blood SPECIMEN COLLECTED 06/04/22 21:45 Blood Culture - Preliminary Blood SPECIMEN COLLECTED A&P Assessment and plan (1) Hypomagnesemia: (2) Hypokalemia: (3) Morbid obesity with BMI of 40.0-44.9, adult: (4) Anxiety: (5) Hypertension: Qualifiers: Hypertension type: essential hypertension Qualified Code(s): I10 - Essential (primary) hypertension (6) Cerebrovascular accident: Qualifiers: CVA mechanism: embolism Laterality of affected vessel: left Precerebral and cerebral artery: middle cerebral artery Qualified Code(s): I63.412 - Cerebral infarction due to embolism of left middle cerebral artery (7) Diabetes: Qualifiers: Diabetes mellitus complication status: without complication Diabetes mellitus intermediate card tender insulin use: with mcfp use Diabetes mellitus type: type 2 Qualified Code(s): E11.9 - Type 2 diabetes mellitus without complications; Z79.4 - [facility] (current) use of insulin (8) Smoking: (9) Chronic deep vein thrombosis (DVT) of both lower extremities: Qualifiers: Affected thrombotic vein of extremity: femoral Qualified Code(s): I82.513 - Chronic embolism and thrombosis of femoral vein, bilateral Plan #Vent dependent respiratory failure #S/p cardiac arrest ROSC achieved #Tonic-clonic seizure witnessed by ER physician #Multiple infarcts in MCA territory/cerebrovascular accident, very recent ? Last known normal 30 hours #85% proximal internal carotid artery stenosis. #Rhabdomyolysis, CPK slightly elevated at 742. #Severe hypokalemia, severe hypomagnesemia #History of previous stroke #Anxiety, depression #COPD #Diabetes #Hypertension -Last known normal 30 years ago. Case discussed with neurology over the phone. Patient not a candidate for tPA regular endovascular intervention at this time based on her scans. ? Continue Plavix, aspirin 325, atorvastatin 80 ? Placed orogastric tube -Continue Levophed ? Check blood culture, sputum culture gram stain, urine culture ? Place Candelaria catheter ? Allow permissive hypertension. Patient requiring pressor at this time ? Propofol and fentanyl for sedation and pain ? Continue duloxetine ? Hold Lyrica and diazepam at this time, hold amlodipine ? Check blood gas ? We will need to confirm home medications from patient's pharmacy in a.m. ? Glucose is 332. Moderate intensity sliding scale insulin ? Accu-Chek every 6 hours ? Check echo. ? Placed on cardiac telemetry ? Continue IV fluids 125 cc/hr - BNP is elevated at 1700 however patient clinically appears on the dry side. - Magnesium 4 g IV x1, potassium 40 IV x1 ? Leukocytosis 15.3 most likely reactive. Patient is afebrile. She did recently see her primary care doctor on 05/25 for complaint of congestion and diarrhea. She was levofloxacin and Flagyl for 10 days. -We will place on broad-spectrum antibiotics empirically till further work-up is back. Vancomycin and Zosyn -Consider vascular surgery consult regarding carotid artery stenosis. There is soft plaque noted in internal carotid artery at the proximal region. That does put her at a high risk for another stroke. -We will load with Keppra 1 g at this time. Patient has no known history of seizures. Full code . Prophylaxis: Lovenox 40 daily Attestations Medical Necessity Statement*: Will cross greater than 2 midnight stay for management of rhabdomyolysis, stroke, seizure, other dependent respiratory failure status postcardiac arrest. Critical Care Time: The high probability of a clinically significant, sudden or life threatening deterioration of the patient's [cardiovascular, respiratory] system(s) required my full and direct attention, intervention and personal management. The critical care time is as shown. This time is in addition to time spent performing any reported procedures but includes the following: [x] Data and vital sign review and interpretation [x] Patient assessment, examination and intervention [x] Documentation [x] Medication orders and management Critical Care Time (min): 75 Coding Level of Care Code Acute Corner Cutter for Chg Fwd Diagnoses Hypomagnesemia E83.42 Hypokalemia E87.6 Morbid obesity with BMI of 40.0-44.9, adult E66.01; Z68.41 Anxiety F41.9 Hypertension I10 Hypertension type: essential hypertension Cerebrovascular accident I63.412 CVA mechanism: embolism Laterality of affected vessel: left Precerebral and cerebral artery: middle cerebral artery Diabetes E11.9; Z79.4 Diabetes mellitus complication status: without complication Diabetes mellitus mcfp insulin use: with intermediate card tender use Diabetes mellitus type: type 2 Smoking F17.200 Chronic deep vein thrombosis (DVT) of both lower extremities I82.513 Affected thrombotic vein of extremity: femoral
[2022-06-05] MEDS: potassium chloride premix 100 ML 50 MEQ IV (01:18)
[2022-06-05] MEDS: succinylcholine 20 mg/mL SDV 10mL 150 MG IVP (01:44)
[2022-06-05] MEDS: etomidate 2 mg/mL INJ SDV 10 mL 30 MG IVP (01:44)
--- NOTE | 2022-06-05 01:53 | XRR_ITS ---
PROCEDURE INFORMATION: Exam: XR Chest Exam date and time: 06/05/2022 2:04 AM Age: 61 years old Clinical indication: Other vascular access device placement or adjustment; Central line, non-tunnelled; Patient HX: Post intubation and central line placement TECHNIQUE: Imaging protocol: Radiologic exam of the chest. Views: 1 view. COMPARISON: CR (CHEST, ) 06/04/2022 9:09 PM FINDINGS: Tubes, catheters and devices: Endotracheal tube is in good position. Right central venous catheter with tip overlying the right atrium. Lungs: Hazy bilateral pulmonary opacities which may be secondary to atelectasis, edema or pneumonia. Pleural spaces: No pneumothorax. Heart/Mediastinum: Unremarkable. No cardiomegaly. Bones/joints: Unremarkable. XR/XR chest 1V portable [id number] IMPRESSION: 1. Right central venous catheter with tip overlying the right atrium. No pneumothorax. 2. Hazy bilateral pulmonary opacities which may be secondary to atelectasis, edema or pneumonia.
[2022-06-05] MEDS: propofol 1,000 MG/100 ML INJ 10 MG (01:58)
[2022-06-05 02:00] LABS: ABG PCO2 54.6 mmHg (35-45); ABG PH Result 7.22 (7.35-7.45); Arterial Blood Gas Hematocrit 38.6 % (37-47); Base Excess ABG -6.1 mmol/L (-2.0-2.0); Blood Gas Allen Test Pos; Blood Gas Sample Site Radial, right; Blood Gas Sample Type Arterial; HCO3 ABG 22.1 mmol/L (22-26); Oxygen Device VENT; PO2 ABG 98.6 mmHg (80.0-100.0)
--- NOTE | 2022-06-05 02:48 | ECG_ITS ---
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 Measurements Intervals [place] Rate: 87 P: 44 LA: 145 QRS: -37 QRSD: 106 T: 75 QT: 451 QTc: 545 Interpretive Statements SINUS RHYTHM LEFT AXIS DEVIATION [QRS AXIS < -30] MODERATE VOLTAGE CRITERIA FOR LVH, CONSIDER NORMAL VARIANT [MEETS CRITERIA IN ONE OF: R(aVL), S(V1), R(V5), R(V5/V6)+S(V1)] NONSPECIFIC ST & T-WAVE ABNORMALITY PROLONGED QT INTERVAL Compared to ECG 06/04/2022 20:48:50 Left-axis deviation now present T-wave abnormality now present Prolonged QT interval now present Sinus tachycardia no longer present Electronically Signed On 06-05-2022 20:21:31 PNEUMATIC TESTER MECHANIC by Fermín Martinez M.D. [id number]
--- NOTE | 2022-06-05 03:42 | USCV_ITS ---
Maru Man Age: 61 Gender: F : 1960 Exam Date: 06/05/2022 09:12 Ordering Phys: More Cummins MD Technologist: REYES Exam Location: [facility] – [place] Indication: multiple brain infarct BP: 102 / 55 HR: 79 Rhythm: Sinus Technical Quality: Adequate MEASUREMENTS (Male / Female) Normal Values 2D ECHO LVOT Diameter 2.1 cm LV Ejection Fraction MOD 2C 58.5 % LV Ejection Fraction 2C AL 58.0 % LA Diameter 3.8 cm IVC Diameter 1.8 cm M-MODE Aortic Annulus Diameter 2.9 cm LA Ao Ratio MM 1.5 MV E Point Septal Separation 0.3 cm DOPPLER AV Peak Velocity 314.0 cm/s LVOT Peak Velocity 195.0 cm/s AV Area Cont Eq vti 2.6 cm squared AV Area Cont Eq pk 2.1 cm squared MV Area PHT 3.1 cm squared Mitral E to A Ratio 0.9 MV E' Velocity 43.5 cm/s Mitral E to MV E' Ratio 11.9 Mitral E to LV E' Lateral Ratio 11.1 Mitral E to LV E' Septal Ratio 13.1 TR Peak Velocity 197.8 cm/s TR Peak Gradient 15.6 mmHg TV Peak E Velocity 63.0 cm/s Right Atrial Pressure 3.0 mmHg Pulmonary Artery Systolic Pressu 18.6 mmHg FINDINGS Left Ventricle Normal left ventricular size and systolic function, EF 58 %. Mild left ventricular hypertrophy. No regional wall motion abnormalities. Grade I/IV diastolic dysfunction (abnormal relaxation filling pattern), normal to mildly elevated filling pressures. Right Ventricle The right ventricle is normal in size and function. Right Atrium The right atrium is normal in size. Left Atrium Mildly increased left atrial size. Mitral Valve Mild-moderate mitral valve regurgitation. Aortic Valve Thickened aortic valve. Tricuspid Valve No gross abnormalities noted.trace tricuspid valve regurgitation. Estimated pulmonary artery peak systolic pressure of 19 mmHg Pulmonic Valve No Gross abnormalities noted Pericardium No pericardial effusion. Aorta Normal ascending aorta dimension. IVC The inferior vena cava appears normal. CONCLUSIONS Normal left ventricular size and systolic function, EF 58 %. Mild left ventricular hypertrophy. No regional wall motion abnormalities. Grade I/IV diastolic dysfunction (abnormal relaxation filling pattern), normal to mildly elevated filling pressures. Mildly increased left atrial size. Mild-moderate mitral valve regurgitation. Trace tricuspid valve regurgitation. Estimated pulmonary artery peak systolic pressure of 19 mmHg There is no pericardial effusion. There are no intracardiac masses. Compared to the study from 08/26/2020, there may not be a significant change Dr Fermín Martinez MD FAC (Electronically Signed) Final Date: 05 June 2022 13:22 S
[2022-06-05] MEDS: propofol 1,000 MG/100 ML INJ 26.67 MG IV ×2 (03:45→06:10)
[2022-06-05 03:51] LABS: ABG PCO2 40.3 mmHg (35-45); ABG PH Result 7.39 (7.35-7.45); Arterial Blood Gas Hematocrit 36.8 % (37-47); Base Excess ABG -0.7 mmol/L (-2.0-2.0); Blood Gas Allen Test Pos; Blood Gas Sample Site Radial, right; Blood Gas Sample Type Arterial; Blood Gas Tidal Volume 0.43; HCO3 ABG 24.3 mmol/L (22-26); Oxygen Device VENT
[2022-06-05] MEDS: magnesium sulfate premix 4 GM/100 ML PREMIX IV (03:52)
[2022-06-05] MEDS: sodium chloride 0.9% 1,000 ML 75 ML IV (04:12)
--- NOTE | 2022-06-05 04:14 | XRR_ITS ---
PROCEDURE INFORMATION: Exam: XR Abdomen Exam date and time: 06/05/2022 4:44 AM Age: 61 years old Clinical indication: Device placement; Gi device; Nasogastric tube; Additional info: Ng placement TECHNIQUE: Imaging protocol: Radiologic exam of the abdomen. Views: Frontal supine view of the abdomen. 1 View. COMPARISON: CT abdomen pelvis w con* [id number] 05/09/2022 1:25 PM FINDINGS: Tubes, catheters and devices: Endotracheal tube is in the right mainstem bronchus and should be withdrawn approximately 3 cm. The NG tube side port is in the distal esophagus and should be advanced approximately 5.4 cm. Lungs: Hazy left basilar opacity which could be secondary to atelectasis or pneumonia. Gastrointestinal tract: Normal. No bowel dilation. Organs: There has been a cholecystectomy. Bones/joints: kyphoplasty has been performed at multiple thoracic levels. XR/XR KUB portable [id number] IMPRESSION: 1. Endotracheal tube is in the right mainstem bronchus and should be withdrawn approximately 3 cm. 2. The NG tube side port is in the distal esophagus and should be advanced approximately 5.4 cm. 3. Hazy left basilar opacity which could be secondary to atelectasis or pneumonia.
[2022-06-05] MEDS: vancomycin 1,500 MG/300 ML PIGGYBACK 200 MG IV (04:35)
--- NOTE | 2022-06-05 05:39 | XRR_ITS ---
PROCEDURE INFORMATION: Exam: XR Chest Exam date and time: 06/05/2022 6:52 AM Age: 61 years old Clinical indication: Device placement; Other: Etand og; Additional info: Verify adjustment of et and og tubes TECHNIQUE: Imaging protocol: Radiologic exam of the chest. Views: 1 view. COMPARISON: CR (CHEST, ) 06/05/2022 2:04 AM FINDINGS: Tubes, catheters and devices: Endotracheal tube approximately 1 cm above the carson. An enteric tube is noted extending below the level of the diaphragm and out of the field of view. Right-sided central venous line with the distal tip extending to the right atrium into the IVC. Lungs: Low lung volumes. Ground-glass densities in the central portion of the lungs. No dense confluent lobar opacities identified. Pleural spaces: Small left-sided pleural effusion. Heart/Mediastinum: Heart is mildly enlarged, possibly exaggerated due to low lung volumes and AP projection. Bones/joints: Post vertebroplasty changes noted in the lower thoracic spine. Intraperitoneal space: Surgical clips in the right upper quadrant. XR/XR chest 1V portable [id number] IMPRESSION: 1. Endotracheal tube approximately 1 cm above the carson. 2. An enteric tube is noted extending below the level of the diaphragm and out of the field of view. 3. Small right-sided pleural effusion. 4. Possible pulmonary edema.
--- NOTE | 2022-06-05 05:46 | PC.NURSE ---
Code BLue Aprox 0135- pt appeared to have a seizure. LImbs went ridged and eyes rolled back. Yelled for assistance and Provider, charge nurse Lianne guallpa, Cody Saenz in room with crash cart. Compressions started on pt after pulse check and pads placed. Bag mask used to ventilate until patient was intubated. Central line placed.
[2022-06-05 06:06] LABS: Troponin 5 6HR 96.31 ng/L (0-10)
[2022-06-05 06:10] LABS: Troponin 5 6HR Delta 19.31 ng/L (0-12)
[2022-06-05] MEDS: piperacillin-tazobactam 3.375 GM in sodium chloride 0.9% (plus) 50 ML IV (06:22)
[2022-06-05] MEDS: ipratropium-albuterol 3 mL Neb INHALATION ×3 (07:53→20:15)
[2022-06-05] MEDS: duloxetine 60 mg Capsule PO (08:34)
[2022-06-05] MEDS: pantoprazole 40 mg SDV IVP (08:34)
--- NOTE | 2022-06-05 09:53 | PC.OT ---
OT orders received to evaluate and treat. Pt. intubated at this time. Evaluation to be attempted when pt. is no longer intubated.
--- NOTE | 2022-06-05 10:08 | CTR_ITS ---
PROCEDURE INFORMATION: Exam: CT Head Without Contrast Exam date and time: 06/05/2022 10:26 AM Age: 61 years old Clinical indication: Other: Stroke follow up TECHNIQUE: Imaging protocol: Computed tomography of the head without contrast. Radiation optimization: All CT scans at this facility use at least one of these dose optimization techniques: automated exposure control; mA and/or kV adjustment per patient size (includes targeted exams where dose is matched to clinical indication); or iterative reconstruction. 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 No acute intracranial hemorrhage identified. No significant mass effect. Midline shift. Subcortical and periventricular white matter hypoattenuation likely consistent with mild chronic microvascular ischemic disease. Cerebral ventricles: The ventricles are within normal limits. Paranasal sinuses: The visualized sinuses are unremarkable. Mastoid air cells: The visualized mastoid air cells are well aerated. Bones/joints: The osseous structures are intact. Soft tissues: Unremarkable. CT/CT head wo con* [id number] IMPRESSION: 1. Left cerebral infarcts again noted, without significant change from prior exam. No intracranial hemorrhage. No significant mass effect. 2. Mild chronic microvascular ischemic disease.
--- NOTE | 2022-06-05 10:31 | PC.SLP ---
Orders received, chart reviewed. Patient is currently intubated and cannot participate in a bedside swallowing evaluation. Will continue to monitor and assess when appropriate.
[2022-06-05] MEDS: perflutren protein-a microsphr 0.22 mg/mL SDV 3 mL IV (10:35)
--- NOTE | 2022-06-05 11:49 | PC.PHAR ---
PT IS INTUBATED AND UNABLE TO VERIFY MEDICATIONS-[facility] IS CLOSED ON MONDAY TO VERIFY WHEN MEDICATIONS WERE LAST FILLED-MEDICATIONS ENTERED ARE WHAT MEDS SHOWS HAS BEEN FILLED RECENTLY FROM EXT MED HISTORY AND WHAT WAS ENTERED ON PREVIOUS ENTERED MED LIST-SEE ALL NOTES IN PHARMACY COMMENTS FOR LAST FILLED DATES ACCORDING TO EXT MED HISTORY AND WHICH MEDICATIONS WERE FROM PREVIOUS ENTERED MED LIST
--- NOTE | 2022-06-05 11:53 | PM.MISC ---
Miscellaneous Note Note: Overnight events noted Conducted family meeting as well Niece and sister live in [place], stating that son refused to comment who also lives in [place], she tried to live with him but came back after 2 days they did not have a good relationship Patient is intubated and sedated PEEP 5 respiratory rate 14 FiO2 40% Currently on Levophed at 4 mics On propofol and fentanyl Patient is localizing pain with her left hand She has shown some movement on her ankle joint as well Not opening eyes Abdomen soft Right IJ in place Candelaria cath draining dilute urine Sinus rhythm on telemetry Neuro exam limited Bilateral assisted breath sounds Respiratory failure requiring mechanical ventilation status postcardiac arrest Patient is showing some movement of left arm and some movement at ankle joint Does not meet criteria for TTM Most likely cardiac arrest was related to an episode of seizure causing hypoxia, code ran for about 10 minutes Our short-term plan is to wean her off ventilator, assess mental faculties once she is extubated, she does not have any medical power of collections attorney family is out of state, if she is not able to make any decisions we might have to pursue guardianship for her Acute CVA, left ICA 80% stenosis Seizure related to stroke? Versus hypoxia Patient will benefit from dual antiplatelet therapy and carotid intervention once she is extubated and able to make decision for herself Dr. Cuevas did not recommend tPA or thrombectomy I will continue n.p.o. diet because of vasopressor use, might start NG feed in next 24 hours if you are not able to extubate her My plan today is to wean off ventilator once we are able to turn off Levophed Asked ICU nurse to wean off propofol first Continue IV fluids at 75/h, aspirin and Plavix along with atorvastatin via NG tube Patient does not need scheduled doses of antiepileptics, she got 1 g in the ER No recurrence of seizure-like activities In case of any recurrence will use Versed Guarded prognosis N.p.o. Patient is full code Continue Lovenox
--- NOTE | 2022-06-05 11:59 | USCV_ITS ---
Maru Man Age: 61 Gender: F : 1960 Exam Date: 06/05/2022 12:30 Ordering Phys: Chad Diaz MD Technologist: REYES [place] [facility] [place]: cardiac [place] BP: / HR: Rhythm: Sinus Technical Quality: Adequate MEASUREMENTS (Male / Female) Normal Values FINDINGS Left Ventricle Normal left ventricular size and systolic function, EF55%. No regional wall motion abnormalities. Right Ventricle The right ventricle is normal in size and function. Right Atrium The right atrium is normal in size. Left Atrium Mildly increased left atrial size. Mitral Valve Minimal chordal DON was noted Aortic Valve No gross abnormalities noted Tricuspid Valve No gross abnormalities noted Pulmonic Valve No gross abnormalities noted Pericardium Normal pericardium without effusion. Aorta Normal ascending aorta dimension. IVC Normal inferior vena cava. CONCLUSIONS Normal left ventricular size and systolic function, EF55%. No regional wall motion abnormalities. Mildly increased left atrial size. There is no pericardial effusion. There are no intracardiac masses. Minimal chordal DON was noted. There is no pericardial effusion. There are no intracardiac masses. Dr Fermín Martinez MD FACC (Electronically Signed) Final Date: 05 June 2022 13:42 S
[2022-06-05] MEDS: enoxaparin 100 mg/mL Syringe 90 MG SUBCUT (12:46)
[2022-06-05] MEDS: lidocaine 1% 5 ML in potassium chloride premix 100 ML 25 ML IV ×2 (12:46→16:24)
[2022-06-05 13:10] LABS: Magnesium 1.7 mg/dL (1.7-2.3)
[2022-06-05 13:13] LABS: D Dimer 9.61 ug/mIFEU (0-0.59)
[2022-06-05 13:16] LABS: Potassium 2.4 mmol/L (3.5-5.1)
--- NOTE | 2022-06-05 15:25 | PC.RESP ---
PLACED PT. VENT MODE ON PSV 12/ 35%. RR 33 VT UNDER 300 WITH A RSBI 93-103. PLACED BACK ON AC MODE
[2022-06-05] MEDS: FUROsemide 10 mg/mL SDV 2mL 20 MG IVP (20:37)
[2022-06-06] VITALS (56 sets, daily range): BP systolic 93–161; BP diastolic 58–97; PULSE 61–96; RESP 18–33; TEMP 36.8–37.2; O2SAT 90–100; BMI 33.3
[2022-06-06] MEDS: enoxaparin 100 mg/mL Syringe 90 MG SUBCUT ×2 (01:15→11:19)
[2022-06-06 03:16] LABS: Basophils % 0.3 %; Eosinophils % 0.3 %; Hematocrit 32.5 % (37.0-47.0); Lymphocytes # 1.9 10^3/uL (0.8-4.8); Lymphocytes % 15.3 %; Mean Corpuscular HGB Conc 30.8 g/dL (30.0-36.0); Mean Corpuscular Hemoglobin 26.7 pg (28.0-34.0); Mean Corpuscular Volume 86.7 fl (81-99); Mean Platelet Volume 10.7 fL (7.4-10.4); Monocytes # 0.6 10^3/uL (0.2-0.9); Monocytes % 4.6 %; Neutrophils # 9.97 10^3/uL (1.8-7.7); Neutrophils % 78.6 %; Nucleated Red Blood Cells % 0 %; Platelet Count 270 10^3/cmm (130-400); Red Blood Count 3.75 10^6/uL (4.1-5.3); Red Cell Distribution Width 16.9 % (12.1-15.1); White Blood Count 12.7 10^3/uL (4.0-10.0)
[2022-06-06] MEDS: ipratropium-albuterol 3 mL Neb INHALATION ×4 (03:24→19:57)
[2022-06-06 03:48] LABS: ABG PCO2 27.3 mmHg (35-45); Arterial Blood Gas Hematocrit 33.6 % (37-47); Base Excess ABG 3.2 mmol/L (-2.0-2.0); Blood Gas Allen Test Pos; Blood Gas Sample Site Radial, right; Blood Gas Sample Type Arterial; Blood Gas Tidal Volume 0.43; HCO3 ABG 24.7 mmol/L (22-26); Oxygen Device VENT; PO2 ABG 91.3 mmHg (80.0-100.0)
[2022-06-06 03:51] LABS: ABG PH Result 7.57 (7.35-7.45)
[2022-06-06 03:52] LABS: Lactate (Lactic Acid level) 1.1 mmol/L (0.5-2.2)
[2022-06-06 03:54] LABS: Anion Gap 13.9 (5-19); Blood Urea Nitrogen 5 mg/dL (8-23); Carbon Dioxide 24 mmol/L (22-29); Chloride 106 mmol/L (98-107); Glomerular Filtration Rate 124.6 mL/min (90-130); Glucose 282 mg/dL (65-115); NT Pro B Type Natriuretic Pept 1058 pg/mL (0-125); Osmolality Calculated 299 mOsm/kg (285-295); Sodium 141 mmol/L (136-145)
[2022-06-06 04:15] LABS: Potassium 2.9 mmol/L (3.5-5.1)
[2022-06-06] MEDS: potassium chloride premix 100 ML 25 MEQ IV ×2 (05:09→12:54)
--- NOTE | 2022-06-06 08:00 | USCV_ITS ---
Maru Man Age: 61 Gender: F : 1960 Exam Date: 06/06/2022 08:28 Ordering Phys: Chad Diaz MD Technologist: CT Exam Location: [facility] [place] Indication: swelling PROCEDURES: Bilaterally, the common femoral, superficial femoral, profunda femoral, popliteal, posterior tibial, greater saphenous veins, and the peroneal trunk were identified and interrogated in the standard fashion. These veins were found to be easily compressible with spontaneous blood flow. No evidence of insufficiency or thrombus noted. In addition, the posterior tibial and peroneal trunk were evaluated. FINDINGS: normal us CONCLUSIONS No evidence of right lower extremity DVT. No evidence of left lower extremity DVT. Michael Benitez MD (Electronically Signed) Final Date: 06 June 2022 09:59 S
[2022-06-06] MEDS: aspirin 81 mg EC Tablet PO (08:07)
[2022-06-06] MEDS: atorvastatin 40 mg Tablet 80 MG PO (08:07)
[2022-06-06] MEDS: pantoprazole 40 mg SDV IVP (08:07)
[2022-06-06] MEDS: clopidogrel 75 mg Tablet PO (08:07)
[2022-06-06] MEDS: dexmedetomidine 400 MCG in sodium chloride 0.9% (100 ml) 100 ML IV (09:43)
--- NOTE | 2022-06-06 10:08 | P.PN_ITS ---
Subjective Subjective: This morning weaning trial was successful, we extubated her to 5 L nasal cannula saturating 95% She is able to follow commands Will do PT OT ST today Hemodynamically stable Afebrile CT chest rule out PE she was started on therapeutic Lovenox yesterday Potassium 2.9 being repleted Vitals/I&O/Wt Last Vital Signs Temp 99.0 F 06/06/22 08:00 Pulse 89 06/06/22 08:10 Resp 32 H 06/06/22 09:44 BP 147/76 06/06/22 08:00 Pulse Ox 93 06/06/22 09:44 O2 Del Method 06/06/22 08:00 FiO2 35 06/06/22 09:44 06/05/22 06/06/22 06/06/22 22:59 06:59 14:59 Intake Total 1259.833 / 1655.467 0 / 1655.467 100 / 100 Output Total 2100 / 2100 950 / 3050 Balance -840.167 / -444.533 -950 / -1394.533 100 / 100 Weight last 48 hrs Weight 93.803 kg Weight 93.803 kg Weight 93.803 kg Weight 111.13 kg Physical Exam Narrative: Patient is awake and alert Right-sided dense weakness Able to use her left arm and left lower extremity Able to follow commands appropriately Currently on 5 L nasal cannula 95% S1, S2 Abdomen soft Clinically does not look fluid overloaded Bilateral breath sounds with crackles Urinary Catheter Management: Candelaria: Cath Placed During This Visit: yes Reason for Continuing Indwelling Catheter: Accurate Measurement of Urinary Output in Critically Ill Patients Urinary Catheter Date of Insertion: 06/05/22 Urinary Catheter Time of Insertion: 02:00 Data 06/06/22 02:45 06/06/22 02:45 Micro: Microbiology 06/04/22 21:38 Blood Culture - Preliminary Blood NEGATIVE TO DATE 06/04/22 21:45 Blood Culture - Preliminary Blood NEGATIVE TO DATE 06/05/22 08:50 Gram Stain - Final Sputum - Endotracheal Tube Aspirate A&P Assessment and plan (1) Cardiac arrest: (2) Hypokalemia: (3) NSTEMI (non-ST elevated myocardial infarction): (4) Acute CVA (cerebrovascular accident): (5) Smoking: (6) Diabetes: Qualifiers: Diabetes mellitus type: type 2 Diabetes mellitus fpc insulin use: with middle or intermediate school principal use Diabetes mellitus complication status: without complication Qualified Code(s): E11.9 - Type 2 diabetes mellitus without complications; Z79.4 - residential (current) use of insulin (7) Hypertension: Qualifiers: Hypertension type: essential hypertension Qualified Code(s): I10 - Essential (primary) hypertension (8) Chronic deep vein thrombosis (DVT) of both lower extremities: Qualifiers: Affected thrombotic vein of extremity: femoral Qualified Code(s): I82.513 - Chronic embolism and thrombosis of femoral vein, bilateral Plan Respiratory failure requiring clinical ventilation Patient has been successfully extubated on 06/06 Acute CVA MCA territory thromboembolic CVA causing seizures Hypoxia during seizure leading to cardiac arrest, my concern is related to acute PE leading to cardiac arrest as well that is why requesting CTA chest, she carries history of chronic DVTs, D-dimer is extremely high was started on therapeutic Lovenox Patient was intubated at the time of admission 10 minutes of CPR Patient has neurological deficits related to her acute CVA Will need PT/OT/ST Acute hypoxia requiring 4 L of oxygen postextubation saturating 95%, wean oxygen gradually Diastolic CHF exacerbation Continue low-dose Lasix Hypokalemia: Repleted Check magnesium Patient lives alone, son lives in [place], does not have good relationship with children Patient will need care home for rehab Patient has done remarkably well despite her cardiac arrest, recent CVA Speech evaluation is pending which will decide her for the prognosis Full code We will start her on dysphagia diet Attestations Medical Necessity Statement*: Continue ICU management Critical Care Time: 45 Coding Level of Care Code 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
[2022-06-06 11:05] LABS: Estmated Average Glucose 252; Hemoglobin A1C 10.4 % (4.0-6.0)
[2022-06-06 11:19] LABS: Glucose Point of Care 276 mg/dL (70-110)
[2022-06-06] MEDS: insulin lispro 100 unit/1 mL SUBCUT ×2 (11:19→17:09)
--- NOTE | 2022-06-06 12:11 | PC.CHAP ---
Pastoral Care Encounter/Spiritual Assessment Type of Contact [] Declined coffee roaster visit [] Patient/Family/Request visit [] Outpatient visit [] Follow-up visit [] Physician referral [] Code/Alert [x] Routine visit [] Staff referral [] Actively dying [x] Patient sleeping [] Family support [] [] Out of room [] Palliative care [] [] Receiving care in room [] Pre-surgical visit [] Trauma [] Long length of stay [x] ICU visit [] Other: Relational/Emotional Strength [] Patient feels connected with others/family/visitors/staff [] Distress [] Loneliness/isolation [] Abandonment Spirituality of Patient [] Person of Samantha [] Attends Methodist of their Samantha [] Believes in Prayer [] Reads Bible or Temple materials [] There are Spiritual issues to be addressed Ware Finisher Interventions [x] Prayer [] Active listening [] Non-anxious presence [] Spiritual/emotional support [] Crisis/trauma care [] Spiritual counseling [] Bereavement support [] Provided bereavement packet [] Provided Bible/devotional materials [] Provided toy/stuffed animal, coloring book to patient or family member [] Provided Communion [] Anointing/[place] [] Salvation [x] Completed spiritual assessment [] Other: Impact on Illness or Injury [] Angry [] Fearful [] Anxious [] Often cries [] Exhaustion [] Unable to work [] Unable to attend pentecostalism [] Unable to walk/stand [] Unable to read [] Unable to drive [] Unable to eat/drink [] Unable to sleep [] Unable to be with family [] Patient intubated [] Other: Summary Time spent with patient
[2022-06-06] MEDS: nicotine 21 mg Patch 1 PATCH TRANSDERMA (12:53)
[2022-06-06 17:01] LABS: Glucose Point of Care 243 mg/dL (70-110)
[2022-06-06] MEDS: FUROsemide 10 mg/mL SDV 10mL 60 MG IVP (17:09)
--- NOTE | 2022-06-06 17:29 | XRR_ITS ---
PROCEDURE INFORMATION: Exam: XR Chest Exam date and time: 06/06/2022 5:35 PM Age: 61 years old Clinical indication: Shortness of breath; Additional info: High rr, SOB TECHNIQUE: Imaging protocol: Radiologic exam of the chest. Views: 1 view. COMPARISON: CR (CHEST, ) 06/05/2022 6:52 AM FINDINGS: Tubes, catheters and devices: Removal of the endotracheal tube and feeding tube since previous. Right IJ catheter is unchanged. Lungs: Decreased and now minimal pulmonary vascular congestion. Stable scattered calcified granulomata. Pleural spaces: Small left pleural effusion is unchanged. Heart/Mediastinum: Unremarkable. No cardiomegaly. Bones/joints: Stable bones. XR/XR chest 1V portable [id number] IMPRESSION: 1. Removal of the endotracheal tube and feeding tube. 2. Decreased now minimal pulmonary vascular congestion. 3. No other changes.
[2022-06-06] MEDS: insulin glargine 100 units/1 mL 10 UNIT SUBCUT (21:19)
[2022-06-07] VITALS (33 sets, daily range): BP systolic 90–166; BP diastolic 58–100; PULSE 59–94; RESP 15–49; TEMP 37.1–37.2; O2SAT 87–100; BMI 33.3
[2022-06-07] MEDS: enoxaparin 100 mg/mL Syringe 90 MG SUBCUT ×2 (00:17→11:51)
[2022-06-07] MEDS: ipratropium-albuterol 3 mL Neb INHALATION ×4 (03:18→20:15)
[2022-06-07 04:59] LABS: Basophils % 0.1 %; Eosinophils # 0.1 10^3/uL (0.0-0.8); Eosinophils % 0.3 %; Hemoglobin 10.5 g/dL (11.5-15.3); Lymphocytes # 1.2 10^3/uL (0.8-4.8); Lymphocytes % 8.2 %; Mean Corpuscular HGB Conc 31.8 g/dL (30.0-36.0); Mean Corpuscular Hemoglobin 27.6 pg (28.0-34.0); Mean Corpuscular Volume 86.6 fl (81-99); Mean Platelet Volume 10.5 fL (7.4-10.4); Monocytes # 0.6 10^3/uL (0.2-0.9); Monocytes % 3.9 %; Neutrophils # 12.54 10^3/uL (1.8-7.7); Nucleated Red Blood Cells % 0 %; Platelet Count 251 10^3/cmm (130-400); Red Blood Count 3.81 10^6/uL (4.1-5.3); Red Cell Distribution Width 17.2 % (12.1-15.1); White Blood Count 14.4 10^3/uL (4.0-10.0)
[2022-06-07 05:12] LABS: Anion Gap 15.5 (5-19); Blood Urea Nitrogen 12 mg/dL (8-23); Calcium 7.1 mg/dL (8.5-10.5); Carbon Dioxide 25 mmol/L (22-29); Chloride 104 mmol/L (98-107); Glomerular Filtration Rate 161.2 mL/min (90-130); Glucose 196 mg/dL (65-115); Osmolality Calculated 297 mOsm/kg (285-295); Potassium 3.5 mmol/L (3.5-5.1); Sodium 141 mmol/L (136-145)
[2022-06-07 07:36] LABS: Glucose Point of Care 333 mg/dL (70-110)
[2022-06-07] MEDS: insulin lispro 100 unit/1 mL SUBCUT ×3 (08:39→17:33)
[2022-06-07] MEDS: amlodipine 5 mg Tablet PO (08:40)
[2022-06-07] MEDS: pantoprazole 40 mg SDV IVP (08:40)
[2022-06-07] MEDS: atorvastatin 40 mg Tablet 80 MG PO (08:40)
[2022-06-07] MEDS: nicotine 21 mg Patch 1 PATCH TRANSDERMA (08:40)
[2022-06-07] MEDS: potassium chloride oral liq 20 mEq/15 mL UDC PO (08:40)
[2022-06-07] MEDS: aspirin 81 mg EC Tablet PO (08:40)
[2022-06-07] MEDS: clopidogrel 75 mg Tablet PO (08:41)
--- NOTE | 2022-06-07 10:38 | PC.CHAP ---
Pastoral Care Encounter/Spiritual Assessment Type of Contact [] Declined wheel borer visit [] Patient/Family/Request visit [] Outpatient visit [] Follow-up visit [] Physician referral [] Code/Alert [x] Routine visit [] Staff referral [] Actively dying [] Patient sleeping [x] Family support [] [] Out of room [] Palliative care [] [] Receiving care in room [] Pre-surgical visit [] Trauma [] Long length of stay [x] ICU visit [] Other: Relational/Emotional Strength [] Patient feels connected with others/family/visitors/staff [] Distress [] Loneliness/isolation [] Abandonment Spirituality of Patient [] Person of Samantha [] Attends Restoration of their Samantha [] Believes in Prayer [] Reads Bible or Adventist materials [] There are Spiritual issues to be addressed Perforator Loader Interventions [x] Prayer [] Active listening [] Non-anxious presence [] Spiritual/emotional support [] Crisis/trauma care [] Spiritual counseling [] Bereavement support [] Provided bereavement packet [] Provided Bible/devotional materials [] Provided toy/stuffed animal, coloring book to patient or family member [] Provided Communion [] Anointing/[place] [] Salvation [x] Completed spiritual assessment [] Other: Impact on Illness or Injury [] Angry [] Fearful [] Anxious [] Often cries [] Exhaustion [] Unable to work [] Unable to attend christianity [] Unable to walk/stand [] Unable to read [] Unable to drive [] Unable to eat/drink [] Unable to sleep [] Unable to be with family [] Patient intubated [] Other: Summary Time spent with patient
[2022-06-07 11:09] LABS: Glucose Point of Care 237 mg/dL (70-110)
--- NOTE | 2022-06-07 11:13 | PM.PN ---
Subjective Subjective: BiPAP taken off this morning Patient is able to answer about her date of , name, she is much more awake and alert as compared to yesterday Precedex at lower rate X-ray showing improvement of vascular congestion Hemoglobin stable Vitals/I&O/Wt Last Vital Signs Temp 98.7 F 06/07/22 05:58 Pulse 79 06/07/22 10:00 Resp 26 H 06/07/22 10:00 BP 143/97 06/07/22 10:00 Pulse Ox 97 06/07/22 10:00 O2 Del Method 06/07/22 08:32 O2 Flow Rate 5 06/06/22 14:15 FiO2 40 06/07/22 08:33 06/06/22 06/07/22 06/07/22 22:59 06:59 14:59 Intake Total 231.993 / 459.842 172.375 / 632.217 Output Total 1700 / 1700 550 / 2250 Balance -1468.007 / -1240.158 -377.625 / -1617.783 Weight last 48 hrs Weight 93.803 kg Weight 93.803 kg Physical Exam Narrative: Patient is laying supine Does not have overt signs of fluid overload Bilateral breath sounds with mild rhonchi at left lung base Abdomen soft She had 1 bowel movement, liquid bowel movement today Able to move her left side, right-sided dense weakness Able to comprehend and answer question appropriately Asking for water No new focal deficit Currently on nasal cannula Urinary Catheter Management: Candelaria: Cath Placed During This Visit: yes Reason for Continuing Indwelling Catheter: Accurate Measurement of Urinary Output in Critically Ill Patients Urinary Catheter Date of Insertion: 06/05/22 Urinary Catheter Time of Insertion: 02:00 Data 06/07/22 04:32 06/07/22 04:32 Micro: Microbiology 06/05/22 08:50 Gram Stain - Final Sputum - Endotracheal Tube Aspirate Sputum Culture - Preliminary Coag positive Staphylococcus Gram Negative Rods 06/04/22 20:53 Urine Culture - Final Urine,Clean Catch A&P Assessment and plan (1) Acute CVA (cerebrovascular accident): (2) NSTEMI (non-ST elevated myocardial infarction): (3) Cardiac arrest: (4) Hypokalemia: (5) Morbid obesity with BMI of 40.0-44.9, adult: (6) Diabetes: Qualifiers: Diabetes mellitus type: type 2 Diabetes mellitus adjunct faculty for medical terminology insulin use: with adjunct faculty for medical terminology use Diabetes mellitus complication status: without complication Qualified Code(s): E11.9 - Type 2 diabetes mellitus without complications; Z79.4 - long term care pharmacist (current) use of insulin Plan Acute CVA Thromboembolic etiology Right-sided weakness To work with PT/OT Speech to recommended dysphagia diet Will need aspirin and Plavix for at least 3 weeks Soft plaque ICA She will need intervention within 2 weeks after discharge Hypoxia leading to cardiac arrest 10 minutes CPR Patient successfully extubated to BiPAP and then nasal cannula Currently doing well She will need senior living Echo showed preserved ejection fraction Rule out PE because of high D-dimer CT chest pending she is getting therapeutic Lovenox And has been tachypneic on BiPAP requiring Precedex She was given extra dose of Lasix yesterday Acute hypoxia related to CHF exacerbation Diastolic CHF suspicion for improving continue diuresis Hypokalemia: Repleted Full code Dysphagia diet Currently on therapeutic Lovenox for possible PE No signs of DVT Attestations Medical Necessity Statement*: Continue ICU management Critical Care Time: 30 Coding Level of Care Code 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
[2022-06-07] MEDS: lidocaine 1% 5 ML in potassium chloride premix 100 ML 25 ML IV ×2 (11:47→12:02)
[2022-06-07 16:46] LABS: Glucose Point of Care 157 mg/dL (70-110)
[2022-06-07] MEDS: doxycycline 100 mg Tablet PO (17:33)
--- NOTE | 2022-06-07 17:41 | PC.NURSE ---
Shift Summary: patient more alert than at beginning of shift, able to tolerate thickened liquids better, Culture results reported to Dr. Diaz with orders per JUL, multiple Loose BM
[2022-06-07] MEDS: insulin glargine 100 units/1 mL 10 UNIT SUBCUT (21:56)
[2022-06-07] MEDS: acetaminophen 500 mg Tablet PO (21:57)
[2022-06-08] VITALS (24 sets, daily range): BP systolic 126–171; BP diastolic 71–92; PULSE 68–99; RESP 18–37; TEMP 36.6–36.8; O2SAT 87–99; BMI 32.8
[2022-06-08] MEDS: enoxaparin 100 mg/mL Syringe 90 MG SUBCUT ×2 (00:47→11:23)
[2022-06-08] MEDS: ipratropium-albuterol 3 mL Neb INHALATION ×4 (01:28→19:46)
[2022-06-08 04:45] LABS: Basophils % 0.2 %; Eosinophils # 0.1 10^3/uL (0.0-0.8); Eosinophils % 0.9 %; Hematocrit 32.3 % (37.0-47.0); Hemoglobin 10.1 g/dL (11.5-15.3); Lymphocytes # 1.9 10^3/uL (0.8-4.8); Lymphocytes % 15.7 %; Mean Corpuscular HGB Conc 31.3 g/dL (30.0-36.0); Mean Corpuscular Hemoglobin 26.6 pg (28.0-34.0); Mean Corpuscular Volume 85.2 fl (81-99); Mean Platelet Volume 10.8 fL (7.4-10.4); Monocytes # 0.7 10^3/uL (0.2-0.9); Monocytes % 5.8 %; Neutrophils # 9.26 10^3/uL (1.8-7.7); Neutrophils % 77.1 %; Nucleated Red Blood Cells % 0 %; Platelet Count 271 10^3/cmm (130-400); Red Blood Count 3.79 10^6/uL (4.1-5.3); Red Cell Distribution Width 17.3 % (12.1-15.1)
[2022-06-08 05:09] LABS: Magnesium 1.2 mg/dL (1.7-2.3); Phosphorus 1.9 mg/dL (2.5-4.5)
[2022-06-08 05:15] LABS: Anion Gap 13.2 (5-19); Blood Urea Nitrogen 15 mg/dL (8-23); Calcium 7.5 mg/dL (8.5-10.5); Carbon Dioxide 24 mmol/L (22-29); Chloride 104 mmol/L (98-107); Glomerular Filtration Rate 161.2 mL/min (90-130); Glucose 220 mg/dL (65-115); Osmolality Calculated 294 mOsm/kg (285-295); Potassium 3.2 mmol/L (3.5-5.1); Sodium 138 mmol/L (136-145)
[2022-06-08 07:31] LABS: Glucose Point of Care 325 mg/dL (70-110)
[2022-06-08] MEDS: lidocaine 1% 5 ML in potassium chloride premix 100 ML 25 ML IV (07:50)
--- NOTE | 2022-06-08 08:00 | CT_ITS ---
WS: [id number] CTA OF THE CHEST WITH PULMONARY EMBOLISM PROTOCOL TECHNIQUE: High-resolution contrast enhanced CTA of the chest with coronal and sagittal reformatted i mages with pulmonary embolism protocol. MIP images are also reviewed. CLINICAL INFORMATION: cardiac arrest COMPARISON: May 29, 2022 DLP: 479.[address] scans at [facility] use at least one of these dose optimization techniques: automated e xposure control; mA and/or kV adjustment per patient size (includes targeted exams where dose is matc hed to clinical indication); or iterative reconstruction. FINDINGS: Proximal main pulmonary arteries are normal. Normal segmental and subsegmental pulmonary arteries. No evidence of pulmonary embolus. Small LEFT pleural effusion. Compressive atelectasis LEFT lower lobe. Slight subsegmental atelectasis RIGHT lower lobe. Normal caliber thoracic aorta. Aortic calcification. No mediastinal or hilar lymphadenopathy. Adrenal glands are normal. Cholecystectomy clips. Fatty atrophy of the pancreas. Upper abdominal aort a is normal. Prior vertebroplasty changes mid thoracic spine. Mild thoracic kyphosis. Chronic anterio r wedging mid and upper thoracic spine. CT/CT angio chest PE protcl [id number] IMPRESSION: 1. No evidence of pulmonary embolus. 2. Small LEFT pleural effusion with compressive atelectasis LEFT lower lobe. 3. RIGHT lung is well aerated.
[2022-06-08] MEDS: insulin lispro 100 unit/1 mL SUBCUT ×3 (08:24→17:06)
[2022-06-08] MEDS: aspirin 81 mg EC Tablet PO (09:24)
[2022-06-08] MEDS: amlodipine 5 mg Tablet PO (09:24)
[2022-06-08] MEDS: doxycycline 100 mg Tablet PO ×2 (09:24→17:06)
[2022-06-08] MEDS: atorvastatin 40 mg Tablet 80 MG PO (09:24)
[2022-06-08] MEDS: pantoprazole 40 mg SDV IVP (09:25)
[2022-06-08] MEDS: nicotine 21 mg Patch 1 PATCH TRANSDERMA (09:25)
--- NOTE | 2022-06-08 10:25 | PC.CHAP ---
Pastoral Care Encounter/Spiritual Assessment Type of Contact [] Declined back hand visit [] Patient/Family/Request visit [] Outpatient visit [] Follow-up visit [] Physician referral [] Code/Alert [x] Routine visit [] Staff referral [] Actively dying [] Patient sleeping [] Family support [] [] Out of room [] Palliative care [] [x] Receiving care in room [] Pre-surgical visit [] Trauma [] Long length of stay [x] ICU visit [x] Other: doctors visit Relational/Emotional Strength [] Patient feels connected with others/family/visitors/staff [] Distress [] Loneliness/isolation [] Abandonment Spirituality of Patient [] Person of Samantha [] Attends Pentecostal of their Samantha [] Believes in Prayer [] Reads Bible or Muslim materials [] There are Spiritual issues to be addressed 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 Wind Turbine 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 Interventions [x] Prayer [] Active listening [] Non-anxious presence [] Spiritual/emotional support [] Crisis/trauma care [] Spiritual counseling [] Bereavement support [] Provided bereavement packet [] Provided Bible/devotional materials [] Provided toy/stuffed animal, coloring book to patient or family member [] Provided Communion [] Anointing/[place] [] Salvation [x] Completed spiritual assessment [] Other: Impact on Illness or Injury [] Angry [] Fearful [] Anxious [] Often cries [] Exhaustion [] Unable to work [] Unable to attend methodist [] Unable to walk/stand [] Unable to read [] Unable to drive [] Unable to eat/drink [] Unable to sleep [] Unable to be with family [] Patient intubated [] Other: Summary Time spent with patient
--- NOTE | 2022-06-08 10:40 | PM.PN ---
Subjective Subjective: White count improving C. difficile treatment started yesterday Patient is on 3 L nasal cannula doing well Patient is stating that she does not want to go to [facility] however after discussion she started realizing that she is very weak and son would not be able to take care of her Vitals/I&O/Wt Last Vital Signs Temp 97.9 F 06/08/22 06:00 Pulse 93 06/08/22 10:00 Resp 33 H 06/08/22 10:00 BP 158/82 06/08/22 10:00 Pulse Ox 94 06/08/22 10:00 O2 Del Method 06/08/22 08:30 O2 Flow Rate 3 06/08/22 08:30 FiO2 40 06/08/22 06:00 06/07/22 06/08/22 06/08/22 22:59 06:59 14:59 Intake Total 905 / 911.25 250 / 1161.25 250 / 250 Output Total 500 / 500 Balance 905 / 911.25 -250 / 661.25 250 / 250 Weight last 48 hrs Weight 92.397 kg Weight 93.803 kg Physical Exam Narrative: Right-sided weakness Able to move her left extremities Awake and alert Able to comprehend Short attention span Able to tell me her name, date of and name of her son She also knows the name of the president Not able to do simple math questions Abdomen soft Lower extremity trace edema Candelaria catheter draining concentrated urine S1, S2 Urinary Catheter Management: Candelaria: Cath Placed During This Visit: yes Reason for Continuing Indwelling Catheter: Accurate Measurement of Urinary Output in Critically Ill Patients Urinary Catheter Date of Insertion: 06/05/22 Urinary Catheter Time of Insertion: 02:00 Data 06/08/22 04:18 06/08/22 04:18 Micro: Microbiology 06/07/22 15:06 C.difficile Toxin B Gene (PCR) - Final Stool - Stool Aspirate 06/05/22 08:50 Gram Stain - Final Sputum - Endotracheal Tube Aspirate Sputum Culture - Preliminary Staphylococcus aureus Gram Negative Rods A&P Assessment and plan (1) Acute CVA (cerebrovascular accident): (2) NSTEMI (non-ST elevated myocardial infarction): (3) Cardiac arrest: (4) Hypokalemia: (5) C. difficile diarrhea: (6) Diabetes: Qualifiers: Diabetes mellitus type: type 2 Diabetes mellitus longterm insulin use: with ocean transportation intermediary use Diabetes mellitus complication status: without complication Qualified Code(s): E11.9 - Type 2 diabetes mellitus without complications; Z79.4 - skilled nursing (current) use of insulin Plan Today my plan is to transfer out of ICU C. difficile diarrhea: Continue p.o. vancomycin 10-day regimen Potassium: Repleted Continue PT/OT/ST Will need rehab/nursing placement Status post CVA Continue aspirin with therapeutic anticoagulation has been CTA chest is pending Status post cardiac arrest related to hypoxia, patient successfully extubated to nasal cannula currently on 3 L, stress test tomorrow morning Sputum culture showing growth, she was started on doxycycline yesterday Full code Dysphagia diet DVT prophylaxis covered with therapeutic Lovenox Attestations Medical Necessity Statement*: Transferred to [facility] Time Spent in Patient Care: 15 Coding Level of Care Code Acute Home Health Care Case 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 difficile diarrhea A04.72 Diabetes E11.9; Z79.4 Diabetes mellitus type: type 2 Diabetes mellitus longterm insulin use: with longterm use Diabetes mellitus complication status: without complication
[2022-06-08] MEDS: iohexol 350 mg/mL 500 mL Btl (per mL) IV (10:54)
[2022-06-08 11:00] LABS: Glucose Point of Care 255 mg/dL (70-110)
[2022-06-08 17:02] LABS: Glucose Point of Care 261 mg/dL (70-110)
--- NOTE | 2022-06-08 19:03 | PC.NURSE ---
Shift Summary: speech and swallowing has improved, worked well with PT, uneventful shift
[2022-06-08 21:17] LABS: Glucose Point of Care 219 mg/dL (70-110)
[2022-06-08] MEDS: insulin glargine 100 units/1 mL 10 UNIT SUBCUT (21:24)
[2022-06-09] VITALS (11 sets, daily range): BP systolic 139–167; BP diastolic 78–87; PULSE 90–104; RESP 15–23; TEMP 36.6–37.1; O2SAT 94–100
[2022-06-09] MEDS: enoxaparin 100 mg/mL Syringe 90 MG SUBCUT (00:45)
[2022-06-09] MEDS: ipratropium-albuterol 3 mL Neb INHALATION ×4 (02:10→20:19)
--- NOTE | 2022-06-09 06:24 | PM.PN ---
Subjective Subjective: Patient has been afebrile Positive fluid balance today Currently on 5 L nasal cannula CTA chest did not show any signs of PE Left lower lobe atelectasis Recurrent bowel movement Vitals/I&O/Wt Last Vital Signs Temp 98.8 F 06/09/22 04:00 Pulse 94 06/09/22 04:00 Resp 23 H 06/09/22 04:00 BP 160/83 06/09/22 04:00 Pulse Ox 94 06/09/22 04:00 O2 Del Method 06/09/22 02:16 O2 Flow Rate 5 06/09/22 02:16 FiO2 40 06/08/22 06:00 06/08/22 06/08/22 06/09/22 14:59 22:59 06:59 Intake Total 250 / 250 355 / 605 200 / 805 Output Total 450 / 450 200 / 650 Balance 250 / 250 -95 / 155 0 / 155 Weight last 48 hrs Weight 93.803 kg Weight 90.9 kg Weight 92.397 kg Physical Exam Narrative: Able to answer simple questions, pleasantly confused, She keeps asking if she could go home today However verbally redirectable Currently on 5 L Right-sided weakness Able to use her left arm and left lower extremity Abdomen soft S1, S2 No new focal deficit Hemodynamically stable Pleasant and cooperative Urinary Catheter Management: Candelaria: Cath Placed During This Visit: yes Reason for Continuing Indwelling Catheter: Accurate Measurement of Urinary Output in Critically Ill Patients Urinary Catheter Date of Insertion: 06/05/22 Urinary Catheter Time of Insertion: 02:00 Data 06/08/22 04:18 06/08/22 04:18 Micro: Microbiology 06/05/22 08:50 Gram Stain - Final Sputum - Endotracheal Tube Aspirate Sputum Culture - Final Staphylococcus aureus Enterobacter aerogenes A&P Assessment and plan (1) C. 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 (current) use of insulin (7) Smoking: (8) Chronic deep vein thrombosis (DVT) of both lower extremities: Qualifiers: Affected thrombotic vein of extremity: femoral Qualified Code(s): I82.513 - Chronic embolism and thrombosis of femoral vein, bilateral Plan No signs of PE or venous DVT Acute hypoxia requiring 5 L of oxygen related to atelectasis, hypoventilation left lobe atelectasis noted He was started on doxycycline for positive sputum culture however she has remained afebrile Status post cardiac arrest with no significant neurological deficits her neurological deficits are related to acute CVA She will need carotid intervention 2 weeks after her discharge I will start her on aspirin and Plavix, discontinue therapeutic Lovenox No signs of PE C. difficile diarrhea: Continue vancomycin, 10-day regimen She will need long-term detention placement Son is in agreement She is full code Continue PT/OT/ST Status post cardiac arrest, no ischemic or infarctive changes on EKG, follow-up with stress test today if negative stress test she should be able to go to detention/rehab Attestations Medical Necessity Statement*: Continue medical management Time Spent in Patient Care: 25 Coding Level of Care Code Acute Tube Dispatcher for [facility] Fwd Diagnoses C. difficile diarrhea A04.72 Acute CVA (cerebrovascular accident) I63.9 NSTEMI (non-ST elevated myocardial infarction) I21.4 Cardiac arrest I46.9 Hypokalemia E87.6 Diabetes E11.9; Z79.4 Diabetes mellitus complication status: without complication Diabetes mellitus adjunct faculty for medical terminology insulin use: with adjunct faculty for medical terminology use Diabetes mellitus type: type 2 Smoking F17.200 Chronic deep vein thrombosis (DVT) of both lower extremities I82.513 Affected thrombotic vein of extremity: femoral
[2022-06-09 06:49] LABS: Glucose Point of Care 176 mg/dL (70-110)
[2022-06-09 07:20] LABS: Alanine Aminotransferase 35 U/L (0-33); Albumin Level 2.8 g/dL (3.5-5.2); Alkaline Phosphatase 77 U/L (35-105); Aspartate Amino Transferase 29 U/L (0-32); Blood Urea Nitrogen 10 mg/dL (8-23); Calcium 7.8 mg/dL (8.5-10.5); Carbon Dioxide 27 mmol/L (22-29); Chloride 99 mmol/L (98-107); Globulin 3.4 g/dL (1.3-4.6); Glomerular Filtration Rate 224.7 mL/min (90-130); Glucose 165 mg/dL (65-115); Osmolality Calculated 287 mOsm/kg (285-295); Sodium 137 mmol/L (136-145); Total Bilirubin 0.5 mg/dL (0.15-1.2); Total Protein 6.2 g/dL (6.6-8.7)
[2022-06-09 07:23] LABS: Basophils % 0.2 %; Eosinophils # 0.1 10^3/uL (0.0-0.8); Eosinophils % 1.2 %; Hematocrit 33.4 % (37.0-47.0); Hemoglobin 10.7 g/dL (11.5-15.3); Lymphocytes # 1.8 10^3/uL (0.8-4.8); Lymphocytes % 18.8 %; Mean Corpuscular Hemoglobin 27.6 pg (28.0-34.0); Mean Corpuscular Volume 86.1 fl (81-99); Monocytes # 0.7 10^3/uL (0.2-0.9); Monocytes % 6.7 %; Neutrophils # 7.05 10^3/uL (1.8-7.7); Neutrophils % 72.5 %; Nucleated Red Blood Cells % 0 %; Platelet Count 248 10^3/cmm (130-400); Red Blood Count 3.88 10^6/uL (4.1-5.3); Red Cell Distribution Width 17.2 % (12.1-15.1); White Blood Count 9.7 10^3/uL (4.0-10.0)
[2022-06-09] MEDS: pantoprazole 40 mg SDV IVP (11:15)
[2022-06-09] MEDS: doxycycline 100 mg Tablet PO ×2 (11:16→11:20)
[2022-06-09] MEDS: atorvastatin 40 mg Tablet 80 MG PO ×2 (11:18→11:21)
[2022-06-09] MEDS: clopidogrel 75 mg Tablet PO (11:20)
[2022-06-09] MEDS: amlodipine 5 mg Tablet PO (11:20)
[2022-06-09] MEDS: aspirin 81 mg EC Tablet PO (11:21)
[2022-06-09] MEDS: enoxaparin 40 mg/0.4 mL Syringe SUBCUT (11:24)
[2022-06-09] MEDS: nicotine 21 mg Patch 1 PATCH TRANSDERMA (11:25)
[2022-06-09] MEDS: potassium chloride oral liq 20 mEq/15 mL UDC PO (11:26)
[2022-06-09] MEDS: insulin lispro 100 unit/1 mL SUBCUT ×2 (11:55→17:57)
[2022-06-09 12:03] LABS: Glucose Point of Care 204 mg/dL (70-110)
[2022-06-09] MEDS: lidocaine 1% 5 ML in potassium chloride premix 100 ML 26.25 ML IV (12:05)
[2022-06-09 17:15] LABS: Glucose Point of Care 165 mg/dL (70-110)
[2022-06-09 20:48] LABS: Glucose Point of Care 215 mg/dL (70-110)
[2022-06-09] MEDS: acetaminophen 500 mg Tablet PO (20:56)
[2022-06-09] MEDS: insulin glargine 100 units/1 mL 10 UNIT SUBCUT (22:04)
[2022-06-10] VITALS (13 sets, daily range): BP systolic 100–178; BP diastolic 68–86; PULSE 82–102; RESP 16–32; TEMP 36.7–37.2; O2SAT 93–98; BMI 33.9
[2022-06-10] MEDS: ipratropium-albuterol 3 mL Neb INHALATION ×3 (03:18→20:41)
[2022-06-10] MEDS: acetaminophen 500 mg Tablet PO (03:41)
[2022-06-10 03:51] LABS: Glucose Point of Care 247 mg/dL (70-110)
[2022-06-10 07:27] LABS: Glucose Point of Care 238 mg/dL (70-110)
--- NOTE | 2022-06-10 08:24 | PC.NURSE ---
Patient has been alert and oriented to name and place and that she was in the hospital for a stoke most of the shift. She has been trying to get out of the bed on and off during the night even though she knew why she was in the hospital stating she wants to go home. She has refused telemetry. Patient has been confused on occasion. She has pulled her oxygen of a number of times but has allowed it to be put back on. She has been NPO at [place] for stress test and has had no caffeine since 1899.
--- NOTE | 2022-06-10 08:59 | P.PN_ITS ---
Subjective Subjective: Weekly PT today Her right IJ could be removed Blood pressure has been stable Afebrile No needle labs, hypertensive, Vitals/I&O/Wt Last Vital Signs Temp 98.1 F 06/10/22 08:00 Pulse 96 06/10/22 08:40 Resp 16 06/10/22 08:00 BP 178/82 06/10/22 08:00 Pulse Ox 96 06/10/22 08:00 O2 Del Method 06/10/22 08:00 O2 Flow Rate 3 06/10/22 08:00 FiO2 40 06/08/22 06:00 06/09/22 06/10/22 06/10/22 22:59 06:59 14:59 Intake Total 345 / 705 Balance 345 / 705 Weight last 48 hrs Weight 95.254 kg Weight 93.803 kg Weight 90.9 kg Physical Exam Narrative: Patient is working with PT Pleasantly confused On 2 L of nasal cannula Hypertensive Abdomen soft Lower extremity without significant edema Verbally redirectable Right-sided weakness, Urinary Catheter Management: [place]elaria: Cath Placed During This Visit: yes Reason for Continuing Indwelling Catheter: Accurate Measurement of Urinary Output in Critically Ill Patients Urinary Catheter Date of Insertion: 06/05/22 Urinary Catheter Time of Insertion: 02:00 Data 06/09/22 06:41 06/09/22 06:41 Micro: Microbiology 06/04/22 21:38 Blood Culture - Final Blood NO GROWTH AFTER 5 DAYS 06/04/22 21:45 Blood Culture - Final Blood NO GROWTH AFTER 5 DAYS A&P Assessment and plan (1) C. difficile diarrhea: (2) Acute CVA (cerebrovascular accident): (3) NSTEMI (non-ST elevated myocardial infarction): (4) Cardiac arrest: (5) Hypokalemia: (6) Diabetes: Qualifiers: Diabetes mellitus type: type 2 Diabetes mellitus care home insulin use: with moth exterminator use Diabetes mellitus complication status: without complication Qualified Code(s): E11.9 - Type 2 diabetes mellitus without complications; Z79.4 - intermediate (current) use of insulin Plan Patient needs better glucose control No signs of PE I have stopped during CBC and BMP on her She is awaiting placement Family is in agreement Continue PT evaluation, on dysphagia diet VT prophylaxis on board She is getting vancomycin 10-day regimen for C. difficile diarrhea Afebrile increase Lantus to 20 units Sputum showing gram-positive cocci currently on doxycycline Discontinue Plavix continue aspirin and atorvastatin Attestations Medical Necessity Statement*: Awaiting placement Time Spent in Patient Care: 30 Coding Level of Care Code Acute Code for g Fwd Diagnoses C. difficile diarrhea A04.72 Acute CVA (cerebrovascular accident) I63.9 NSTEMI (non-ST elevated myocardial infarction) I21.4 Cardiac arrest I46.9 Hypokalemia E87.6 Diabetes E11.9; Z79.4 Diabetes mellitus type: type 2 Diabetes mellitus care home insulin use: with care home use Diabetes mellitus complication status: without complication
[2022-06-10] MEDS: amlodipine 5 mg Tablet PO (09:42)
[2022-06-10] MEDS: potassium chloride oral liq 20 mEq/15 mL UDC PO (09:42)
[2022-06-10] MEDS: lisinopril 10 mg Tablet PO (09:43)
[2022-06-10] MEDS: atorvastatin 40 mg Tablet PO (09:43)
[2022-06-10] MEDS: doxycycline 100 mg Tablet PO (09:43)
[2022-06-10] MEDS: aspirin 81 mg EC Tablet PO (09:44)
[2022-06-10] MEDS: enoxaparin 40 mg/0.4 mL Syringe SUBCUT (09:44)
[2022-06-10 12:33] LABS: Glucose Point of Care 253 mg/dL (70-110)
[2022-06-10 17:22] LABS: Glucose Point of Care 187 mg/dL (70-110)
--- NOTE | 2022-06-10 18:33 | PC.NURSE ---
Notified Dr. Diaz of patient being sleepy, very hard to wake up since coming back from [facility] to do stress test. Dr. Diaz ordered ABGs, stated to time medication to bedtime and hold insulin tonight.
--- NOTE | 2022-06-10 19:21 | PC.NURSE ---
nurse notified patent had a change in behavior during routine accu check at lunch time
--- NOTE | 2022-06-10 19:33 | XR_ITS ---
WS: [id number] PORTABLE CHEST HISTORY: sob COMPARISON: 06/06/2022 Patient is significantly rotated to the LEFT. Small LEFT pleural effusion is now present. Benign granuloma RIGHT lower lobe. No pneumothorax. Cardiac size: Normal. Mediastinum/Aorta: Mild atherosclerosis aorta. No osseous abnormality seen. The RIGHT central line may have advanced into the RIGHT heart. Tip now overlies the RIGHT atrium. XR/XR chest 1V portable [id number] IMPRESSION: 1. New small LEFT pleural effusion. 2. Consider reevaluation of the central line position. The tip appears to have advanced into the RIGHT heart. This may be exacerbated by rotation of the yohan ent. Recommend repeat imaging with less rotation to reevaluate positioning of t he central line.
--- NOTE | 2022-06-10 19:33 | CTR_ITS ---
PROCEDURE INFORMATION: Exam: CT Head Without Contrast Exam date and time: 06/10/2022 11:27 PM Age: 61 years old Clinical indication: Altered mental status/memory loss; Additional info: AMS TECHNIQUE: Imaging protocol: Computed tomography of the head without contrast. Radiation optimization: All CT scans at this facility use at least one of these dose optimization techniques: automated exposure control; mA and/or kV adjustment per patient size (includes targeted exams where dose is matched to clinical indication); or iterative reconstruction. COMPARISON: CT head wo con* [id number] 06/05/2022 10:26 AM RADIATION DOSE METRICS: Total DLP (mGy-cm): 1014.71 FINDINGS: Brain: Evolving infarcts in the left MCA and ONE PIECE EXP[employer]ER HAND territory are redemonstrated. There is a similar degree of hypodensity in the left parieto-occipital region within the ONE PIECE [employer] territory. There is increasing hypoattenuation in the left frontoparietal region, within the MCA territory infarct. There is no significant mass effect. No acute hemorrhage or hemorrhagic transformation. No new infarct. No midline shift. Involutional changes of the brain are stable. Cerebral ventricles: No ventriculomegaly. Paranasal sinuses: Frothy left maxillary sinus secretions with air-fluid level. Mastoid air cells: Visualized mastoid air cells are well aerated. Bones/joints: Unremarkable. No acute fracture. Soft tissues: Unremarkable. CT/CT head wo con* [id number] IMPRESSION: 1. Evolving subacute appearing infarcts in the left MCA and ONE PIECE [employer] MAKER HAND territory are redemonstrated. No evidence of hemorrhagic transformation. No significant mass effect. 2. Changes suggestive of acute left maxillary sinusitis.
--- NOTE | 2022-06-10 19:40 | PC.NURSE ---
Dr. Coe here to assess pt and her current status. Pt's family remains at bedside. Discussed possibility of another CVA as well as increased CO2 levels. NO received and noted for stat labs that include ABGs, CXR, and CT scan later in the evening after she's gotten some rest. All questions answered, RT is now at bedside.
[2022-06-10 19:48] LABS: ABG PCO2 36.8 mmHg (35-45); ABG PH Result 7.49 (7.35-7.45); Arterial Blood Gas Hematocrit 38.9 % (37-47); Base Excess ABG 4.8 mmol/L (-2.0-2.0); Blood Gas Allen Test Pos; Blood Gas Operator Identificat JB; Blood Gas Sample Site Radial, right; Blood Gas Sample Type Arterial; HCO3 ABG 28.3 mmol/L (22-26); Oxygen Device NC; PO2 ABG 70.6 mmHg (80.0-100.0)
--- NOTE | 2022-06-10 19:48 | PC.NURSE ---
Called Dr. Coe for patient being out of it. She barely wakes up when saying name. Patient followed NIH Stroke Scale repeating sentences after this nurse. She smiles with out deformation. Did have a left droop previously. Dr. Coe wants the ABGs, will see what the results then put on bipap tonight and will order a CT.
--- NOTE | 2022-06-10 19:55 | PC.NURSE ---
ABG results called to Dr. Coe. Pt to go to CT scan after she has had some rest.
--- NOTE | 2022-06-10 20:55 | PC.NURSE ---
Referred pt to Dr. Coe for review of CXR results. Will await orders.
[2022-06-10 20:59] LABS: Basophils % 0.4 %; Eosinophils # 0.2 10^3/uL (0.0-0.8); Eosinophils % 1.9 %; Hematocrit 35.6 % (37.0-47.0); Hemoglobin 11.1 g/dL (11.5-15.3); Lymphocytes # 2.3 10^3/uL (0.8-4.8); Lymphocytes % 22.1 %; Mean Corpuscular HGB Conc 31.2 g/dL (30.0-36.0); Mean Corpuscular Hemoglobin 26.6 pg (28.0-34.0); Mean Corpuscular Volume 85.4 fl (81-99); Monocytes # 0.7 10^3/uL (0.2-0.9); Monocytes % 7.1 %; Neutrophils # 6.88 10^3/uL (1.8-7.7); Neutrophils % 67.6 %; Nucleated Red Blood Cells % 0 %; Platelet Count 292 10^3/cmm (130-400); Red Blood Count 4.17 10^6/uL (4.1-5.3); White Blood Count 10.2 10^3/uL (4.0-10.0)
[2022-06-10 21:07] LABS: Alanine Aminotransferase 27 U/L (0-33); Albumin Level 2.7 g/dL (3.5-5.2); Alkaline Phosphatase 80 U/L (35-105); Anion Gap 13.7 (5-19); Aspartate Amino Transferase 25 U/L (0-32); Blood Urea Nitrogen 9 mg/dL (8-23); C Reactive Protein 58.1 mg/L (0.0-4.9); Calcium 8.8 mg/dL (8.5-10.5); Carbon Dioxide 26 mmol/L (22-29); Chloride 99 mmol/L (98-107); Globulin 3.8 g/dL (1.3-4.6); Glomerular Filtration Rate 161.2 mL/min (90-130); Glucose 189 mg/dL (65-115); Osmolality Calculated 284 mOsm/kg (285-295); Potassium 3.7 mmol/L (3.5-5.1); Sodium 135 mmol/L (136-145); Total Bilirubin 0.5 mg/dL (0.15-1.2); Total Protein 6.5 g/dL (6.6-8.7)
[2022-06-10 21:16] LABS: Ammonia 46 umol/L (11-51); Lactic Sepsis W/Reflex 1.3 mmol/L (0.5-2.2)
--- NOTE | 2022-06-10 21:25 | PC.NURSE ---
Pt referred for review of CXR result. NO received and noted to removed central line. Central line removed w/tip intact, pressure drsg applied.
[2022-06-10 21:29] LABS: Thyroid Stimulating Hormone 4.33 uIU/mL (0.27-4.20)
[2022-06-10] MEDS: FUROsemide 10 mg/mL SDV 4mL 40 MG IVP (21:50)
--- NOTE | 2022-06-10 21:55 | PC.NURSE ---
Referred pt for review of labs, failed bedside swallow study, and orders for PO meds including ABT. NO received and noted for 1) Lasix 40mg IVP x 1 dose 2) hold PO meds 3) St to eval in the am.
[2022-06-10 22:03] LABS: Glucose Point of Care 186 mg/dL (70-110)
[2022-06-10] MEDS: insulin glargine 100 units/1 mL 20 UNIT SUBCUT (22:04)
[2022-06-11] VITALS (18 sets, daily range): BP systolic 102–132; BP diastolic 70–87; PULSE 66–96; RESP 16–21; TEMP 36.4–37.1; O2SAT 90–97; BMI 33.9
--- NOTE | 2022-06-11 00:57 | PC.NURSE ---
Referred pt to Dr. Coe for review of CT of head results. Will await orders.
--- NOTE | 2022-06-11 00:59 | PC.NURSE ---
NO orders given to keep NPO and con't to monitor for changes in condition.
[2022-06-11] MEDS: ipratropium-albuterol 3 mL Neb INHALATION ×4 (02:44→20:57)
[2022-06-11 07:14] LABS: Glucose Point of Care 198 mg/dL (70-110)
[2022-06-11] MEDS: enoxaparin 40 mg/0.4 mL Syringe SUBCUT (09:42)
[2022-06-11] MEDS: insulin lispro 100 unit/1 mL SUBCUT ×3 (09:42→18:08)
[2022-06-11] MEDS: aspirin 81 mg EC Tablet PO (09:43)
[2022-06-11] MEDS: lisinopril 10 mg Tablet PO (09:43)
[2022-06-11] MEDS: amlodipine 5 mg Tablet PO (09:43)
[2022-06-11] MEDS: magnesium oxide 400 mg tablet PO ×2 (09:43→18:07)
[2022-06-11] MEDS: doxycycline 100 mg Tablet PO ×2 (09:43→18:07)
[2022-06-11] MEDS: potassium chloride oral liq 20 mEq/15 mL UDC PO (09:44)
--- NOTE | 2022-06-11 10:19 | PM.PN ---
Subjective Subjective: Summary Patient was admitted to the hospital for altered mental status, she was diagnosed with stroke at the time of admission, 80% left ICA stenosis, our neurologist did not recommend tPA because last well-known time was unknown, family was try to get a hold of her and then sent EMS for evaluation who found her stuck between her dresser and the bed, in the ER she had seizure-like activity became hypoxic and lost her pulse, CPR was continued for about 10 minutes ROSC was obtained, TTM not initiated, patient was intubated at the time of admission, she was extubated within 48 hours, she was extubated to BiPAP and then transition to 2 L nasal cannula, she was diagnosed with C. difficile diarrhea, sputum showing gram-positive cocci, she was put on doxycycline, she remained afebrile, no significant leukocytosis, her mentation is fluctuant however able to carry a decent conversation, she has dense right-sided weakness, our cardiothoracic surgeon has recommended vascular intervention at [facility] because she has already been accepted at [facility] rehab. She has been accepted by Dr. Alaniz vascular surgeon at [facility], hospitalist accepting physician is Dr. Nicolas ALCARAZ signed It might take 1 to 2 days Patient is on 2 L nasal cannula this morning I have taken off BiPAP She wanted to eat, she is awake and alert Very coherent and asked for TEA family is at the bedside Vitals/I&O/Wt Last Vital Signs Temp 98.6 F 06/11/22 08:00 Pulse 91 06/11/22 08:00 Resp 18 06/11/22 08:00 BP 130/87 06/11/22 08:00 Pulse Ox 93 06/11/22 07:43 O2 Del Method 06/11/22 08:00 O2 Flow Rate 4 06/10/22 20:00 FiO2 40 06/11/22 07:35 06/10/22 06/11/22 06/11/22 22:59 06:59 14:59 Intake Total 360 / 360 Output Total 650 / 650 200 / 850 Balance -650 / -650 -200 / -850 360 / 360 Weight last 48 hrs Weight 95.254 kg Weight 95.254 kg Physical Exam Narrative: Right-sided weakness Pleasant and cooperative Extremely dry Taken of BiPAP to 2 L nasal cannula Appropriate mood and affect Family at the bedside Right-sided weakness Sinus rhythm Abdomen soft Lower extremity without edema Urinary Catheter Management: Candelaria: Cath Placed During This Visit: yes Reason for Continuing Indwelling Catheter: Assist healing open wound Urinary Catheter Date of Insertion: 06/05/22 Urinary Catheter Time of Insertion: 02:00 Data 06/10/22 20:20 06/10/22 20:20 A&P Assessment and plan (1) C. difficile diarrhea: (2) Acute CVA (cerebrovascular accident): (3) NSTEMI (non-ST elevated myocardial infarction): (4) Cardiac arrest: (5) Hypokalemia: (6) Smoking: (7) Bronchitis: (8) Cerebrovascular accident: Qualifiers: CVA mechanism: embolism Laterality of affected vessel: left Precerebral and cerebral artery: middle cerebral artery Qualified Code(s): I63.412 - Cerebral infarction due to embolism of left middle cerebral artery Plan This patient has been accepted at [facility], multiple phone calls were made to [facility], images were uploaded She has been accepted by Dr. Alaniz vascular surgeon and hospitalist Dr. Valenzuela I will hold her Plavix in case she will go for intervention at [facility], she will continue aspirin Patient was drowsy and obtunded yesterday, CT head showed evolving stroke, no new ischemic changes Family updated Getting treatment from [facility] transfer manager business updated C. difficile diarrhea continue C. difficile p.o. vancomycin for 10 days Finished 10/05 I will continue dysphagia diet for now Continue amlodipine, lisinopril for hypertension Glucose is better today I will continue her on current insulin regimen Hypokalemia repleted Attestations Medical Necessity Statement*: Awaiting placement to [facility] Time Spent in Patient Care: 30 Coding Level of Care Code Acute Code for [facility] Fwd Diagnoses C. difficile diarrhea A04.72 Acute CVA (cerebrovascular accident) I63.9 NSTEMI (non-ST elevated myocardial infarction) I21.4 Cardiac arrest I46.9 Hypokalemia E87.6 Smoking F17.200 Bronchitis J40 Cerebrovascular accident I63.412 CVA mechanism: embolism Laterality of affected vessel: left Precerebral and cerebral artery: middle cerebral artery
[2022-06-11] MEDS: atorvastatin 40 mg Tablet PO (10:21)
[2022-06-11 12:24] LABS: Glucose Point of Care 193 mg/dL (70-110)
[2022-06-11 17:23] LABS: Glucose Point of Care 261 mg/dL (70-110)
[2022-06-11 20:39] LABS: Glucose Point of Care 177 mg/dL (70-110)
[2022-06-11] MEDS: insulin glargine 100 units/1 mL 20 UNIT SUBCUT (20:39)
[2022-06-12] VITALS (12 sets, daily range): BP systolic 111–146; BP diastolic 70–83; PULSE 84–99; RESP 17–23; TEMP 36.6–37; O2SAT 3–96
[2022-06-12] MEDS: acetaminophen 500 mg Tablet PO (00:25)
--- NOTE | 2022-06-12 00:32 | PC.NURSE ---
Pt keeps attempting to remove bipap, states it time to get up, and is blowing past the seal of the mask. Notified RT of the tidal volume error and non tolerance to bipap at this time. Instructed to place pt back on O2 via n/c. Pt now recieving O2 @ 3 l/m via n/c w/O2 sats maintained @ 90-93%. Pt is calmer at this time.
[2022-06-12] MEDS: ipratropium-albuterol 3 mL Neb INHALATION ×4 (03:16→20:53)
[2022-06-12 05:27] LABS: Blood Urea Nitrogen 15 mg/dL (8-23); Calcium 8.5 mg/dL (8.5-10.5); Carbon Dioxide 24 mmol/L (22-29); Chloride 97 mmol/L (98-107); Glomerular Filtration Rate 161.2 mL/min (90-130); Glucose 168 mg/dL (65-115); Osmolality Calculated 277 mOsm/kg (285-295); Sodium 131 mmol/L (136-145)
[2022-06-12 05:39] LABS: Anion Gap 13.5 (5-19); Potassium 3.5 mmol/L (3.5-5.1)
[2022-06-12 06:28] LABS: Glucose Point of Care 244 mg/dL (70-110)
[2022-06-12] MEDS: magnesium oxide 400 mg tablet PO ×2 (08:58→17:16)
[2022-06-12] MEDS: doxycycline 100 mg Tablet PO (08:58)
[2022-06-12] MEDS: lisinopril 10 mg Tablet PO (08:58)
[2022-06-12] MEDS: aspirin 81 mg EC Tablet PO (08:58)
[2022-06-12] MEDS: atorvastatin 40 mg Tablet PO (08:58)
[2022-06-12] MEDS: amlodipine 5 mg Tablet PO (08:58)
[2022-06-12] MEDS: enoxaparin 40 mg/0.4 mL Syringe SUBCUT (08:59)
[2022-06-12] MEDS: potassium chloride oral liq 20 mEq/15 mL UDC PO (08:59)
[2022-06-12] MEDS: insulin lispro 100 unit/1 mL SUBCUT ×3 (08:59→17:16)
--- NOTE | 2022-06-12 11:04 | PM.PN ---
Subjective Subjective: Patient is endorsing feeling better Family was updated Son is medical DPOA Patient is pleasantly confused Awake and alert today Currently on 3 L She was asking why it is taking so long to go to the hospital She notes that she is going to [facility] She was asking about the name of the surgeon who would operate on her carotid Vitals/I&O/Wt Last Vital Signs Temp 97.9 F 06/12/22 08:00 Pulse 87 06/12/22 08:00 Resp 18 06/12/22 08:00 BP 146/70 06/12/22 08:00 Pulse Ox 90 06/12/22 08:00 O2 Del Method 06/12/22 08:00 O2 Flow Rate 3 06/12/22 08:00 FiO2 40 06/11/22 23:29 06/11/22 06/12/22 06/12/22 22:59 06:59 14:59 Intake Total 360 / 960 120 / 1080 240 / 240 Output Total 350 / 350 Balance 360 / 960 -230 / 730 240 / 240 Weight last 48 hrs Weight 95.935 kg Weight 95.254 kg Physical Exam Narrative: Pleasant Awake and alert Right-sided weakness Abdomen soft mild tender hypogastric region Currently on 3 L Euvolemic Pleasant and cooperative Urinary Catheter Management: Candelaria: Cath Placed During This Visit: yes Reason for Continuing Indwelling Catheter: Other Urinary Catheter Date of Insertion: 06/05/22 Urinary Catheter Time of Insertion: 02:00 Data 06/10/22 20:20 06/12/22 04:45 A&P Assessment and plan (1) C. difficile diarrhea: (2) Acute CVA (cerebrovascular accident): (3) NSTEMI (non-ST elevated myocardial infarction): (4) Cardiac arrest: (5) Hypokalemia: Plan Transfer summary for [facility] Patient was admitted to the hospital for altered mental status, she was diagnosed with stroke at the time of admission, 80% left ICA stenosis, our neurologist did not recommend tPA because last well-known time was unknown, family was try to get a hold of her and then sent EMS for evaluation who found her stuck between her dresser and the bed, in the ER she had seizure-like activity became hypoxic and lost her pulse, CPR was continued for about 10 minutes ROSC was obtained, TTM not initiated, patient was intubated at the time of admission, she was extubated within 48 hours, she was extubated to BiPAP and then transition to 2 L nasal cannula, she was diagnosed with C. difficile diarrhea, sputum showing gram-positive cocci, she was put on doxycycline, she remained afebrile, no significant leukocytosis, her mentation is fluctuant however able to carry a decent conversation, she has dense right-sided weakness, our cardiothoracic surgeon has recommended vascular intervention at [facility] because she has already been accepted at [facility] rehab. She has been accepted by Dr. Alaniz vascular surgeon at [facility], hospitalist accepting physician is Dr. Nicolas ALCARAZ signed Acute CVA: Right-sided weakness Will need carotid intervention at [facility] Continue aspirin, do not give Plavix in anticipation of surgical intervention She got only 1 dose of Plavix on Monday I believe, she will need 5 days before her intervention Patient is having fluctuating mentation related to resolving stroke Cardiac arrest after hypoxia and seizure-like activity in the ER, No recurrence of seizure This was most likely related to hypoxic event Patient has been successfully extubated currently on 3 L nasal cannula Patient could not lay flat for cardiac stress test, echo did not show significant wall motion abnormality, preserved EF, no further work-up requested Doxycycline was added because of positive sputum culture which I will discontinue She remained afebrile, no signs of pneumonia C. difficile diarrhea: 6-day of p.o. vancomycin, 4 more days to go Still having 1 liquid stool a day Continue PT OT ST Dysphagia diet Son is the medical DPOA Type 2 diabetes insulin 20 units glargine along sliding scale Hypertension continue lisinopril and amlodipine Abnormal TSH, check free T4 Hypokalemia: Patient refused her potassium supplement today Check BMP and mag level tomorrow Full code Dysphagia diet DVT prophylaxis on board Attestations Medical Necessity Statement*: Awaiting placement Time Spent in Patient Care: 30 Coding Level of Care Code Acute Code for [facility] Fwd Diagnoses C. difficile diarrhea A04.72 Acute CVA (cerebrovascular accident) I63.9 NSTEMI (non-ST elevated myocardial infarction) I21.4 Cardiac arrest I46.9 Hypokalemia E87.6
[2022-06-12 12:11] LABS: Glucose Point of Care 171 mg/dL (70-110)
[2022-06-12 12:41] LABS: Free T4 Free Thyroxine 1.38 ng/dL (0.82-1.77)
[2022-06-12 17:19] LABS: Glucose Point of Care 156 mg/dL (70-110)
[2022-06-12] MEDS: insulin glargine 100 units/1 mL 20 UNIT SUBCUT (20:25)
[2022-06-12 21:51] LABS: Glucose Point of Care 153 mg/dL (70-110)
[2022-06-13] VITALS (10 sets, daily range): BP systolic 100–149; BP diastolic 66–83; PULSE 76–91; RESP 16–18; TEMP 36.5–37.1; O2SAT 91–96
[2022-06-13] MEDS: ipratropium-albuterol 3 mL Neb INHALATION ×3 (02:25→21:19)
[2022-06-13 06:29] LABS: Anion Gap 13.9 (5-19); Blood Urea Nitrogen 9 mg/dL (8-23); Calcium 7.9 mg/dL (8.5-10.5); Carbon Dioxide 27 mmol/L (22-29); Chloride 100 mmol/L (98-107); Glomerular Filtration Rate 161.2 mL/min (90-130); Glucose 130 mg/dL (65-115); Magnesium 1.3 mg/dL (1.7-2.3); Osmolality Calculated 284 mOsm/kg (285-295); Potassium 3.9 mmol/L (3.5-5.1); Sodium 137 mmol/L (136-145)
[2022-06-13 07:22] LABS: Glucose Point of Care 140 mg/dL (70-110)
[2022-06-13] MEDS: atorvastatin 40 mg Tablet PO (08:43)
[2022-06-13] MEDS: aspirin 81 mg EC Tablet PO (08:43)
[2022-06-13] MEDS: potassium chloride oral liq 20 mEq/15 mL UDC PO (08:43)
[2022-06-13] MEDS: lisinopril 10 mg Tablet PO (08:43)
[2022-06-13] MEDS: amlodipine 5 mg Tablet PO (08:43)
[2022-06-13] MEDS: enoxaparin 40 mg/0.4 mL Syringe SUBCUT (08:43)
[2022-06-13] MEDS: magnesium oxide 400 mg tablet PO ×2 (08:43→18:18)
--- NOTE | 2022-06-13 09:50 | PC.NURSE ---
This nurse called [facility] for bed update, so far still no available beds.
[2022-06-13 11:26] LABS: Glucose Point of Care 260 mg/dL (70-110)
--- NOTE | 2022-06-13 12:24 | PM.PN ---
Subjective Subjective: Seen this morning. She asks when she will be discharged to go to the other hospital to have her surgery done. Sitting up in chair. Initially she she had mistaken me for the vascular surgeon. She says she is comfortable and recently ate. Has no questions for me and has no complaints at this time. No acute events reported by nursing staff either. Vitals/I&O/Wt Last Vital Signs Temp 98.0 F 06/13/22 08:00 Pulse 76 06/13/22 09:09 Resp 16 06/13/22 09:05 BP 119/78 06/13/22 08:00 Pulse Ox 95 06/13/22 09:05 O2 Del Method 06/13/22 09:05 O2 Flow Rate 3 06/13/22 09:05 FiO2 40 06/11/22 23:29 06/12/22 06/13/22 06/13/22 22:59 06:59 14:59 Intake Total 240 / 720 120 / 840 120 / 120 Output Total 500 / 850 Balance 240 / 370 -380 / -10 120 / 120 Weight last 48 hrs Weight 95.481 kg Weight 95.935 kg Physical Exam Narrative: Pleasant Awake and alert Right-sided weakness Abdomen soft mild tender hypogastric region Currently on 3 L Euvolemic Pleasant and cooperative Urinary Catheter Management: Candelaria: Cath Placed During This Visit: yes Reason for Continuing Indwelling Catheter: Other Urinary Catheter Date of Insertion: 06/05/22 Urinary Catheter Time of Insertion: 02:00 Data 06/10/22 20:20 06/13/22 05:25 A&P Assessment and plan (1) C. difficile diarrhea: (2) Acute CVA (cerebrovascular accident): (3) NSTEMI (non-ST elevated myocardial infarction): (4) Cardiac arrest: (5) Hypokalemia: Plan Transfer summary for [facility] Patient was admitted to the hospital for altered mental status, she was diagnosed with stroke at the time of admission, 80% left ICA stenosis, our neurologist did not recommend tPA because last well-known time was unknown, family was try to get a hold of her and then sent EMS for evaluation who found her stuck between her dresser and the bed, in the ER she had seizure-like activity became hypoxic and lost her pulse, CPR was continued for about 10 minutes ROSC was obtained, TTM not initiated, patient was intubated at the time of admission, she was extubated within 48 hours, she was extubated to BiPAP and then transition to 2 L nasal cannula, she was diagnosed with C. difficile diarrhea, sputum showing gram-positive cocci, she was put on doxycycline, she remained afebrile, no significant leukocytosis, her mentation is fluctuant however able to carry a decent conversation, she has dense right-sided weakness, our cardiothoracic surgeon has recommended vascular intervention at [facility] because she has already been accepted at [facility] rehab. She has been accepted by Dr. Alaniz vascular surgeon at [facility], hospitalist accepting physician is Dr. Nicolas ALCARAZ signed Acute CVA: Right-sided weakness Will need carotid intervention at [facility] Continue aspirin, do not give Plavix in anticipation of surgical intervention She got only 1 dose of Plavix on Monday I believe, she will need 5 days before her intervention Patient is having fluctuating mentation related to resolving stroke Cardiac arrest after hypoxia and seizure-like activity in the ER, No recurrence of seizure This was most likely related to hypoxic event Patient has been successfully extubated currently on 3 L nasal cannula Patient could not lay flat for cardiac stress test, echo did not show significant wall motion abnormality, preserved EF, no further work-up requested Doxycycline was added because of positive sputum culture which I will discontinue She remained afebrile, no signs of pneumonia C. difficile diarrhea: 7-day of p.o. vancomycin, 3 more days to go Still having 1 liquid stool a day Continue PT OT ST Dysphagia diet Son is the medical DPOA Type 2 diabetes insulin 20 units glargine along sliding scale Hypertension continue lisinopril and amlodipine Abnormal TSH, check free T4 Hypokalemia: Patient refused her potassium supplement today Check BMP and mag level tomorrow Full code Dysphagia diet DVT prophylaxis on board Attestations Medical Necessity Statement*: Patient has been accepted for transfer at [facility]. Currently awaiting bed availability. Coding Level of Care Code Acute Code for Chg Fwd Diagnoses C. difficile diarrhea A04.72 Acute CVA (cerebrovascular accident) I63.9 NSTEMI (non-ST elevated myocardial infarction) I21.4 Cardiac arrest I46.9 Hypokalemia E87.6
[2022-06-13] MEDS: insulin lispro 100 unit/1 mL SUBCUT ×2 (13:03→17:27)
[2022-06-13] MEDS: magnesium sulfate premix 2 GM/50 ML PIGGYBACK IV (13:12)
[2022-06-13 17:12] LABS: Glucose Point of Care 192 mg/dL (70-110)
[2022-06-13] MEDS: insulin glargine 100 units/1 mL 20 UNIT SUBCUT (20:47)
[2022-06-13 20:54] LABS: Glucose Point of Care 213 mg/dL (70-110)
[2022-06-14] VITALS (11 sets, daily range): BP systolic 107–130; BP diastolic 69–77; PULSE 74–96; RESP 14–20; TEMP 36.7–37.1; O2SAT 88–96
--- NOTE | 2022-06-14 00:23 | PC.NURSE ---
Patient's oxygen saturation staying in mid 80s on 2.5 L nasal cannula. Patient placed on oxymask on 3L, now saturating in 90s.
[2022-06-14] MEDS: ipratropium-albuterol 3 mL Neb INHALATION ×4 (01:26→21:03)
--- NOTE | 2022-06-14 04:00 | PC.NURSE ---
Patient rounded on and O2 saturations in 84 on 3L oxymask. Oxygen increased to 5L and now satting high 80s. Respiratory informed.
[2022-06-14 05:24] LABS: Anion Gap 12.1 (5-19); Blood Urea Nitrogen 8 mg/dL (8-23); Calcium 7.8 mg/dL (8.5-10.5); Carbon Dioxide 27 mmol/L (22-29); Chloride 102 mmol/L (98-107); Glomerular Filtration Rate 161.2 mL/min (90-130); Glucose 154 mg/dL (65-115); Osmolality Calculated 285 mOsm/kg (285-295); Potassium 4.1 mmol/L (3.5-5.1); Sodium 137 mmol/L (136-145)
[2022-06-14 06:42] LABS: Glucose Point of Care 144 mg/dL (70-110)
[2022-06-14] MEDS: magnesium oxide 400 mg tablet PO ×2 (08:54→17:39)
[2022-06-14] MEDS: enoxaparin 40 mg/0.4 mL Syringe SUBCUT (08:54)
[2022-06-14] MEDS: lisinopril 10 mg Tablet PO (08:54)
[2022-06-14] MEDS: atorvastatin 40 mg Tablet PO (08:54)
[2022-06-14] MEDS: aspirin 81 mg EC Tablet PO (08:54)
[2022-06-14] MEDS: amlodipine 5 mg Tablet PO (08:54)
[2022-06-14] MEDS: nicotine 21 mg Patch 1 PATCH TRANSDERMA (08:54)
[2022-06-14] MEDS: potassium chloride oral liq 20 mEq/15 mL UDC PO (08:55)
[2022-06-14] MEDS: insulin lispro 100 unit/1 mL SUBCUT ×2 (09:02→17:41)
--- NOTE | 2022-06-14 15:17 | PM.PN ---
Subjective Subjective: Alert and oriented to self Does answer some questions but confused at times No acute events overnight does repeatedly ask when her surgery is Vitals/I&O/Wt Last Vital Signs Temp 98.2 F 06/14/22 03:53 Pulse 90 06/14/22 08:00 Resp 20 H 06/14/22 08:00 BP 127/69 06/14/22 08:00 Pulse Ox 90 06/14/22 07:47 O2 Del Method 06/14/22 08:00 O2 Flow Rate 4 06/14/22 08:00 FiO2 40 06/11/22 23:29 06/14/22 06/14/22 06/14/22 06:59 14:59 22:59 Intake Total 0 / 410 771.783 / 771.783 Output Total 200 / 550 Balance -200 / -140 771.783 / 771.783 Weight last 48 hrs Weight 93.638 kg Weight 95.481 kg Physical Exam Narrative: Pleasant Awake and alert but oriented only to self Right-sided weakness Abdomen soft non tender Currently on 3 L Euvolemic Pleasant and cooperative Urinary Catheter Management: Candelaria: Cath Placed During This Visit: yes Reason for Continuing Indwelling Catheter: Other Urinary Catheter Date of Insertion: 06/05/22 Urinary Catheter Time of Insertion: 02:00 Data 06/10/22 20:20 06/14/22 04:50 A&P Assessment and plan (1) C. difficile diarrhea: (2) Acute CVA (cerebrovascular accident): (3) NSTEMI (non-ST elevated myocardial infarction): (4) Cardiac arrest: (5) Hypokalemia: Plan Transfer summary for [facility] Patient was admitted to the hospital for altered mental status, she was diagnosed with stroke at the time of admission, 80% left ICA stenosis, our neurologist did not recommend tPA because last well-known time was unknown, family was try to get a hold of her and then sent EMS for evaluation who found her stuck between her dresser and the bed, in the ER she had seizure-like activity became hypoxic and lost her pulse, CPR was continued for about 10 minutes ROSC was obtained, TTM not initiated, patient was intubated at the time of admission, she was extubated within 48 hours, she was extubated to BiPAP and then transition to 2 L nasal cannula, she was diagnosed with C. difficile diarrhea, sputum showing gram-positive cocci, she was put on doxycycline, she remained afebrile, no significant leukocytosis, her mentation is fluctuant however able to carry a decent conversation, she has dense right-sided weakness, our cardiothoracic surgeon has recommended vascular intervention at [facility] because she has already been accepted at [facility] rehab. She has been accepted by Dr. Alaniz vascular surgeon at [facility], hospitalist accepting physician is Dr. Nicolas ALCARAZ signed Acute CVA: Right-sided weakness Will need carotid intervention at [facility] Continue aspirin, do not give Plavix in anticipation of surgical intervention She got only 1 dose of Plavix on Monday I believe, she will need 5 days before her intervention Patient is having fluctuating mentation related to resolving stroke Cardiac arrest after hypoxia and seizure-like activity in the ER, No recurrence of seizure This was most likely related to hypoxic event Patient has been successfully extubated currently on 3 L nasal cannula Patient could not lay flat for cardiac stress test, echo did not show significant wall motion abnormality, preserved EF, no further work-up requested Doxycycline was added because of positive sputum culture which I will discontinue She remained afebrile, no signs of pneumonia C. difficile diarrhea: 7-day of p.o. vancomycin, 3 more days to go Still having 1 liquid stool a day Continue PT OT ST Dysphagia diet Son is the medical DPOA Type 2 diabetes insulin 20 units glargine along sliding scale Hypertension continue lisinopril and amlodipine Abnormal TSH, check free T4 Hypokalemia: Patient refused her potassium supplement today Check BMP and mag level tomorrow Full code Dysphagia diet DVT prophylaxis on board Attestations Medical Necessity Statement*: Pending transfer to [facility] Coding Level of Care Code Acute Code for Chg Fwd Diagnoses C. difficile diarrhea A04.72 Acute CVA (cerebrovascular accident) I63.9 NSTEMI (non-ST elevated myocardial infarction) I21.4 Cardiac arrest I46.9 Hypokalemia E87.6
[2022-06-14 16:41] LABS: Glucose Point of Care 192 mg/dL (70-110)
[2022-06-14 17:38] LABS: Glucose Point of Care 207 mg/dL (70-110)
[2022-06-14] MEDS: insulin glargine 100 units/1 mL 20 UNIT SUBCUT (21:15)
[2022-06-14 23:56] LABS: Glucose Point of Care 228 mg/dL (70-110)
[2022-06-15] VITALS (14 sets, daily range): BP systolic 111–131; BP diastolic 68–82; PULSE 62–92; RESP 16–18; TEMP 36.5–37; O2SAT 88–96
--- NOTE | 2022-06-15 00:22 | PC.NURSE ---
Patient tore off optifoam and bandage covering self-inflicted scratches on chest as well as face. Areas open to air at this time.
--- NOTE | 2022-06-15 01:11 | PC.NURSE ---
Dayshift reported patient having tolerated being weaned to 3L nasal cannula. Patient rounded on with 5L nasal cannula and oxygen in mid-80s. Respiratory was contacted, and discussion took place of putting patient on oxymask as patient is breathing from mouth and having slight apneic episodes. Patient currently saturating 93% on 3.5L oxymask.
--- NOTE | 2022-06-15 01:28 | PC.NURSE ---
Oxygen levels rechecked. Patient continued to saturate 93-94% on 3.5L oxymask.
--- NOTE | 2022-06-15 02:18 | PC.NURSE ---
Patient continued saturating mid to low 90s on oxymask.
[2022-06-15] MEDS: ipratropium-albuterol 3 mL Neb INHALATION ×3 (02:57→13:47)
--- NOTE | 2022-06-15 05:12 | PC.NURSE ---
This nurse spoke with Elinor at [facility] regarding placement. Still no bed available at this time. Elinor inquired about patient's current respiratory status and last set of vitals. This nurse informed that [facility] would call once bed became available.
[2022-06-15 05:55] LABS: Basophils % 0.4 %; Eosinophils # 0.2 10^3/uL (0.0-0.8); Hematocrit 32.9 % (37.0-47.0); Hemoglobin 10.3 g/dL (11.5-15.3); Lymphocytes # 1.8 10^3/uL (0.8-4.8); Lymphocytes % 21.3 %; Mean Corpuscular HGB Conc 31.3 g/dL (30.0-36.0); Mean Corpuscular Hemoglobin 27.3 pg (28.0-34.0); Mean Corpuscular Volume 87.3 fl (81-99); Mean Platelet Volume 10.7 fL (7.4-10.4); Monocytes # 0.8 10^3/uL (0.2-0.9); Monocytes % 9.7 %; Nucleated Red Blood Cells % 0 %; Platelet Count 406 10^3/cmm (130-400); Red Blood Count 3.77 10^6/uL (4.1-5.3); Red Cell Distribution Width 17.8 % (12.1-15.1); White Blood Count 8.5 10^3/uL (4.0-10.0)
--- NOTE | 2022-06-15 06:30 | PC.NURSE ---
Patient rounded on and oxymask had been removed by patient. Oxymask re-applied by this nurse, and o2 saturations 95. Patient educated to keep oxygen on.
[2022-06-15 06:37] LABS: Glucose Point of Care 168 mg/dL (70-110)
[2022-06-15] MEDS: insulin lispro 100 unit/1 mL SUBCUT ×3 (10:39→19:06)
[2022-06-15] MEDS: lisinopril 10 mg Tablet PO (10:41)
[2022-06-15] MEDS: enoxaparin 40 mg/0.4 mL Syringe SUBCUT (10:41)
[2022-06-15] MEDS: atorvastatin 40 mg Tablet PO (10:41)
[2022-06-15] MEDS: amlodipine 5 mg Tablet PO (10:41)
[2022-06-15] MEDS: magnesium oxide 400 mg tablet PO ×2 (10:41→19:06)
[2022-06-15] MEDS: aspirin 81 mg EC Tablet PO (10:42)
[2022-06-15] MEDS: potassium chloride oral liq 20 mEq/15 mL UDC PO (10:42)
[2022-06-15] MEDS: nicotine 21 mg Patch 1 PATCH TRANSDERMA (10:42)
--- NOTE | 2022-06-15 11:45 | PM.PN ---
Subjective Subjective: No acute events overnight. Still awaiting bed placement. Patient requesting to have Candelaria catheter removed. We will remove that today. Vitals/I&O/Wt Last Vital Signs Temp 98.0 F 06/15/22 08:00 Pulse 78 06/15/22 08:25 Resp 16 06/15/22 08:22 BP 120/70 06/15/22 08:00 Pulse Ox 94 06/15/22 08:25 O2 Del Method 06/15/22 08:22 O2 Flow Rate 4 06/15/22 08:25 FiO2 40 06/11/22 23:29 06/14/22 06/15/22 06/15/22 22:59 06:59 14:59 Intake Total 300 / 1071.783 0 / 1071.783 360 / 360 Output Total 200 / 200 600 / 800 Balance 100 / 871.783 -600 / 271.783 360 / 360 Weight last 48 hrs Weight 95.481 kg Weight 93.638 kg Physical Exam Narrative: Pleasant Awake and alert but oriented only to place and self today. Right-sided weakness Abdomen soft non tender Currently on 3 L Euvolemic Pleasant and cooperative Urinary Catheter Management: Candelaria: Cath Placed During This Visit: yes Reason for Continuing Indwelling Catheter: Other Urinary Catheter Date of Insertion: 06/05/22 Urinary Catheter Time of Insertion: 02:00 Data 06/15/22 05:07 06/14/22 04:50 A&P Assessment and plan (1) C. difficile diarrhea: (2) Acute CVA (cerebrovascular accident): (3) NSTEMI (non-ST elevated myocardial infarction): (4) Cardiac arrest: (5) Hypokalemia: Plan Transfer summary for [facility] Patient was admitted to the hospital for altered mental status, she was diagnosed with stroke at the time of admission, 80% left ICA stenosis, our neurologist did not recommend tPA because last well-known time was unknown, family was try to get a hold of her and then sent EMS for evaluation who found her stuck between her dresser and the bed, in the ER she had seizure-like activity became hypoxic and lost her pulse, CPR was continued for about 10 minutes ROSC was obtained, TTM not initiated, patient was intubated at the time of admission, she was extubated within 48 hours, she was extubated to BiPAP and then transition to 2 L nasal cannula, she was diagnosed with C. difficile diarrhea, sputum showing gram-positive cocci, she was put on doxycycline, she remained afebrile, no significant leukocytosis, her mentation is fluctuant however able to carry a decent conversation, she has dense right-sided weakness, our cardiothoracic surgeon has recommended vascular intervention at [facility] because she has already been accepted at [facility] rehab. She has been accepted by Dr. Alaniz vascular surgeon at [facility], hospitalist accepting physician is Dr. Nicolas ALCARAZ signed Acute CVA: Right-sided weakness Will need carotid intervention at [facility] Continue aspirin, do not give Plavix in anticipation of surgical intervention She got only 1 dose of Plavix on Monday I believe, she will need 5 days before her intervention Patient is having fluctuating mentation related to resolving stroke Cardiac arrest after hypoxia and seizure-like activity in the ER, No recurrence of seizure This was most likely related to hypoxic event Patient has been successfully extubated currently on 3 L nasal cannula Patient could not lay flat for cardiac stress test, echo did not show significant wall motion abnormality, preserved EF, no further work-up requested C. difficile diarrhea: For total 10 days. First dose given June 07. 2 more days left. No bowel movement today. Continue PT OT ST Dysphagia diet Son is the medical DPOA Type 2 diabetes insulin 20 units glargine along sliding scale Hypertension continue lisinopril and amlodipine Full code Dysphagia diet DVT prophylaxis on board Attestations Medical Necessity Statement*: Pending transfer to [facility]. Coding Level of Care Code Acute Code for [facility] Fwd Diagnoses C. difficile diarrhea A04.72 Acute CVA (cerebrovascular accident) I63.9 NSTEMI (non-ST elevated myocardial infarction) I21.4 Cardiac arrest I46.9 Hypokalemia E87.6
[2022-06-15 11:48] LABS: Glucose Point of Care 253 mg/dL (70-110)
--- NOTE | 2022-06-15 14:24 | PM.TDS ---
Transfer Summary Providers Date of Admission: 06/05/22 00:26 Date of Discharge/Transfer: 06/28/22 Attending Provider at Admission: More Cummins MD Attending Provider at Transfer: More Cummins MD Primary Care Provider: Shamika Harding MD Transfer Plans: Anticipated date of transfer: 06/28/22. Diagnoses at Discharge Discharge Diagnosis (1) C. difficile diarrhea: Status: Acute (2) Acute CVA (cerebrovascular accident): Status: Acute (3) NSTEMI (non-ST elevated myocardial infarction): Status: Acute (4) Cardiac arrest: Status: Acute Permanent problem details: Due to hypoxia after seizure-like activity in the ER (5) Hypokalemia: Status: Acute Reason for Visit Reason for Visit AMS Brief History: Maru Man is a 61 year old female with past medical history of anxiety, stroke, chronic back pain, COPD, diabetes, hypertension, NSTEMI, major depression, urinary incontinence, vertebral artery stenosis presented to the hospital today for altered mental status.? Last known well is about 30 hours ago.? All of her phone calls on her cell phone have been missed since then.? EMS brought her to the hospital.? She was found in her bed with her face against the bed rail.? She has a pressure abrasion to left temporal face, pressure abrasion to left lateral wrist and blisters to the right heel.? On arrival patient was quite confused and lethargic.? She only knew her name but does not know where she was or what was going on.? She was having trouble answering questions.? NIH on arrival was 9.? CT head was done which showed multiple infarcts in the left side of brain involving the MCA distribution and SPECIMEN [employer]SPORTER distribution which are at least 6 hours old.? Possibly embolic?.? Mild parenchymal atrophy and chronic small vessel disease.? Subsequently head and neck CTA was ordered which showed no large vessel occlusion or stenosis but did show large amount of soft plaque in proximal left internal carotid artery resulting in 85% stenosis.? ER physician discussed with Dr. Cuevas and it was determined that patient is out of the window for any kind of intervention or tPA at this time.? We will admit here for stroke at this time. WBC 15.3, hemoglobin 12.4, D-dimer 2.91, gas showed 7.48/36 point 2/72/20 6.9, sodium 138, potassium 3.6, creatinine 0.5, CO2 25, baseline troponin 77, delta troponin 2 hours -5, CRP 52, BNP 1700, CPK 700 range.? Urine drug screen positive for benzodiazepines.? UA showed 2+ blood, 3+ ketones, 4+ glucose.? Negative for leukocyte esterase or nitrates.? Alcohol level less than 10.? Influenza, COVID negative, serum ketones negative. Hospitalist was requested to admit the patient at this time.? ER physician mention to me the patient was starting to wake up at this time and starting to answer some questions.? She also drank water and took her aspirin, Plavix, atorvastatin.? Soon after as I arrived to the ER to evaluate the patient she was undergoing CPR.? I was informed that patient had a tonic-clonic seizure and during the seizure became hypoxic and lost pulse.? ROSC was achieved at around 10 minutes.? Intraosseous access was obtained on right tibia.? Fluid bolus was given.? Patient was intubated.? Central line was placed by ER doctor.? Levophed was ordered.? A gram of Keppra has been ordered at this time.? At time of my evaluation of the patient she was already intubated. Called family and discussed with patient's [id number] in [place] and her ex- that her last known normal was Monday afternoon.? They said that she mentioned that there was something wrong with her head feeling heavy and she told her family that she is going to rest.? She was then found at home wedged between her bed and dresser.? She has had a stroke before but had no neurological deficits. Hospital Course Hospital Course Transfer summary for [facility] Summary Patient was admitted to the hospital for altered mental status, she was diagnosed with stroke at the time of admission, 80% left ICA stenosis, our neurologist did not recommend tPA because last well-known time was unknown, family was try to get a hold of her and then sent EMS for evaluation who found her stuck between her dresser and the bed, in the ER she had seizure-like activity became hypoxic and lost her pulse, CPR was continued for about 10 minutes ROSC was obtained, TTM not initiated, patient was intubated at the time of admission, she was extubated within 48 hours, she was extubated to BiPAP and then transition to 2 L nasal cannula, she was diagnosed with C. difficile diarrhea, sputum showing gram-positive cocci, she was put on doxycycline, she remained afebrile, no significant leukocytosis, her mentation is fluctuant however able to carry a decent conversation, she has dense right-sided weakness, our cardiothoracic surgeon has recommended vascular intervention at [facility] because she has already been accepted at [facility] rehab. She has been accepted by Dr. Alaniz vascular surgeon at [facility], hospitalist accepting physician is Dr. Nicolas ALCARAZ signed Acute CVA: Right-sided weakness Will need carotid intervention at [facility] Continue aspirin, do not give Plavix in anticipation of surgical intervention She got only 1 dose of Plavix on Monday I believe, she will need 5 days before her intervention Patient is having fluctuating mentation related to resolving stroke Cardiac arrest after hypoxia and seizure-like activity in the ER, No recurrence of seizure This was most likely related to hypoxic event Patient has been successfully extubated currently on 3 L nasal cannula Patient could not lay flat for cardiac stress test, echo did not show significant wall motion abnormality, preserved EF, no further work-up requested C. difficile diarrhea: For total 10 days.? First dose given June 07.? 2 more days left. No bowel movement today. Continue PT OT ST Dysphagia diet Son is the medical DPOA Type 2 diabetes insulin 20 units glargine along sliding scale Hypertension continue lisinopril and amlodipine Full code Dysphagia diet DVT prophylaxis on board Physical Exam Narrative: Pleasant Awake and alert but oriented only to place and self today. Right-sided weakness Abdomen soft non tender Currently on 3 L Euvolemic Pleasant and cooperative Urinary Catheter Management: Candelaria: Cath Placed During This Visit: yes Reason for Continuing Indwelling Catheter: Other Urinary Catheter Date of Insertion: 06/05/22 Urinary Catheter Time of Insertion: 02:00 TS Data Studies Completed and Pending Pending at discharge Category Date Time Status Sestamibi Stress Test Request Routine Exams 06/08/22 10:42 Stop Req Sestamibi Stress Test Request Routine Exams 06/09/22 10:22 Ordered Completed Studies During Hospitalization Category Date Time Status CT angio chest PE protcl [id number] Routine Cat Scan 06/08/22 08:[address] head wo con* [id number] Routine Cat Scan 06/05/22 10:[address] head wo con* [id number] Routine Cat Scan 06/10/22 19:[address] head wo con* [id number] Stat Cat Scan 06/04/22 21:03 Completed CTA head neck [CT angio headneck* [id number]] Stat Cat Scan 06/04/22 22:33 Completed XR KUB portable [id number] Stat Exams 06/05/22 04:14 Completed XR chest 1V portable [id number] Routine Exams 06/05/22 01:53 Completed XR chest 1V portable [id number] Routine Exams 06/05/22 05:39 Completed XR chest 1V portable [id number] Routine Exams 06/10/22 19:33 Completed XR chest 1V portable [id number] Stat Exams 06/04/22 21:03 Completed XR chest 1V portable [id number] Stat Exams 06/06/22 17:29 [place] [id number] Routine Ultrasound 06/06/22 08:00 Completed CV. echo limited [id number] Routine Ultrasound 06/05/22 11:59 Completed CV. echo wo/w contrast [id number] Routine Ultrasound 06/05/22 03:42 Completed Laboratory Last Values WBC 8.5 10^3/uL (4.0-10.0) 06/15/22 05:07 Corrected WBC Cancelled 06/09/22 04:56 RBC 3.77 10^6/uL (4.1-5.3) L 06/15/22 05:07 Hgb 10.3 g/dL (11.5-15.3) L 06/15/22 05:07 Hct 32.9 % (37.0-47.0) L 06/15/22 05:07 MCV 87.3 fl (81-99) 06/15/22 05:07 MCH 27.3 pg (28.0-34.0) L 06/15/22 05:07 MCHC 31.3 g/dL (30.0-36.0) 06/15/22 05:07 RDW 17.8 % (12.1-15.1) H 06/15/22 05:07 Plt Count 406 10^3/cmm (130-400) H 06/15/22 05:07 MPV 10.7 fL (7.4-10.4) H 06/15/22 05:07 Gran % Cancelled 06/09/22 04:56 Neut % (Auto) 66.0 % 06/15/22 05:07 Lymph % (Auto) 21.3 % 06/15/22 05:07 [place] % (Auto) 9.7 % 06/15/22 05:07 Eos % (Auto) 2.0 % 06/15/22 05:07 Baso % (Auto) 0.4 % 06/15/22 05:07 Neut # (Auto) 5.60 10^3/uL (1.8-7.7) 06/15/22 05:07 Lymph # (Auto) 1.8 10^3/uL (0.8-4.8) 06/15/22 05:07 [place] # (Auto) 0.8 10^3/uL (0.2-0.9) 06/15/22 05:07 Eos # (Auto) 0.2 10^3/uL (0.0-0.8) 06/15/22 05:07 Baso # (Auto) 0.0 10^3/uL (0.0-0.1) 06/15/22 05:07 Absolute Gran (auto) Cancelled 06/09/22 04:56 Nucleated RBC % (auto) 0 % 06/15/22 05:07 Nucleated RBCs # 0.0 /100WBC 06/15/22 05:07 PT 15.10 SECONDS (12.1-14.9) H 06/04/22 21:45 INR 1.15 (0.8-1.2) 06/04/22 21:45 APTT 24.5 SECONDS (23.9-36.7) 06/04/22 21:45 D-Dimer 9.61 ug/mIFEU (0-0.59) H 06/05/22 12:45 Specimen Type Arterial 06/10/22 19:35 Sample Site Radial, right 06/10/22 19:35 ABG pH 7.49 (7.35-7.45) H 06/10/22 19:35 ABG pCO2 36.8 mmHg (35-45) 06/10/22 19:35 ABG pO2 70.6 mmHg (80.0-100.0) L 06/10/22 19:35 ABG HCO3 28.3 mmol/L (22-26) H 06/10/22 19:35 ABG Base Excess 4.8 mmol/L (-2.0-2.0) H 06/10/22 19:35 Yinka Test Pos 06/10/22 19:35 Hematocrit 38.9 % (37-47) 06/10/22 19:35 O2 Delivery Device Nc 06/10/22 19:35 O2 Liters/Min 3.0 % 06/10/22 19:35 FiO2 35.0 % 06/06/22 04:00 Tidal Volume 0.43 06/06/22 04:00 PEEP 5.0 cmH20 06/06/22 04:00 Police Officer Crime Prevention ID Fidencio 06/10/22 19:35 Sodium 137 mmol/L (136-145) 06/14/22 04:50 Potassium 4.1 mmol/L (3.5-5.1) 06/14/22 04:50 Chloride 102 mmol/L (98-107) 06/14/22 04:50 Carbon Dioxide 27 mmol/L (22-29) 06/14/22 04:50 Anion Gap 12.1 (5-19) 06/14/22 04:50 BUN 8 mg/dL (8-23) 06/14/22 04:50 Creatinine 0.4 mg/dL (0.5-0.9) L 06/14/22 04:50 GFR Calculation 161.2 mL/min (90-130) H 06/14/22 04:50 Glucose 154 mg/dL (65-115) H 06/14/22 04:50 POC Glucose 239 mg/dL (70-110) H 06/15/22 21:52 Estimat Average Glucose 252 06/06/22 02:45 Hemoglobin A1c 10.4 % (4.0-6.0) H 06/06/22 02:45 Calculated Osmolality 285 mOsm/kg (285-295) 06/14/22 04:50 Lactic Acid 1.3 mmol/L (0.5-2.2) 06/10/22 20:20 Lactate 1.1 mmol/L (0.5-2.2) 06/06/22 02:45 Calcium 7.8 mg/dL (8.5-10.5) L 06/14/22 04:50 Phosphorus 1.9 mg/dL (2.5-4.5) L 06/08/22 04:18 Magnesium 1.3 mg/dL (1.7-2.3) L 06/13/22 05:25 Total Bilirubin 0.5 mg/dL (0.15-1.2) 06/10/22 20:20 AST 25 U/L (0-32) 06/10/22 20:20 ALT 27 U/L (0-33) 06/10/22 20:20 Alkaline Phosphatase 80 U/L (35-105) 06/10/22 20:20 Ammonia 46 umol/L (11-51) 06/10/22 20:20 Creatine Kinase 742 U/L (26-192) H* 06/04/22 21:45 Troponin T Baseline 77 ng/L (0-10) H 06/04/22 21:45 Troponin T 120 Minute 71.71 ng/L (0-10) H 06/04/22 23:22 Delta Troponin T -5.29 ABS# (0-10) L 06/04/22 23:22 Troponin T Hi Sens 6Hr 96.31 ng/L (0-10) H 06/05/22 03:53 Troponin T Hi Sens 6Hr Delta 19.31 ng/L (0-12) H* 06/05/22 03:53 C-Reactive Protein 58.1 mg/L (0.0-4.9) H 06/10/22 20:20 NT-Pro-B Natriuret Pep 1058 pg/mL (0-125) H 06/06/22 02:45 Total Protein 6.5 g/dL (6.6-8.7) L 06/10/22 20:20 Albumin 2.7 g/dL (3.5-5.2) L 06/10/22 20:20 Globulin 3.8 g/dL (1.3-4.6) 06/10/22 20:20 Lipase 9 U/L (13-60) L 06/04/22 21:45 Procalcitonin 0.10 ng/mL (0-0.5) 06/10/22 20:20 TSH 4.33 uIU/mL (0.27-4.20) H 06/10/22 20:20 Free T4 1.38 ng/dL (0.82-1.77) 06/12/22 04:45 Urine Color Yellow (Yellow) 06/04/22 20:53 Urine Appearance Clear (CLEAR) 06/04/22 20:53 Urine pH 6.5 (5-7) 06/04/22 20:53 Ur Specific [place] 1.010 (1.005-1.030) 06/04/22 20:53 Urine Protein Trace (Negative) H 06/04/22 20:53 Urine Glucose (UA) 4+ (Normal) H 06/04/22 20:53 Urine Ketones 3+ (Negative) H 06/04/22 20:53 Urine Blood 2+ (Negative) H 06/04/22 20:53 Urine Nitrate Negative (Negative) 06/04/22 20:53 Urine Bilirubin Neg (Negative) 06/04/22 20:53 Urine Urobilinogen Neg mg/dL (Negative) 06/04/22 20:53 Ur Leukocyte Esterase Negative (Negative) 06/04/22 20:53 Urine RBC 5-10 /hpf (0-2) H 06/04/22 20:53 Urine WBC 0-4 /hpf (0-5) H 06/04/22 20:53 Ur Squamous Epith Cells 5-10 /hpf (0-5) H 06/04/22 20:53 Amorphous Sediment Not Reportable 06/04/22 20:53 Urine Bacteria Trace /hpf (NONE) 06/04/22 20:53 Urine Mucus Trace /hpf 06/04/22 20:53 Urine Yeast Trace /hpf 06/04/22 20:53 Urine Opiates Screen Negative ng/mL (Negative) 06/04/22 20:53 Ur Barbiturates Screen Negative ng/mL (Negative) 06/04/22 20:53 Ur Phencyclidine Scrn Negative ng/mL (Negative) 06/04/22 20:53 Ur Amphetamines Screen Negative ng/mL (Negative) 06/04/22 20:53 U Benzodiazepines Scrn Positive ng/mL (Negative) H 06/04/22 20:53 Urine Cocaine Screen Negative ng/mL (Negative) 06/04/22 20:53 U Marijuana (THC) Screen Negative ng/mL (Negative) 06/04/22 20:53 Ethyl Alcohol < 10 mg/dL (0-10) 06/04/22 21:45 Serum Ketones Negative (Negative) 06/04/22 21:45 Influenza Type A Ag negative (Negative) 06/04/22 21:40 Influenza Type B Ag negative (Negative) 06/04/22 21:40 SARS-CoV-2 Ag (Rapid) negative (Negative) 06/04/22 21:40 Radiology Impressions Head/Neck CTA 06/04/22 22:33 IMPRESSION: No large vessel occlusion or stenosis. IMPRESSION: Large amount of soft plaque in the proximal left ICA resulting in 85% stenosis. REFERENCES: NASCET CRITERIA. The degree of stenosis in the cervical segment of the internal carotid artery is based on NASCET criteria. Normal is no stenosis. Mild is less than 50% stenosis. Moderate is 50-69% stenosis. Severe is 70% to 99% stenosis. Total occlusion is no detectable patent lumen. KUB X-Ray 06/05/22 04:14 IMPRESSION: 1. Endotracheal tube is in the right mainstem bronchus and should be withdrawn approximately 3 cm. 2. The NG tube side port is in the distal esophagus and should be advanced approximately 5.4 cm. 3. Hazy left basilar opacity which could be secondary to atelectasis or pneumonia. ADDENDUM: 06/05/22 0514 THIS REPORT CONTAINS FINDINGS THAT MAY BE CRITICAL TO PATIENT CARE. The findings were verbally communicated by me to SASCHA Brower via telephone conference at 5:12 AM SERVICE NOW DEVELOPER on 06/05/2022. The findings were acknowledged and understood. Chest CTA 06/08/22 08:00 IMPRESSION: 1. No evidence of pulmonary embolus. 2. Small LEFT pleural effusion with compressive atelectasis LEFT lower lobe. 3. RIGHT lung is well aerated. Chest X-Ray 06/10/22 19:33 IMPRESSION: 1. New small LEFT pleural effusion. 2. Consider reevaluation of the central line position. The tip appears to have advanced into the RIGHT heart. This may be exacerbated by rotation of the patient. Recommend repeat imaging with less rotation to reevaluate positioning of the central line. Head CT 06/10/22 19:33 IMPRESSION: 1. Evolving subacute appearing infarcts in the left MCA and SPECIMEN TRANSPORTER territory are redemonstrated. No evidence of hemorrhagic transformation. No significant mass effect. 2. Changes suggestive of acute left maxillary sinusitis. Recent Clincial Data Last Vital Signs Temp 98.3 F 06/15/22 23:30 Pulse 92 06/15/22 23:30 Resp 16 06/15/22 23:30 BP 128/73 06/15/22 23:30 Pulse Ox 90 06/15/22 23:30 O2 Del Method 06/15/22 20:00 O2 Flow Rate 2 06/15/22 20:00 FiO2 40 06/11/22 23:29 Vitals Last Vital Signs Temp 98.3 F 06/15/22 23:30 Pulse 92 06/15/22 23:30 Resp 16 06/15/22 23:30 BP 128/73 06/15/22 23:30 Pulse Ox 90 06/15/22 23:30 O2 Del Method 06/15/22 20:00 O2 Flow Rate 2 06/15/22 20:00 FiO2 40 06/11/22 23:29 TS Medications Medications Discontinued Medications Acetaminophen (Acetaminophen 500 Mg Tablet) 500 mg PO Q4H PRN PRN Reason: fever Last Admin: 06/12/22 00:25 Dose: 500 mg Albuterol/Ipratropium (Ipratropium-Albuterol 3 Ml Neb) 3 ml INHALATION Q6H.RESP [facility], [facility] Last Admin: 06/15/22 21:14 Dose: Not Given Aminophylline (Aminophylline 25 Mg/Ml Sdv 10 Ml) 25 mg IVP Q2M PRN PRN Reason: see dose instructions Stop: 06/10/22 10:21 Amlodipine Besylate (Amlodipine 5 Mg Tablet) 5 mg PO DAILY [facility], [facility]1983 Last Admin: 06/15/22 10:41 Dose: 5 mg Aspirin (Aspirin 325 Mg Tablet) 325 mg PO ONCE ONE Stop: 06/05/22 00:24 Last Admin: 06/05/22 01:11 Dose: 325 mg Aspirin (Aspirin 81 Mg Ec Tablet) 81 mg PO DAILY [facility], [facility] Last Admin: 06/15/22 10:42 Dose: 81 mg Atorvastatin Calcium (Atorvastatin 40 Mg Tablet) 80 mg PO ONCE ONE Stop: 06/05/22 00:24 Last Admin: 06/05/22 01:12 Dose: 80 mg Atorvastatin Calcium (Atorvastatin 40 Mg Tablet) 80 mg PO DAILY [facility], [facility] Last Admin: 06/09/22 11:21 Dose: 80 mg Atorvastatin Calcium (Atorvastatin 40 Mg Tablet) 40 mg PO DAILY [facility], [facility] Last Admin: 06/10/22 09:43 Dose: 40 mg Atorvastatin Calcium (Atorvastatin 40 Mg Tablet) 40 mg PO DAILY [facility] Last Admin: 06/15/22 10:41 Dose: 40 mg Clopidogrel Bisulfate (Clopidogrel 75 Mg Tablet) 75 mg PO ONCE ONE Stop: 06/05/22 00:24 Last Admin: 06/05/22 01:12 Dose: 75 mg Clopidogrel Bisulfate (Clopidogrel 75 Mg Tablet) 75 mg PO DAILY [facility] Last Admin: 06/07/22 08:41 Dose: 75 mg Clopidogrel Bisulfate (Clopidogrel 75 Mg Tablet) 75 mg PO DAILY [facility] Last Admin: 06/14/22 07:31 Dose: Not Given Dextrose (Dextrose 50% Syringe 50 Ml) 25 ml IVP ONCE PRN; Protocol PRN Reason: hypoglycemia protocol Dextrose (Dextrose 50% Syringe 50 Ml) 50 ml IVP PRN PRN; Protocol PRN Reason: hypoglycemia protocol Docusate Sodium (Docusate Sodium 100 Mg Capsule) 100 mg PO BID [facility] Last Admin: 06/05/22 08:30 Dose: Not Given Doxycycline Monohydrate (Doxycycline 100 Mg Tablet) 100 mg PO BID [facility], [facility]; Protocol Last Admin: 06/12/22 08:58 Dose: 100 mg Duloxetine HCl (Duloxetine 60 Mg Capsule) 60 mg PO DAILY [facility] Last Admin: 06/05/22 08:34 Dose: 60 mg Enoxaparin Sodium (Enoxaparin 40 Mg/0.4 Ml Syringe) 40 mg SUBCUT Q24H [facility], [facility]1983 Last Admin: 06/05/22 01:12 Dose: 40 mg Enoxaparin Sodium (Enoxaparin 100 Mg/Ml Syringe) 90 mg SUBCUT Q12H [facility]1983 Last Admin: 06/09/22 00:45 Dose: 90 mg Enoxaparin Sodium (Enoxaparin 40 Mg/0.4 Ml Syringe) 40 mg SUBCUT Q24H [facility] Last Admin: 06/15/22 10:41 Dose: 40 mg Epinephrine HCl (Epinephrine 0.1 Mg/Ml Syr 10 Ml) 1 mg .ROUTE .STK-MED ONE Stop: 06/05/22 07:18 Etomidate (Etomidate 2 Mg/Ml Inj Sdv 10 Ml) 30 mg IVP NOW ONE Stop: 06/05/22 01:45 Last Admin: 06/05/22 01:44 Dose: 30 mg Etomidate (Etomidate 2 Mg/Ml Inj Sdv 10 Ml) 40 mg .ROUTE .STK-MED ONE Stop: 06/05/22 07:16 Furosemide (Furosemide 10 Mg/Ml Sdv 2ml) 20 mg IVP ONCE ONE Stop: 06/05/22 17:01 Last Admin: 06/05/22 20:37 Dose: 20 mg Furosemide (Furosemide 10 Mg/Ml Sdv 2ml) 20 mg IVP ONCE ONE Stop: 06/05/22 20:31 Last Admin: 06/05/22 22:01 Dose: Not Given Furosemide (Furosemide 10 Mg/Ml Sdv 10ml) 60 mg IVP ONCE ONE Stop: 06/06/22 16:54 Last Admin: 06/06/22 17:09 Dose: 60 mg Furosemide (Furosemide 10 Mg/Ml Sdv 4ml) 40 mg IVP ONCE ONE Stop: 06/10/22 21:36 Last Admin: 06/10/22 21:50 Dose: 40 mg Glucagon (Glucagon 1 Mg/Ml Inj 1 Ml) 1 mg IM ONCE PRN; Protocol PRN Reason: Adult Acute Hypoglycemia Prot. Sodium Chloride (Sodium Chloride 0.9%) 1,000 mls @ 999 mls/hr IV .Q1H1M [facility]1983 Stop: 06/04/22 23:15 Last Infusion: 06/05/22 03:55 Dose: Infused Magnesium Sulfate (Magnesium Sulfate Premix) 4 gm in 100 mls @ 50 mls/hr IV ONCE ONE Stop: 06/05/22 02:24 Last Infusion: 06/05/22 06:48 Dose: Infused Potassium Chloride (K-Kit Premix) 100 mls @ 50 mls/hr IV ONCE ONE Stop: 06/05/22 02:24 Last Infusion: 06/05/22 03:53 Dose: Infused Sodium Chloride (Sodium Chloride 0.9%) 1,000 mls @ 75 mls/hr IV .[id number] [facility] Last Infusion: 06/05/22 16:28 Dose: Infused Propofol (Diprivan) Confirm Administered Dose 1,000 mg in 100 mls @ as directed .ROUTE .STK-MED ONE Stop: 06/05/22 01:50 Last Infusion: 06/05/22 03:14 Dose: 30 mls/hr Norepinephrine Bitartrate 4 mg (/ Dextrose) 254 mls @ 0 mls/hr IV .Q0M STA; Protocol Stop: 06/05/22 02:30 Last Titration: 06/05/22 22:02 Dose: Infused Levetiracetam 1,000 mg/ Sodium (Chloride) 110 mls @ 440 mls/hr IV ONCE ONE Stop: 06/05/22 02:53 Last Infusion: 06/05/22 05:03 Dose: Infused Fentanyl 1,000 mcg/ Sodium (Chloride) 100 mls @ 0 mls/hr IV .Q0M REBECCA; Protocol Last Titration: 06/05/22 11:18 Dose: 0 mcg/hr, 0 mls/hr Vancomycin HCl / Sodium (Chloride) 250 mls @ 0 mls/hr [id number] PROTOCOL REBECCA; Protocol Piperacillin Sod/Tazobactam (Sod 3.375 gm/ Sodium Chloride) 50 mls @ 12.5 mls/hr IV Q8H [facility], [facility] Last Admin: 06/05/22 04:41 Dose: Not Given Vancomycin/PEG/NADA/Lysine/Water (Vancocin) 1,500 mg in 300 mls @ 200 mls/hr IV Q12H [facility], [facility]1983 Last Infusion: 06/05/22 06:47 Dose: Infused Piperacillin Sod/Tazobactam (Sod 3.375 gm/ Sodium Chloride) 50 mls @ 12.5 mls/hr IV Q8H [facility]1983 Last Infusion: 06/05/22 10:22 Dose: Infused Propofol (Diprivan) 1,000 mg in 100 mls @ 0 mls/hr IV .Q0M REBECCA; Protocol Last Titration: 06/05/22 11:29 Dose: Infused Norepinephrine Bitartrate 4 mg (/ Dextrose) 254 mls @ 0 mls/hr IV .Q0M REBECCA; Protocol Last Titration: 06/05/22 14:30 Dose: 0 mcg/min, 0 mls/hr Lidocaine HCl 5 ml/ Potassium (Chloride) 105 mls @ 25 mls/hr IV Q4H [facility]1983 Stop: 06/05/22 20:14 Last Infusion: 06/05/22 22:02 Dose: Infused Potassium Chloride (K-Kit) 100 mls @ 25 mls/hr IV ONCE ONE Stop: 06/06/22 08:52 Last Infusion: 06/06/22 09:09 Dose: Infused Dexmedetomidine HCl 400 mcg/ (Sodium Chloride) 104 mls @ 0 mls/hr IV .Q0M REBECCA; Protocol Last Titration: 06/14/22 07:30 Dose: Infused Dextrose (D5w) 500 mls @ 100 mls/hr IV ONCE PRN; Protocol PRN Reason: Adult Acute Hypoglycemia Prot Potassium Chloride (K-Kit) 100 mls @ 25 mls/hr IV ONCE ONE Stop: 06/06/22 16:43 Last Infusion: 06/06/22 16:54 Dose: Infused Lidocaine HCl 5 ml/ Potassium (Chloride) 105 mls @ 25 mls/hr IV ONCE ONE Stop: 06/07/22 15:30 Last Infusion: 06/07/22 19:00 Dose: Infused Lidocaine HCl 5 ml/ Potassium (Chloride) 105 mls @ 25 mls/hr IV ONCE ONE Stop: 06/08/22 11:37 Last Infusion: 06/08/22 20:00 Dose: Infused Lidocaine HCl 5 ml/ Potassium (Chloride) 105 mls @ 26.25 mls/hr IV ONCE ONE Stop: 06/09/22 12:52 Lidocaine HCl 5 ml/ Potassium (Chloride) 105 mls @ 26.25 mls/hr IV ONCE ONE Stop: 06/09/22 15:59 Last Infusion: 06/09/22 16:05 Dose: Infused Magnesium Sulfate (Magnesium Sulfate Premix) 2 gm in 50 mls @ 50 mls/hr IV ONCE ONE Stop: 06/13/22 13:22 Last Infusion: 06/13/22 14:36 Dose: Infused Insulin Glargine (Insulin Glargine 100 Units/1 Ml) 10 unit SUBCUT BEDTIME [facility], [facility] Last Admin: 06/09/22 22:04 Dose: 10 unit Insulin Glargine (Insulin Glargine 100 Units/1 Ml) 20 unit SUBCUT BEDTIME REBECCA Last Admin: 06/15/22 22:07 Dose: 20 unit Insulin Human Lispro (Insulin Lispro 100 Unit/1 Ml) 0 unit SUBCUT TIDWM [facility], 1928–1983; Protocol Last Admin: 06/15/22 19:06 Dose: 1 unit Iohexol (Iohexol 350 Mg/Ml 500 Ml Btl (Per Ml)) 0 ml IV ONCE ONE Stop: 06/04/22 22:53 Last Admin: 06/04/22 22:52 Dose: 100 ml Iohexol (Iohexol 350 Mg/Ml 500 Ml Btl (Per Ml)) 0 ml IV ONCE ONE Stop: 06/08/22 10:54 Last Admin: 06/08/22 10:54 Dose: 53 ml Lanolin (Lanolin Oint 7 Gm) 1 applic TOPICAL PRN PRN PRN Reason: DRYNESS Lidocaine HCl (Lidocaine 1% Inj 10 Ml (Per Ml)) Confirm Administered Dose 50 ml .ROUTE .STK-MED ONE Stop: 06/07/22 11:51 Lisinopril (Lisinopril 10 Mg Tablet) 10 mg PO DAILY [facility], [facility]–1983 Last Admin: 06/15/22 10:41 Dose: 10 mg Magnesium Oxide (Magnesium Oxide 400 Mg Tablet) 400 mg PO BID [facility]1983 Last Admin: 06/15/22 19:06 Dose: 400 mg Methylphenidate HCl (Methylphenidate 10 Mg Tablet) 5 mg PO ONCE ONE Stop: 06/07/22 11:22 Last Admin: 06/07/22 13:22 Dose: Not Given Naloxone HCl (Naloxone 0.4 Mg/Ml Sdv) 0.4 mg IVP ONCE ONE Stop: 06/04/22 21:25 Last Admin: 06/04/22 21:34 Dose: 0.4 mg Nicotine (Nicotine 21 Mg Patch) 1 patch TRANSDERMA DAILY FORMERLY [facility], 1928–1983 Nicotine (Nicotine 21 Mg Patch) 1 patch TRANSDERMA DAILY FOR[facility]LY [facility], 1928–1983 Last Admin: 06/15/22 10:42 Dose: 1 patch Nitroglycerin (Nitroglycerin 0.4 Mg Sublingual Tablet) 0.4 mg SUBLINGUAL Q5M PRN PRN Reason: CHEST PAIN Stop: 06/10/22 10:21 Ondansetron HCl (Ondansetron 2 Mg/Ml Sdv 2 Ml) 4 mg IVP Q6H PRN PRN Reason: NAUSEA AND VOMITING Ondansetron HCl (Ondansetron 2 Mg/Ml Sdv 2 Ml) 4 mg IVP Q2M PRN PRN Reason: NAUSEA Pantoprazole Sodium (Pantoprazole 40 Mg Sdv) 40 mg IVP DAILY FORMERLY [facility], [facility]–1983 Last Admin: 06/14/22 07:31 Dose: Not Given Perflutren Protein Type A Microsphe (Perflutren Protein-A Microsphr 0.22 Mg/Ml Sdv 3 Ml) 0 ml IV ONCE ONE Stop: 06/05/22 10:20 Last Admin: 06/05/22 10:35 Dose: 3 ml Potassium Chloride (Potassium Chloride Oral Liq 20 Meq/15 Ml Udc) 40 meq PO ONCE ONE Stop: 06/05/22 00:26 Last Admin: 06/05/22 03:53 Dose: Not Given Potassium Chloride (Potassium Chloride Oral Liq 20 Meq/15 Ml Udc) 20 meq PO BID FOR[facility], [facility]–1983 Last Admin: 06/07/22 08:40 Dose: 20 meq Potassium Chloride (Potassium Chloride Oral Liq 20 Meq/15 Ml Udc) 20 meq PO DAILY FOR[facility], [facility]1983 Last Admin: 06/15/22 10:42 Dose: 20 meq Regadenoson (Regadenoson 0.4 Mg/5 Ml Syringe) 0.4 mg IVP ONCE PRN PRN Reason: Lexiscan Stress Test Succinylcholine Chloride (Succinylcholine 20 Mg/Ml Sdv 10ml) 150 mg IVP NOW ONE Stop: 06/05/22 01:45 Last Admin: 06/05/22 01:44 Dose: 150 mg Succinylcholine Chloride (Succinylcholine 20 Mg/Ml Sdv 10ml) 200 mg .ROUTE .STK-MED ONE Stop: 06/05/22 07:16 Vancomycin HCl (Vancomycin 1,000 Mg Oral Diane (Btl)) 125 mg PO QID FOR[facility], [facility]–1983 Last Admin: 06/15/22 22:08 Dose: 125 mg Vecuronium [place] (Vecuronium 10 Mg Sdv) 10 mg .ROUTE .STK-MED ONE Stop: 06/05/22 07:16 Allergies metformin Allergy (Verified 05/25/22 10:13) upset stomach Sulfa (Sulfonamide Antibiotics) Allergy (Verified 05/25/22 10:13) upsets stomach Home Medications fluticasone propionate 50 mcg/actuation nasal spray,suspension (Flonase Allergy Relief) 2 spray intranasal DAILY #16 grams 08/05/20 [Rx Confirmed 06/05/22] albuterol sulfate 2.5 mg/3 mL (0.083 %) solution for nebulization 2.5 mg inhalation Q6H PRN Shortness Of Breath 12/31/20 [History Confirmed 06/05/22] lidocaine 5 % topical ointment 1 applic topical TID PRN pain #60 grams 12/31/20 [Rx Confirmed 06/05/22] topiramate 50 mg tablet 50 mg PO DAILY 12/31/20 [History Confirmed 06/05/22] oxybutynin chloride 5 mg tablet 5 mg PO DAILY #30 tabs 03/15/21 [Rx Confirmed 06/05/22] clopidogrel 75 mg tablet (Plavix) 75 mg PO DAILY #30 tabs 05/17/21 [Rx Confirmed 06/05/22] albuterol sulfate 90 mcg/actuation aerosol inhaler (ProAir HFA) 2 puff inhalation Q6H PRN Shortness Of Breath #8.5 grams 07/02/21 [Rx Confirmed 06/05/22] duloxetine 60 mg capsule,delayed release 60 mg PO DAILY DEPRESSION / NERVE PAIN #90 caps 11/16/21 [Rx Confirmed 06/05/22] amlodipine 5 mg tablet 5 mg PO DAILY #90 tabs 01/06/22 [Rx Confirmed 06/05/22] docusate sodium 100 mg capsule 100 mg PO BID 02/03/22 [History Confirmed 06/05/22] diazepam 5 mg tablet 5 mg PO BID PRN anxiety #60 tabs 02/15/22 [Rx Confirmed 06/05/22] walker #1 ea 02/21/22 [Rx Confirmed 06/05/22] hinged knee brace #1 ea 03/02/22 [Rx Confirmed 06/05/22] pantoprazole 40 mg tablet,delayed release (Protonix) 40 mg PO DAILY #30 tabs 04/15/22 [Rx Confirmed 06/05/22] sitagliptin phosphate 100 mg tablet (Januvia) 100 mg PO DAILY #90 tabs 04/19/22 [Rx Confirmed 06/05/22] cetirizine 10 mg tablet 10 mg PO DAILY 05/09/22 [History Confirmed 06/05/22] ondansetron 4 mg disintegrating tablet 4 mg PO Q8H PRN nausea and vomiting #15 tabs 05/09/22 [Rx Confirmed 06/05/22] oxycodone 5 mg tablet 5 mg PO Q4H PRN pain #10 tabs 05/09/22 [Rx Confirmed 06/05/22] pregabalin 100 mg capsule (Lyrica) 100 mg PO BID 05/09/22 [History Confirmed 06/05/22] hydrocodone 10 mg-acetaminophen 325 mg tablet 1 tab PO Q8H PRN Pain 30 days #90 tabs 05/13/22 [Rx Confirmed 06/05/22] potassium chloride 20 mEq/15 mL oral liquid 20 meq (15 mL) PO BID 2 days #60 mL 05/18/22 [Rx Confirmed 06/05/22] insulin glargine 100 unit/mL subcutaneous solution (Lantus U-100 Insulin) 100 unit SUBCUT BID 06/05/22 [History Confirmed 06/05/22] Discharge Plan Discharge Patient Disposition: Xfer Short-Term Hosp Condition: Stable Prescriptions: No Action (DME) walker See Rx Instructions .Route .MEDSUPPLY Qty: 1 0RF Rx Instructions: As directed (DME) hinged knee brace See Rx Instructions .Route .MEDSUPPLY Qty: 1 0RF Rx Instructions: As directed fluticasone propionate [Flonase Allergy Relief] 50 mcg/actuation spray,suspension 2 spray INTRANASAL DAILY Qty: 16 5RF Rx Instructions: administer into each nostril oxybutynin chloride 5 mg tablet 5 mg PO DAILY Qty: 30 5RF clopidogrel [Plavix] 75 mg tablet 75 mg PO DAILY Qty: 30 11RF albuterol sulfate [ProAir HFA] 90 mcg/actuation HFA aerosol inhaler 2 puff INHALATION Q6H PRN (Reason: Shortness Of Breath) Qty: 8.5 4RF duloxetine 60 mg capsule,delayed release(DR/EC) 60 mg PO DAILY Qty: 90 3RF amlodipine 5 mg tablet 5 mg PO DAILY Qty: 90 1RF diazepam 5 mg tablet 5 mg PO BID PRN (Reason: anxiety) Qty: 60 3RF Rx Instructions: This instead of the alprazolam for nerves during day and sleep at night pantoprazole [Protonix] 40 mg tablet,delayed release (DR/EC) 40 mg PO DAILY Qty: 30 2RF Januvia 100 mg tablet 100 mg PO DAILY Qty: 90 1RF hydrocodone-acetaminophen 10-325 mg tablet 1 tab PO Q8H PRN (Reason: Pain) 30 Days Qty: 90 0RF potassium chloride 20 mEq/15 mL liquid 20 meq PO BID 2 Days Qty: 60 0RF albuterol sulfate 2.5 mg /3 mL (0.083 %) solution for nebulization 2.5 mg inhalation Q6H PRN (Reason: Shortness Of Breath) topiramate 50 mg tablet 50 mg PO DAILY lidocaine 5 % ointment 1 applic topical TID PRN (Reason: pain) Qty: 60 0RF docusate sodium 100 mg capsule 100 mg PO BID cetirizine 10 mg Tablet 10 mg PO DAILY pregabalin [Lyrica] 100 mg Capsule 100 mg PO BID ondansetron 4 mg tablet,disintegrating 4 mg PO Q8H PRN (Reason: nausea and vomiting) Qty: 15 0RF oxycodone 5 mg tablet 5 mg PO Q4H PRN (Reason: pain) Qty: 10 0RF Rx Instructions: RX FILLED 05/09/22 2D/S Lantus U-100 Insulin 100 unit/mL solution 100 unit SUBCUT BID Referrals: [facility] [Other] ([facility] has accepted you for rehab. If you have any questions or concern laure number is [phone].) Shamika Harding MD [Primary Care Provider] - Patient Instructions: Opioid Safety Transfer Attestations Time Spent in Transfer Care: greater than 30 min Status at Transfer: Cognitive status at transfer: cognitively intact; Behavioral status at transfer: cooperative; Quality Metrics Clinical Quality Measures [ No reported AMI, CVA or VTE this stay] Coding Level of Care Code Acute Code for Chg Fwd Diagnoses C. difficile diarrhea A04.72 Acute CVA (cerebrovascular accident) I63.9 NSTEMI (non-ST elevated myocardial infarction) I21.4 Cardiac arrest I46.9 Hypokalemia E87.6
[2022-06-15 16:31] LABS: Glucose Point of Care 192 mg/dL (70-110)
[2022-06-15 22:07] LABS: Glucose Point of Care 239 mg/dL (70-110)
[2022-06-15] MEDS: insulin glargine 100 units/1 mL 20 UNIT SUBCUT (22:07)
--- NOTE | 2022-06-15 22:18 | PC.NURSE ---
Report called to Irene Damico RN, in [facility].
--- NOTE | 2022-06-15 23:29 | PC.NURSE ---
Approximately 23:00 transport picked up patient and belongings for Sosa Nguyen.
== END 2022-06-15 23:31 | disposition short-term general hospital (02) | DRG 64 ==
LOC: ER 06-05 00:26 → ICU 06-05 00:34 → MEDSURG 06-08 19:58
PROVIDERS: Family Medicine; Internal Medicine; Admitting Provider Internal Medicine; Emergency Provider Emergency Medicine; PCP Family Medicine; Visit Provider Internal Medicine
DX: I63.232 Cerebral infarction due to unspecified occlusion or stenosis of left carotid arteries (principal); I21.4 Non-ST elevation (NSTEMI) myocardial infarction; I46.9 Cardiac arrest, cause unspecified; I50.31 Acute diastolic (congestive) heart failure; J96.91 Respiratory failure, unspecified with hypoxia; G81.91 Hemiplegia, unspecified affecting right dominant side; A04.72 Enterocolitis due to Clostridium difficile, not specified as recurrent; F33.9 Major depressive disorder, recurrent, unspecified; M62.82 Rhabdomyolysis; Z68.41 Body mass index [BMI] 40.0-44.9, adult; R29.709 NIHSS score 9; E87.6 Hypokalemia; F41.9 Anxiety disorder, unspecified; Z86.73 Personal history of transient ischemic attack (TIA), and cerebral infarction without residual deficits; G89.29 Other chronic pain; M54.9 Dorsalgia, unspecified; E11.9 Type 2 diabetes mellitus without complications; I11.0 Hypertensive heart disease with heart failure; R56.9 Unspecified convulsions; Z75.1 Person awaiting admission to adequate facility elsewhere; J44.9 Chronic obstructive pulmonary disease, unspecified; E83.42 Hypomagnesemia; F17.210 Nicotine dependence, cigarettes, uncomplicated; E66.01 Morbid (severe) obesity due to excess calories; Z79.4 Long term (current) use of insulin; Z79.891 Long term (current) use of opiate analgesic; Z79.02 Long term (current) use of antithrombotics/antiplatelets; Z79.51 Long term (current) use of inhaled steroids; Z88.2 Allergy status to sulfonamides; Z88.8 Allergy status to other drugs, medicaments and biological substances
CPT/HCPCS: 31500; 36415; 36416; 36556; 36592; 36600; 51702; 70450; 70496; 70498; 71045; 71275; 74018; 80048; 80053; 80306; 80307; 81001; 82009; 82140; 82550; 82803; 82962; 83036; 83605; 83690; 83735; 83880; 84100; 84132; 84145; 84439; 84443; 84484; 85025; 85378; 85610; 85730; 86140; 87040; 87070; 87077; 87086; 87186; 87205; 87426; 87493; 87804; 92507; 92523; 92526; 92610; 93005; 93308; 93970; 94002; 94003; 94640; 94660; 94664; 94799; 96365; 96366; 96367; 96372; 96374; 96375; 97110; 97112; 97116; 97163; 97167; 97530; 97535; 99291; 99292; A4570; C8929; C9113; J0171; J0330; J1650; J1815; J1940; J1953; J2310; J2543; J2704; J3010; J3370; J3475; J3480; J3490; J7030; J7060; Q9956; Q9967